=== PATIENT | female | born 1950 | race Caucasian/White ===

== ENCOUNTER 2021-07-29 05:13 | Inpatient (IN) | payer OTHER ==
[2021-07-22 15:13] LABS: BASOPHILS # (AUTO) 0.1 X10'3 (0-0.2); BASOPHILS % (AUTO) 0.5 % (0-1); EOSINOPHILS # (AUTO) 0.5 X10'3 (0-0.9); EOSINOPHILS % (AUTO) 4.6 % (0-6); LYMPHOCYTES # (AUTO) 1.6 X10'3 (1.1-4.8); LYMPHOCYTES % (AUTO) 13.1 % (21-51); MEAN CORPUSCULAR HEMOGLOBIN 29.8 PG (27.0-31.0); MEAN CORPUSCULAR VOLUME 90.3 FL (78-98); MEAN PLATELET VOLUME 7.7 FL (7.4-10.4); MONOCYTES # (AUTO) 0.7 X10'3 (0-0.9); MONOCYTES % (AUTO) 5.6 % (2-12); NEUTROPHILS % (AUTO) 76.2 % (42-75); PRE OP HEMATOCRIT 42.6 % (35.0-45.0); PRE OP HEMOGLOBIN 14.1 g/dL (12.0-16.0); PRE OP PLATELET COUNT 300 X10'3 (140-440); RED BLOOD COUNT 4.72 X10'6 (4.20-5.60); RED CELL DISTRIBUTION WIDTH 15.8 % (11.5-14.5)
[2021-07-22 15:24] LABS: PRE OP INR 1.1 INR; PRE OP PROTIME 11.2 SECONDS (9.0-12.0)
[2021-07-22 15:28] LABS: ALBUMIN 3.5 G/DL (3.4-5.0); ALKALINE PHOSPHATASE 93 IU/L (46-116); BLOOD UREA NITROGEN 15 MG/DL (7-18); CHLORIDE 106 MMOL/L (99-107); PRE OP ALT 25 U/L (30-65); PRE OP ANION GAP 6 (8-16); PRE OP AST 27 U/L (10-37); PRE OP BILIRUB, TOTAL 0.5 MG/DL (0.0-1.0); PRE OP GLUCOSE 104 MG/DL (70-104); PRE OP POTASSIUM 5.1 MMOL/L (3.4-5.1); PRE OP SODIUM 144 MMOL/L (135-145); TOTAL CARBON DIOXIDE 31.6 MMOL/L (24-32); TOTAL PROTEIN 6.9 G/DL (6.4-8.2); eGFR 55 ML/MIN
[2021-07-22 15:33] LABS: HEMOGLOBIN A1C 6.5 % (4.5-6.2)
[~2021-07-29] VITALS: Ht 160 cm; Wt 104.6 kg
[2021-07-29] VITALS (24 sets, daily range): BP systolic 154–220; BP diastolic 56–108
[~2021-07-29 05:13] MED LIST: ALBU8HFA IH; AMIT-189 PO; AMLO10TA PO; ASPI-1397 PO; ATOR20TA66 PO; GABA600T13 PO; HYDR25TA5 PO; KEN0.1O TP; LOSA25TA96 PO; METF-438 PO; METO-411 PO; OMEP40CA21 PO; ONDA-103 PO; PRAZ5CAP2 PO; SUCR1TAB PO; TEMA15CA5 PO; TIZA4CAP PO; ringers solution, lacted 1,000 ML IV SCH
[2021-07-29] MEDS ORDERED: albuterol 2.5 MG/3 ML nebule NEB ONE (05:30)
[2021-07-29] MEDS ORDERED: ceFOXitin 2GM-NS 100mL ADDvant 100 ML IV ONE (05:30)
[2021-07-29] MEDS ORDERED: DOCUMENT DATE & TIME OF BETA-BLOCKER PO ONE (05:30)
[2021-07-29] MEDS ORDERED: famotidine 20mg tablet PO ONE (05:30)
[2021-07-29] MEDS ORDERED: LIDOcaine 1% 30ml preserv. free vial ONE ×2 (06:48→07:25)
[2021-07-29] MEDS ORDERED: BUPIVAcaine/PF 2.5mg/ml (0.25%) 10ml vial ONE ×2 (06:48→07:24)
[2021-07-29] MEDS ORDERED: midazolam 1 mg/ML 2ml injection ONE (07:24)
[2021-07-29] MEDS ORDERED: fentaNYL /PF 50mcg/ml 5ml ampule ONE (07:24)
[2021-07-29] MEDS ORDERED: BUPIVACAINE liposomal/PF 13.3 MG/ML vial IM ONE (07:24)
[2021-07-29] MEDS ORDERED: labetalol 20mg/4ml (5mg/ml) syringe IV ONE (07:43)
[2021-07-29] MEDS ORDERED: rocuronium 10mg/ml inj IV ONE ×2 (07:43→11:14)
[2021-07-29] MEDS ORDERED: neostigmine methylsulfate 1 MG/ML 10ml vial ONE (07:43)
[2021-07-29] MEDS ORDERED: sevoflurane 250ml liquid IH ONE (07:43)
[2021-07-29] MEDS ORDERED: HYDROmorphone/PF 0.2 MG/ML SYRINGE IV PRN ×2 (10:50)
[2021-07-29] MEDS ORDERED: ondansetron/PF 4mg/2ml inj IV PRN (10:50)
[2021-07-29] MEDS ORDERED: morphine 2 MG/ML inj. syringe IV PRN (10:50)
[2021-07-29] MEDS ORDERED: ringers solution, lacted 1,000 ML IV SCH (10:50)
[2021-07-29] MEDS ORDERED: LIDOcaine 2% (20mg/ml) 5ml vial ONE (11:14)
[2021-07-29] MEDS ORDERED: propofol inj 20 ML IV ONE (11:14)
[2021-07-29] MEDS ORDERED: acetaminophen 1,000mg/100ml IV 100 ML IV ONE (11:14)
[2021-07-29] MEDS ORDERED: ondansetron/PF 4mg/2ml inj ONE (11:14)
[2021-07-29] MEDS ORDERED: sugammadex 200mg/2ml injection IV ONE (14:02)
[2021-07-29] MEDS ORDERED: glycopyrrolate 0.2mg/ml inj ONE (14:10)
[2021-07-29] MEDS ORDERED: ePHEDrine 50MG/ML INJ. ONE (14:11)
[2021-07-29] MEDS ORDERED: meperidine/PF 25mg/ml syringe ONE (14:28)
--- NOTE | 2021-07-29 14:30 | NUR ---
Received from OR via , accompanied by Anesthesiologist and report given by Anesthesiolgist. PATIENT WAKING UP, PAIN MEDS GIVEN ON ARRIVAL BY MD. HTN-LABATOLOL GIVEN. SCD ON. F/C DRAINING PINK URINE. 20G RUE. COL.OSTOMY SEALED WITH PINK STOMA CDI. MIDLINE ABDOMEN DRESSING WITH FOAM SPONGES PACKED INTO INCISION WITH WV DRESSING CDI AT 125 CONTINOUS SUCTION WITH NO LEAKS DETECTED
[2021-07-29] MEDS ORDERED: naloxone 0.4 mg/ml inj IV PRN (14:35)
[2021-07-29] MEDS ORDERED: CADD PCA waste documentation MC PRN (14:35)
[2021-07-29 14:46] LABS: ISTAT CREATININE 0.9 mg/dL (0.6-1.1); ISTAT HGB 15.6 g/dl (12.0-16.0); ISTAT IONIZED CALCIUM 1.02 mmol/L (1.03-1.32); ISTAT K 4.1 mmol/L (3.5-5.1); POC BUN/CREATININE RATIO 14.4 (6.6-38.0)
[2021-07-29] MEDS ORDERED: hydrALAZINE 20mg/ml inj. IV PRN (14:55)
[2021-07-29] MEDS ORDERED: hydrALAZINE 20mg/ml inj. IV ONE ×2 (15:10→18:15)
[2021-07-29] MEDS: HYDROmorph./NS 0.2 mg/ml CADD 100 ML IV SCH ×5 (15:11→23:00)
[2021-07-29] MEDS ORDERED: ceFOXitin 1 GM/D5W 50mL IVPB 50 ML IV SCH (16:00)
--- NOTE | 2021-07-29 16:09 | NUR ---
Received report from OSMAN Shea. Awaiting patient arrival to room 349B.
[2021-07-29] MEDS ORDERED: proCHLORperazine 10 MG/2 ml inj IM ONE (16:10)
--- NOTE | 2021-07-29 16:20 | NUR ---
PATIENT A&OX4, STATES PAIN INTERMITTENT TOURING PRODUCTION MANAGER ENCOURAGED. SCD ON. F/C DRAINING PINK URINE. 20G RUE. COLOSTOMY SEALED WITH PINK STOMA CDI. MIDLINE ABDOMEN DRESSING WITH FOAM SPONGES PACKED INTO INCISION WITH WV DRESSING CDI AT 125 CONTINOUS SUCTION WITH NO LEAKS DETECTED. N&v at times meds ordered see emar- zofran given. patient taken to 346a with all belongings and hooked up to monitors in room and report given to heel turner who has taken over patient care.
--- NOTE | 2021-07-29 16:35 | NUR ---
Received patient to room 349B via bed accompanied by x2 staff. Patient drowsy but easily awakens to voice. Patient c/o pain 09/07. Patient has dilaudid cadd pump. Zofran given to patient prior to arrival to floor. Wound vac 125mmhg suctioning with no issue. Hewitt cath with pink urine draining to gravity. SCD on. Post op initiated, vss. Wll continue to monitor.
[2021-07-29] MEDS ORDERED: proCHLORperazine 10 MG/2 ml inj IV ONE (17:05)
--- NOTE | 2021-07-29 17:38 | NUR ---
PAGER ID: [phone] MESSAGE: [id number]- Manny Chavisa- BP is 194/84 Hr 92. Was given hydralazine 2 hours ago. Patient denies pain or discomfort at this time. - Thank you, Gunnar [phone]
--- NOTE | 2021-07-29 18:14 | NUR ---
PAGER ID: [phone] MESSAGE: [id number]- Rachele Camargo- BP is now 214/93 HR 85. [facility] [place] [id number]
[2021-07-29] MEDS: Potassium Cl inj 20 MEQ in ringers solution, lacted 1,000 ML IV SCH ×2 (18:30→22:40)
--- NOTE | 2021-07-29 18:43 | NUR ---
Patient in room ROSAL[facility] 349. I have received report from Gunnar BREWER and had the opportunity to ask questions and assume patient care.
--- NOTE | 2021-07-29 18:52 | NUR ---
Problems reprioritized. Patient report given, questions answered & plan of care reviewed with OSMAN Griffin. 1800 dose Mefoxin unavailable to be given pharmacy was paged. OSMAN Griffin aware.
[2021-07-29] MEDS: ceFOXitin inj 1,000 MG in normal saline 100ml IV soln 100 ML IV SCH (20:35)
[2021-07-29] MEDS ORDERED: dextrose ORAL solution 15 GM/59 ML bottle PO PRN ×2 (20:45)
[2021-07-29] MEDS ORDERED: glucagon, human recombinant 1mg kit SUBCUT PRN (20:45)
[2021-07-29] MEDS ORDERED: MESSAGE TO PHARMACY PO ONE (20:45)
[2021-07-29] MEDS ORDERED: dextrose 50%-water 50ml dispensing syringe IV PRN ×2 (20:45)
[2021-07-29] MEDS ORDERED: albuterol 2.5 MG/3 ML nebule NEB PRN (20:50)
[2021-07-29] MEDS: insulin glargine (Lantus) pen - multi-dose SQ SCH (21:00)
[2021-07-29] MEDS ORDERED: amLODIPine 5mg tablet PO SCH (21:00)
[2021-07-29] MEDS: metoprolol succinate 25mg (24-HOUR) SR. Tablet PO SCH (21:00)
[2021-07-29] MEDS ORDERED: HYDROchlorothiazide 12.5mg capsule PO SCH (21:00)
[2021-07-29] MEDS: albuterol 2.5 MG/3 ML nebule NEB SCH (21:39)
[2021-07-29] MEDS: prazosin 1mg capsule PO SCH (23:35)
[2021-07-29] MEDS: sucralfate 1 gm tablet PO SCH (23:35)
[2021-07-29] MEDS: losartan 50mg tablet PO SCH (23:35)
[2021-07-30] VITALS: BP 172/93
[2021-07-30] MEDS: HYDROmorph./NS 0.2 mg/ml CADD 100 ML IV SCH ×12 (01:00→23:00)
[2021-07-30] MEDS: ceFOXitin inj 1,000 MG in normal saline 100ml IV soln 100 ML IV SCH (02:32)
[2021-07-30] MEDS ORDERED: hydrALAZINE 20mg/ml inj. IV ONE ×2 (03:00→09:00)
[2021-07-30] MEDS: ondansetron/PF 4mg/2ml inj IV PRN ×3 (05:21→20:16)
[2021-07-30] MEDS: Potassium Cl inj 20 MEQ in ringers solution, lacted 1,000 ML IV SCH (05:30)
[2021-07-30 06:16] LABS: BASOPHILS % (AUTO) 0 % (0-1); EOSINOPHILS % (AUTO) 0 % (0-6); HEMATOCRIT 44.5 % (35.0-45.0); HEMOGLOBIN 14.4 g/dl (12.0-16.0); LYMPHOCYTES # (AUTO) 0.8 X10'3 (1.1-4.8); LYMPHOCYTES % (AUTO) 3.7 % (21-51); MEAN CORPUSCULAR HEMOGLOBIN 29.6 PG (27.0-31.0); MEAN CORPUSCULAR HGB CONC 32.4 g/dL (33.0-36.5); MEAN CORPUSCULAR VOLUME 91.4 FL (78-98); MEAN PLATELET VOLUME 8.4 FL (7.4-10.4); MONOCYTES # (AUTO) 1.1 X10'3 (0-0.9); MONOCYTES % (AUTO) 4.7 % (2-12); NEUTROPHILS # (AUTO) 20.6 X10'3 (1.8-7.7); NEUTROPHILS % (AUTO) 91.6 % (42-75); PLATELET COUNT 366 X10'3 (140-440); RED BLOOD COUNT 4.87 X10'6 (4.20-5.60); RED CELL DISTRIBUTION WIDTH 15.5 % (11.5-14.5); WHITE BLOOD COUNT 22.5 X10'3 (4.5-11.0)
[2021-07-30 06:29] LABS: ALBUMIN 3.3 G/DL (3.4-5.0); ANION GAP 13 (8-16); BLOOD UREA NITROGEN 17 MG/DL (7-18); CALCIUM 7.4 MG/DL (8.5-10.1); CHLORIDE 107 MMOL/L (99-107); CREATININE 1.31 MG/DL (0.40-0.90); GLUCOSE 173 MG/DL (70-104); POTASSIUM 5.2 MMOL/L (3.5-5.1); SODIUM 142 MMOL/L (135-145); TOTAL CARBON DIOXIDE 22.5 MMOL/L (24-32); eGFR 40 ML/MIN
--- NOTE | 2021-07-30 06:53 | NUR ---
Problems reprioritized. Patient report given, questions answered & plan of care reviewed with Amita BREWER.
--- NOTE | 2021-07-30 06:57 | NUR ---
Patient in room ROSALEE 349. I have received report from OSMAN Griffin and had the opportunity to ask questions and assume patient care.
[2021-07-30 07:00] VITALS: BP 189/92
[2021-07-30] MEDS: albuterol 2.5 MG/3 ML nebule NEB SCH ×4 (07:00→20:09)
[2021-07-30] MEDS: sucralfate 1 gm tablet PO SCH ×4 (07:00→22:03)
[2021-07-30] MEDS: losartan 50mg tablet PO SCH ×2 (08:00→09:03)
[2021-07-30] MEDS: pantoprazole 40mg Tablet.DR PO SCH (08:00)
[2021-07-30] MEDS: metoprolol succinate 25mg (24-HOUR) SR. Tablet PO SCH (08:00)
[2021-07-30] MEDS: atorvastatin 20mg tablet PO SCH (08:00)
[2021-07-30] MEDS: aspirin 81mg, enteric-coated 1 TAB TABLET.DR PO SCH (08:00)
[2021-07-30] MEDS: enoxaparin 40mg/0.4ml syringe SQ SCH (08:26)
[2021-07-30] MEDS: hydrALAZINE 20mg/ml inj. IV SCH ×2 (08:26→14:13)
--- NOTE | 2021-07-30 08:30 | NUR ---
Dr Roberts notified regarding appearance of new colostomy with coagulated and sanguinous drainage. Also informed him of tachycardia and elevated potassium. No new orders received and Dr Roberts directed this RN to notify hospitalist with medical concerns. Will contact hospitalist and continue to monitor.
--- NOTE | 2021-07-30 08:40 | NUR ---
Dr Goss notified of pt's tachycardia, elevated potassium level, WBC count, and blood pressures. Orders received to transfer pt to PCU, as well as labs to be drawn and medications ordered. NSG supervisor parachute manufacturing notified, will continue to monitor.
[2021-07-30] MEDS: insulin Lispro (HumaLOG) vial - multi-dose SQ SCH ×2 (08:45→13:30)
[2021-07-30] MEDS ORDERED: temazepam 15mg capsule PO PRN (08:55)
[2021-07-30] MEDS ORDERED: potassium Cl 20 mEq SR tablet PO PRN ×2 (09:00)
[2021-07-30] MEDS ORDERED: magnesium 4gm in 100ml NS 100 ML IV PRN (09:00)
[2021-07-30] MEDS ORDERED: normal saline 1000ml 1,000 ML IV ONE (09:00)
[2021-07-30] MEDS ORDERED: piperacillin/tazo 3.375gm/50ml 50 ML IV SCH (09:00)
[2021-07-30] MEDS ORDERED: potassium Cl 40MEQ/1/2NS 520ml 520 ML IV PRN (09:00)
[2021-07-30] MEDS: amLODIPine 5mg tablet PO SCH (09:01)
[2021-07-30] MEDS ORDERED: tizanidine 4mg tablet PO PRN (09:05)
[2021-07-30 09:23] VITALS: BP 140/72
[2021-07-30 11:00] VITALS: BP 161/77
--- NOTE | 2021-07-30 11:15 | NUR ---
Problems reprioritized. Patient report given, questions answered & plan of care reviewed with OSMAN Barnes.
[2021-07-30] MEDS: normal saline 1000ml 1,000 ML IV SCH (11:21)
--- NOTE | 2021-07-30 11:40 | NUR ---
Pt transferred to room 3020 on hospital bed, with all belongings. notified of transfer.
--- NOTE | 2021-07-30 12:12 | NUR ---
Patient in room PCU 3020. I have received report from OSMAN MOSS and had the opportunity to ask questions and assume patient care.
[2021-07-30] MEDS: vancomycin/NS 1 GM ADD-VANTAGE 250 ML IV SCH (14:16)
[2021-07-30] MEDS ORDERED: labetalol 20mg/4ml (5mg/ml) syringe IV ONE ×2 (14:40→16:00)
--- NOTE | 2021-07-30 15:48 | NUR ---
SENT PAGE PAGER ID: [phone] MESSAGE: [id number] ARGELIA TSANG, HEART RATE 120. THANK YOU MORA [phone]
--- NOTE | 2021-07-30 15:58 | NUR ---
Orders for 20mg of labetalol put in per Dr. Goss.
[2021-07-30] MEDS ORDERED: LORazepam 2 mg/ml vial IV PRN (16:00)
[2021-07-30] MEDS ORDERED: LORazepam 2 mg/ml vial IV ONE (16:00)
--- NOTE | 2021-07-30 16:11 | NUR ---
Spoke with pharmacy regarding 20mg of labetalol that was given but that the primary nurse OSMAN Barnes did not remember administering. I looked in the omnicell to see when the last time was that the medication was pulled and couldn't see it. I called pharmacy and spoke with them and they said that it shows through the eMAR that the medication was administered but that the medication had not been pulled from the omnicell and that the primary RN must have not given the dose that was ordered. Primary RN notified of the situation and Dr. Goss will be paged regarding it as well.
--- NOTE | 2021-07-30 16:19 | NUR ---
Paged Dr. Goss regarding medication administration. PAGER ID: [phone] MESSAGE: [phone]. Rachele Chavis. Investigated the medication with pharmacy. Medication was never pulled or administered. Nurse administered through eMAR accidentally. Thank you. Kaye BREWER x [phone] Addendum: 07/30/21 at 1623 by Kaye Ramon RN Dr. Goss called back and is aware.
--- NOTE | 2021-07-30 16:54 | NUR ---
Problems reprioritized. Patient report given, questions answered & plan of care reviewed with OSMAN ANNA.
--- NOTE | 2021-07-30 16:55 | NUR ---
Patient in room PCU 3020. I have received report from OSMAN Barnes and had the opportunity to ask questions and assume patient care. Patient asleep in bed and in no acute distress.
[2021-07-30 18:00] VITALS: BP 114/53
[2021-07-30] MEDS: K and/or MAG REPLACEMENT MC SCH (20:00)
[2021-07-30] MEDS: piperacillin/tazo 3.375gm/50ml 50 ML IV SCH (20:15)
[2021-07-30] MEDS: gabapentin 300mg capsule PO SCH (20:28)
[2021-07-30] MEDS: amitriptyline 25mg tablet PO SCH (20:29)
[2021-07-30 22:00] VITALS: BP 147/67
[2021-07-30] MEDS: prazosin 1mg capsule PO SCH (22:03)
[2021-07-30] MEDS: insulin glargine (Lantus) pen - multi-dose SQ SCH (22:10)
[2021-07-30] MEDS: triamcinolone acet 0.1% cream 15gm TP SCH (22:11)
[2021-07-31] MEDS: HYDROmorph./NS 0.2 mg/ml CADD 100 ML IV SCH ×10 (01:00→20:00)
[2021-07-31 02:00] VITALS: BP 168/66
[2021-07-31] MEDS: piperacillin/tazo 3.375gm/50ml 50 ML IV SCH ×3 (02:35→19:58)
[2021-07-31] MEDS: normal saline 1000ml 1,000 ML IV SCH ×3 (02:36→20:50)
[2021-07-31 06:00] VITALS: BP 165/83
[2021-07-31 06:09] LABS: BASOPHILS % (AUTO) 0 % (0-1); EOSINOPHILS % (AUTO) 0 % (0-6); HEMATOCRIT 34.9 % (35.0-45.0); HEMOGLOBIN 11.5 g/dl (12.0-16.0); LYMPHOCYTES # (AUTO) 0.6 X10'3 (1.1-4.8); LYMPHOCYTES % (AUTO) 6.1 % (21-51); MEAN CORPUSCULAR HEMOGLOBIN 29.7 PG (27.0-31.0); MEAN CORPUSCULAR HGB CONC 32.8 g/dL (33.0-36.5); MEAN CORPUSCULAR VOLUME 90.4 FL (78-98); MEAN PLATELET VOLUME 8.4 FL (7.4-10.4); MONOCYTES # (AUTO) 0.5 X10'3 (0-0.9); MONOCYTES % (AUTO) 5.2 % (2-12); NEUTROPHILS # (AUTO) 8.4 X10'3 (1.8-7.7); NEUTROPHILS % (AUTO) 88.7 % (42-75); PLATELET COUNT 193 X10'3 (140-440); RED BLOOD COUNT 3.86 X10'6 (4.20-5.60); RED CELL DISTRIBUTION WIDTH 15.5 % (11.5-14.5); WHITE BLOOD COUNT 9.5 X10'3 (4.5-11.0)
--- NOTE | 2021-07-31 06:36 | NUR ---
Patient in room PCU 3020. I have received report from OSMAN Barrera and had the opportunity to ask questions and assume patient care.
[2021-07-31 06:51] LABS: ALANINE AMINOTRANSFERASE 18 U/L (12-78); ALBUMIN 2.5 G/DL (3.4-5.0); ALBUMIN/GLOBULIN RATIO 0.9 (1.1-1.5); ALKALINE PHOSPHATASE 79 IU/L (46-116); ANION GAP 8 (8-16); ASPARTATE AMINO TRANSFERASE 28 U/L (10-37); BILIRUBIN,TOTAL 0.6 MG/DL (0.1-1.0); BLOOD UREA NITROGEN 21 MG/DL (7-18); BUN/CREATININE RATIO 18.4 (6.6-38.0); CHLORIDE 111 MMOL/L (99-107); CREATININE 1.14 MG/DL (0.40-0.90); GLUCOSE 143 MG/DL (70-104); PHOSPHORUS 2.9 MG/DL (2.3-4.5); POTASSIUM 4.4 MMOL/L (3.5-5.1); SODIUM 145 MMOL/L (135-145); TOTAL PROTEIN 5.4 G/DL (6.4-8.2); eGFR 47 ML/MIN
[2021-07-31 06:56] LABS: MAGNESIUM 0.9 MG/DL (1.5-2.4)
--- NOTE | 2021-07-31 07:04 | NUR ---
Notified Dr Brody of low mg on this morning's labs: PAGER ID: [phone] MESSAGE: Partha Gayle [phone] CRIT mag 0.9. Would you like to replace? Jaquelin [phone]
[2021-07-31] MEDS: aspirin 81mg, enteric-coated 1 TAB TABLET.DR PO SCH (07:52)
[2021-07-31] MEDS: amLODIPine 5mg tablet PO SCH (07:52)
[2021-07-31] MEDS: pantoprazole 40mg Tablet.DR PO SCH (07:52)
[2021-07-31] MEDS: atorvastatin 20mg tablet PO SCH (07:52)
[2021-07-31] MEDS: sucralfate 1 gm tablet PO SCH ×2 (07:53→12:00)
[2021-07-31] MEDS: losartan 50mg tablet PO SCH ×2 (07:53)
[2021-07-31] MEDS: enoxaparin 40mg/0.4ml syringe SQ SCH (07:55)
[2021-07-31] MEDS: magnesium Cl slow-release 64mg tablet PO PRN ×2 (07:55→21:47)
[2021-07-31] MEDS: K and/or MAG REPLACEMENT MC SCH ×2 (08:00→20:00)
[2021-07-31] MEDS ORDERED: HYDROchlorothiazide 25mg tablet PO SCH (08:00)
[2021-07-31] MEDS: triamcinolone acet 0.1% cream 15gm TP SCH ×2 (08:00→21:48)
[2021-07-31] MEDS: albuterol 2.5 MG/3 ML nebule NEB SCH ×4 (08:10→19:41)
[2021-07-31] MEDS: metoprolol succinate 25mg (24-HOUR) SR. Tablet PO SCH (09:14)
[2021-07-31] MEDS: vancomycin/NS 1 GM ADD-VANTAGE 250 ML IV SCH (09:14)
[2021-07-31 11:00] VITALS: BP 157/71
[2021-07-31 18:00] VITALS: BP 152/74
[2021-07-31 19:00] VITALS: BP 152/74
--- NOTE | 2021-07-31 19:09 | NUR ---
Problems reprioritized. Patient report given, questions answered & plan of care reviewed with OSMAN Murphy.
[2021-07-31] MEDS: insulin glargine (Lantus) pen - multi-dose SQ SCH (21:00)
[2021-07-31] MEDS: prazosin 1mg capsule PO SCH (21:47)
[2021-07-31] MEDS: lactobacillus rhamnosus 10,000 MMU CELLS/CAPSULE PO SCH (21:47)
[2021-07-31] MEDS: gabapentin 300mg capsule PO SCH (21:47)
[2021-07-31] MEDS: amitriptyline 25mg tablet PO SCH (21:47)
[2021-07-31 22:00] VITALS: BP 183/76
--- NOTE | 2021-07-31 23:00 | NUR ---
NGT attempted several times both nares, pt stated "I just can't do it", "this isn't going to work, stop". Will talk with pt about it later, and possibly attempt again as pt allows. Pt has denied nausea while being able to keep down her po medications given this noc shift. Addendum: 08/01/21 at 0030 by Katherine Wiggins RN Amended: Links added.
[2021-08-01 02:00] VITALS: BP 155/68
[2021-08-01] MEDS: normal saline 1000ml 1,000 ML IV SCH ×2 (02:59→23:49)
[2021-08-01] MEDS: piperacillin/tazo 3.375gm/50ml 50 ML IV SCH ×3 (03:01→19:30)
[2021-08-01] MEDS: HYDROmorph./NS 0.2 mg/ml CADD 100 ML IV SCH ×11 (04:00→23:00)
[2021-08-01 06:59] VITALS: BP 182/80
--- NOTE | 2021-08-01 07:03 | NUR ---
Patient in room PCU 3020. I have received report from Katherine BREWER and had the opportunity to ask questions and assume patient care.
[2021-08-01] MEDS: albuterol 2.5 MG/3 ML nebule NEB SCH ×4 (07:39→19:29)
[2021-08-01] MEDS: aspirin 81mg, enteric-coated 1 TAB TABLET.DR PO SCH (07:59)
[2021-08-01] MEDS: amLODIPine 5mg tablet PO SCH (07:59)
[2021-08-01] MEDS: metoprolol succinate 25mg (24-HOUR) SR. Tablet PO SCH (07:59)
[2021-08-01] MEDS: pantoprazole 40mg Tablet.DR PO SCH (07:59)
[2021-08-01] MEDS: atorvastatin 20mg tablet PO SCH (07:59)
[2021-08-01] MEDS: enoxaparin 40mg/0.4ml syringe SQ SCH (08:00)
[2021-08-01] MEDS: losartan 50mg tablet PO SCH (08:00)
[2021-08-01] MEDS: lactobacillus rhamnosus 10,000 MMU CELLS/CAPSULE PO SCH ×2 (08:00→19:50)
[2021-08-01] MEDS: triamcinolone acet 0.1% cream 15gm TP SCH ×2 (08:00→19:51)
[2021-08-01] MEDS: K and/or MAG REPLACEMENT MC SCH ×2 (08:00→19:51)
--- NOTE | 2021-08-01 08:31 | NUR ---
Contacted Dr Roberts regarding patient is having brenda dark blood coming out of colostomy bag. I emptied 100ml's no labs drawn on patient today. Received orders for CBC, BMP, Per Dr Roberts ok to give patient her Lovenox per orders. Advised Dr Roberts that patient has a lot of mucus in lungs and that she has wheezes. Received orders for Flutter valve on top of her IS use. Also. Received orders for PT eval land treat. Keep sky in for 5 days.
[2021-08-01 09:10] LABS: BASOPHILS % (AUTO) 0.1 % (0-1); EOSINOPHILS % (AUTO) 0.2 % (0-6); HEMOGLOBIN 12.4 g/dl (12.0-16.0); LYMPHOCYTES # (AUTO) 0.4 X10'3 (1.1-4.8); LYMPHOCYTES % (AUTO) 10.7 % (21-51); MEAN CORPUSCULAR HEMOGLOBIN 29.7 PG (27.0-31.0); MEAN CORPUSCULAR HGB CONC 31.8 g/dL (33.0-36.5); MEAN CORPUSCULAR VOLUME 93.4 FL (78-98); MEAN PLATELET VOLUME 7.9 FL (7.4-10.4); MONOCYTES # (AUTO) 0.6 X10'3 (0-0.9); MONOCYTES % (AUTO) 16.1 % (2-12); NEUTROPHILS # (AUTO) 2.8 X10'3 (1.8-7.7); NEUTROPHILS % (AUTO) 72.9 % (42-75); PLATELET COUNT 196 X10'3 (140-440); RED BLOOD COUNT 4.17 X10'6 (4.20-5.60); RED CELL DISTRIBUTION WIDTH 16.3 % (11.5-14.5); WHITE BLOOD COUNT 3.8 X10'3 (4.5-11.0)
[2021-08-01] MEDS: vancomycin/NS 1 GM ADD-VANTAGE 250 ML IV SCH (09:18)
[2021-08-01] MEDS ORDERED: tizanidine 4mg tablet PO PRN (09:25)
[2021-08-01 09:26] LABS: ALBUMIN 2.5 G/DL (3.4-5.0); ANION GAP 8 (8-16); BLOOD UREA NITROGEN 22 MG/DL (7-18); BUN/CREATININE RATIO 21.2 (6.6-38.0); CALCIUM 7.4 MG/DL (8.5-10.1); CHLORIDE 110 MMOL/L (99-107); CREATININE 1.04 MG/DL (0.40-0.90); GLUCOSE 136 MG/DL (70-104); POTASSIUM 3.7 MMOL/L (3.5-5.1); SODIUM 143 MMOL/L (135-145); TOTAL CARBON DIOXIDE 25.3 MMOL/L (24-32); eGFR 52 ML/MIN
[2021-08-01 11:00] VITALS: BP 154/77
--- NOTE | 2021-08-01 11:34 | NUR ---
PAGER ID: [phone] MESSAGE[phone] Re: Partha. [phone] Please call patients sky not working has approx. 310ml in bladder Per Dr Brody contact Dr Brewer regarding this issue
--- NOTE | 2021-08-01 11:51 | NUR ---
Contacted Dr Brewer office and they will send her a message to contact me
--- NOTE | 2021-08-01 12:37 | NUR ---
Irrigated patients with 60 cc sterile water, 60 cc returned and urine is now flowing did not see any clots but sky is working well now
[2021-08-01 15:00] VITALS: BP 128/73
--- NOTE | 2021-08-01 15:17 | NUR ---
No wound care today tried to call them. Per Electronics Instructor Meryl they are not here. I advised I have a patient that needs to have a wound vac changed. Meryl stated she can come up and do it. I spoke to Dr Roberts and if the survey supervisor can do it that is fine other faria she needs to have wet to dry done this afternoon then Wet to dry BID. Meryl survey supervisor aware and will come up to floor and change dressing.
[2021-08-01 16:18] LABS: MAGNESIUM 1.3 MG/DL (1.5-2.4); PHOSPHORUS 2.5 MG/DL (2.3-4.5)
--- NOTE | 2021-08-01 16:53 | NUR ---
Meryl linen room supervisor came and changed patients wound vac. Patient tolerated well all black foam dc'd by meryl minimal bleeding in wound bed. Meryl replaced patients black foam in the upper wound bed and tracked to the lower wound bed. Drapping covered good skin and black foam placed on top to track foam to lower wound bed which completed one large black foam, a partial black foam from large package was added to larger wound bed. Wound bed was filled with black foam and suction applied over black foam with draping to secure. Wound vac turned back on and suction seal was good at 125 mmHg dressing looked good dressing all intact patient tolerated well. Total foams used approx 1 1/2 large foam dressing.
--- NOTE | 2021-08-01 18:40 | NUR ---
Problems reprioritized. Patient report given, questions answered & plan of care reviewed with Katherine BREWER.
[2021-08-01 19:00] VITALS: BP 120/63
[2021-08-01] MEDS: prazosin 1mg capsule PO SCH (19:49)
[2021-08-01] MEDS: amitriptyline 25mg tablet PO SCH (19:50)
[2021-08-01] MEDS: gabapentin 300mg capsule PO SCH (19:50)
[2021-08-01] MEDS: magnesium Cl slow-release 64mg tablet PO PRN (19:50)
[2021-08-01] MEDS: insulin glargine (Lantus) pen - multi-dose SQ SCH (21:00)
[2021-08-01 22:00] VITALS: BP 135/70
[2021-08-02] MEDS: HYDROmorph./NS 0.2 mg/ml CADD 100 ML IV SCH ×12 (01:00→23:00)
[2021-08-02 02:00] VITALS: BP 102/51
[2021-08-02] MEDS: piperacillin/tazo 3.375gm/50ml 50 ML IV SCH ×3 (03:06→19:00)
[2021-08-02 06:00] VITALS: BP 101/44
--- NOTE | 2021-08-02 06:41 | NUR ---
Problems reprioritized. Patient report given, questions answered & plan of care reviewed with Yolanda BREWER. Addendum: 08/02/21 at 0642 by Katherine Wiggins RN Amended: Links added.
--- NOTE | 2021-08-02 07:00 | NUR ---
Pt refused 0700 bg check.
[2021-08-02] MEDS: albuterol 2.5 MG/3 ML nebule NEB SCH ×4 (07:49→20:04)
[2021-08-02] MEDS ORDERED: metoprolol succinate 25mg (24-HOUR) SR. Tablet PO SCH (08:00)
[2021-08-02] MEDS: K and/or MAG REPLACEMENT MC SCH ×2 (08:00→19:06)
[2021-08-02] MEDS ORDERED: VANCOMYCIN LEVEL IV ONE (08:30)
[2021-08-02] MEDS ORDERED: methylnaltrexone br 12mg/0.6ml inj***SubQ only SQ ONE (08:45)
[2021-08-02 08:48] LABS: EOSINOPHILS % (AUTO) 0.4 % (0-6); HEMOGLOBIN 10.5 g/dl (12.0-16.0); LYMPHOCYTES # (AUTO) 0.3 X10'3 (1.1-4.8); MEAN PLATELET VOLUME 7.8 FL (7.4-10.4); MONOCYTES # (AUTO) 0.6 X10'3 (0-0.9); NEUTROPHILS # (AUTO) 0.7 X10'3 (1.8-7.7); PLATELET COUNT 173 X10'3 (140-440); RED CELL DISTRIBUTION WIDTH 16.1 % (11.5-14.5); WHITE BLOOD COUNT 1.7 X10'3 (4.5-11.0)
[2021-08-02 08:50] LABS: BASOPHILS % (AUTO) 0.1 % (0-1); HEMATOCRIT 32.8 % (35.0-45.0); LYMPHOCYTES % (AUTO) 18.7 % (21-51); MEAN CORPUSCULAR HEMOGLOBIN 29.8 PG (27.0-31.0); MEAN CORPUSCULAR HGB CONC 32.1 g/dL (33.0-36.5); MONOCYTES % (AUTO) 38.7 % (2-12); NEUTROPHILS % (AUTO) 42.1 % (42-75); RED BLOOD COUNT 3.53 X10'6 (4.20-5.60)
[2021-08-02 09:05] LABS: ALANINE AMINOTRANSFERASE 15 U/L (12-78); ALBUMIN 2.1 G/DL (3.4-5.0); ALBUMIN/GLOBULIN RATIO 0.7 (1.1-1.5); ALKALINE PHOSPHATASE 53 IU/L (46-116); ANION GAP 6 (8-16); ASPARTATE AMINO TRANSFERASE 14 U/L (10-37); BILIRUBIN,TOTAL 0.5 MG/DL (0.1-1.0); BLOOD UREA NITROGEN 30 MG/DL (7-18); BUN/CREATININE RATIO 19.5 (6.6-38.0); CALCIUM 7.3 MG/DL (8.5-10.1); CHLORIDE 114 MMOL/L (99-107); CREATININE 1.54 MG/DL (0.40-0.90); GLUCOSE 133 MG/DL (70-104); MAGNESIUM 1.7 MG/DL (1.5-2.4); PHOSPHORUS 3.8 MG/DL (2.3-4.5); POTASSIUM 4.2 MMOL/L (3.5-5.1); SODIUM 149 MMOL/L (135-145); TOTAL CARBON DIOXIDE 29.1 MMOL/L (24-32); TOTAL PROTEIN 5.2 G/DL (6.4-8.2); VANCOMYCIN,TROUGH 12.9 UG/ML (6.0-14.0); eGFR 33 ML/MIN
[2021-08-02 09:14] LABS: ANISOCYTOSIS 1+; PLATELET ESTIMATE NORMAL; TOTAL CELLS COUNTED 100
[2021-08-02 10:00] VITALS: BP 115/63
[2021-08-02 10:25] LABS: ABG BASE EXCESS -1.5 mmol/L (-2.0-2.0); ABG HCO3 26.8 mmol/L (22.0-26.0); ABG OXYGEN SATURATION 96.4 % (94-97); ABG PO2 (T) 86.6 mmHg (75.0-100.0); ALLEN'S TEST POSITIVE; FLOW 5 L/min; FMetHb 0.3 % (0.0-1.5); FO2Hb 96.1 % (94-97); PATIENT TEMPERATURE 36.8; TOTAL HEMOGLOBIN 11.8 G/dl (12.0-16.0)
--- NOTE | 2021-08-02 10:31 | NUR ---
PAGER ID: [phone] MESSAGE: [phone] TRINH HODGETAL BACK. PLEASE CALL ALEXIS ANGELES [phone]. RT IS PLACING PT ON BIPAP IF OK WITH YOU. DR MA CALLED. ORDER FOR BIPAP RECEIVED.
[2021-08-02] MEDS: vancomycin/NS 1 GM ADD-VANTAGE 250 ML IV SCH (10:39)
[2021-08-02] MEDS: enoxaparin 40mg/0.4ml syringe SQ SCH (10:40)
[2021-08-02 11:00] VITALS: BP 141/74
[2021-08-02] MEDS ORDERED: naloxone 0.4 mg/ml inj IV ONE (11:15)
--- NOTE | 2021-08-02 12:03 | NUR ---
PAGER ID: [phone] MESSAGE: Room 3020. Rachele Chavis. Pt is responding well to BIPAP. Dilaudid cadd has not been used. Still want NARCAN? Thanks, Yolanda [phone]
--- NOTE | 2021-08-02 12:15 | NUR ---
Per MD Brody Ok to d/c narcan and ok to give all AM meds at this time. Pt is doing very well on Bipap.
[2021-08-02] MEDS ORDERED: magnesium Cl slow-release 64mg tablet PO PRN (12:25)
[2021-08-02] MEDS ORDERED: magnesium 4gm in 100ml NS 100 ML IV PRN (12:25)
[2021-08-02] MEDS ORDERED: potassium Cl 20 mEq SR tablet PO PRN (12:25)
[2021-08-02] MEDS ORDERED: potassium Cl 40MEQ/1/2NS 520ml 520 ML IV PRN (12:25)
[2021-08-02] MEDS: amLODIPine 5mg tablet PO SCH (12:28)
[2021-08-02] MEDS: lactobacillus rhamnosus 10,000 MMU CELLS/CAPSULE PO SCH ×2 (12:29→19:12)
[2021-08-02] MEDS: atorvastatin 20mg tablet PO SCH (12:29)
[2021-08-02] MEDS: aspirin 81mg, enteric-coated 1 TAB TABLET.DR PO SCH (12:30)
[2021-08-02] MEDS: pantoprazole 40mg Tablet.DR PO SCH (12:30)
[2021-08-02] MEDS: triamcinolone acet 0.1% cream 15gm TP SCH ×2 (12:31→20:00)
[2021-08-02] MEDS: losartan 50mg tablet PO SCH (12:33)
[2021-08-02 15:00] VITALS: BP 141/74
--- NOTE | 2021-08-02 15:00 | NUR ---
1100 VS were entered incorrectly, should be 1500 VS.
[2021-08-02 15:10] LABS: ABG BASE EXCESS -3.3 mmol/L (-2.0-2.0); ABG HCO3 23.7 mmol/L (22.0-26.0); ABG OXYGEN SATURATION 92.9 % (94-97); ABG PCO2 (T) 50.5 mmHg (32.0-45.0); ABG PO2 (T) 65.8 mmHg (75.0-100.0); ALLEN'S TEST POSITIVE; FCOHb 0.2 % (0.0-3.9); FMetHb 0.2 % (0.0-1.5); FO2Hb 92.5 % (94-97); PATIENT TEMPERATURE 36.8; RESPIRATORY RATE 22 b/min
--- NOTE | 2021-08-02 15:21 | NUR ---
Per MD Mendez - Gave results of ABG and Hgb. Bipap on at all times. Ok to take off for meds and food. Continue to monitor.
[2021-08-02] MEDS: metoprolol succinate 25mg (24-HOUR) SR. Tablet PO SCH (16:40)
[2021-08-02] MEDS ORDERED: LORazepam 2 mg/ml vial IV PRN (16:40)
--- NOTE | 2021-08-02 17:00 | NUR ---
Called Dr Dr Peña (electronic technician urologist) - answering service will have him call back.
--- NOTE | 2021-08-02 17:10 | NUR ---
Per Dr Peña - advised of light demar urine output - 275cc for the shift with only output when irrigating. Minimal urine retention using bladder scanner. Per Dr Peña, ok to upsize F/C from 16 Fr to 18Fr
--- NOTE | 2021-08-02 17:41 | NUR ---
PAGER ID: [phone] MESSAGE: Room 3020. Rachele Chavis. I'm still holding onto relistor. Want me to give? Thanks, Yolanda [phone]
--- NOTE | 2021-08-02 17:45 | NUR ---
Per MD Brody - please changed relistor order from today to be given 9/5 AM.
[2021-08-02 18:00] VITALS: BP 125/67
[2021-08-02] MEDS: furosemide 20 MG/2 ML vial IV SCH (18:06)
--- NOTE | 2021-08-02 19:00 | NUR ---
Problems reprioritized. Patient report given, questions answered & plan of care reviewed with OSMAN Murphy.
[2021-08-02] MEDS: normal saline 1000ml 1,000 ML IV SCH (19:01)
[2021-08-02] MEDS: amitriptyline 25mg tablet PO SCH (19:12)
[2021-08-02] MEDS: insulin glargine (Lantus) pen - multi-dose SQ SCH (21:00)
[2021-08-02] MEDS: prazosin 1mg capsule PO SCH (22:08)
[2021-08-02] MEDS: gabapentin 300mg capsule PO SCH (22:08)
[2021-08-03] MEDS: HYDROmorph./NS 0.2 mg/ml CADD 100 ML IV SCH ×7 (01:00→13:00)
[2021-08-03 02:00] VITALS: BP 163/65
[2021-08-03] MEDS: piperacillin/tazo 3.375gm/50ml 50 ML IV SCH ×3 (03:14→21:20)
--- NOTE | 2021-08-03 05:00 | NUR ---
Pt has refused to put back on Bipap at this time, she was upset stating she couldn't breath. O2 96%, placed on NC at 4 L and will encourage pt to replace Bipap. Addendum: 08/03/21 at 0605 by Katherine Wiggins RN Amended: Links added.
--- NOTE | 2021-08-03 06:00 | NUR ---
Pt allowed nurse to replace Bipap. Addendum: 08/03/21 at 0612 by Katherine Wiggins RN Amended: Links added.
[2021-08-03 07:00] VITALS: BP 142/66
[2021-08-03 07:41] LABS: BASOPHILS % (AUTO) 0.1 % (0-1); EOSINOPHILS # (AUTO) 0.1 X10'3 (0-0.9); HEMOGLOBIN 11.2 g/dl (12.0-16.0); LYMPHOCYTES # (AUTO) 0.5 X10'3 (1.1-4.8); MONOCYTES # (AUTO) 0.6 X10'3 (0-0.9); MONOCYTES % (AUTO) 29.1 % (2-12); WHITE BLOOD COUNT 2.2 X10'3 (4.5-11.0)
--- NOTE | 2021-08-03 07:41 | NUR ---
Patient in room PCU 3020. I have received report from GINGER BREWER and had the opportunity to ask questions and assume patient care.
[2021-08-03 07:45] LABS: EOSINOPHILS % (AUTO) 3.7 % (0-6); HEMATOCRIT 34.7 % (35.0-45.0); LYMPHOCYTES % (AUTO) 22.9 % (21-51); MEAN CORPUSCULAR HEMOGLOBIN 29.9 PG (27.0-31.0); MEAN CORPUSCULAR HGB CONC 32.1 g/dL (33.0-36.5); MEAN PLATELET VOLUME 8.6 FL (7.4-10.4); NEUTROPHILS % (AUTO) 44.2 % (42-75); PLATELET COUNT 163 X10'3 (140-440); RED BLOOD COUNT 3.73 X10'6 (4.20-5.60); RED CELL DISTRIBUTION WIDTH 15.9 % (11.5-14.5)
[2021-08-03 07:50] LABS: ALANINE AMINOTRANSFERASE 10 U/L (12-78); ALBUMIN 2.1 G/DL (3.4-5.0); ALBUMIN/GLOBULIN RATIO 0.6 (1.1-1.5); ALKALINE PHOSPHATASE 54 IU/L (46-116); ANION GAP 8 (8-16); ASPARTATE AMINO TRANSFERASE 13 U/L (10-37); BILIRUBIN,TOTAL 0.6 MG/DL (0.1-1.0); BLOOD UREA NITROGEN 32 MG/DL (7-18); BUN/CREATININE RATIO 21.5 (6.6-38.0); CALCIUM 7.6 MG/DL (8.5-10.1); CHLORIDE 114 MMOL/L (99-107); CREATININE 1.49 MG/DL (0.40-0.90); GLUCOSE 133 MG/DL (70-104); MAGNESIUM 1.6 MG/DL (1.5-2.4); PHOSPHORUS 2.1 MG/DL (2.3-4.5); POTASSIUM 3.2 MMOL/L (3.5-5.1); SODIUM 150 MMOL/L (135-145); TOTAL CARBON DIOXIDE 27.6 MMOL/L (24-32); TOTAL PROTEIN 5.4 G/DL (6.4-8.2); eGFR 35 ML/MIN
[2021-08-03] MEDS ORDERED: methylnaltrexone br 12mg/0.6ml inj***SubQ only SQ ONE (08:00)
[2021-08-03] MEDS: K and/or MAG REPLACEMENT MC SCH ×2 (08:00→20:00)
[2021-08-03] MEDS ORDERED: enoxaparin 30mg/0.3ml syringe SUBCUT SCH (08:00)
[2021-08-03] MEDS: triamcinolone acet 0.1% cream 15gm TP SCH ×2 (08:00→20:00)
[2021-08-03] MEDS: albuterol 2.5 MG/3 ML nebule NEB SCH ×4 (08:04→20:03)
--- NOTE | 2021-08-03 08:30 | NUR ---
Problems reprioritized. Patient report given, questions answered & plan of care reviewed with CECILIA BREWER. Addendum: 08/03/21 at 1620 by Jennifer Mena RN patient report given at 1000, 0830 was typed in error
[2021-08-03 08:36] LABS: TOTAL CELLS COUNTED 100
[2021-08-03 08:37] LABS: PLATELET ESTIMATE NORMAL; STOMATOCYTES FEW
[2021-08-03] MEDS: potassium Cl 20 mEq SR tablet PO PRN ×3 (08:55→21:43)
[2021-08-03] MEDS: lactobacillus rhamnosus 10,000 MMU CELLS/CAPSULE PO SCH ×2 (08:55→21:21)
[2021-08-03] MEDS: metoprolol succinate 25mg (24-HOUR) SR. Tablet PO SCH (08:55)
[2021-08-03] MEDS: losartan 50mg tablet PO SCH (08:56)
[2021-08-03] MEDS: furosemide 20 MG/2 ML vial IV SCH (08:56)
[2021-08-03] MEDS: pantoprazole 40mg Tablet.DR PO SCH (08:56)
[2021-08-03] MEDS: atorvastatin 20mg tablet PO SCH (08:56)
[2021-08-03] MEDS: amLODIPine 5mg tablet PO SCH (08:56)
[2021-08-03] MEDS ORDERED: vancomycin/NS 1 GM ADD-VANTAGE 250 ML IV SCH (09:00)
[2021-08-03] MEDS ORDERED: VANCOmycin 1250MG/NS 250ml Bag 250 ML IV SCH (09:00)
--- NOTE | 2021-08-03 10:00 | NUR ---
Patient in room PCU 3020. I have received report from Jennifer BREWER and had the opportunity to ask questions and assume patient care.
--- NOTE | 2021-08-03 10:15 | NUR ---
Dr Brody at pt bedside, report given, labs reviewed especially K+ 3.2 replacing per protocol and Phos low 2.1- Dr states she will look at it and decide if new orders. Will continue to monitor.
[2021-08-03] MEDS: ondansetron/PF 4mg/2ml inj IV PRN (10:19)
--- NOTE | 2021-08-03 10:30 | NUR ---
I have reviewed the 0700 pt's physical assessment and am in agreement. Will continue to monitor.
[2021-08-03 11:00] VITALS: BP 130/89
[2021-08-03 13:54] LABS: ABG HCO3 27.9 mmol/L (22.0-26.0); ABG OXYGEN SATURATION 95.4 % (94-97); ABG PCO2 (T) 47.3 mmHg (32.0-45.0); ALLEN'S TEST POSITIVE; FCOHb 0.3 % (0.0-3.9); FLOW 2 L/min; FMetHb 0.4 % (0.0-1.5); FO2Hb 94.7 % (94-97); RESPIRATORY RATE 18 b/min; TOTAL HEMOGLOBIN 12.3 G/dl (12.0-16.0)
--- NOTE | 2021-08-03 13:59 | NUR ---
Initial: Pt admitted for reversal of colostomy which was performed 07/29 though not achieved per EMR. Pt has been on clear liquid diet since then, consuming mostly 0-25% of meals. RN reports pt has still not passed gas and will remain on clear liquid diet at this time. Pt noted w/ bloody ostomy output 08/02. Per MST, pt's usual diet at home is diabetic diet, may recommend CCHO diet when advanced. Will continue to monitor for diet advancement. Recs 1. Advance to CCHO diet when medically appropriate per MD 2. Bowel care per rx 3. Weekly wts Addendum: 08/03/21 at [address] Amended: Links added.
[2021-08-03 15:00] VITALS: BP 124/65
--- NOTE | 2021-08-03 15:00 | NUR ---
CADD SILK CONDITIONER ASSESSMENT DID NOT SAVE IN CAROLINE THE CAROLINE SHUT DOWN INSTANTLY SAYING BATTERY LOW. ASSESSMENT WAS 43.7 RESIDUAL VOLUME, RECEIVED/ATTEMPTED 54/84, 11.50 MG TOTAL GIVEN. 0/10 PAIN AT THIS TIME. WILL CONTINUE TO MONITOR.
[2021-08-03] MEDS ORDERED: potassium cl 20mEq in 1/2 NS 1,000 ML IV SCH (16:25)
[2021-08-03] MEDS ORDERED: morphine 2 MG/ML inj. syringe IV PRN (16:30)
[2021-08-03] MEDS ORDERED: HYDROcodone/acetaminophen 5mg/325mg tablet PO PRN (16:30)
[2021-08-03] MEDS ORDERED: HYDROcodone/acetaminophen 10/325mg tab PO PRN (16:30)
--- NOTE | 2021-08-03 17:18 | NUR ---
CADD EXPERIMENTAL PSYCHOLOGIST ASSESSMENT 43.7 RESIDUAL VOLUME, RECEIVED/ATTEMPTS 54/84, 11.50 MG GIVEN, 0/10 PAIN REPORTED BY PT. WILL CONTINUE TO MONITOR. CADD EXPERIMENTAL PSYCHOLOGIST D/C'D.
--- NOTE | 2021-08-03 17:25 | NUR ---
PHONE CALL TO PHARMACIST YONATHAN, VERIFIED CADD BAG SHAKER WAS D/C'D, (HE STATES YES PER DR VELASQUEZ; AND PIV FLUID CHANGE TO 1/2 NS WITH 20 MEQ KCL WILL BE BROUGHT UP BY PHARMACY SOON. WILL CONTINUE TO MONITOR.
--- NOTE | 2021-08-03 18:30 | NUR ---
Problems reprioritized. Patient report given, questions answered & plan of care reviewed with Yuni BREWER.
--- NOTE | 2021-08-03 18:40 | NUR ---
Patient in room PCU 3020. I have received report from OSMAN Galarza and had the opportunity to ask questions and assume patient care.
[2021-08-03 19:00] VITALS: BP 120/60
[2021-08-03] MEDS: insulin glargine (Lantus) pen - multi-dose SQ SCH (21:00)
[2021-08-03] MEDS: amitriptyline 25mg tablet PO SCH (21:21)
[2021-08-03] MEDS: gabapentin 300mg capsule PO SCH (21:21)
[2021-08-03] MEDS: prazosin 1mg capsule PO SCH (21:23)
[2021-08-03] MEDS: morphine 2 MG/ML inj. syringe IV PRN (21:43)
[2021-08-04] VITALS (7 sets, daily range): BP systolic 95–157; BP diastolic 54–75
--- NOTE | 2021-08-04 01:37 | NUR ---
Patient was found to have removed Bipap. Patient noncompliant to care. O2 was 86% and would not allow me to put the mask back on. Educated patient on the necessity of the Bipap. Patient stated she was calling her because she wanted to leave. RT was making rounds and patient refused Bipap for them as well. Nursing sup was in room with patient and . Patient allows nasal cannula at times and was satting at 92 % with it.
--- NOTE | 2021-08-04 01:55 | NUR ---
Patient removed nasal cannula again. Allowed me to place it back on and she was satting at 92%.
[2021-08-04] MEDS: piperacillin/tazo 3.375gm/50ml 50 ML IV SCH ×3 (03:00→19:54)
--- NOTE | 2021-08-04 06:31 | NUR ---
Patient in room PCU 3020. I have received report from Yuni BREWER and had the opportunity to ask questions and assume patient care.
[2021-08-04] MEDS: albuterol 2.5 MG/3 ML nebule NEB SCH ×4 (07:00→20:39)
[2021-08-04 07:01] LABS: ALANINE AMINOTRANSFERASE 11 U/L (12-78); ALBUMIN 2.3 G/DL (3.4-5.0); ALBUMIN/GLOBULIN RATIO 0.7 (1.1-1.5); ALKALINE PHOSPHATASE 58 IU/L (46-116); ANION GAP 9 (8-16); ASPARTATE AMINO TRANSFERASE 13 U/L (10-37); BILIRUBIN,TOTAL 0.5 MG/DL (0.1-1.0); BLOOD UREA NITROGEN 34 MG/DL (7-18); BUN/CREATININE RATIO 21.7 (6.6-38.0); CALCIUM 8.2 MG/DL (8.5-10.1); CHLORIDE 114 MMOL/L (99-107); CREATININE 1.57 MG/DL (0.40-0.90); GLUCOSE 118 MG/DL (70-104); MAGNESIUM 1.5 MG/DL (1.5-2.4); PHOSPHORUS 2.7 MG/DL (2.3-4.5); POTASSIUM 3.6 MMOL/L (3.5-5.1); SODIUM 152 MMOL/L (135-145); TOTAL CARBON DIOXIDE 29.5 MMOL/L (24-32); TOTAL PROTEIN 5.7 G/DL (6.4-8.2); eGFR 33 ML/MIN
--- NOTE | 2021-08-04 07:53 | NUR ---
Problems reprioritized. Patient report given, questions answered & plan of care reviewed with OSMAN Rico.
[2021-08-04] MEDS: K and/or MAG REPLACEMENT MC SCH ×2 (08:00→19:54)
[2021-08-04] MEDS: triamcinolone acet 0.1% cream 15gm TP SCH ×2 (08:00→19:54)
[2021-08-04] MEDS: furosemide 20 MG/2 ML vial IV SCH (08:20)
[2021-08-04] MEDS: losartan 50mg tablet PO SCH (08:20)
[2021-08-04] MEDS: atorvastatin 20mg tablet PO SCH (08:20)
[2021-08-04] MEDS: lactobacillus rhamnosus 10,000 MMU CELLS/CAPSULE PO SCH ×2 (08:20→19:53)
[2021-08-04] MEDS: amLODIPine 5mg tablet PO SCH (08:21)
[2021-08-04] MEDS: metoprolol succinate 25mg (24-HOUR) SR. Tablet PO SCH (08:21)
[2021-08-04] MEDS: pantoprazole 40mg Tablet.DR PO SCH (08:21)
[2021-08-04 08:36] LABS: BASOPHILS % (AUTO) 0.1 % (0-1); EOSINOPHILS # (AUTO) 0.1 X10'3 (0-0.9); EOSINOPHILS % (AUTO) 2.6 % (0-6); HEMATOCRIT 35.6 % (35.0-45.0); HEMOGLOBIN 11.3 g/dl (12.0-16.0); LYMPHOCYTES # (AUTO) 0.8 X10'3 (1.1-4.8); LYMPHOCYTES % (AUTO) 13.6 % (21-51); MEAN CORPUSCULAR HEMOGLOBIN 29.6 PG (27.0-31.0); MEAN CORPUSCULAR HGB CONC 31.7 g/dL (33.0-36.5); MEAN CORPUSCULAR VOLUME 93.1 FL (78-98); MEAN PLATELET VOLUME 8.5 FL (7.4-10.4); MONOCYTES % (AUTO) 16.9 % (2-12); NEUTROPHILS # (AUTO) 3.8 X10'3 (1.8-7.7); NEUTROPHILS % (AUTO) 66.8 % (42-75); PLATELET COUNT 179 X10'3 (140-440); RED BLOOD COUNT 3.82 X10'6 (4.20-5.60); WHITE BLOOD COUNT 5.6 X10'3 (4.5-11.0)
[2021-08-04 10:45] LABS: TOTAL CELLS COUNTED 100
[2021-08-04 10:46] LABS: PLATELET ESTIMATE NORMAL
[2021-08-04] MEDS: morphine 2 MG/ML inj. syringe IV PRN ×2 (10:53→14:56)
[2021-08-04] MEDS ORDERED: dextrose 5%-water 1,000 ML IV SCH (11:10)
--- NOTE | 2021-08-04 18:19 | NUR ---
Problems reprioritized. Patient report given, questions answered & plan of care reviewed with Karen BREWER.
[2021-08-04] MEDS: prazosin 1mg capsule PO SCH (21:00)
[2021-08-04] MEDS: insulin glargine (Lantus) pen - multi-dose SQ SCH (21:00)
[2021-08-04] MEDS: amitriptyline 25mg tablet PO SCH (21:10)
[2021-08-04] MEDS: gabapentin 300mg capsule PO SCH (21:10)
[2021-08-05] VITALS (20 sets, daily range): BP systolic 98–160; BP diastolic 37–69
[2021-08-05 01:18] LABS: ABG BASE EXCESS -0.4 mmol/L (-2.0-2.0); ABG HCO3 33.3 mmol/L (22.0-26.0); ABG OXYGEN SATURATION 89.1 % (94-97); ABG PO2 (T) 70.7 mmHg (75.0-100.0); FCOHb 0.5 % (0.0-3.9); FMetHb 0.2 % (0.0-1.5); FO2Hb 88.5 % (94-97); TOTAL HEMOGLOBIN 11.9 G/dl (12.0-16.0)
[2021-08-05 01:24] LABS: BASOPHILS # (AUTO) 0.1 X10'3 (0-0.2); BASOPHILS % (AUTO) 0.2 % (0-1); EOSINOPHILS # (AUTO) 0.5 X10'3 (0-0.9); EOSINOPHILS % (AUTO) 2.3 % (0-6); HEMATOCRIT 36.3 % (35.0-45.0); HEMOGLOBIN 11.2 g/dl (12.0-16.0); LYMPHOCYTES # (AUTO) 3.8 X10'3 (1.1-4.8); LYMPHOCYTES % (AUTO) 17.5 % (21-51); MEAN CORPUSCULAR HEMOGLOBIN 29.6 PG (27.0-31.0); MEAN CORPUSCULAR HGB CONC 30.7 g/dL (33.0-36.5); MEAN CORPUSCULAR VOLUME 96.4 FL (78-98); MONOCYTES # (AUTO) 1.5 X10'3 (0-0.9); MONOCYTES % (AUTO) 7.1 % (2-12); NEUTROPHILS # (AUTO) 15.7 X10'3 (1.8-7.7); NEUTROPHILS % (AUTO) 72.9 % (42-75); PLATELET COUNT 248 X10'3 (140-440); RED BLOOD COUNT 3.77 X10'6 (4.20-5.60); RED CELL DISTRIBUTION WIDTH 16.6 % (11.5-14.5); WHITE BLOOD COUNT 21.6 X10'3 (4.5-11.0)
[2021-08-05] MEDS: ringers solution, lacted 1,000 ML IV SCH ×3 (01:25→19:42)
[2021-08-05 01:39] LABS: ALANINE AMINOTRANSFERASE 30 U/L (12-78); ALBUMIN 2.2 G/DL (3.4-5.0); ALBUMIN/GLOBULIN RATIO 0.6 (1.1-1.5); ALKALINE PHOSPHATASE 73 IU/L (46-116); ANION GAP 11 (8-16); ASPARTATE AMINO TRANSFERASE 54 U/L (10-37); BILIRUBIN,TOTAL 0.4 MG/DL (0.1-1.0); BLOOD UREA NITROGEN 37 MG/DL (7-18); BUN/CREATININE RATIO 14.6 (6.6-38.0); CALCIUM 10.4 MG/DL (8.5-10.1); CHLORIDE 110 MMOL/L (99-107); CREATININE 2.54 MG/DL (0.40-0.90); GLUCOSE 181 MG/DL (70-104); MAGNESIUM 1.8 MG/DL (1.5-2.4); PHOSPHORUS 7.3 MG/DL (2.3-4.5); POTASSIUM 3.5 MMOL/L (3.5-5.1); SODIUM 149 MMOL/L (135-145); TOTAL CARBON DIOXIDE 27.9 MMOL/L (24-32); TOTAL PROTEIN 5.7 G/DL (6.4-8.2); eGFR 19 ML/MIN
[2021-08-05] MEDS ORDERED: propofol 1000mg/100ml bottle 100 ML IV ONE ×3 (02:14→15:39)
--- NOTE | 2021-08-05 02:15 | NUR ---
Family notified regarding pt status, at bedside. Transferred to ICU, MD aware. Surgeon aware.
[2021-08-05 02:36] LABS: TROPONIN I < 0.04 NG/ML (0.0-0.05)
[2021-08-05 03:18] LABS: ANISOCYTOSIS 1+; PLATELET ESTIMATE NORMAL; POLYCHROMASIA FEW; TOTAL CELLS COUNTED 100
[2021-08-05 03:23] LABS: ABG BASE EXCESS 2.8 mmol/L (-2.0-2.0); ABG HCO3 29.4 mmol/L (22.0-26.0); ABG OXYGEN SATURATION 98.4 % (94-97); ABG PCO2 (T) 51.5 mmHg (32.0-45.0); ALLEN'S TEST POSITIVE; FCOHb 0.3 % (0.0-3.9); FMetHb 0.5 % (0.0-1.5); FO2Hb 97.6 % (94-97); PATIENT TEMPERATURE 35.6; PEEP 5 cm H2O; RESPIRATORY RATE 20 b/min; TIDAL VOLUME 400 mL; TOTAL HEMOGLOBIN 11.7 G/dl (12.0-16.0)
--- NOTE | 2021-08-05 03:50 | NUR ---
0155 Received Pt from PCU post code, report had been received. Pt placed on monitor and ventilator, OG to low intermittent suction. Copious amount of green stomach content noted. Wound vac to left lower abdomen in place with good seal. Ostomy bag to the rt abdomen with protruding dark red stoma noted and dark blood in collection bag.
[2021-08-05] MEDS ORDERED: vancomycin/NS 1 GM ADD-VANTAGE 250 ML IV ONE (05:00)
[2021-08-05] MEDS ORDERED: fentaNYL/PF 50MCG/1 ML 2ML syringe IV PRN (05:00)
[2021-08-05] MEDS ORDERED: FENTANYL-0.9 % NACL/PF 100 ML IV PRN ×2 (05:25→05:30)
--- NOTE | 2021-08-05 05:52 | NUR ---
Rounded with Dr. Main reviewed pts condition, new orders received.
--- NOTE | 2021-08-05 06:20 | NUR ---
report given to rec rn plan of care reviewed
[2021-08-05] MEDS: cefepime 2g/NS 100ml ADVANTAGE 100 ML IV SCH (07:42)
[2021-08-05] MEDS: pantoprazole 40 MG vial IV SCH (07:42)
[2021-08-05] MEDS: K and/or MAG REPLACEMENT MC SCH ×2 (08:00→20:00)
[2021-08-05] MEDS: triamcinolone acet 0.1% cream 15gm TP SCH ×2 (08:00→20:00)
[2021-08-05] MEDS: lactobacillus rhamnosus 10,000 MMU CELLS/CAPSULE PO SCH ×2 (08:00→19:42)
[2021-08-05] MEDS: atorvastatin 20mg tablet PO SCH (08:00)
[2021-08-05] MEDS: metroNIDAZOLE-Flagyl 500mg/NS 100 ML IV SCH ×2 (08:25→15:43)
[2021-08-05] MEDS: albuterol 2.5 MG/3 ML nebule NEB SCH ×2 (09:00→10:49)
[2021-08-05] MEDS: heparin, porcine 5000 units/ml vial SQ SCH ×2 (09:27→15:49)
[2021-08-05] MEDS ORDERED: ipratropium/albuterol 3ml nebule IH PRN (10:45)
--- NOTE | 2021-08-05 11:24 | NUR ---
Reassessment: Pt intubated s/p cardiac arrest last night w/ vomit suctioned from ET tube per RN. Hx colostomy w/ reversal not achieved and new colostomy formation this admit. Pt previously on clear liquids past 6 days PO 0-25% avg not meeting needs w/ gas output from colostomy but no stool output at this time per EMR. Documented LBM x100 9/4 in EMR likely error w/ colostomy wound serosanguineous drainage only this AM per RN. OG in place to suction. NPO at this time w/ TPN possibly to start once more stable per diamond grader at rounds. TPN recs below given pt needs on vent; unable to meet protein needs without overfeeding given current formulary. Noted pt on propofol ordered one time 100ml to run as needed till tomorrow per EMR. Will monitor for propofol rate and PN adjustment needs if to start this admit. Given pt day 7 poor nutrition status, general severe weakness throughout LOS, and BUE non-pitting edema pt meets severe malnutrition criteria at this time. MD notified. Will continue to monitor for nutrition support needs on vent. Recs 1. IF TPN; 2:1 Clinimix E 5/15 at 70ml/hr goal w/ separate 100ml 20% intralipids to run for 12 hours daily at 8.33ml/hr. In total; to provide 1680ml volume, 84g AA, 252g DEX (2.00mg/kg/min), and 1393 total kcals. Initiate at 30ml/hr and if tolerated Q12H advance to goal rate. 2. IF TPN; TG/PALB Q /; daily wts 3. IF TPN; monitor for lipid adjustment needs w/ propofol 4. IF TPN; monitor for signs of refeeding given poor nutrition status 7 days 5. bowel care per rx Addendum: 08/05/21 at [address] Amended: Links added.
[2021-08-05] MEDS: FENTANYL-0.9 % NACL/PF 100 ML IV PRN (11:48)
[2021-08-05] MEDS ORDERED: ipratropium/albuterol 3ml nebule IH SCH (12:00)
[2021-08-05 13:41] LABS: TOTAL PROTEIN,URINE RANDOM 133.1 MG/DL
[2021-08-05 13:43] LABS: CLARITY,URINE CLOUDY (Clear); COLOR,URINE BROWN (Yellow); GLUCOSE, URINE NEGATIVE (Neg); KETONES,URINE 15 mg/dl (Neg); LEUKOCYTE ESTERASE ,URINE MODERATE (Neg); NITRITES, URINE NEGATIVE (Neg); OCCULT BLOOD,URINE LARGE (Neg); PROTEIN,URINE 100 mg/dl (Neg); UROBILINOGEN,URINE 0.2 E.U/dL (0.2-1.0)
[2021-08-05 13:45] LABS: UA COLLECTION TYPE NON-SPECIFIED
[2021-08-05 14:03] LABS: RBC,URINE TNTC /HPF (0-2); WBC,URINE 50-100 /HPF (0-4)
[2021-08-05 14:05] LABS: URIC ACID CRYSTALS 3+ /HPF (NEGATIVE)
[2021-08-05 14:08] LABS: BACTERIA,URINE 1+ /HPF (Neg); SQUAMOUS EPITHELIAL CELL,UR FEW /LPF (FEW); YEAST MANY /HPF (NEGATIVE)
--- NOTE | 2021-08-05 14:39 | NUR ---
wound care team at bedside, changing woundvac. wound cleaned and woundvac reapplied
[2021-08-05 14:40] LABS: UA EOSINOPHILS NO EOS /HPF
[2021-08-05] MEDS: ipratropium/albuterol 3ml nebule IH SCH ×3 (15:05→23:03)
[2021-08-05] MEDS: propofol 1000mg/100ml bottle 100 ML IV SCH (17:30)
--- NOTE | 2021-08-05 17:43 | NUR ---
at bedside, seems to agitate patient. He is also very anxious about patients condition. Reassured and educated on nasal gastric tube and ET tube
[2021-08-05] MEDS: insulin glargine (Lantus) pen - multi-dose SQ SCH (21:00)
[2021-08-06] VITALS (24 sets, daily range): BP systolic 93–140; BP diastolic 31–63
[2021-08-06] MEDS: metroNIDAZOLE-Flagyl 500mg/NS 100 ML IV SCH ×3 (00:30→16:30)
[2021-08-06] MEDS: heparin, porcine 5000 units/ml vial SQ SCH ×3 (00:33→16:32)
[2021-08-06] MEDS: propofol 1000mg/100ml bottle 100 ML IV SCH (00:34)
[2021-08-06 03:09] LABS: BASOPHILS % (AUTO) 0.1 % (0-1); EOSINOPHILS # (AUTO) 0.1 X10'3 (0-0.9); EOSINOPHILS % (AUTO) 0.7 % (0-6); HEMATOCRIT 31.1 % (35.0-45.0); HEMOGLOBIN 9.9 g/dl (12.0-16.0); LYMPHOCYTES # (AUTO) 1.5 X10'3 (1.1-4.8); MEAN CORPUSCULAR HGB CONC 31.9 g/dL (33.0-36.5); MONOCYTES # (AUTO) 0.9 X10'3 (0-0.9); MONOCYTES % (AUTO) 4.2 % (2-12); PLATELET COUNT 191 X10'3 (140-440); RED BLOOD COUNT 3.42 X10'6 (4.20-5.60); RED CELL DISTRIBUTION WIDTH 15.4 % (11.5-14.5); WHITE BLOOD COUNT 21.6 X10'3 (4.5-11.0)
[2021-08-06 03:21] LABS: ALANINE AMINOTRANSFERASE 25 U/L (12-78); ALBUMIN 1.9 G/DL (3.4-5.0); ALBUMIN/GLOBULIN RATIO 0.6 (1.1-1.5); ALKALINE PHOSPHATASE 63 IU/L (46-116); ANION GAP 11 (8-16); ASPARTATE AMINO TRANSFERASE 34 U/L (10-37); BILIRUBIN,TOTAL 0.6 MG/DL (0.1-1.0); BLOOD UREA NITROGEN 43 MG/DL (7-18); BUN/CREATININE RATIO 18.5 (6.6-38.0); CALCIUM 8.8 MG/DL (8.5-10.1); CHLORIDE 113 MMOL/L (99-107); CREATININE 2.32 MG/DL (0.40-0.90); GLUCOSE 98 MG/DL (70-104); MAGNESIUM 1.3 MG/DL (1.5-2.4); PHOSPHORUS 1.7 MG/DL (2.3-4.5); SODIUM 150 MMOL/L (135-145); TOTAL CARBON DIOXIDE 25.8 MMOL/L (24-32); TRIGLYCERIDES 243 MG/DL (20-135); eGFR 21 ML/MIN
[2021-08-06 03:38] LABS: POTASSIUM 2.9 MMOL/L (3.5-5.1)
[2021-08-06] MEDS ORDERED: magnesium 2GM in 50ml NS 50 ML IV PRN ×2 (03:45→19:20)
[2021-08-06] MEDS ORDERED: magnesium Cl slow-release 64mg tablet PO PRN ×2 (03:45→19:20)
[2021-08-06] MEDS ORDERED: magnesium 4gm in 100ml NS 100 ML IV PRN ×2 (03:45→19:20)
[2021-08-06] MEDS ORDERED: potassium Cl 40MEQ/1/2NS 520ml 520 ML IV PRN (03:45)
[2021-08-06] MEDS ORDERED: potassium Cl 20 mEq SR tablet PO PRN ×2 (03:45)
[2021-08-06] MEDS: ipratropium/albuterol 3ml nebule IH SCH ×6 (03:52→23:10)
[2021-08-06] MEDS: potassium Cl 40MEQ/250ML bag 270 ML IV PRN ×2 (04:08→06:58)
[2021-08-06 04:29] LABS: BANDS% (MANUAL) 17 % (0-10); LYMPHOCYTES % (MANUAL) 5 % (21-51); NEUTROPHILS % (MANUAL) 70 % (42-75); TOTAL CELLS COUNTED 100
[2021-08-06 04:30] LABS: EOSINOPHILS % (MANUAL) 2 % (0-6); METAMYLEOCYTES% (MANUAL) 5 % (0-0); MONOCYTES % (MANUAL) 1 % (2-12); PLATELET ESTIMATE NORMAL
[2021-08-06 04:44] LABS: ABG BASE EXCESS 0.1 mmol/L (-2.0-2.0); ABG HCO3 22.8 mmol/L (22.0-26.0); ABG OXYGEN SATURATION 90.7 % (94-97); ABG PCO2 (T) 30.8 mmHg (32.0-45.0); ABG PO2 (T) 56.3 mmHg (75.0-100.0); ALLEN'S TEST Yes; FCOHb 0.3 % (0.0-3.9); FMetHb 0.3 % (0.0-1.5); FO2Hb 90.2 % (94-97); PATIENT TEMPERATURE 37.1; PEEP 5 cm H2O; RESPIRATORY RATE 20 b/min; TIDAL VOLUME 400 mL; TOTAL HEMOGLOBIN 11.4 G/dl (12.0-16.0)
[2021-08-06] MEDS: FENTANYL-0.9 % NACL/PF 100 ML IV PRN (04:44)
[2021-08-06] MEDS: ringers solution, lacted 1,000 ML IV SCH ×2 (05:47→17:43)
--- NOTE | 2021-08-06 06:12 | NUR ---
Problems reprioritized. Patient report given, questions answered & plan of care reviewed with Leonarda/OSMAN Oates.
--- NOTE | 2021-08-06 06:15 | NUR ---
report received, pt remains vented and sedated. No respiratory distress noted. Wound vac is to suction. Hewitt catheter is draining. Fio2 at 50%. NGT to low intermittent wall suction draining green bile. No safety issues noted. Right femoral quad central line remains inplace. no signs of infiltration or infection, dressing is dry and intact.
[2021-08-06] MEDS: dexmedetomidin/NS 400mcg/100ml 100 ML IV SCH ×2 (06:54→16:41)
[2021-08-06] MEDS: pantoprazole 40 MG vial IV SCH (07:57)
[2021-08-06] MEDS: cefepime 2g/NS 100ml ADVANTAGE 100 ML IV SCH (07:59)
[2021-08-06] MEDS: triamcinolone acet 0.1% cream 15gm TP SCH ×2 (08:00→21:05)
[2021-08-06] MEDS: lactobacillus rhamnosus 10,000 MMU CELLS/CAPSULE PO SCH ×2 (08:00→21:05)
[2021-08-06] MEDS: atorvastatin 20mg tablet PO SCH (08:00)
[2021-08-06] MEDS: K and/or MAG REPLACEMENT MC SCH (08:00)
[2021-08-06] MEDS ORDERED: VANCOMYCIN LEVEL IV ONE (08:30)
--- NOTE | 2021-08-06 08:45 | NUR ---
pt resting comfortably, pt opens her eyes to commands, she is able to wiggle her toes and fingers to command also. will reduce sedation before rounds to see how patient does. Fio2 changed from 50 to 40. O2 saturation in the high 90s. Diprivan turned off for now. Fentanyl and precedex remain
--- NOTE | 2021-08-06 08:55 | NUR ---
Spoke to patients daughter Jerome. Update given.
--- NOTE | 2021-08-06 11:53 | NUR ---
TPN Consult: Pt remains intubated and NPO w/ OG -470ml per EMR. No stool output from colostomy except wound drainage per RN at rounds. TPN to start today pending PICC line per fnp. TPN recs below given pt needs on vent; unable to meet protein needs without overfeeding given current formulary. Pt responding to stimuli per RN pending weaning parameters today. IF extubated would benefit from PN adjustment to better meet needs at that time. TG 243 this AM w/ propofol stopped in EMR. Will monitor for TPN tolerance and adjustment needs; high risk of refeeding given little to no nutrition 8 days now. Recs 1. TPN per MD via central access using 2:1 Clinimix E 5/15 at 70ml/hr goal w/ separate 100ml 20% intralipids to run for 12 hours daily at 8.33ml/hr. In total; to provide 1680ml volume, 84g AA, 252g DEX (2.00mg/kg/min), and 1393 total kcals. Initiate at 30ml/hr and if tolerated Q12H advance to goal rate. 2. TG/PALB Q /; daily wts 3. monitor for signs of refeeding given poor nutrition status 8 days prior 4. monitor for PN adjustment needs as medically indicated 5. bowel care per rx Addendum: 08/06/21 at [address] Amended: Links added.
--- NOTE | 2021-08-06 13:02 | NUR ---
visiting at bedside, pt was able to facetime with her daughter. both patient and seems very relaxed, patient remains on cpap and doing well.
--- NOTE | 2021-08-06 13:47 | NUR ---
pt repositioned, colostomy bag noted to be leaking approx 30cc, pt cleaned and repositioned, bathed. new gown and new linen given. pt following commands appropriately, remains on CPAP weaning trail performed per RT pt did not pass.
--- NOTE | 2021-08-06 13:50 | NUR ---
potassium recheck resulted 3.7, per protocol, no additional potassium is needed
--- NOTE | 2021-08-06 13:55 | NUR ---
spoke with dietary, consultation made for TPN, advised that pt is to have picc line later this afternoon, He stated he would let pharmacy know so the TPN would be ready for this evening.
[2021-08-06] MEDS ORDERED: Dextrose 10%-water IV solution 1,000 ML IV PRN (14:30)
--- NOTE | 2021-08-06 15:38 | NUR ---
pt appears to be getting tired, o2 sats dropping to 89 co2 up to 36, respiratory therapist notified and she will put pt back on the ventilator.
[2021-08-06] MEDS ORDERED: MVI, adult No.4 with vit. K 5 ML, ZINC/COPPER/MANGANESE/SELENIUM 0.5 ML, chromic chlori... IV SCH ×4 (18:00)
[2021-08-06] MEDS: insulin glargine (Lantus) pen - multi-dose SQ SCH (21:00)
[2021-08-06] MEDS: fat emulsion 20% inj. 100 ML IV SCH (21:03)
[2021-08-06] MEDS: MVI, adult No.4 with vit. K 5 ML, ZINC/COPPER/MANGANESE/SELENIUM 0.5 ML, chromic chlori... IV SCH ×4 (21:04)
[2021-08-06] MEDS: famotidine/PF 10 mg/ml inj IV SCH (21:05)
[2021-08-06] MEDS: ondansetron/PF 4mg/2ml inj IV PRN (22:01)
[2021-08-06] MEDS: diatr meglu/diatrizoate 30ml oral sol.-(3 dose) bottle PO SCH (23:50)
[2021-08-07] VITALS (24 sets, daily range): BP systolic 101–216; BP diastolic 46–102
[2021-08-07] MEDS: metroNIDAZOLE-Flagyl 500mg/NS 100 ML IV SCH ×3 (01:01→16:00)
[2021-08-07] MEDS: heparin, porcine 5000 units/ml vial SQ SCH ×3 (01:02→16:00)
[2021-08-07] MEDS: ipratropium/albuterol 3ml nebule IH SCH ×6 (03:13→23:42)
[2021-08-07 03:15] LABS: BASOPHILS % (AUTO) 0.1 % (0-1); EOSINOPHILS # (AUTO) 0.3 X10'3 (0-0.9); EOSINOPHILS % (AUTO) 1.2 % (0-6); HEMATOCRIT 28.7 % (35.0-45.0); HEMOGLOBIN 9.4 g/dl (12.0-16.0); LYMPHOCYTES # (AUTO) 1.1 X10'3 (1.1-4.8); LYMPHOCYTES % (AUTO) 4.8 % (21-51); MEAN CORPUSCULAR HEMOGLOBIN 29.5 PG (27.0-31.0); MEAN CORPUSCULAR HGB CONC 32.7 g/dL (33.0-36.5); MEAN CORPUSCULAR VOLUME 90.3 FL (78-98); MEAN PLATELET VOLUME 9.2 FL (7.4-10.4); MONOCYTES # (AUTO) 0.8 X10'3 (0-0.9); MONOCYTES % (AUTO) 3.8 % (2-12); NEUTROPHILS # (AUTO) 20.1 X10'3 (1.8-7.7); NEUTROPHILS % (AUTO) 90.1 % (42-75); PLATELET COUNT 169 X10'3 (140-440); RED BLOOD COUNT 3.18 X10'6 (4.20-5.60); RED CELL DISTRIBUTION WIDTH 15.6 % (11.5-14.5); WHITE BLOOD COUNT 22.3 X10'3 (4.5-11.0)
[2021-08-07] MEDS: dexmedetomidin/NS 400mcg/100ml 100 ML IV SCH ×2 (03:15→19:57)
[2021-08-07] MEDS: insulin Lispro (HumaLOG) vial - multi-dose SQ SCH ×2 (03:19→21:51)
[2021-08-07] MEDS: FENTANYL-0.9 % NACL/PF 100 ML IV PRN ×2 (03:24→20:20)
[2021-08-07 03:51] LABS: ABG BASE EXCESS -0.6 mmol/L (-2.0-2.0); ABG OXYGEN SATURATION 95.1 % (94-97); ABG PCO2 (T) 22.2 mmHg (32.0-45.0); ABG PO2 (T) 70.1 mmHg (75.0-100.0); ALLEN'S TEST Yes; FCOHb 0.3 % (0.0-3.9); FMetHb 0.3 % (0.0-1.5); FO2Hb 94.5 % (94-97); PATIENT TEMPERATURE 37.5; PEEP 5 cm H2O; RESPIRATORY RATE 20 b/min; TIDAL VOLUME 400 mL; TOTAL HEMOGLOBIN 10.5 G/dl (12.0-16.0)
[2021-08-07 03:56] LABS: ALANINE AMINOTRANSFERASE 20 U/L (12-78); ALBUMIN 1.8 G/DL (3.4-5.0); ALBUMIN/GLOBULIN RATIO 0.6 (1.1-1.5); ALKALINE PHOSPHATASE 113 IU/L (46-116); ANION GAP 13 (8-16); ASPARTATE AMINO TRANSFERASE 23 U/L (10-37); BILIRUBIN,TOTAL 0.8 MG/DL (0.1-1.0); BLOOD UREA NITROGEN 41 MG/DL (7-18); BUN/CREATININE RATIO 19.9 (6.6-38.0); CALCIUM 8.5 MG/DL (8.5-10.1); CHLORIDE 113 MMOL/L (99-107); CREATININE 2.06 MG/DL (0.40-0.90); GLUCOSE 151 MG/DL (70-104); MAGNESIUM 2.6 MG/DL (1.5-2.4); POTASSIUM 3.3 MMOL/L (3.5-5.1); PREALBUMIN 9.8 MG/DL (19-36); SODIUM 150 MMOL/L (135-145); TOTAL CARBON DIOXIDE 24.3 MMOL/L (24-32); TOTAL PROTEIN 4.9 G/DL (6.4-8.2); TRIGLYCERIDES 169 MG/DL (20-135); eGFR 24 ML/MIN
[2021-08-07 03:58] LABS: PHOSPHORUS 1.2 MG/DL (2.3-4.5)
[2021-08-07 04:31] LABS: BANDS% (MANUAL) 7 % (0-10); LYMPHOCYTES % (MANUAL) 4 % (21-51); MONOCYTES % (MANUAL) 3 % (2-12); NEUTROPHILS % (MANUAL) 79 % (42-75); TOTAL CELLS COUNTED 100
[2021-08-07 04:32] LABS: METAMYLEOCYTES% (MANUAL) 4 % (0-0); MYELOCYTES % (MANUAL) 2 % (0-0); PLATELET ESTIMATE NORMAL; PROMYELOCYTES % (MANUAL) 1 % (0-0)
[2021-08-07] MEDS: ringers solution, lacted 1,000 ML IV SCH ×3 (05:24→20:22)
[2021-08-07] MEDS ORDERED: sodium phosphate inj. 15 MMOL in dextrose 5%-water 250 ML IV PRN (06:35)
[2021-08-07] MEDS ORDERED: sodium phosphate inj. 30 MMOL in dextrose 5%-water 250 ML IV PRN (06:35)
[2021-08-07] MEDS ORDERED: potassium phosphate inj 30 MMOL in dextrose 5%-water 250 ML IV PRN (06:43)
[2021-08-07] MEDS ORDERED: potassium phosphate inj 15 MMOL in dextrose 5%-water 250 ML IV PRN (06:43)
[2021-08-07] MEDS: diatr meglu/diatrizoate 30ml oral sol.-(3 dose) bottle PO SCH ×2 (07:00→21:00)
[2021-08-07] MEDS: cefepime 2g/NS 100ml ADVANTAGE 100 ML IV SCH (07:49)
[2021-08-07] MEDS: famotidine/PF 10 mg/ml inj IV SCH ×2 (07:50→20:21)
[2021-08-07] MEDS: lactobacillus rhamnosus 10,000 MMU CELLS/CAPSULE PO SCH ×2 (08:00→20:21)
[2021-08-07] MEDS: atorvastatin 20mg tablet PO SCH (08:00)
[2021-08-07] MEDS: K and/or MAG REPLACEMENT MC SCH (08:00)
[2021-08-07] MEDS: triamcinolone acet 0.1% cream 15gm TP SCH ×2 (09:13→20:21)
--- NOTE | 2021-08-07 10:52 | NUR ---
Dr Roberts Talked to Dr. Roberts regarding CT and pts nausea with anything down her OG tube. Dr. Roberts agreed to do the CT without any contrast to look for a mechanical obstruction.
[2021-08-07] MEDS ORDERED: LORazepam 2 mg/ml vial IV PRN (10:55)
--- NOTE | 2021-08-07 14:26 | NUR ---
CT Pt to CT. Pre medicated and tolerated well. Awaiting CT results. Addendum: 08/07/21 at 1430 by Jann Thayer RN Spouse left prior to going to CT. He attempted several times to have pt write her needs to him. He appeared frustrated when he couldn't understand what she was trying to right. He stated "I thinks she's a little delirious".
--- NOTE | 2021-08-07 14:30 | NUR ---
Fam Visit at bedside. Pt agitated about ETT. Explained that we can't take that out. Attempting to mouth words to spouse but hes unable to understand her also. Pt c/o pain. Meds adjusted for pain control. Explained to both we'll be going to CT for abdominal views as little is coming out of her colostomy.
[2021-08-07] MEDS ORDERED: BUPIVAcaine 0.5% inj/PF 30 ML ONE (15:13)
[2021-08-07] MEDS ORDERED: LIDOcaine 1% 30ml preserv. free vial ONE (15:13)
[2021-08-07] MEDS ORDERED: dexmedetomidin/NS 400mcg/100mL BOTTLE IV ONE (15:37)
[2021-08-07] MEDS ORDERED: sevoflurane 250ml liquid IH ONE (15:37)
--- NOTE | 2021-08-07 16:00 | NUR ---
OR prep note. Dr. Penn & Mary from OR here. They spoke to pt regarding consent for this procedure. I confirmed that Albumin was consented but not blood products we agreed to as pt is KALLI. Pt taken to OR.
[2021-08-07] MEDS ORDERED: rocuronium 10mg/ml inj IV ONE ×2 (17:32)
[2021-08-07] MEDS ORDERED: ePHEDrine 50MG/ML INJ. ONE (17:32)
[2021-08-07] MEDS ORDERED: dexamethasone sod phosphate 4mg/ml inj. ONE (17:42)
[2021-08-07] MEDS ORDERED: ondansetron/PF 4mg/2ml inj ONE (17:42)
--- NOTE | 2021-08-07 18:29 | NUR ---
Shift note Pt returned from OR at 1757. Report received from SURFACE WATER MANAGER & Dr. Penn. New art line at Lt radial and Right IJ triple lumen. Report at bedside with Joseline BREWER. Reviewed changes from this AM.
--- NOTE | 2021-08-07 18:31 | NUR ---
Problems reprioritized. Patient report given, questions answered & plan of care reviewed with Joseline BREWER.
[2021-08-07] MEDS: fat emulsion 20% inj. 100 ML IV SCH (20:19)
[2021-08-07] MEDS: MVI, adult No.4 with vit. K 5 ML, ZINC/COPPER/MANGANESE/SELENIUM 0.5 ML, chromic chlori... IV SCH ×4 (20:19)
[2021-08-07] MEDS ORDERED: midazolam 1 mg/ML 2ml injection ONE (20:57)
[2021-08-07] MEDS ORDERED: midazolam 1 mg/ML 2ml injection IV ONE (21:00)
[2021-08-07] MEDS: midazolam 100mg in NS 100ml 100 ML IV SCH (21:29)
[2021-08-07] MEDS: insulin glargine (Lantus) pen - multi-dose SQ SCH (21:52)
[2021-08-08] VITALS (17 sets, daily range): BP systolic 92–145; BP diastolic 42–76
[2021-08-08] MEDS: metroNIDAZOLE-Flagyl 500mg/NS 100 ML IV SCH ×3 (00:16→16:19)
[2021-08-08] MEDS: heparin, porcine 5000 units/ml vial SQ SCH ×3 (00:16→16:19)
[2021-08-08] MEDS: FENTANYL-0.9 % NACL/PF 100 ML IV PRN ×2 (02:43→13:48)
[2021-08-08] MEDS: insulin Lispro (HumaLOG) vial - multi-dose SQ SCH (02:52)
[2021-08-08] MEDS: ipratropium/albuterol 3ml nebule IH SCH ×6 (03:44→23:31)
[2021-08-08 04:21] LABS: ABG BASE EXCESS -1.2 mmol/L (-2.0-2.0); ABG HCO3 23.1 mmol/L (22.0-26.0); ABG OXYGEN SATURATION 96.1 % (94-97); ABG PCO2 (T) 35.7 mmHg (32.0-45.0); ABG PO2 (T) 83.9 mmHg (75.0-100.0); FCOHb 0.3 % (0.0-3.9); FMetHb 0.4 % (0.0-1.5); FO2Hb 95.4 % (94-97); PATIENT TEMPERATURE 36.1; PEEP 5 cm H2O; RESPIRATORY RATE 16 b/min; TIDAL VOLUME 400 mL; TOTAL HEMOGLOBIN 9.9 G/dl (12.0-16.0)
[2021-08-08] MEDS: ringers solution, lacted 1,000 ML IV SCH ×2 (04:24→16:19)
[2021-08-08 04:56] LABS: BASOPHILS % (AUTO) 0.1 % (0-1); EOSINOPHILS % (AUTO) 0.1 % (0-6); HEMATOCRIT 30.3 % (35.0-45.0); HEMOGLOBIN 9.7 g/dl (12.0-16.0); LYMPHOCYTES # (AUTO) 0.5 X10'3 (1.1-4.8); LYMPHOCYTES % (AUTO) 1.6 % (21-51); MEAN CORPUSCULAR HEMOGLOBIN 28.9 PG (27.0-31.0); MEAN CORPUSCULAR VOLUME 90.3 FL (78-98); MEAN PLATELET VOLUME 9.2 FL (7.4-10.4); MONOCYTES # (AUTO) 0.5 X10'3 (0-0.9); MONOCYTES % (AUTO) 1.9 % (2-12); NEUTROPHILS # (AUTO) 28.3 X10'3 (1.8-7.7); NEUTROPHILS % (AUTO) 96.3 % (42-75); PLATELET COUNT 178 X10'3 (140-440); RED BLOOD COUNT 3.35 X10'6 (4.20-5.60); RED CELL DISTRIBUTION WIDTH 15.7 % (11.5-14.5)
[2021-08-08 04:59] LABS: WHITE BLOOD COUNT 29.4 X10'3 (4.5-11.0)
[2021-08-08 05:18] LABS: BANDS% (MANUAL) 10 % (0-10); LYMPHOCYTES % (MANUAL) 2 % (21-51); NEUTROPHILS % (MANUAL) 80 % (42-75); TOTAL CELLS COUNTED 100
[2021-08-08 05:19] LABS: ALANINE AMINOTRANSFERASE 13 U/L (12-78); ALBUMIN 1.6 G/DL (3.4-5.0); ALBUMIN/GLOBULIN RATIO 0.5 (1.1-1.5); ALKALINE PHOSPHATASE 93 IU/L (46-116); ANION GAP 8 (8-16); ASPARTATE AMINO TRANSFERASE 18 U/L (10-37); BILIRUBIN,TOTAL 0.5 MG/DL (0.1-1.0); BLOOD UREA NITROGEN 36 MG/DL (7-18); BUN/CREATININE RATIO 21.1 (6.6-38.0); CHLORIDE 114 MMOL/L (99-107); CREATININE 1.71 MG/DL (0.40-0.90); GLUCOSE 206 MG/DL (70-104); MAGNESIUM 1.9 MG/DL (1.5-2.4); METAMYLEOCYTES% (MANUAL) 4 % (0-0); MONOCYTES % (MANUAL) 2 % (2-12); MYELOCYTES % (MANUAL) 2 % (0-0); PHOSPHORUS 4.6 MG/DL (2.3-4.5); PLATELET ESTIMATE NORMAL; POTASSIUM 4.3 MMOL/L (3.5-5.1); SODIUM 148 MMOL/L (135-145); TOTAL CARBON DIOXIDE 26.2 MMOL/L (24-32); TOTAL PROTEIN 4.8 G/DL (6.4-8.2); eGFR 30 ML/MIN
[2021-08-08] MEDS: cefepime 2g/NS 100ml ADVANTAGE 100 ML IV SCH (07:27)
[2021-08-08] MEDS ORDERED: Dextrose 10%-water IV solution 1,000 ML IV PRN (07:27)
[2021-08-08] MEDS: lactobacillus rhamnosus 10,000 MMU CELLS/CAPSULE PO SCH ×2 (07:28→20:00)
[2021-08-08] MEDS: atorvastatin 20mg tablet PO SCH (07:28)
[2021-08-08] MEDS: famotidine/PF 10 mg/ml inj IV SCH ×2 (07:28→22:15)
[2021-08-08] MEDS: triamcinolone acet 0.1% cream 15gm TP SCH ×2 (07:34→20:00)
[2021-08-08] MEDS: K and/or MAG REPLACEMENT MC SCH (08:00)
--- NOTE | 2021-08-08 11:18 | NUR ---
F/u 08/08: Pt CT shows SBO s/p return to OR for reduction and repair of incarcerated incisional hernia yesterday per MD note. 1L bile drained from stomach during OR per RN this AM NG remains to suction -50ml so far per EMR. Pt TPN advanced to goal this AM w/ CMP improving from yesterday per EMR. Phos 4.6 this AM however s/p KPhos replacement yesterday for prior 1.2. Will continue to monitor for PN tolerance and adjustment needs this admit. Recs 1. TPN per MD via central access using 2:1 Clinimix E /15 at 70ml/hr goal w/ separate 100ml 20% intralipids to run for 12 hours daily at 8.33ml/hr. In total; to provide 1680ml volume, 84g AA, 252g DEX (2.00mg/kg/min), and 1393 total kcals. Initiate at 30ml/hr and if tolerated Q12H advance to goal rate. 2. TG/PALB Q /; daily wts 3. monitor for signs of refeeding given poor nutrition status 8 days prior 4. monitor for PN adjustment needs as medically indicated 5. bowel care per rx post-op Addendum: 08/08/21 at [address] Amended: Links added.
[2021-08-08] MEDS ORDERED: amiodarone 150mg/dext, iso-os 100 ML IV ONE (13:15)
[2021-08-08] MEDS: amiodarone/D5 360MG/200ML BAG 200 ML IV SCH ×2 (13:34→21:01)
[2021-08-08] MEDS: insulin regular, human U-100 3ml vial - multi-dose SQ SCH ×2 (14:38→21:51)
[2021-08-08] MEDS: MVI, adult No.4 with vit. K 5 ML, ZINC/COPPER/MANGANESE/SELENIUM 0.5 ML, chromic chlori... IV SCH ×4 (15:35)
--- NOTE | 2021-08-08 18:36 | NUR ---
Shift note Pt tolerated turning ok - facial grimace with turning/positioning. Art line d/c as very positional. Rt groin line d/c'd also. Pt went into afib around 1300. Dr. Ochoa aware and orders received. Converted back from afib after about 1 hr with amiodarone drip. Pt put on cpap for weaning purposes. Pt lasted about 1.5 hrs before AC returning to back up settings. , Carlos Alberto, came to see her for about 15 minutes. WOC RN to see pt in PM for wound vac change. I explained Dr. Roberts had changed that on 08/07 and wouldn't be needed until Wednesday. She eval'd stoma, said it looked good. Sm amt of stool coming out of stool at that point. Interdry placed under pts breast.
--- NOTE | 2021-08-08 18:44 | NUR ---
Problems reprioritized. Patient report given, questions answered & plan of care reviewed with Abdulkadir BREWER.
[2021-08-08] MEDS: insulin glargine (Lantus) pen - multi-dose SQ SCH (21:53)
[2021-08-08] MEDS: fat emulsion 20% inj. 100 ML IV SCH (22:06)
[2021-08-09] VITALS (17 sets, daily range): BP systolic 120–172; BP diastolic 6–78
[2021-08-09] MEDS: FENTANYL-0.9 % NACL/PF 100 ML IV PRN ×2 (00:05→12:10)
[2021-08-09] MEDS: metroNIDAZOLE-Flagyl 500mg/NS 100 ML IV SCH ×3 (01:17→16:16)
[2021-08-09] MEDS: midazolam 100mg in NS 100ml 100 ML IV SCH (01:19)
[2021-08-09] MEDS: heparin, porcine 5000 units/ml vial SQ SCH ×3 (01:22→16:15)
[2021-08-09 03:19] LABS: BASOPHILS % (AUTO) 0.1 % (0-1); EOSINOPHILS # (AUTO) 0.2 X10'3 (0-0.9); EOSINOPHILS % (AUTO) 0.8 % (0-6); HEMATOCRIT 27.8 % (35.0-45.0); HEMOGLOBIN 8.8 g/dl (12.0-16.0); LYMPHOCYTES # (AUTO) 1.1 X10'3 (1.1-4.8); LYMPHOCYTES % (AUTO) 4.7 % (21-51); MEAN CORPUSCULAR HEMOGLOBIN 28.8 PG (27.0-31.0); MEAN CORPUSCULAR HGB CONC 31.5 g/dL (33.0-36.5); MEAN CORPUSCULAR VOLUME 91.4 FL (78-98); MEAN PLATELET VOLUME 9.5 FL (7.4-10.4); MONOCYTES # (AUTO) 1.2 X10'3 (0-0.9); NEUTROPHILS # (AUTO) 20.8 X10'3 (1.8-7.7); NEUTROPHILS % (AUTO) 89.4 % (42-75); PLATELET COUNT 180 X10'3 (140-440); RED BLOOD COUNT 3.04 X10'6 (4.20-5.60); WHITE BLOOD COUNT 23.3 X10'3 (4.5-11.0)
[2021-08-09] MEDS: insulin regular, human U-100 3ml vial - multi-dose SQ SCH ×4 (03:32→20:56)
[2021-08-09 03:43] LABS: ALANINE AMINOTRANSFERASE 13 U/L (12-78); ALBUMIN 1.5 G/DL (3.4-5.0); ALBUMIN/GLOBULIN RATIO 0.4 (1.1-1.5); ALKALINE PHOSPHATASE 83 IU/L (46-116); ANION GAP 9 (8-16); ASPARTATE AMINO TRANSFERASE 16 U/L (10-37); BILIRUBIN,TOTAL 0.3 MG/DL (0.1-1.0); BLOOD UREA NITROGEN 41 MG/DL (7-18); BUN/CREATININE RATIO 25.6 (6.6-38.0); CALCIUM 7.8 MG/DL (8.5-10.1); CHLORIDE 113 MMOL/L (99-107); GLUCOSE 162 MG/DL (70-104); MAGNESIUM 1.7 MG/DL (1.5-2.4); PHOSPHORUS 3.6 MG/DL (2.3-4.5); POTASSIUM 3.9 MMOL/L (3.5-5.1); SODIUM 148 MMOL/L (135-145); TOTAL CARBON DIOXIDE 25.9 MMOL/L (24-32); TOTAL PROTEIN 5.1 G/DL (6.4-8.2); eGFR 32 ML/MIN
[2021-08-09] MEDS: ipratropium/albuterol 3ml nebule IH SCH ×6 (03:55→23:19)
[2021-08-09] MEDS: ringers solution, lacted 1,000 ML IV SCH ×2 (04:02→16:16)
[2021-08-09] MEDS: MVI, adult No.4 with vit. K 5 ML, ZINC/COPPER/MANGANESE/SELENIUM 0.5 ML, chromic chlori... IV SCH ×8 (04:05→17:27)
[2021-08-09 04:22] LABS: PLATELET ESTIMATE NORMAL; TOTAL CELLS COUNTED 100
[2021-08-09 05:18] LABS: ABG BASE EXCESS -1.7 mmol/L (-2.0-2.0); ABG HCO3 21.7 mmol/L (22.0-26.0); ABG OXYGEN SATURATION 95.4 % (94-97); ABG PCO2 (T) 31.7 mmHg (32.0-45.0); ABG PO2 (T) 76.9 mmHg (75.0-100.0); ALLEN'S TEST POSITIVE; FCOHb 0.3 % (0.0-3.9); FMetHb 0.4 % (0.0-1.5); FO2Hb 94.7 % (94-97); PEEP 5 cm H2O; RESPIRATORY RATE 16 b/min; TIDAL VOLUME 400 mL; TOTAL HEMOGLOBIN 10.2 G/dl (12.0-16.0)
--- NOTE | 2021-08-09 06:15 | NUR ---
Patient in room ICU 2043. I have received report from Abdulkadir BREWER and had the opportunity to ask questions and assume patient care.
[2021-08-09] MEDS: amiodarone/D5 360MG/200ML BAG 200 ML IV SCH ×3 (07:21→19:35)
[2021-08-09] MEDS: atorvastatin 20mg tablet PO SCH (07:56)
[2021-08-09] MEDS: famotidine/PF 10 mg/ml inj IV SCH ×2 (07:56→21:24)
[2021-08-09] MEDS: lactobacillus rhamnosus 10,000 MMU CELLS/CAPSULE PO SCH ×2 (07:56→21:24)
[2021-08-09] MEDS: cefepime 2g/NS 100ml ADVANTAGE 100 ML IV SCH (09:02)
[2021-08-09] MEDS: triamcinolone acet 0.1% cream 15gm TP SCH ×2 (09:59→20:00)
--- NOTE | 2021-08-09 11:34 | NUR ---
F/u: Received TC from clinical pharmacist informing RD that current TPN formula is no longer available. TPN recommendations have been updated and d/w clinical pharmacist, see below. New recommendations will NOT meet patient's estimated protein needs given high dextrose formula. Per I&O pt with 50 mL stool output from colostomy 08/07. Will continue to follow closely and monitor need for further adjustments to nutrition recommendations. Rec: 1. TPN via PICC line using 2:1 Clinimix-E / at 58 mL/hr with separate 100 mL 20% intralipids to run at 8.33 mL/hr for 12 hours each day. In total to provide 1492 mL volume/day, 1425 kcal, 70 g AA (60.5% estimated protein needs), 278.4 g dextrose (2.21 mg/kg/min dext load), and 20 g lipids (14% kcal from fat) 2. TG/PALB q /; daily scaled wts 3. Monitor electrolytes and need to adjust TPN recommendations 2. Bowel care per rx post-op Addendum: 08/09/21 at [address] Amended: Links added.
[2021-08-09] MEDS ORDERED: ZINC/COPPER/MANGANESE/SELENIUM 0.5 ML, chromic chloride inj. 5 MCG in AA 5%/D15W/ELECTR... IV SCH (12:10)
--- NOTE | 2021-08-09 12:33 | NUR ---
MD Visit 1045 Dr. Lakhani saw pt. Looked at stoma with me. No additional orders received. Pt called about 1015. Will be in later possibly. Stated his stomach was upset. 12:15 Dr. Aguiar at beside with CN. Discussed weaning parameters and he ordered pt to be extubated. Addendum: 08/09/21 at 1239 by Jann Thayer RN Error - this pt will not be extubated at this time
--- NOTE | 2021-08-09 12:34 | NUR ---
F/u: Received TC from clinical pharmacy that previous TPN formula is now available. Recommend resuming previous TPN recommendations as they were better meeting patient's estimated nutrient needs, d/w clinical pharmacist. Rec: 1. TPN via PICC line using 2:1 Clinimix-E 04/12 at 72 mL/hr with separate 100 mL 20% intralipids to run at 8.33 mL/hr for 12 hours each day. In total to provide 1828 mL volume/day, 1427 kcal, 86.4 g AA, 259 g dextrose (2.05 mg/kg/min dext load), and 20 g lipids (14% kcal from fat) 2. TG/PALB q /; daily scaled wts 3. Monitor electrolytes and need to adjust TPN recommendations 2. Bowel care per rx post-op Addendum: 08/09/21 at [address] Amended: Links added.
--- NOTE | 2021-08-09 15:30 | NUR ---
visit Pts to see her at about 1450. 1530 he left and bath was provided/linen changed. Pts back w/out s/s redness or breakdown. Turning pt grimaced but tolerated turning. VIRGILIO Miller assisted with bath/linen change (thanks).
--- NOTE | 2021-08-09 18:23 | NUR ---
Problems reprioritized. Patient report given, questions answered & plan of care reviewed with Abdulkadir BREWER.
[2021-08-09] MEDS: insulin glargine (Lantus) pen - multi-dose SQ SCH (20:57)
[2021-08-09] MEDS: fat emulsion 20% inj. 100 ML IV SCH (21:23)
[2021-08-10] VITALS (27 sets, daily range): BP systolic 119–184; BP diastolic 49–89
[2021-08-10] MEDS: heparin, porcine 5000 units/ml vial SQ SCH ×4 (00:51→23:53)
[2021-08-10] MEDS: metroNIDAZOLE-Flagyl 500mg/NS 100 ML IV SCH ×4 (00:52→23:52)
[2021-08-10] MEDS: ringers solution, lacted 1,000 ML IV SCH (00:52)
[2021-08-10] MEDS: amiodarone/D5 360MG/200ML BAG 200 ML IV SCH ×6 (01:39→20:23)
[2021-08-10 02:34] LABS: BASOPHILS % (AUTO) 0.1 % (0-1); EOSINOPHILS # (AUTO) 0.7 X10'3 (0-0.9); EOSINOPHILS % (AUTO) 2.5 % (0-6); HEMATOCRIT 30.3 % (35.0-45.0); HEMOGLOBIN 9.7 g/dl (12.0-16.0); LYMPHOCYTES # (AUTO) 1.4 X10'3 (1.1-4.8); LYMPHOCYTES % (AUTO) 4.8 % (21-51); MEAN CORPUSCULAR HGB CONC 31.9 g/dL (33.0-36.5); MEAN CORPUSCULAR VOLUME 90.7 FL (78-98); MEAN PLATELET VOLUME 9.2 FL (7.4-10.4); MONOCYTES % (AUTO) 6.8 % (2-12); NEUTROPHILS # (AUTO) 24.7 X10'3 (1.8-7.7); NEUTROPHILS % (AUTO) 85.8 % (42-75); PLATELET COUNT 212 X10'3 (140-440); RED BLOOD COUNT 3.34 X10'6 (4.20-5.60); RED CELL DISTRIBUTION WIDTH 15.7 % (11.5-14.5)
[2021-08-10] MEDS: insulin regular, human U-100 3ml vial - multi-dose SQ SCH ×3 (02:34→20:38)
[2021-08-10 02:47] LABS: WHITE BLOOD COUNT 28.8 X10'3 (4.5-11.0)
[2021-08-10 02:48] LABS: ALANINE AMINOTRANSFERASE 7 U/L (12-78); ALBUMIN 1.5 G/DL (3.4-5.0); ALBUMIN/GLOBULIN RATIO 0.5 (1.1-1.5); ALKALINE PHOSPHATASE 102 IU/L (46-116); ANION GAP 8 (8-16); ASPARTATE AMINO TRANSFERASE 16 U/L (10-37); BILIRUBIN,TOTAL 0.3 MG/DL (0.1-1.0); BLOOD UREA NITROGEN 40 MG/DL (7-18); BUN/CREATININE RATIO 28.4 (6.6-38.0); CALCIUM 7.9 MG/DL (8.5-10.1); CHLORIDE 112 MMOL/L (99-107); CREATININE 1.41 MG/DL (0.40-0.90); GLUCOSE 135 MG/DL (70-104); MAGNESIUM 1.6 MG/DL (1.5-2.4); PHOSPHORUS 3.2 MG/DL (2.3-4.5); POTASSIUM 3.8 MMOL/L (3.5-5.1); SODIUM 146 MMOL/L (135-145); TOTAL CARBON DIOXIDE 26.4 MMOL/L (24-32); TOTAL PROTEIN 4.8 G/DL (6.4-8.2); eGFR 37 ML/MIN
[2021-08-10 03:33] LABS: PLATELET ESTIMATE NORMAL; TOTAL CELLS COUNTED 100
[2021-08-10] MEDS: ipratropium/albuterol 3ml nebule IH SCH ×6 (04:01→22:40)
[2021-08-10 04:13] LABS: ABG BASE EXCESS -1.5 mmol/L (-2.0-2.0); ABG HCO3 22.6 mmol/L (22.0-26.0); ABG OXYGEN SATURATION 96.4 % (94-97); ABG PCO2 (T) 35.7 mmHg (32.0-45.0); ABG PO2 (T) 88.3 mmHg (75.0-100.0); ALLEN'S TEST POSITIVE; FCOHb 0.3 % (0.0-3.9); FMetHb 0.3 % (0.0-1.5); FO2Hb 95.8 % (94-97); PEEP 5 cm H2O; RESPIRATORY RATE 16 b/min; TIDAL VOLUME 400 mL; TOTAL HEMOGLOBIN 11.1 G/dl (12.0-16.0)
[2021-08-10] MEDS: FENTANYL-0.9 % NACL/PF 100 ML IV PRN ×2 (05:28→23:01)
[2021-08-10] MEDS: ZINC/COPPER/MANGANESE/SELENIUM 0.5 ML, chromic chloride inj. 5 MCG in AA 5%/D15W/ELECTR... IV SCH ×2 (05:29→20:25)
[2021-08-10] MEDS: lactobacillus rhamnosus 10,000 MMU CELLS/CAPSULE PO SCH ×2 (08:00→20:26)
[2021-08-10] MEDS: atorvastatin 20mg tablet PO SCH (08:00)
[2021-08-10] MEDS: insulin Lispro (HumaLOG) vial - multi-dose SQ SCH (09:09)
[2021-08-10] MEDS: famotidine/PF 10 mg/ml inj IV SCH ×2 (09:28→20:26)
[2021-08-10] MEDS: cefepime 2g/NS 100ml ADVANTAGE 100 ML IV SCH (09:30)
[2021-08-10] MEDS: triamcinolone acet 0.1% cream 15gm TP SCH ×2 (09:48→20:27)
--- NOTE | 2021-08-10 13:20 | NUR ---
TF consult 08/10: Per RN, pt w/ OGT and awaiting Surgeon consult today to clear pt for enteral feeding, recs provided below. Pt remains intubated and sedated w/ versed and fentanyl per RN. Communicated w/ RN recommendation to continue w/ TPN until pt can tolerate TF at about half of the goal rate, then begin tapering TPN. Will continue to monitor TF tolerance and make adjustments as medically indicated. Rec: 1. Continuous TF using Vital High Protein at 55ml/hr goal to provide 1320ml volume, 1320kcals, 115g protein, 1109ml H2O 2. IF Pt tolerates TF, taper TPN. TPN via PICC line using 2:1 Clinimix-E 5/15 at 72 mL/hr with separate 100 mL 20% intralipids to run at 8.33 mL/hr for 12 hours each day. In total to provide 1828 mL volume/day, 1427 kcal, 86.4 g AA, 259 g dextrose (2.05 mg/kg/min dext load), and 20 g lipids (14% kcal from fat) 3. TG/PALB q /; daily scaled wts 4. Monitor electrolytes and need to adjust TPN recommendations 5. Bowel care per rx post-op 6. Monitor TF tolerance Addendum: 08/10/21 at [address] Amended: Links added. Addendum: 08/10/21 at [address] Rec: Additional water flush 150ml Q4H
[2021-08-10] MEDS ORDERED: diatr meglu/diatrizoate 30ml oral sol.-(3 dose) bottle PO ONE ×3 (14:05→21:00)
[2021-08-10] MEDS: furosemide 40mg/4ml inj IV SCH ×2 (16:00→23:53)
--- NOTE | 2021-08-10 18:42 | NUR ---
Patient in room ICU 2043. I have received report from Deanna Song RN and had the opportunity to ask questions and assume patient care.
--- NOTE | 2021-08-10 19:20 | NUR ---
Spoke with Dr. Lakhani via phone and he agrees to have patient's CT Abd & Pelvis to wait until AM dayshift 08/11/21
[2021-08-10] MEDS: fat emulsion 20% inj. 100 ML IV SCH (20:26)
[2021-08-10] MEDS: insulin glargine (Lantus) pen - multi-dose SQ SCH (20:37)
--- NOTE | 2021-08-10 23:00 | NUR ---
[id number] Resting quietly on Vent without distress noted , bed bath give at 0000 and tolerated well
[2021-08-11] VITALS (24 sets, daily range): BP systolic 102–142; BP diastolic 45–63
[2021-08-11 02:21] LABS: ABG BASE EXCESS 3.3 mmol/L (-2.0-2.0); ABG HCO3 26.9 mmol/L (22.0-26.0); ABG OXYGEN SATURATION 95.6 % (94-97); ABG PCO2 (T) 37.6 mmHg (32.0-45.0); ABG PO2 (T) 76.3 mmHg (75.0-100.0); ALLEN'S TEST POSITIVE; FCOHb 0.3 % (0.0-3.9); FMetHb 0.2 % (0.0-1.5); FO2Hb 95.1 % (94-97); PATIENT TEMPERATURE 37.1; PEEP 5 cm H2O; RESPIRATORY RATE 16 b/min; TIDAL VOLUME 400 mL; TOTAL HEMOGLOBIN 10.6 G/dl (12.0-16.0)
[2021-08-11] MEDS: insulin regular, human U-100 3ml vial - multi-dose SQ SCH ×4 (02:22→20:25)
[2021-08-11] MEDS: ipratropium/albuterol 3ml nebule IH SCH ×6 (02:46→22:44)
[2021-08-11 03:00] LABS: BASOPHILS % (AUTO) 0.1 % (0-1); EOSINOPHILS # (AUTO) 0.6 X10'3 (0-0.9); EOSINOPHILS % (AUTO) 2.3 % (0-6); HEMATOCRIT 29.7 % (35.0-45.0); HEMOGLOBIN 9.5 g/dl (12.0-16.0); LYMPHOCYTES # (AUTO) 1.6 X10'3 (1.1-4.8); LYMPHOCYTES % (AUTO) 6.1 % (21-51); MEAN CORPUSCULAR HEMOGLOBIN 29.1 PG (27.0-31.0); MEAN CORPUSCULAR HGB CONC 32.1 g/dL (33.0-36.5); MEAN CORPUSCULAR VOLUME 90.9 FL (78-98); MEAN PLATELET VOLUME 9.4 FL (7.4-10.4); MONOCYTES # (AUTO) 1.6 X10'3 (0-0.9); MONOCYTES % (AUTO) 6.2 % (2-12); NEUTROPHILS # (AUTO) 21.9 X10'3 (1.8-7.7); NEUTROPHILS % (AUTO) 85.3 % (42-75); PLATELET COUNT 226 X10'3 (140-440); RED BLOOD COUNT 3.27 X10'6 (4.20-5.60); RED CELL DISTRIBUTION WIDTH 15.7 % (11.5-14.5)
--- NOTE | 2021-08-11 03:00 | NUR ---
[id number] repositioned q 2 hrs , no distress noted
[2021-08-11 03:03] LABS: WHITE BLOOD COUNT 25.7 X10'3 (4.5-11.0)
[2021-08-11 03:10] LABS: PARTIAL THROMBOPLASTIN TIME 35 SECONDS (22-32)
[2021-08-11 03:38] LABS: ALANINE AMINOTRANSFERASE 7 U/L (12-78); ALBUMIN 1.3 G/DL (3.4-5.0); ALBUMIN/GLOBULIN RATIO 0.4 (1.1-1.5); ALKALINE PHOSPHATASE 108 IU/L (46-116); ANION GAP 6 (8-16); ASPARTATE AMINO TRANSFERASE 15 U/L (10-37); BILIRUBIN,TOTAL 0.3 MG/DL (0.1-1.0); BLOOD UREA NITROGEN 42 MG/DL (7-18); CHLORIDE 109 MMOL/L (99-107); CREATININE 1.45 MG/DL (0.40-0.90); GLUCOSE 153 MG/DL (70-104); MAGNESIUM 1.3 MG/DL (1.5-2.4); POTASSIUM 3.8 MMOL/L (3.5-5.1); SODIUM 143 MMOL/L (135-145); TOTAL CARBON DIOXIDE 27.7 MMOL/L (24-32); TOTAL PROTEIN 4.7 G/DL (6.4-8.2); TRIGLYCERIDES 97 MG/DL (20-135); eGFR 36 ML/MIN
[2021-08-11 04:02] LABS: PLATELET ESTIMATE NORMAL; TOTAL CELLS COUNTED 100
[2021-08-11] MEDS: FENTANYL-0.9 % NACL/PF 100 ML IV PRN ×3 (04:19→21:00)
[2021-08-11] MEDS ORDERED: magnesium 2GM in 50ml NS 50 ML IV ONE (04:35)
[2021-08-11] MEDS ORDERED: diatr meglu/diatrizoate 30ml oral sol.-(3 dose) bottle PO ONE ×2 (06:00→07:00)
--- NOTE | 2021-08-11 06:15 | NUR ---
Problems reprioritized. Patient report given, questions answered & plan of care reviewed with Miguel BREWER.
[2021-08-11] MEDS: metroNIDAZOLE-Flagyl 500mg/NS 100 ML IV SCH ×3 (07:43→23:49)
[2021-08-11] MEDS: furosemide 40mg/4ml inj IV SCH ×3 (07:43→23:49)
[2021-08-11] MEDS: heparin, porcine 5000 units/ml vial SQ SCH ×3 (07:44→23:49)
[2021-08-11] MEDS: triamcinolone acet 0.1% cream 15gm TP SCH ×2 (07:44→20:08)
[2021-08-11] MEDS: famotidine/PF 10 mg/ml inj IV SCH ×2 (07:45→20:07)
[2021-08-11] MEDS ORDERED: fluconazole/NS 400mg/200ml bag 200 ML IV SCH (08:00)
[2021-08-11] MEDS: atorvastatin 20mg tablet PO SCH (08:00)
[2021-08-11] MEDS: lactobacillus rhamnosus 10,000 MMU CELLS/CAPSULE PO SCH ×2 (08:00→20:07)
[2021-08-11] MEDS: cefepime 2g/NS 100ml ADVANTAGE 100 ML IV SCH (09:55)
[2021-08-11] MEDS: ZINC/COPPER/MANGANESE/SELENIUM 0.5 ML, chromic chloride inj. 5 MCG in AA 5%/D15W/ELECTR... IV SCH ×2 (10:46→22:47)
[2021-08-11] MEDS: amiodarone/D5 360MG/200ML BAG 200 ML IV SCH ×3 (15:45→22:46)
--- NOTE | 2021-08-11 18:30 | NUR ---
Patient in room ICU 2043. I have received report from Rafael BREWER and had the opportunity to ask questions and assume patient care.
[2021-08-11] MEDS: fat emulsion 20% inj. 100 ML IV SCH (20:07)
[2021-08-11] MEDS: insulin glargine (Lantus) pen - multi-dose SQ SCH (20:23)
--- NOTE | 2021-08-11 21:00 | NUR ---
[id number] RESTING QUIETLY IN SEMI FOWLERS POSITION, REPOSITIONED AND TURNED Q 2 HRS , NO DISTRESS NOTED, BED BATH AND SKIN CARE GIVEN AT 0 AND TOLERATED WELL
[2021-08-11] MEDS: midazolam 100mg in NS 100ml 100 ML IV SCH (22:46)
[2021-08-12] VITALS (23 sets, daily range): BP systolic 92–149; BP diastolic 43–71
--- NOTE | 2021-08-12 01:00 | NUR ---
[id number] Resting quietly on Ventilator with minimal sedation, repositioned q 2 hrs
[2021-08-12] MEDS: amiodarone/D5 360MG/200ML BAG 200 ML IV SCH ×4 (02:11→20:29)
[2021-08-12] MEDS: insulin regular, human U-100 3ml vial - multi-dose SQ SCH ×4 (02:18→21:19)
[2021-08-12 02:59] LABS: BASOPHILS # (AUTO) 0.1 X10'3 (0-0.2); BASOPHILS % (AUTO) 0.3 % (0-1); EOSINOPHILS # (AUTO) 0.7 X10'3 (0-0.9); EOSINOPHILS % (AUTO) 3.3 % (0-6); HEMATOCRIT 29.5 % (35.0-45.0); HEMOGLOBIN 9.5 g/dl (12.0-16.0); LYMPHOCYTES # (AUTO) 1.8 X10'3 (1.1-4.8); LYMPHOCYTES % (AUTO) 7.9 % (21-51); MEAN CORPUSCULAR HEMOGLOBIN 28.9 PG (27.0-31.0); MEAN CORPUSCULAR HGB CONC 32.3 g/dL (33.0-36.5); MEAN CORPUSCULAR VOLUME 89.6 FL (78-98); MEAN PLATELET VOLUME 9.1 FL (7.4-10.4); MONOCYTES # (AUTO) 1.6 X10'3 (0-0.9); NEUTROPHILS # (AUTO) 18.5 X10'3 (1.8-7.7); NEUTROPHILS % (AUTO) 81.5 % (42-75); PLATELET COUNT 261 X10'3 (140-440); RED BLOOD COUNT 3.29 X10'6 (4.20-5.60); RED CELL DISTRIBUTION WIDTH 15.8 % (11.5-14.5); WHITE BLOOD COUNT 22.7 X10'3 (4.5-11.0)
[2021-08-12] MEDS: ipratropium/albuterol 3ml nebule IH SCH ×6 (03:03→23:04)
[2021-08-12 03:14] LABS: ALANINE AMINOTRANSFERASE 11 U/L (12-78); ALBUMIN 1.3 G/DL (3.4-5.0); ALBUMIN/GLOBULIN RATIO 0.4 (1.1-1.5); ALKALINE PHOSPHATASE 97 IU/L (46-116); ANION GAP 9 (8-16); ASPARTATE AMINO TRANSFERASE 25 U/L (10-37); BILIRUBIN,TOTAL 0.3 MG/DL (0.1-1.0); BLOOD UREA NITROGEN 44 MG/DL (7-18); BUN/CREATININE RATIO 28.2 (6.6-38.0); CALCIUM 7.7 MG/DL (8.5-10.1); CHLORIDE 105 MMOL/L (99-107); CREATININE 1.56 MG/DL (0.40-0.90); GLUCOSE 123 MG/DL (70-104); MAGNESIUM 1.2 MG/DL (1.5-2.4); POTASSIUM 3.7 MMOL/L (3.5-5.1); SODIUM 143 MMOL/L (135-145); TOTAL CARBON DIOXIDE 29.2 MMOL/L (24-32); TOTAL PROTEIN 4.9 G/DL (6.4-8.2); eGFR 33 ML/MIN
[2021-08-12 03:16] LABS: ABG BASE EXCESS 3.5 mmol/L (-2.0-2.0); ABG HCO3 25.9 mmol/L (22.0-26.0); ABG OXYGEN SATURATION 94.6 % (94-97); ABG PCO2 (T) 31.3 mmHg (32.0-45.0); ALLEN'S TEST POSITIVE; FCOHb 0.3 % (0.0-3.9); FMetHb 0.4 % (0.0-1.5); FO2Hb 93.9 % (94-97); PATIENT TEMPERATURE 36.9; PEEP 5 cm H2O; RESPIRATORY RATE 16 b/min; TIDAL VOLUME 400 mL; TOTAL HEMOGLOBIN 10.1 G/dl (12.0-16.0)
[2021-08-12 04:22] LABS: BANDS% (MANUAL) 7 % (0-10); NEUTROPHILS % (MANUAL) 70 % (42-75); TOTAL CELLS COUNTED 100
[2021-08-12 04:23] LABS: LYMPHOCYTES % (MANUAL) 10 % (21-51); METAMYLEOCYTES% (MANUAL) 5 % (0-0); MONOCYTES % (MANUAL) 4 % (2-12); MYELOCYTES % (MANUAL) 4 % (0-0); PLATELET ESTIMATE NORMAL
[2021-08-12 04:24] LABS: ANISOCYTOSIS 1+
[2021-08-12] MEDS ORDERED: magnesium 2GM in 50ml NS 50 ML IV ONE (04:30)
--- NOTE | 2021-08-12 05:00 | NUR ---
TeleMed Rounding done with Dr. Baez, orders received
--- NOTE | 2021-08-12 06:10 | NUR ---
Problems reprioritized. Patient report given, questions answered & plan of care reviewed with Rafael BREWER.
[2021-08-12] MEDS: lactobacillus rhamnosus 10,000 MMU CELLS/CAPSULE PO SCH ×2 (08:00→20:00)
[2021-08-12] MEDS: atorvastatin 20mg tablet PO SCH (08:00)
--- NOTE | 2021-08-12 08:00 | NUR ---
HOB at a minimum of 30 degrees Addendum: 08/12/21 at 0950 by Gabrielle Hall RN Amended: Links added.
[2021-08-12] MEDS: heparin, porcine 5000 units/ml vial SQ SCH ×3 (08:13→23:58)
[2021-08-12] MEDS: furosemide 40mg/4ml inj IV SCH ×3 (08:13→23:57)
[2021-08-12] MEDS: famotidine/PF 10 mg/ml inj IV SCH ×2 (08:13→20:27)
[2021-08-12] MEDS: fluconazole-Diflucan 200mg/NS 100 ML IV SCH (08:14)
[2021-08-12] MEDS: metroNIDAZOLE-Flagyl 500mg/NS 100 ML IV SCH ×3 (08:14→23:57)
[2021-08-12] MEDS: cefepime 2g/NS 100ml ADVANTAGE 100 ML IV SCH (08:14)
[2021-08-12] MEDS: triamcinolone acet 0.1% cream 15gm TP SCH ×2 (08:15→20:28)
[2021-08-12] MEDS: MVI, adult No.4 with vit. K 10 ML in dextrose 5% water 500ml 500 ML IV SCH ×2 (08:36)
--- NOTE | 2021-08-12 10:39 | NUR ---
f/u 08/12: Pt continues to tolerate TPN w/ no signs or symptoms of refeeding. CT scan of abdomen shows ileus w/ no obstruction per MD note. Per smoking pipe mounter at rounds, pt to not start TF yet, will continue on TPN. OGT in place on low intermittent suction with documented 200ml output of green fluid last night. LBM 08/01 will continue to monitor. Rec: 1. TPN via PICC line using 2:1 Clinimix-E 04/12 at 72 mL/hr with separate 100 mL 20% intralipids to run at 8.33 mL/hr for 12 hours each day. In total to provide 1828 mL volume/day, 1427 kcal, 86.4 g AA, 259 g dextrose (2.05 mg/kg/min dext load), and 20 g lipids (14% kcal from fat) 2. IF TF, Continuous TF using Vital High Protein at 55ml/hr goal to provide 1320ml volume, 1320kcals, 115g protein, 1109ml H2O 3. Additional water flush 150ml Q4H 4. TG/PALB q /; daily scaled wts 5. Monitor electrolytes and need to adjust TPN recommendations 6. Bowel care per rx post-op Addendum: 08/12/21 at [address] Amended: Links added.
[2021-08-12] MEDS: ZINC/COPPER/MANGANESE/SELENIUM 0.5 ML, chromic chloride inj. 5 MCG in AA 5%/D15W/ELECTR... IV SCH (12:16)
[2021-08-12] MEDS: FENTANYL-0.9 % NACL/PF 100 ML IV PRN (16:56)
[2021-08-12] MEDS: fat emulsion 20% inj. 100 ML IV SCH (20:27)
[2021-08-12] MEDS: insulin glargine (Lantus) pen - multi-dose SQ SCH (21:21)
[2021-08-13] VITALS (24 sets, daily range): BP systolic 106–161; BP diastolic 46–75
[2021-08-13] MEDS: ZINC/COPPER/MANGANESE/SELENIUM 0.5 ML, chromic chloride inj. 5 MCG in AA 5%/D15W/ELECTR... IV SCH ×2 (01:41→15:24)
[2021-08-13] MEDS: FENTANYL-0.9 % NACL/PF 100 ML IV PRN (01:42)
[2021-08-13] MEDS: midazolam 100mg in NS 100ml 100 ML IV SCH (01:43)
[2021-08-13] MEDS: amiodarone/D5 360MG/200ML BAG 200 ML IV SCH ×3 (02:27→12:27)
[2021-08-13 02:51] LABS: BASOPHILS % (AUTO) 0.2 % (0-1); EOSINOPHILS # (AUTO) 0.6 X10'3 (0-0.9); EOSINOPHILS % (AUTO) 3.2 % (0-6); HEMATOCRIT 29.2 % (35.0-45.0); HEMOGLOBIN 9.5 g/dl (12.0-16.0); LYMPHOCYTES # (AUTO) 1.6 X10'3 (1.1-4.8); LYMPHOCYTES % (AUTO) 8.2 % (21-51); MEAN CORPUSCULAR HEMOGLOBIN 28.9 PG (27.0-31.0); MEAN CORPUSCULAR HGB CONC 32.6 g/dL (33.0-36.5); MEAN CORPUSCULAR VOLUME 88.7 FL (78-98); MEAN PLATELET VOLUME 9.1 FL (7.4-10.4); MONOCYTES # (AUTO) 1.6 X10'3 (0-0.9); NEUTROPHILS # (AUTO) 15.8 X10'3 (1.8-7.7); NEUTROPHILS % (AUTO) 80.4 % (42-75); PLATELET COUNT 285 X10'3 (140-440); RED CELL DISTRIBUTION WIDTH 15.9 % (11.5-14.5); WHITE BLOOD COUNT 19.7 X10'3 (4.5-11.0)
[2021-08-13 03:11] LABS: ALANINE AMINOTRANSFERASE 9 U/L (12-78); ALBUMIN 1.4 G/DL (3.4-5.0); ALBUMIN/GLOBULIN RATIO 0.4 (1.1-1.5); ALKALINE PHOSPHATASE 94 IU/L (46-116); ANION GAP 3 (8-16); ASPARTATE AMINO TRANSFERASE 15 U/L (10-37); BILIRUBIN,TOTAL 0.3 MG/DL (0.1-1.0); BLOOD UREA NITROGEN 50 MG/DL (7-18); BUN/CREATININE RATIO 32.1 (6.6-38.0); CALCIUM 7.9 MG/DL (8.5-10.1); CHLORIDE 100 MMOL/L (99-107); CREATININE 1.56 MG/DL (0.40-0.90); GLUCOSE 157 MG/DL (70-104); MAGNESIUM 1.6 MG/DL (1.5-2.4); POTASSIUM 3.5 MMOL/L (3.5-5.1); SODIUM 134 MMOL/L (135-145); TOTAL PROTEIN 5.3 G/DL (6.4-8.2); TRIGLYCERIDES 126 MG/DL (20-135); eGFR 33 ML/MIN
[2021-08-13] MEDS: ipratropium/albuterol 3ml nebule IH SCH ×6 (03:32→23:04)
[2021-08-13 03:42] LABS: ABG BASE EXCESS 0.4 mmol/L (-2.0-2.0); ABG HCO3 23.8 mmol/L (22.0-26.0); ABG OXYGEN SATURATION 95.6 % (94-97); ABG PCO2 (T) 33.3 mmHg (32.0-45.0); ABG PO2 (T) 84.6 mmHg (75.0-100.0); ALLEN'S TEST POSITIVE; FCOHb 0.3 % (0.0-3.9); FMetHb 0.2 % (0.0-1.5); FO2Hb 95.1 % (94-97); PATIENT TEMPERATURE 36.9; PEEP 5 cm H2O; RESPIRATORY RATE 14 b/min; TIDAL VOLUME 400 mL; TOTAL HEMOGLOBIN 9.8 G/dl (12.0-16.0)
[2021-08-13 04:20] LABS: BANDS% (MANUAL) 4 % (0-10); LYMPHOCYTES % (MANUAL) 9 % (21-51); METAMYLEOCYTES% (MANUAL) 8 % (0-0); MONOCYTES % (MANUAL) 4 % (2-12); MYELOCYTES % (MANUAL) 4 % (0-0); NEUTROPHILS % (MANUAL) 71 % (42-75); PLATELET ESTIMATE NORMAL; TOTAL CELLS COUNTED 100
[2021-08-13] MEDS ORDERED: DEXMEDETOMIDINE 400mcg/4ml inj 400 MCG in normal saline 100ml IV soln 96 ML IV SCH (04:55)
[2021-08-13] MEDS ORDERED: magnesium 2GM in 50ml NS 50 ML IV ONE ×2 (04:55→05:00)
[2021-08-13] MEDS: famotidine/PF 10 mg/ml inj IV SCH ×2 (08:14→21:08)
[2021-08-13] MEDS: atorvastatin 20mg tablet PO SCH (08:14)
[2021-08-13] MEDS: lactobacillus rhamnosus 10,000 MMU CELLS/CAPSULE PO SCH ×2 (08:14→21:08)
[2021-08-13] MEDS: furosemide 40mg/4ml inj IV SCH ×2 (08:15→15:52)
[2021-08-13] MEDS: triamcinolone acet 0.1% cream 15gm TP SCH ×2 (08:15→21:09)
[2021-08-13] MEDS: metroNIDAZOLE-Flagyl 500mg/NS 100 ML IV SCH ×2 (08:15→15:52)
[2021-08-13] MEDS: fluconazole-Diflucan 200mg/NS 100 ML IV SCH (08:15)
[2021-08-13] MEDS: heparin, porcine 5000 units/ml vial SQ SCH ×2 (08:16→15:52)
[2021-08-13] MEDS: insulin regular, human U-100 3ml vial - multi-dose SQ SCH ×3 (08:34→21:16)
[2021-08-13] MEDS: DEXMEDETOMIDINE 400mcg/4ml inj 400 MCG in normal saline 100ml IV soln 96 ML IV SCH ×2 (08:44→16:09)
[2021-08-13] MEDS: cefepime 2g/NS 100ml ADVANTAGE 100 ML IV SCH (08:52)
[2021-08-13] MEDS: ZINC/COPPER/MANGANESE/SELENIUM 1 ML, chromic chloride inj. 10 MCG in AA 5%/D15W/ELECTRO... IV SCH (15:53)
[2021-08-13] MEDS: fat emulsion 20% inj. 100 ML IV SCH (21:08)
[2021-08-13] MEDS: insulin glargine (Lantus) pen - multi-dose SQ SCH (21:18)
[2021-08-14] VITALS (23 sets, daily range): BP systolic 129–164; BP diastolic 61–82
[2021-08-14] MEDS: metroNIDAZOLE-Flagyl 500mg/NS 100 ML IV SCH ×3 (00:13→16:17)
[2021-08-14] MEDS: furosemide 40mg/4ml inj IV SCH ×3 (00:13→16:17)
[2021-08-14] MEDS: heparin, porcine 5000 units/ml vial SQ SCH ×3 (00:14→16:18)
[2021-08-14] MEDS: amiodarone/D5 360MG/200ML BAG 200 ML IV SCH ×5 (00:14→23:41)
[2021-08-14 02:50] LABS: ABG BASE EXCESS 7.9 mmol/L (-2.0-2.0); ABG HCO3 31.6 mmol/L (22.0-26.0); ABG OXYGEN SATURATION 94.8 % (94-97); ABG PCO2 (T) 40.3 mmHg (32.0-45.0); ABG PO2 (T) 76.3 mmHg (75.0-100.0); ALLEN'S TEST POSITIVE; FCOHb 0.2 % (0.0-3.9); FO2Hb 94.6 % (94-97); PATIENT TEMPERATURE 36.9; PEEP 5 cm H2O; RESPIRATORY RATE 14 b/min; TIDAL VOLUME 400 mL; TOTAL HEMOGLOBIN 11.1 G/dl (12.0-16.0)
[2021-08-14] MEDS: insulin regular, human U-100 3ml vial - multi-dose SQ SCH ×4 (03:00→22:19)
[2021-08-14] MEDS: ipratropium/albuterol 3ml nebule IH SCH ×6 (03:23→22:48)
[2021-08-14 03:33] LABS: BASOPHILS % (AUTO) 0.2 % (0-1); EOSINOPHILS # (AUTO) 0.5 X10'3 (0-0.9); EOSINOPHILS % (AUTO) 2.3 % (0-6); HEMATOCRIT 31.6 % (35.0-45.0); LYMPHOCYTES # (AUTO) 1.1 X10'3 (1.1-4.8); LYMPHOCYTES % (AUTO) 5.5 % (21-51); MEAN CORPUSCULAR HEMOGLOBIN 28.2 PG (27.0-31.0); MEAN CORPUSCULAR HGB CONC 31.7 g/dL (33.0-36.5); MEAN CORPUSCULAR VOLUME 88.7 FL (78-98); MEAN PLATELET VOLUME 9.4 FL (7.4-10.4); MONOCYTES # (AUTO) 1.6 X10'3 (0-0.9); MONOCYTES % (AUTO) 7.8 % (2-12); NEUTROPHILS # (AUTO) 16.9 X10'3 (1.8-7.7); NEUTROPHILS % (AUTO) 84.2 % (42-75); PLATELET COUNT 328 X10'3 (140-440); RED BLOOD COUNT 3.56 X10'6 (4.20-5.60); RED CELL DISTRIBUTION WIDTH 15.3 % (11.5-14.5); WHITE BLOOD COUNT 20.1 X10'3 (4.5-11.0)
[2021-08-14 03:56] LABS: ANION GAP 7 (8-16); BLOOD UREA NITROGEN 52 MG/DL (7-18); CHLORIDE 99 MMOL/L (99-107); CREATININE 1.53 MG/DL (0.40-0.90); GLUCOSE 167 MG/DL (70-104); POTASSIUM 3.7 MMOL/L (3.5-5.1); SODIUM 139 MMOL/L (135-145)
[2021-08-14 03:57] LABS: ALANINE AMINOTRANSFERASE 7 U/L (12-78); ALBUMIN 1.6 G/DL (3.4-5.0); ALBUMIN/GLOBULIN RATIO 0.4 (1.1-1.5); ALKALINE PHOSPHATASE 135 IU/L (46-116); ASPARTATE AMINO TRANSFERASE 17 U/L (10-37); BILIRUBIN,TOTAL 0.3 MG/DL (0.1-1.0); CALCIUM 8.2 MG/DL (8.5-10.1); MAGNESIUM 1.8 MG/DL (1.5-2.4); PREALBUMIN 13.9 MG/DL (19-36); TRIGLYCERIDES 108 MG/DL (20-135); eGFR 34 ML/MIN
[2021-08-14 04:48] LABS: TOTAL CELLS COUNTED 100
[2021-08-14 04:49] LABS: BANDS% (MANUAL) 11 % (0-10); EOSINOPHILS % (MANUAL) 2 % (0-6); LYMPHOCYTES % (MANUAL) 7 % (21-51); METAMYLEOCYTES% (MANUAL) 4 % (0-0); MONOCYTES % (MANUAL) 3 % (2-12); MYELOCYTES % (MANUAL) 1 % (0-0); NEUTROPHILS % (MANUAL) 71 % (42-75); PLATELET ESTIMATE NORMAL; PROMYELOCYTES % (MANUAL) 1 % (0-0)
[2021-08-14] MEDS: DEXMEDETOMIDINE 400mcg/4ml inj 400 MCG in normal saline 100ml IV soln 96 ML IV SCH ×2 (06:31→14:27)
[2021-08-14] MEDS: triamcinolone acet 0.1% cream 15gm TP SCH ×2 (07:13→20:00)
[2021-08-14] MEDS: lactobacillus rhamnosus 10,000 MMU CELLS/CAPSULE PO SCH ×2 (07:13→21:03)
[2021-08-14] MEDS: famotidine/PF 10 mg/ml inj IV SCH ×2 (07:13→21:03)
[2021-08-14] MEDS: atorvastatin 20mg tablet PO SCH (07:13)
[2021-08-14] MEDS: cefepime 2g/NS 100ml ADVANTAGE 100 ML IV SCH (08:17)
[2021-08-14] MEDS: fluconazole-Diflucan 200mg/NS 100 ML IV SCH (08:51)
[2021-08-14] MEDS: MVI, adult No.4 with vit. K 10 ML in dextrose 5% water 500ml 500 ML IV SCH ×2 (09:00)
[2021-08-14] MEDS: ZINC/COPPER/MANGANESE/SELENIUM 1 ML, chromic chloride inj. 10 MCG in AA 5%/D15W/ELECTRO... IV SCH (16:18)
--- NOTE | 2021-08-14 18:30 | NUR ---
Patient in room ICU 2043. I have received report from JAMES BREWER and had the opportunity to ask questions and assume patient care.
[2021-08-14] MEDS: fat emulsion 20% inj. 100 ML IV SCH (21:03)
[2021-08-14] MEDS: insulin glargine (Lantus) pen - multi-dose SQ SCH (22:17)
[2021-08-15] VITALS (22 sets, daily range): BP systolic 142–185; BP diastolic 57–83
[2021-08-15] MEDS: furosemide 40mg/4ml inj IV SCH ×3 (01:27→23:40)
[2021-08-15] MEDS: heparin, porcine 5000 units/ml vial SQ SCH ×3 (01:28→23:40)
[2021-08-15] MEDS: metroNIDAZOLE-Flagyl 500mg/NS 100 ML IV SCH ×3 (01:29→15:12)
--- NOTE | 2021-08-15 01:30 | NUR ---
0000: Pt was restless and reaching for ET tube. When asked if Pt wanted ET tube out, Pt nodded head in agreement. [id number]: RESTING QUIETLY IN SEMI FOWLERS POSITION, REPOSITIONED AND TURNED Q 2 HRS , NO DISTRESS NOTED, BED BATH AND SKIN CARE GIVEN AND TOLERATED WELL
[2021-08-15] MEDS: DEXMEDETOMIDINE 400mcg/4ml inj 400 MCG in normal saline 100ml IV soln 96 ML IV SCH (01:36)
[2021-08-15] MEDS: ipratropium/albuterol 3ml nebule IH SCH ×6 (02:54→23:18)
[2021-08-15] MEDS: amiodarone/D5 360MG/200ML BAG 200 ML IV SCH ×2 (02:59→11:44)
[2021-08-15] MEDS: insulin regular, human U-100 3ml vial - multi-dose SQ SCH ×3 (03:10→20:55)
[2021-08-15 03:50] LABS: BASOPHILS # (AUTO) 0.1 X10'3 (0-0.2); BASOPHILS % (AUTO) 0.3 % (0-1); EOSINOPHILS # (AUTO) 0.3 X10'3 (0-0.9); EOSINOPHILS % (AUTO) 1.9 % (0-6); HEMATOCRIT 30.8 % (35.0-45.0); HEMOGLOBIN 10.2 g/dl (12.0-16.0); LYMPHOCYTES # (AUTO) 1.7 X10'3 (1.1-4.8); MEAN CORPUSCULAR HEMOGLOBIN 28.9 PG (27.0-31.0); MEAN CORPUSCULAR HGB CONC 33.1 g/dL (33.0-36.5); MEAN CORPUSCULAR VOLUME 87.3 FL (78-98); MEAN PLATELET VOLUME 8.9 FL (7.4-10.4); MONOCYTES # (AUTO) 1.3 X10'3 (0-0.9); MONOCYTES % (AUTO) 7.1 % (2-12); NEUTROPHILS # (AUTO) 15.1 X10'3 (1.8-7.7); NEUTROPHILS % (AUTO) 81.7 % (42-75); PLATELET COUNT 336 X10'3 (140-440); RED BLOOD COUNT 3.53 X10'6 (4.20-5.60); RED CELL DISTRIBUTION WIDTH 15.7 % (11.5-14.5); WHITE BLOOD COUNT 18.4 X10'3 (4.5-11.0)
[2021-08-15 04:04] LABS: ABG BASE EXCESS 12.3 mmol/L (-2.0-2.0); ABG HCO3 36.3 mmol/L (22.0-26.0); ABG OXYGEN SATURATION 95.7 % (94-97); ABG PO2 (T) 77.1 mmHg (75.0-100.0); ALLEN'S TEST Modified; FCOHb 0.2 % (0.0-3.9); FMetHb 0.3 % (0.0-1.5); FO2Hb 95.2 % (94-97); PATIENT TEMPERATURE 36.3; TOTAL HEMOGLOBIN 11.4 G/dl (12.0-16.0)
[2021-08-15 04:07] LABS: ALANINE AMINOTRANSFERASE 6 U/L (12-78); ALBUMIN 1.7 G/DL (3.4-5.0); ALBUMIN/GLOBULIN RATIO 0.4 (1.1-1.5); ALKALINE PHOSPHATASE 129 IU/L (46-116); ANION GAP 6 (8-16); ASPARTATE AMINO TRANSFERASE 21 U/L (10-37); BILIRUBIN,TOTAL 0.3 MG/DL (0.1-1.0); BLOOD UREA NITROGEN 50 MG/DL (7-18); CHLORIDE 96 MMOL/L (99-107); CREATININE 1.47 MG/DL (0.40-0.90); GLUCOSE 115 MG/DL (70-104); MAGNESIUM 1.4 MG/DL (1.5-2.4); POTASSIUM 3.2 MMOL/L (3.5-5.1); SODIUM 138 MMOL/L (135-145); TOTAL CARBON DIOXIDE 36.2 MMOL/L (24-32); TOTAL PROTEIN 6.4 G/DL (6.4-8.2); eGFR 35 ML/MIN
[2021-08-15 04:52] LABS: TOTAL CELLS COUNTED 100
[2021-08-15 04:53] LABS: BANDS% (MANUAL) 4 % (0-10); EOSINOPHILS % (MANUAL) 1 % (0-6); LYMPHOCYTES % (MANUAL) 11 % (21-51); METAMYLEOCYTES% (MANUAL) 4 % (0-0); MONOCYTES % (MANUAL) 5 % (2-12); MYELOCYTES % (MANUAL) 3 % (0-0); NEUTROPHILS % (MANUAL) 72 % (42-75); PLATELET ESTIMATE NORMAL
--- NOTE | 2021-08-15 06:14 | NUR ---
Problems reprioritized. Patient report given to Jann BREWER, questions answered & plan of care reviewed with .
--- NOTE | 2021-08-15 06:15 | NUR ---
Patient in room ICU 2043. I have received report from Mackenzie BREWER and had the opportunity to ask questions and assume patient care.
[2021-08-15] MEDS: potassium Cl 40MEQ/250ML bag 270 ML IV PRN (06:54)
[2021-08-15] MEDS: cefepime 2g/NS 100ml ADVANTAGE 100 ML IV SCH (07:45)
[2021-08-15] MEDS: famotidine/PF 10 mg/ml inj IV SCH ×2 (07:45→21:22)
[2021-08-15] MEDS: atorvastatin 20mg tablet PO SCH (07:46)
[2021-08-15] MEDS: lactobacillus rhamnosus 10,000 MMU CELLS/CAPSULE PO SCH ×2 (07:46→20:00)
[2021-08-15] MEDS: triamcinolone acet 0.1% cream 15gm TP SCH ×2 (08:00→20:58)
--- NOTE | 2021-08-15 12:15 | NUR ---
TF Consult: Trickle TF to start today per surgeon. Pt tolerating TPN at goal pending new Phos since last 08/10 and PALB per barrel plater at rounds. K 3.2 receiving replacement per protocol. No colostomy output yet noted in EMR. Currently attempting to wean w/ goal of extubation today and IF fails then trickle EN to start per barrel plater at rounds. TF recs below in case prolonged intubation and EN advancement. IF pt extubated would benefit from TRAINING INTERN BSS given aspiration PNA DX; RD d/w RN and barrel plater. Rec: 1. TPN via PICC line using 2:1 Clinimix-E 04/12 at 72 mL/hr with separate 100 mL 20% intralipids to run at 8.33 mL/hr for 12 hours each day. In total to provide 1828 mL volume/day, 1427 kcal, 86.4 g AA, 259 g dextrose (2.05 mg/kg/min dext load), and 20 g lipids (14% kcal from fat) 2. IF Trickle TF: Vital AF at 10ml/hr to provid 240ml volume, 288kcals, 194ml free water, and 18g protein. 3. IF TF to advance: Vital High Protein at 60ml/hr goal to provide 1440ml volume, 1440kcals, 126g protein, 1210ml H2O 4. IF TF; Additional water flush per barrel plater recs given 3+ edema and serum Na 138 this AM 5. TG/PALB q M/; daily scaled wts 6. Monitor electrolytes and need to adjust TPN recommendations 7. Bowel care per rx post-op 8. upon extubation; advance diet as medically indicated per TRAINING INTERN/MD recs to carb controlled/low-residue Addendum: 08/15/21 at [address] Amended: Links added.
--- NOTE | 2021-08-15 12:27 | NUR ---
Vac Change Dr. Roberts here for vac change with WOC RN. Pt tolerated procedure well.
[2021-08-15] MEDS: fluconazole-Diflucan 200mg/NS 100 ML IV SCH (13:02)
[2021-08-15] MEDS ORDERED: naloxone 0.4 mg/ml inj IV PRN (17:15)
--- NOTE | 2021-08-15 18:56 | NUR ---
Problems reprioritized. Patient report given, questions answered & plan of care reviewed with Flor BREWER.
--- NOTE | 2021-08-15 18:57 | NUR ---
Patient in room ICU 2043. I have received report from Jann BREEWR and had the opportunity to ask questions and assume patient care.
[2021-08-15] MEDS: amiodarone 200mg tablet PO SCH (20:00)
[2021-08-15] MEDS: insulin glargine (Lantus) pen - multi-dose SQ SCH (20:57)
[2021-08-15] MEDS: fat emulsion 20% inj. 100 ML IV SCH (22:14)
[2021-08-15] MEDS: hydrALAZINE 20mg/ml inj. IV PRN (23:31)
[2021-08-16] VITALS (24 sets, daily range): BP systolic 133–163; BP diastolic 60–75
[2021-08-16] MEDS: metroNIDAZOLE-Flagyl 500mg/NS 100 ML IV SCH ×3 (00:04→15:28)
[2021-08-16] MEDS: HYDROmorphone inj. 0.5 MG/0.5 ML DISP.SYRIN IV PRN ×3 (00:37→15:29)
[2021-08-16] MEDS: ondansetron/PF 4mg/2ml inj IV PRN (00:41)
[2021-08-16] MEDS: ipratropium/albuterol 3ml nebule IH SCH ×6 (03:06→23:36)
[2021-08-16] MEDS: insulin regular, human U-100 3ml vial - multi-dose SQ SCH (03:16)
[2021-08-16 03:31] LABS: BASOPHILS % (AUTO) 0.2 % (0-1); EOSINOPHILS # (AUTO) 0.3 X10'3 (0-0.9); EOSINOPHILS % (AUTO) 1.4 % (0-6); HEMATOCRIT 31.4 % (35.0-45.0); HEMOGLOBIN 10.2 g/dl (12.0-16.0); LYMPHOCYTES # (AUTO) 2.1 X10'3 (1.1-4.8); LYMPHOCYTES % (AUTO) 9.4 % (21-51); MEAN CORPUSCULAR HEMOGLOBIN 28.7 PG (27.0-31.0); MEAN CORPUSCULAR HGB CONC 32.4 g/dL (33.0-36.5); MEAN CORPUSCULAR VOLUME 88.6 FL (78-98); MEAN PLATELET VOLUME 8.9 FL (7.4-10.4); MONOCYTES # (AUTO) 1.7 X10'3 (0-0.9); MONOCYTES % (AUTO) 7.6 % (2-12); NEUTROPHILS # (AUTO) 18.5 X10'3 (1.8-7.7); NEUTROPHILS % (AUTO) 81.4 % (42-75); PLATELET COUNT 377 X10'3 (140-440); RED BLOOD COUNT 3.55 X10'6 (4.20-5.60); RED CELL DISTRIBUTION WIDTH 15.6 % (11.5-14.5); WHITE BLOOD COUNT 22.7 X10'3 (4.5-11.0)
[2021-08-16 04:02] LABS: ALANINE AMINOTRANSFERASE 11 U/L (12-78); ALBUMIN 1.9 G/DL (3.4-5.0); ALBUMIN/GLOBULIN RATIO 0.4 (1.1-1.5); ALKALINE PHOSPHATASE 151 IU/L (46-116); ANION GAP 4 (8-16); ASPARTATE AMINO TRANSFERASE 20 U/L (10-37); BILIRUBIN,TOTAL 0.3 MG/DL (0.1-1.0); BLOOD UREA NITROGEN 52 MG/DL (7-18); BUN/CREATININE RATIO 33.8 (6.6-38.0); CHLORIDE 99 MMOL/L (99-107); CREATININE 1.54 MG/DL (0.40-0.90); GLUCOSE 150 MG/DL (70-104); MAGNESIUM 1.3 MG/DL (1.5-2.4); POTASSIUM 3.3 MMOL/L (3.5-5.1); SODIUM 140 MMOL/L (135-145); TOTAL CARBON DIOXIDE 37.3 MMOL/L (24-32); TOTAL PROTEIN 6.6 G/DL (6.4-8.2); eGFR 33 ML/MIN
--- NOTE | 2021-08-16 06:31 | NUR ---
Problems reprioritized. Patient report given, questions answered & plan of care reviewed with Bia BREWER.
[2021-08-16 06:40] LABS: ANISOCYTOSIS 1+; PLATELET ESTIMATE NORMAL; TOTAL CELLS COUNTED 100
[2021-08-16] MEDS: cefepime 2g/NS 100ml ADVANTAGE 100 ML IV SCH (07:17)
[2021-08-16] MEDS: fluconazole-Diflucan 200mg/NS 100 ML IV SCH (07:17)
[2021-08-16] MEDS: lactobacillus rhamnosus 10,000 MMU CELLS/CAPSULE PO SCH ×2 (07:18→20:10)
[2021-08-16] MEDS: famotidine/PF 10 mg/ml inj IV SCH ×2 (07:18→20:10)
[2021-08-16] MEDS: heparin, porcine 5000 units/ml vial SQ SCH ×3 (07:18→15:28)
[2021-08-16] MEDS: furosemide 40mg/4ml inj IV SCH ×3 (07:18→15:29)
[2021-08-16] MEDS: atorvastatin 20mg tablet PO SCH (07:19)
[2021-08-16] MEDS: amiodarone 200mg tablet PO SCH ×2 (07:19→20:10)
[2021-08-16] MEDS: triamcinolone acet 0.1% cream 15gm TP SCH ×2 (07:20→20:10)
[2021-08-16] MEDS: ZINC/COPPER/MANGANESE/SELENIUM 1 ML, chromic chloride inj. 10 MCG in AA 5%/D15W/ELECTRO... IV SCH ×2 (15:28→15:30)
[2021-08-16] MEDS: fat emulsion 20% inj. 100 ML IV SCH (20:11)
[2021-08-16] MEDS: insulin glargine (Lantus) pen - multi-dose SQ SCH (21:41)
[2021-08-17] VITALS (28 sets, daily range): BP systolic 56–181; BP diastolic 29–88
[2021-08-17] MEDS: metroNIDAZOLE-Flagyl 500mg/NS 100 ML IV SCH ×3 (00:12→16:00)
[2021-08-17] MEDS: heparin, porcine 5000 units/ml vial SQ SCH ×3 (00:12→16:00)
[2021-08-17] MEDS: furosemide 40mg/4ml inj IV SCH ×3 (00:12→16:00)
[2021-08-17] MEDS: ondansetron/PF 4mg/2ml inj IV PRN ×3 (00:34→09:32)
[2021-08-17] MEDS: ipratropium/albuterol 3ml nebule IH SCH ×6 (03:00→23:34)
--- NOTE | 2021-08-17 03:16 | NUR ---
Pt in bed resting at this time no signs of respiratory distress, colostomy bag change x1 in this shift will continue to monitor and report changes
[2021-08-17] MEDS: HYDROmorphone inj. 0.5 MG/0.5 ML DISP.SYRIN IV PRN ×4 (03:24→23:48)
--- NOTE | 2021-08-17 06:18 | NUR ---
Problems reprioritized. Patient report given, questions answered & plan of care reviewed with Bia BREWER .
--- NOTE | 2021-08-17 06:44 | NUR ---
Called for ICU for report, Primary nurse will return call when available.
[2021-08-17] MEDS ORDERED: magnesium hydroxide 30ml (MOM) UD suspension PO ONE (06:55)
[2021-08-17] MEDS: fluconazole-Diflucan 200mg/NS 100 ML IV SCH (07:28)
[2021-08-17] MEDS: famotidine/PF 10 mg/ml inj IV SCH ×2 (07:29→19:51)
[2021-08-17] MEDS: cefepime 2g/NS 100ml ADVANTAGE 100 ML IV SCH (07:29)
[2021-08-17] MEDS: lactobacillus rhamnosus 10,000 MMU CELLS/CAPSULE PO SCH ×2 (07:29→19:52)
[2021-08-17] MEDS: atorvastatin 20mg tablet PO SCH (07:30)
[2021-08-17] MEDS: amiodarone 200mg tablet PO SCH ×2 (07:30→19:52)
[2021-08-17] MEDS: triamcinolone acet 0.1% cream 15gm TP SCH ×2 (08:51→19:53)
[2021-08-17] MEDS: insulin regular, human U-100 3ml vial - multi-dose SQ SCH ×2 (08:53→21:58)
[2021-08-17 11:07] LABS: BASOPHILS # (AUTO) 0.1 X10'3 (0-0.2); BASOPHILS % (AUTO) 0.5 % (0-1); EOSINOPHILS # (AUTO) 0.4 X10'3 (0-0.9); EOSINOPHILS % (AUTO) 2.6 % (0-6); HEMATOCRIT 30.3 % (35.0-45.0); LYMPHOCYTES # (AUTO) 1.5 X10'3 (1.1-4.8); LYMPHOCYTES % (AUTO) 10.1 % (21-51); MEAN CORPUSCULAR HGB CONC 32.9 g/dL (33.0-36.5); MEAN PLATELET VOLUME 8.3 FL (7.4-10.4); MONOCYTES # (AUTO) 1.2 X10'3 (0-0.9); MONOCYTES % (AUTO) 7.7 % (2-12); NEUTROPHILS % (AUTO) 79.1 % (42-75); PLATELET COUNT 303 X10'3 (140-440); RED BLOOD COUNT 3.44 X10'6 (4.20-5.60); RED CELL DISTRIBUTION WIDTH 15.1 % (11.5-14.5); WHITE BLOOD COUNT 15.2 X10'3 (4.5-11.0)
[2021-08-17 11:21] LABS: ALANINE AMINOTRANSFERASE 11 U/L (12-78); ALBUMIN 1.9 G/DL (3.4-5.0); ALBUMIN/GLOBULIN RATIO 0.4 (1.1-1.5); ALKALINE PHOSPHATASE 175 IU/L (46-116); ANION GAP 4 (8-16); ASPARTATE AMINO TRANSFERASE 18 U/L (10-37); BILIRUBIN,TOTAL 0.4 MG/DL (0.1-1.0); BLOOD UREA NITROGEN 49 MG/DL (7-18); BUN/CREATININE RATIO 33.3 (6.6-38.0); CALCIUM 7.7 MG/DL (8.5-10.1); CHLORIDE 97 MMOL/L (99-107); CREATININE 1.47 MG/DL (0.40-0.90); GLUCOSE 205 MG/DL (70-104); MAGNESIUM 1.1 MG/DL (1.5-2.4); POTASSIUM 3.3 MMOL/L (3.5-5.1); SODIUM 139 MMOL/L (135-145); TOTAL CARBON DIOXIDE 37.6 MMOL/L (24-32); TOTAL PROTEIN 6.6 G/DL (6.4-8.2); eGFR 35 ML/MIN
[2021-08-17 11:40] LABS: TOTAL CELLS COUNTED 100
[2021-08-17 11:42] LABS: PLATELET ESTIMATE NORMAL; STOMATOCYTES 3+
[2021-08-17] MEDS ORDERED: NORepinephrine 8mg/ 250ml NS 250 ML IV ONE (11:45)
[2021-08-17] MEDS ORDERED: albumin (Human) 5% 250ml 250 ML IV ONE (12:00)
[2021-08-17 12:25] LABS: PREALBUMIN 19.7 MG/DL (19-36); TROPONIN I < 0.04 NG/ML (0.0-0.05)
[2021-08-17] MEDS ORDERED: dexmedetomidin/NS 400mcg/100ml 100 ML IV SCH (15:15)
[2021-08-17] MEDS ORDERED: metoclopramide 10mg tablet PO PRN (15:20)
[2021-08-17] MEDS: ZINC/COPPER/MANGANESE/SELENIUM 1 ML, chromic chloride inj. 10 MCG in AA 5%/D15W/ELECTRO... IV SCH (16:00)
[2021-08-17 17:20] LABS: ABG OXYGEN SATURATION 94.9 % (94-97); ABG PCO2 (T) 51.1 mmHg (32.0-45.0); ABG PO2 (T) 73.9 mmHg (75.0-100.0); ALLEN'S TEST POSITIVE; FCOHb 0.2 % (0.0-3.9); FLOW 3 L/min; FMetHb 0.3 % (0.0-1.5); FO2Hb 94.4 % (94-97); TOTAL HEMOGLOBIN 10.2 G/dl (12.0-16.0)
[2021-08-17 17:45] LABS: BASOPHILS # (AUTO) 0.1 X10'3 (0-0.2); BASOPHILS % (AUTO) 0.4 % (0-1); EOSINOPHILS # (AUTO) 0.4 X10'3 (0-0.9); EOSINOPHILS % (AUTO) 2.7 % (0-6); HEMATOCRIT 28.4 % (35.0-45.0); HEMOGLOBIN 9.3 g/dl (12.0-16.0); LYMPHOCYTES # (AUTO) 1.8 X10'3 (1.1-4.8); LYMPHOCYTES % (AUTO) 11.3 % (21-51); MEAN CORPUSCULAR HEMOGLOBIN 28.8 PG (27.0-31.0); MEAN CORPUSCULAR HGB CONC 32.7 g/dL (33.0-36.5); MEAN CORPUSCULAR VOLUME 88.1 FL (78-98); MEAN PLATELET VOLUME 8.5 FL (7.4-10.4); MONOCYTES # (AUTO) 1.5 X10'3 (0-0.9); MONOCYTES % (AUTO) 9.3 % (2-12); NEUTROPHILS # (AUTO) 12.4 X10'3 (1.8-7.7); NEUTROPHILS % (AUTO) 76.3 % (42-75); PLATELET COUNT 309 X10'3 (140-440); RED BLOOD COUNT 3.22 X10'6 (4.20-5.60); RED CELL DISTRIBUTION WIDTH 15.2 % (11.5-14.5); WHITE BLOOD COUNT 16.3 X10'3 (4.5-11.0)
[2021-08-17 17:48] LABS: ALANINE AMINOTRANSFERASE 12 U/L (12-78); ALBUMIN/GLOBULIN RATIO 0.5 (1.1-1.5); ALKALINE PHOSPHATASE 176 IU/L (46-116); ANION GAP 4 (8-16); ASPARTATE AMINO TRANSFERASE 21 U/L (10-37); BILIRUBIN,TOTAL 0.5 MG/DL (0.1-1.0); BLOOD UREA NITROGEN 50 MG/DL (7-18); BUN/CREATININE RATIO 33.6 (6.6-38.0); CALCIUM 7.5 MG/DL (8.5-10.1); CHLORIDE 98 MMOL/L (99-107); CREATININE 1.49 MG/DL (0.40-0.90); GLUCOSE 178 MG/DL (70-104); PARTIAL THROMBOPLASTIN TIME 31 SECONDS (22-32); POTASSIUM 3.5 MMOL/L (3.5-5.1); SODIUM 140 MMOL/L (135-145); TOTAL CARBON DIOXIDE 38.4 MMOL/L (24-32); TOTAL PROTEIN 6.4 G/DL (6.4-8.2); eGFR 35 ML/MIN
--- NOTE | 2021-08-17 18:00 | NUR ---
Patient in room ICU 2043. I have received report from richie vaughn and had the opportunity to ask questions and assume patient care.
[2021-08-17] MEDS: fat emulsion 20% inj. 100 ML IV SCH (19:52)
[2021-08-17] MEDS: insulin glargine (Lantus) pen - multi-dose SQ SCH (22:00)
--- NOTE | 2021-08-17 23:44 | NUR ---
other amount includes drainage from wound vac Addendum: 08/17/21 at 2344 by Mary Vasquez RN Amended: Links added.
[2021-08-18] VITALS (23 sets, daily range): BP systolic 92–167; BP diastolic 51–98
[2021-08-18] MEDS: heparin, porcine 5000 units/ml vial SQ SCH ×3 (00:55→16:32)
[2021-08-18] MEDS: metroNIDAZOLE-Flagyl 500mg/NS 100 ML IV SCH ×3 (00:59→16:30)
[2021-08-18] MEDS: ipratropium/albuterol 3ml nebule IH SCH ×6 (03:23→23:14)
[2021-08-18] MEDS: ondansetron/PF 4mg/2ml inj IV PRN (03:26)
[2021-08-18 04:00] LABS: BASOPHILS # (AUTO) 0.1 X10'3 (0-0.2); BASOPHILS % (AUTO) 0.5 % (0-1); EOSINOPHILS # (AUTO) 0.4 X10'3 (0-0.9); EOSINOPHILS % (AUTO) 3.2 % (0-6); HEMATOCRIT 27.5 % (35.0-45.0); LYMPHOCYTES # (AUTO) 1.8 X10'3 (1.1-4.8); MEAN CORPUSCULAR HEMOGLOBIN 29.2 PG (27.0-31.0); MEAN CORPUSCULAR HGB CONC 32.7 g/dL (33.0-36.5); MEAN CORPUSCULAR VOLUME 89.2 FL (78-98); MEAN PLATELET VOLUME 8.5 FL (7.4-10.4); MONOCYTES # (AUTO) 1.2 X10'3 (0-0.9); MONOCYTES % (AUTO) 9.5 % (2-12); NEUTROPHILS # (AUTO) 9.5 X10'3 (1.8-7.7); NEUTROPHILS % (AUTO) 72.8 % (42-75); PLATELET COUNT 249 X10'3 (140-440); RED BLOOD COUNT 3.09 X10'6 (4.20-5.60); RED CELL DISTRIBUTION WIDTH 15.1 % (11.5-14.5); WHITE BLOOD COUNT 13.1 X10'3 (4.5-11.0)
[2021-08-18 04:11] LABS: ALANINE AMINOTRANSFERASE 11 U/L (12-78); ALBUMIN/GLOBULIN RATIO 0.5 (1.1-1.5); ALKALINE PHOSPHATASE 183 IU/L (46-116); ANION GAP 4 (8-16); ASPARTATE AMINO TRANSFERASE 17 U/L (10-37); BILIRUBIN,TOTAL 0.4 MG/DL (0.1-1.0); BLOOD UREA NITROGEN 49 MG/DL (7-18); BUN/CREATININE RATIO 35.3 (6.6-38.0); CALCIUM 7.6 MG/DL (8.5-10.1); CHLORIDE 101 MMOL/L (99-107); CREATININE 1.39 MG/DL (0.40-0.90); GLUCOSE 78 MG/DL (70-104); MAGNESIUM 1.4 MG/DL (1.5-2.4); POTASSIUM 3.5 MMOL/L (3.5-5.1); PREALBUMIN 19.2 MG/DL (19-36); SODIUM 140 MMOL/L (135-145); TOTAL CARBON DIOXIDE 35.1 MMOL/L (24-32); TOTAL PROTEIN 6.2 G/DL (6.4-8.2); TRIGLYCERIDES 61 MG/DL (20-135); eGFR 37 ML/MIN
[2021-08-18] MEDS: HYDROmorphone inj. 0.5 MG/0.5 ML DISP.SYRIN IV PRN ×3 (04:52→14:58)
--- NOTE | 2021-08-18 06:15 | NUR ---
Patient in room ICU 2043. I have received report from RN and had the opportunity to ask questions and assume patient care.
[2021-08-18] MEDS ORDERED: sod chloride 0.9% 10ml flush syringe IV ONE (08:00)
[2021-08-18] MEDS: furosemide 40mg/4ml inj IV SCH ×3 (08:00→16:00)
[2021-08-18] MEDS ORDERED: rocuronium 10mg/ml inj IV ONE (08:00)
[2021-08-18] MEDS ORDERED: etomidate 2mg/ml inj. ONE (08:00)
[2021-08-18] MEDS: fluconazole-Diflucan 200mg/NS 100 ML IV SCH (08:30)
[2021-08-18] MEDS: famotidine/PF 10 mg/ml inj IV SCH ×2 (08:30→20:37)
[2021-08-18] MEDS: cefepime 2g/NS 100ml ADVANTAGE 100 ML IV SCH (08:30)
[2021-08-18] MEDS: atorvastatin 20mg tablet PO SCH (08:31)
[2021-08-18] MEDS: triamcinolone acet 0.1% cream 15gm TP SCH ×2 (08:31→20:34)
[2021-08-18] MEDS: lactobacillus rhamnosus 10,000 MMU CELLS/CAPSULE PO SCH ×2 (08:32→20:37)
[2021-08-18] MEDS: amiodarone 200mg tablet PO SCH ×2 (08:33→20:37)
[2021-08-18] MEDS: insulin regular, human U-100 3ml vial - multi-dose SQ SCH ×3 (09:32→21:00)
[2021-08-18] MEDS ORDERED: magnesium 2GM in 50ml NS 50 ML IV ONE (11:00)
--- NOTE | 2021-08-18 11:30 | NUR ---
PT PT worked with pt. Stood her, sat her in a chair. came about 1015 and sat with her. left after about 30 minutes. Pt tolerating chair well. about 11:30 pt requested to go back to bed.
--- NOTE | 2021-08-18 11:33 | NUR ---
f/u 08/18: Pt extubated 08/15 and advanced to Full liquid diet 08/17, though Pt continues on TPN at goal. RN reports pt barely eating anything though does not have issues swallowing. Security Incident Response Specialist at rounds would like to decrease TPN to potentially stimulate appetite, see new recs below. Pt noted w/ 150ml ostomy output 08/17. Will continue to monitor PO trends and adjust TPN as medically indicated. Rec: 1. TPN via PICC line using 2:1 Clinimix-E 04/12 at 60 mL/hr with separate 100 mL 20% intralipids to run at 8.33 mL/hr for 12 hours each day. In total to provide 1640 mL volume/day, 1222 kcal, 72 g AA, 216 g dextrose (1.64 mg/kg/min dext load), and 20 g lipids 2. TG/PALB q /; daily scaled wts 3. Monitor electrolytes and need to adjust TPN recommendations 4. Bowel care per rx post-op 5. upon extubation; advance diet as medically indicated per MEDICAL CERTIFICATION SPECIALIST/MD recs to carb controlled/low-residue Addendum: 08/18/21 at [address] Amended: Links added.
[2021-08-18] MEDS ORDERED: HYDROmorphone/PF 0.2 MG/ML SYRINGE IV ONE (11:55)
[2021-08-18] MEDS ORDERED: HYDROchlorothiazide 25mg tablet PO ONE (11:55)
--- NOTE | 2021-08-18 12:30 | NUR ---
Vac WOC RN here to change VAC. order additional med for vac changed. Tolerated change well but says she's tired now after PT and VAC.
--- NOTE | 2021-08-18 13:00 | NUR ---
Coughing Noted increased coughing when pt was eating. Pt moves secretions well and spits out sputum. Noted at lunch pt has same issue. Discussed with CN and will suggest swallow study before moving diet order. Remains on TPN. Pt agreed with the increased coughing with food and wants to wait.
--- NOTE | 2021-08-18 16:08 | NUR ---
Desat Pt desaturated to low 80s with a corresponding low BP - 130. RT & CN notified. Nonrebreather added by RT at 15 L with good response. Pt encouraged to cough but RN and RT. PRUITT notified. Addendum: 08/18/21 at 1615 by Jann Thayer RN Pts condition discussed with RAFAEL too
[2021-08-18] MEDS ORDERED: LORazepam 2 mg/ml vial IM ONE (16:45)
[2021-08-18] MEDS ORDERED: LIDOcaine 2% 5ml jelly MM ONE (17:00)
[2021-08-18 17:28] LABS: BASOPHILS # (AUTO) 0.1 X10'3 (0-0.2); BASOPHILS % (AUTO) 0.5 % (0-1); EOSINOPHILS # (AUTO) 0.1 X10'3 (0-0.9); EOSINOPHILS % (AUTO) 0.8 % (0-6); HEMATOCRIT 33.6 % (35.0-45.0); HEMOGLOBIN 11.1 g/dl (12.0-16.0); LYMPHOCYTES # (AUTO) 1.7 X10'3 (1.1-4.8); LYMPHOCYTES % (AUTO) 13.6 % (21-51); MEAN CORPUSCULAR HEMOGLOBIN 29.3 PG (27.0-31.0); MEAN CORPUSCULAR VOLUME 88.9 FL (78-98); MEAN PLATELET VOLUME 8.2 FL (7.4-10.4); MONOCYTES # (AUTO) 0.1 X10'3 (0-0.9); MONOCYTES % (AUTO) 0.7 % (2-12); NEUTROPHILS # (AUTO) 10.4 X10'3 (1.8-7.7); NEUTROPHILS % (AUTO) 84.4 % (42-75); PLATELET COUNT 317 X10'3 (140-440); RED BLOOD COUNT 3.78 X10'6 (4.20-5.60); RED CELL DISTRIBUTION WIDTH 15.3 % (11.5-14.5); WHITE BLOOD COUNT 12.4 X10'3 (4.5-11.0)
[2021-08-18 17:41] LABS: ALBUMIN 1.9 G/DL (3.4-5.0); ALKALINE PHOSPHATASE 216 IU/L (46-116); ANION GAP 6 (8-16); BLOOD UREA NITROGEN 46 MG/DL (7-18); CALCIUM 8.1 MG/DL (8.5-10.1); CHLORIDE 101 MMOL/L (99-107); CREATININE 1.18 MG/DL (0.40-0.90); GLUCOSE 203 MG/DL (70-104); MAGNESIUM 2.6 MG/DL (1.5-2.4); SODIUM 140 MMOL/L (135-145); TOTAL CARBON DIOXIDE 33.5 MMOL/L (24-32); eGFR 45 ML/MIN
[2021-08-18] MEDS: ZINC/COPPER/MANGANESE/SELENIUM 1 ML, chromic chloride inj. 10 MCG in AA 5%/D15W/ELECTRO... IV SCH (17:41)
--- NOTE | 2021-08-18 17:45 | NUR ---
Resp Status Discussed with Dr. Gonzalez. Pt agreed to NT suction. Remains in 92% sat with NRB at 15 L. Tachypnea at 30-35 with increased work of breathing. RT suctioned pt - NT with mod amt creamy secretions followed by a resp tx. Lungs sound course.
--- NOTE | 2021-08-18 18:18 | NUR ---
Problems reprioritized. Patient report given, questions answered & plan of care reviewed with Karen BREWER.
[2021-08-18 18:52] LABS: ABG BASE EXCESS 3.5 mmol/L (-2.0-2.0); ABG HCO3 32.3 mmol/L (22.0-26.0); ABG PCO2 (T) 72.4 mmHg (32.0-45.0); ABG PO2 (T) 83.5 mmHg (75.0-100.0); ALLEN'S TEST Modified; FCOHb 0.3 % (0.0-3.9); FLOW 15 L/min; FMetHb 0.5 % (0.0-1.5); FO2Hb 93.2 % (94-97); PATIENT TEMPERATURE 37.1
[2021-08-18] MEDS ORDERED: midazolam 1 mg/ML 2ml injection ONE ×2 (19:22→19:46)
[2021-08-18] MEDS ORDERED: fentaNYL/PF 50MCG/1 ML 2ML syringe IV PRN (20:00)
[2021-08-18] MEDS: propofol 1000mg/100ml bottle 100 ML IV SCH (20:21)
--- NOTE | 2021-08-18 20:23 | NUR ---
Around 1919, Patient placed on BiPAP per MD orders. Decision made to intubate patient; unable to document BiPAP setting and findings due to intubation preparation.
[2021-08-18] MEDS: fat emulsion 20% inj. 100 ML IV SCH (20:38)
[2021-08-18] MEDS: insulin glargine (Lantus) pen - multi-dose SQ SCH (21:01)
[2021-08-18] MEDS ORDERED: NORepinephrine 8mg/ 250ml NS 250 ML IV ONE (23:27)
[2021-08-18] MEDS: NORepinephrine 8mg/ 250ml NS 250 ML IV SCH (23:35)
[2021-08-19] VITALS (25 sets, daily range): BP systolic 94–156; BP diastolic 44–82
[2021-08-19] MEDS: heparin, porcine 5000 units/ml vial SQ SCH ×3 (00:01→16:10)
[2021-08-19] MEDS: furosemide 40mg/4ml inj IV SCH ×3 (00:01→16:10)
[2021-08-19] MEDS ORDERED: succinylcholine 20mg/ml inj IV ONE (01:30)
[2021-08-19] MEDS ORDERED: etomidate 2mg/ml inj. IV ONE (01:30)
[2021-08-19] MEDS: insulin regular, human U-100 3ml vial - multi-dose SQ SCH ×4 (02:19→20:51)
[2021-08-19] MEDS: propofol 1000mg/100ml bottle 100 ML IV SCH ×5 (02:44→22:26)
[2021-08-19] MEDS: ipratropium/albuterol 3ml nebule IH SCH ×6 (03:41→23:27)
[2021-08-19 03:57] LABS: ABG BASE EXCESS 3.9 mmol/L (-2.0-2.0); ABG OXYGEN SATURATION 98.3 % (94-97); ABG PCO2 (T) 39.8 mmHg (32.0-45.0); ALLEN'S TEST Modified; FCOHb 0.3 % (0.0-3.9); FMetHb 0.1 % (0.0-1.5); FO2Hb 97.9 % (94-97); PATIENT TEMPERATURE 36.8; PEEP 10 cm H2O; RESPIRATORY RATE 18 b/min; TIDAL VOLUME 450 mL; TOTAL HEMOGLOBIN 10.5 G/dl (12.0-16.0)
[2021-08-19 04:18] LABS: BASOPHILS # (AUTO) 0.1 X10'3 (0-0.2); BASOPHILS % (AUTO) 0.7 % (0-1); EOSINOPHILS # (AUTO) 0.2 X10'3 (0-0.9); EOSINOPHILS % (AUTO) 1.2 % (0-6); HEMATOCRIT 30.1 % (35.0-45.0); HEMOGLOBIN 9.9 g/dl (12.0-16.0); LYMPHOCYTES # (AUTO) 1.1 X10'3 (1.1-4.8); LYMPHOCYTES % (AUTO) 6.6 % (21-51); MEAN CORPUSCULAR HEMOGLOBIN 29.2 PG (27.0-31.0); MEAN CORPUSCULAR HGB CONC 32.7 g/dL (33.0-36.5); MEAN CORPUSCULAR VOLUME 89.3 FL (78-98); MEAN PLATELET VOLUME 8.9 FL (7.4-10.4); MONOCYTES # (AUTO) 0.2 X10'3 (0-0.9); MONOCYTES % (AUTO) 1.4 % (2-12); NEUTROPHILS # (AUTO) 14.7 X10'3 (1.8-7.7); NEUTROPHILS % (AUTO) 90.1 % (42-75); PLATELET COUNT 258 X10'3 (140-440); RED BLOOD COUNT 3.37 X10'6 (4.20-5.60); RED CELL DISTRIBUTION WIDTH 15.2 % (11.5-14.5); WHITE BLOOD COUNT 16.3 X10'3 (4.5-11.0)
[2021-08-19 04:33] LABS: ALANINE AMINOTRANSFERASE 10 U/L (12-78); ALBUMIN 1.7 G/DL (3.4-5.0); ALBUMIN/GLOBULIN RATIO 0.4 (1.1-1.5); ALKALINE PHOSPHATASE 194 IU/L (46-116); ANION GAP 5 (8-16); ASPARTATE AMINO TRANSFERASE 29 U/L (10-37); BILIRUBIN,TOTAL 0.4 MG/DL (0.1-1.0); BLOOD UREA NITROGEN 56 MG/DL (7-18); BUN/CREATININE RATIO 33.9 (6.6-38.0); CALCIUM 7.8 MG/DL (8.5-10.1); CHLORIDE 100 MMOL/L (99-107); CREATININE 1.65 MG/DL (0.40-0.90); GLUCOSE 143 MG/DL (70-104); MAGNESIUM 2.1 MG/DL (1.5-2.4); PHOSPHORUS 3.2 MG/DL (2.3-4.5); POTASSIUM 4.2 MMOL/L (3.5-5.1); SODIUM 136 MMOL/L (135-145); TOTAL CARBON DIOXIDE 30.6 MMOL/L (24-32); TOTAL PROTEIN 5.6 G/DL (6.4-8.2); TRIGLYCERIDES 163 MG/DL (20-135); eGFR 31 ML/MIN
[2021-08-19 04:43] LABS: TOTAL CELLS COUNTED 100
[2021-08-19 04:47] LABS: ANISOCYTOSIS 1+; HYPOCHROMASIA 1+; PLATELET ESTIMATE NORMAL
[2021-08-19 04:49] LABS: SMUDGE CELLS 1+
[2021-08-19 04:50] LABS: LARGE PLATELETS FEW
[2021-08-19] MEDS: NORepinephrine 8mg/ 250ml NS 250 ML IV SCH ×2 (05:35→15:05)
[2021-08-19] MEDS: FENTANYL-0.9 % NACL/PF 100 ML IV PRN ×3 (05:35→22:27)
--- NOTE | 2021-08-19 06:15 | NUR ---
Patient in room ICU 2043. I have received report from Pearl BREWER and had the opportunity to ask questions and assume patient care.
[2021-08-19] MEDS: amiodarone 200mg tablet PO SCH ×2 (07:38→20:40)
[2021-08-19] MEDS: famotidine/PF 10 mg/ml inj IV SCH ×2 (07:38→20:40)
[2021-08-19] MEDS: lactobacillus rhamnosus 10,000 MMU CELLS/CAPSULE PO SCH ×2 (07:38→20:41)
[2021-08-19] MEDS: fluconazole-Diflucan 200mg/NS 100 ML IV SCH (07:38)
[2021-08-19] MEDS: cefepime 2g/NS 100ml ADVANTAGE 100 ML IV SCH (07:39)
[2021-08-19] MEDS: atorvastatin 20mg tablet PO SCH (07:40)
[2021-08-19] MEDS: triamcinolone acet 0.1% cream 15gm TP SCH ×2 (08:00→20:40)
--- NOTE | 2021-08-19 10:39 | NUR ---
DECREASED PEEP TO [address] TRAN Addendum: 08/19/21 at 1040 by Killian Masters RT Amended: Links added.
--- NOTE | 2021-08-19 11:50 | NUR ---
F/u 08/19: Pt aspirated and required intubation again. Propofol currently at 16.38ml/hr which provides 432kcals/day; per RN, they will try to titrate down propofol today. Pt remains on TPN at 72ml/hr, if pt remains on propofol may consider holding lipids w/ TPN. Per Diesel Tractor Engine Mechanic, TF is difficult at this time d/t large hiatal hernia, will continue TPN for now. Rec: 1. TPN via PICC line using 2:1 Clinimix-E 04/12 at 72 mL/hr with separate 100 mL 20% intralipids to run at 8.33 mL/hr for 12 hours each day. In total to provide 1828 mL volume/day, 1427 kcal, 86.4 g AA, 259 g dextrose (1.97 mg/kg/min dext load), and 20 g lipids 2. TG/PALB q /; daily scaled wts 3. Monitor electrolytes and need to adjust TPN recommendations 4. Bowel care per rx post-op 5. upon extubation; advance diet as medically indicated per SAUSAGE MIXER/MD recs to carb controlled/low-residue Addendum: 08/19/21 at [address] Amended: Links added.
--- NOTE | 2021-08-19 12:28 | NUR ---
Update: Discussed pts condition in rounds. Dr. Gonzalez will plan on trach tomorrow as pts BP/BS were labile last night. Called and talked with pts fam. about change in plan. Also discussed a PEG placement tomorrow as well. I verified with family their consent and updated the consent form. Tube feeding restarted pre MD order with overlap of D10 pending tube feed tolerance.
[2021-08-19] MEDS: metroNIDAZOLE-Flagyl 500mg/NS 100 ML IV SCH ×3 (12:51→16:11)
[2021-08-19] MEDS: MVI, adult No.4 with vit. K 10 ML in dextrose 5% water 500ml 500 ML IV SCH ×2 (16:06)
[2021-08-19] MEDS: ZINC/COPPER/MANGANESE/SELENIUM 1 ML, chromic chloride inj. 10 MCG in AA 5%/D15W/ELECTRO... IV SCH (16:48)
--- NOTE | 2021-08-19 18:03 | NUR ---
Shift Note Dr Roberts to see pt about 1500. Examined stoma and output. No orders. to see pt around 1430. Pt responded appropriately to him. C/O pain at back and throat. Repositioned for comfort which helped back. Suctioned mod amount of oral secretions. Problems reprioritized. Patient report given, questions answered & plan of care reviewed with Karen BREWER.
[2021-08-19] MEDS: fat emulsion 20% inj. 100 ML IV SCH (20:41)
[2021-08-19] MEDS: mineral oil/petrolatum ophthal oint EACHEYE SCH (20:41)
[2021-08-19] MEDS: insulin glargine (Lantus) pen - multi-dose SQ SCH (20:52)
[2021-08-20] VITALS (24 sets, daily range): BP systolic 90–149; BP diastolic 38–58
[2021-08-20] MEDS: metroNIDAZOLE-Flagyl 500mg/NS 100 ML IV SCH ×3 (00:20→16:53)
[2021-08-20] MEDS: furosemide 40mg/4ml inj IV SCH ×2 (00:20→07:27)
[2021-08-20] MEDS: heparin, porcine 5000 units/ml vial SQ SCH ×2 (00:21→07:28)
[2021-08-20] MEDS: NORepinephrine 8mg/ 250ml NS 250 ML IV SCH ×2 (02:03→16:19)
[2021-08-20] MEDS: mineral oil/petrolatum ophthal oint EACHEYE SCH ×4 (02:17→20:00)
[2021-08-20] MEDS: insulin regular, human U-100 3ml vial - multi-dose SQ SCH ×4 (02:41→20:08)
[2021-08-20 02:53] LABS: HEMOGLOBIN 8.9 g/dl (12.0-16.0); RED BLOOD COUNT 3.05 X10'6 (4.20-5.60); WHITE BLOOD COUNT 12.2 X10'3 (4.5-11.0)
[2021-08-20 02:55] LABS: BASOPHILS # (AUTO) 0.1 X10'3 (0-0.2); BASOPHILS % (AUTO) 1.1 % (0-1); EOSINOPHILS # (AUTO) 0.7 X10'3 (0-0.9); EOSINOPHILS % (AUTO) 5.4 % (0-6); HEMATOCRIT 26.9 % (35.0-45.0); LYMPHOCYTES # (AUTO) 2.4 X10'3 (1.1-4.8); LYMPHOCYTES % (AUTO) 19.4 % (21-51); MEAN CORPUSCULAR HGB CONC 32.9 g/dL (33.0-36.5); MEAN CORPUSCULAR VOLUME 88.2 FL (78-98); MEAN PLATELET VOLUME 9.1 FL (7.4-10.4); MONOCYTES # (AUTO) 1.1 X10'3 (0-0.9); MONOCYTES % (AUTO) 8.6 % (2-12); NEUTROPHILS % (AUTO) 65.5 % (42-75); PLATELET COUNT 198 X10'3 (140-440)
[2021-08-20 03:11] LABS: ALANINE AMINOTRANSFERASE 9 U/L (12-78); ALBUMIN 1.7 G/DL (3.4-5.0); ALBUMIN/GLOBULIN RATIO 0.4 (1.1-1.5); ALKALINE PHOSPHATASE 190 IU/L (46-116); ANION GAP 2 (8-16); ASPARTATE AMINO TRANSFERASE 22 U/L (10-37); BILIRUBIN,TOTAL 0.4 MG/DL (0.1-1.0); BLOOD UREA NITROGEN 68 MG/DL (7-18); BUN/CREATININE RATIO 33.5 (6.6-38.0); CALCIUM 7.7 MG/DL (8.5-10.1); CHLORIDE 98 MMOL/L (99-107); CREATININE 2.03 MG/DL (0.40-0.90); GLUCOSE 80 MG/DL (70-104); MAGNESIUM 1.7 MG/DL (1.5-2.4); POTASSIUM 3.2 MMOL/L (3.5-5.1); SODIUM 131 MMOL/L (135-145); TOTAL CARBON DIOXIDE 31.5 MMOL/L (24-32); TOTAL PROTEIN 5.7 G/DL (6.4-8.2); TRIGLYCERIDES 184 MG/DL (20-135); eGFR 24 ML/MIN
[2021-08-20] MEDS: ipratropium/albuterol 3ml nebule IH SCH ×6 (03:26→23:04)
[2021-08-20 03:46] LABS: ABG BASE EXCESS 3.3 mmol/L (-2.0-2.0); ABG HCO3 26.5 mmol/L (22.0-26.0); ABG OXYGEN SATURATION 96.8 % (94-97); ABG PCO2 (T) 35.7 mmHg (32.0-45.0); ABG PO2 (T) 93.9 mmHg (75.0-100.0); ALLEN'S TEST Modified; FCOHb 0.3 % (0.0-3.9); FMetHb 0.3 % (0.0-1.5); FO2Hb 96.2 % (94-97); PATIENT TEMPERATURE 37.3; PEEP 5 cm H2O; RESPIRATORY RATE 18 b/min; TIDAL VOLUME 450 mL; TOTAL HEMOGLOBIN 9.9 G/dl (12.0-16.0)
[2021-08-20] MEDS: propofol 1000mg/100ml bottle 100 ML IV SCH ×3 (03:54→16:50)
[2021-08-20] MEDS ORDERED: POTASSIUM BICARB 20meq eff tab 20 MEQ TABLET.EFF PO PRN ×2 (04:00)
[2021-08-20] MEDS ORDERED: POTASSIUM BICARBONATE/CIT AC 10 MEQ TABLET.EFF PO PRN ×2 (04:10)
[2021-08-20] MEDS ORDERED: potassium Cl 40MEQ/250ML bag 270 ML IV PRN (04:20)
[2021-08-20] MEDS ORDERED: amiodarone 150mg/dext, iso-os 100 ML IV ONE (04:20)
[2021-08-20 04:37] LABS: PHOSPHORUS 3.4 MG/DL (2.3-4.5)
[2021-08-20] MEDS ORDERED: fat emulsion IV bag 100 ML IV SCH (06:59)
[2021-08-20] MEDS: famotidine/PF 10 mg/ml inj IV SCH ×2 (07:27→19:21)
[2021-08-20] MEDS: fluconazole-Diflucan 200mg/NS 100 ML IV SCH (07:27)
[2021-08-20] MEDS: cefepime 2g/NS 100ml ADVANTAGE 100 ML IV SCH (07:28)
[2021-08-20] MEDS: FENTANYL-0.9 % NACL/PF 100 ML IV PRN ×2 (07:48→16:18)
[2021-08-20] MEDS: triamcinolone acet 0.1% cream 15gm TP SCH ×2 (08:57→20:07)
[2021-08-20] MEDS: amiodarone 200mg tablet PO SCH ×2 (11:01→19:21)
[2021-08-20] MEDS: lactobacillus rhamnosus 10,000 MMU CELLS/CAPSULE PO SCH ×2 (11:01→20:06)
[2021-08-20] MEDS: atorvastatin 20mg tablet PO SCH (11:02)
--- NOTE | 2021-08-20 11:58 | NUR ---
F/u 08/20: Pt remains on Propofol at 16.38ml/hr providing 432kcals. Pt w/ elevated TG of 184; Dump Truck Driver Off Highway would like lipids withheld from TPN, see updated recs below, communicated w/ Pharmacist. Will continue to monitor. F/u 08/19: Pt aspirated and required intubation again. Propofol currently at 16.38ml/hr which provides 432kcals/day; per RN, they will try to titrate down propofol today. Pt remains on TPN at 72ml/hr, if pt remains on propofol may consider holding lipids w/ TPN. Per Dump Truck Driver Off Highway, TF is difficult at this time d/t large hiatal hernia, will continue TPN for now Rec: 1. TPN via PICC line using 2:1 Clinimix-E 04/12 at 72 mL/hr without additional lipids. In total to provide 1728 mL volume/day, 1227 kcal, 86.4 g AA, 259 g dextrose (1.97 mg/kg/min dext load). 2. TG/PALB q /; daily scaled wts 3. Monitor electrolytes and need to adjust TPN recommendations 4. Bowel care per rx post-op 5. upon extubation; advance diet as medically indicated per AFTER SCHOOL PROGRAM TEACHER/MD recs to carb controlled/low-residue Addendum: 08/20/21 at [address] Amended: Links added.
[2021-08-20] MEDS: scopolamine 1mg/72 hr patch TD SCH (12:06)
[2021-08-20] MEDS ORDERED: magnesium 2GM in 50ml NS 50 ML IV ONE (12:10)
[2021-08-20] MEDS: ZINC/COPPER/MANGANESE/SELENIUM 1 ML, chromic chloride inj. 10 MCG in AA 5%/D15W/ELECTRO... IV SCH (16:53)
--- NOTE | 2021-08-20 18:25 | NUR ---
Problems reprioritized. Patient report given, questions answered & plan of care reviewed with Karen BREWER.
[2021-08-20] MEDS: sodium chloride 1gm tablet OGT SCH ×3 (19:21→20:12)
[2021-08-20] MEDS ORDERED: fat emulsion IV bag 250 ML IV SCH (20:00)
[2021-08-20] MEDS: insulin glargine (Lantus) pen - multi-dose SQ SCH (20:09)
[2021-08-21] VITALS (24 sets, daily range): BP systolic 97–136; BP diastolic 46–71
[2021-08-21] MEDS: heparin, porcine 5000 units/ml vial SQ SCH ×5 (00:23→23:28)
[2021-08-21] MEDS: metroNIDAZOLE-Flagyl 500mg/NS 100 ML IV SCH ×4 (00:23→23:27)
[2021-08-21] MEDS: propofol 1000mg/100ml bottle 100 ML IV SCH ×3 (00:25→18:07)
[2021-08-21] MEDS: FENTANYL-0.9 % NACL/PF 100 ML IV PRN ×2 (01:41→18:08)
[2021-08-21] MEDS: insulin regular, human U-100 3ml vial - multi-dose SQ SCH (02:04)
[2021-08-21] MEDS: mineral oil/petrolatum ophthal oint EACHEYE SCH ×4 (02:05→20:25)
[2021-08-21] MEDS: ipratropium/albuterol 3ml nebule IH SCH ×6 (02:37→23:13)
[2021-08-21 02:47] LABS: BASOPHILS # (AUTO) 0.1 X10'3 (0-0.2); EOSINOPHILS # (AUTO) 0.5 X10'3 (0-0.9); EOSINOPHILS % (AUTO) 5.5 % (0-6); HEMATOCRIT 24.9 % (35.0-45.0); HEMOGLOBIN 8.4 g/dl (12.0-16.0); LYMPHOCYTES # (AUTO) 1.7 X10'3 (1.1-4.8); LYMPHOCYTES % (AUTO) 18.9 % (21-51); MEAN CORPUSCULAR HEMOGLOBIN 29.3 PG (27.0-31.0); MEAN CORPUSCULAR HGB CONC 33.6 g/dL (33.0-36.5); MEAN CORPUSCULAR VOLUME 87.3 FL (78-98); MEAN PLATELET VOLUME 8.8 FL (7.4-10.4); MONOCYTES # (AUTO) 0.9 X10'3 (0-0.9); MONOCYTES % (AUTO) 10.2 % (2-12); NEUTROPHILS # (AUTO) 5.9 X10'3 (1.8-7.7); NEUTROPHILS % (AUTO) 64.4 % (42-75); PLATELET COUNT 169 X10'3 (140-440); RED BLOOD COUNT 2.86 X10'6 (4.20-5.60); RED CELL DISTRIBUTION WIDTH 15.4 % (11.5-14.5); WHITE BLOOD COUNT 9.2 X10'3 (4.5-11.0)
[2021-08-21 03:07] LABS: ALANINE AMINOTRANSFERASE 12 U/L (12-78); ALBUMIN 1.7 G/DL (3.4-5.0); ALBUMIN/GLOBULIN RATIO 0.4 (1.1-1.5); ALKALINE PHOSPHATASE 168 IU/L (46-116); ANION GAP 8 (8-16); ASPARTATE AMINO TRANSFERASE 20 U/L (10-37); BILIRUBIN,TOTAL 0.4 MG/DL (0.1-1.0); BLOOD UREA NITROGEN 69 MG/DL (7-18); BUN/CREATININE RATIO 34.3 (6.6-38.0); CALCIUM 7.7 MG/DL (8.5-10.1); CHLORIDE 102 MMOL/L (99-107); CREATININE 2.01 MG/DL (0.40-0.90); GLUCOSE 124 MG/DL (70-104); MAGNESIUM 2.1 MG/DL (1.5-2.4); PHOSPHORUS 3.9 MG/DL (2.3-4.5); POTASSIUM 3.9 MMOL/L (3.5-5.1); SODIUM 138 MMOL/L (135-145); TOTAL CARBON DIOXIDE 27.9 MMOL/L (24-32); TOTAL PROTEIN 5.8 G/DL (6.4-8.2); TRIGLYCERIDES 130 MG/DL (20-135); eGFR 24 ML/MIN
[2021-08-21 04:01] LABS: ABG BASE EXCESS 3.2 mmol/L (-2.0-2.0); ABG HCO3 25.6 mmol/L (22.0-26.0); ABG OXYGEN SATURATION 97.9 % (94-97); ABG PCO2 (T) 31.3 mmHg (32.0-45.0); ABG PO2 (T) 112.6 mmHg (75.0-100.0); FCOHb 0.2 % (0.0-3.9); FMetHb 0.3 % (0.0-1.5); FO2Hb 97.4 % (94-97); PEEP 5 cm H2O; RESPIRATORY RATE 16 b/min; TIDAL VOLUME 450 mL; TOTAL HEMOGLOBIN 9.9 G/dl (12.0-16.0)
[2021-08-21] MEDS: fluconazole-Diflucan 200mg/NS 100 ML IV SCH (07:57)
[2021-08-21] MEDS: famotidine/PF 10 mg/ml inj IV SCH ×2 (07:58→20:22)
[2021-08-21] MEDS: cefepime 2g/NS 100ml ADVANTAGE 100 ML IV SCH (07:58)
[2021-08-21] MEDS: sodium chloride 1gm tablet OGT SCH ×2 (07:58→20:23)
[2021-08-21] MEDS: MESSAGE TO NURSING IV SCH (08:00)
[2021-08-21] MEDS: MVI, adult No.4 with vit. K 10 ML in dextrose 5% water 500ml 500 ML IV SCH ×2 (08:08)
[2021-08-21] MEDS: amiodarone 200mg tablet PO SCH ×2 (08:09→20:25)
[2021-08-21] MEDS: lactobacillus rhamnosus 10,000 MMU CELLS/CAPSULE PO SCH ×2 (08:09→20:23)
[2021-08-21] MEDS: triamcinolone acet 0.1% cream 15gm TP SCH ×2 (08:10→20:23)
[2021-08-21] MEDS: atorvastatin 20mg tablet PO SCH (08:10)
--- NOTE | 2021-08-21 11:35 | NUR ---
TF consult: Pt had OGT placed and TF orders in place, see recs below. Pt remains on TPN at goal, recommend titrating down as TF is tolerated at starting rate. Propofol continues to run at 10.92ml/hr providing 288kcals/day; current TF recommendations made factoring in Propofol. Per RN, pt w/ small, daily output in ostomy. Will monitor for TF tolerance and adjust needs as medically indicated. Rec: 1. Continuous TF using Vital HP at 50ml/hr goal to provide 1200ml volume, 1200kcal, 105g protein, 1008ml H2O 2. Additional water flush 100ml Q4H 3. Taper TPN when TF tolerated at starting rate. TPN via PICC line using :1 Clinimix-E 04/12 at 72 mL/hr without additional lipids. In total to provide 1728 mL volume/day, 1227 kcal, 86.4 g AA, 259 g dextrose (1.97 mg/kg/min dext load). 4. TG/PALB q /; daily scaled wts 5. Monitor electrolytes and need to adjust TPN recommendations 6. Bowel care per rx post-op 7. upon extubation; advance diet as medically indicated per MORALE OFFICER/MD recs to carb controlled/low-residue Addendum: 08/21/21 at [address] Amended: Links added.
[2021-08-21] MEDS: ZINC/COPPER/MANGANESE/SELENIUM 1 ML, chromic chloride inj. 10 MCG in AA 5%/D15W/ELECTRO... IV SCH (16:22)
[2021-08-21] MEDS: insulin glargine (Lantus) pen - multi-dose SQ SCH (20:56)
[2021-08-22] VITALS (23 sets, daily range): BP systolic 112–153; BP diastolic 47–106
[2021-08-22] MEDS: NORepinephrine 8mg/ 250ml NS 250 ML IV SCH ×2 (01:11→15:30)
[2021-08-22] MEDS: propofol 1000mg/100ml bottle 100 ML IV SCH ×2 (01:49→17:59)
[2021-08-22] MEDS: mineral oil/petrolatum ophthal oint EACHEYE SCH ×4 (02:00→20:46)
[2021-08-22] MEDS: FENTANYL-0.9 % NACL/PF 100 ML IV PRN (03:16)
[2021-08-22 03:26] LABS: ABG BASE EXCESS 1.5 mmol/L (-2.0-2.0); ABG HCO3 27.3 mmol/L (22.0-26.0); ABG OXYGEN SATURATION 93.7 % (94-97); ABG PCO2 (T) 49.4 mmHg (32.0-45.0); ABG PO2 (T) 76.6 mmHg (75.0-100.0); ALLEN'S TEST POSITIVE; FCOHb 0.3 % (0.0-3.9); FMetHb 0.3 % (0.0-1.5); FO2Hb 93.1 % (94-97); PEEP 5 cm H2O; RESPIRATORY RATE 12 b/min; TIDAL VOLUME 450 mL; TOTAL HEMOGLOBIN 9.3 G/dl (12.0-16.0)
[2021-08-22 03:32] LABS: BASOPHILS # (AUTO) 0.1 X10'3 (0-0.2); BASOPHILS % (AUTO) 0.8 % (0-1); EOSINOPHILS # (AUTO) 0.5 X10'3 (0-0.9); HEMOGLOBIN 8.3 g/dl (12.0-16.0); LYMPHOCYTES # (AUTO) 1.3 X10'3 (1.1-4.8); MONOCYTES # (AUTO) 0.7 X10'3 (0-0.9); RED CELL DISTRIBUTION WIDTH 15.3 % (11.5-14.5); WHITE BLOOD COUNT 6.6 X10'3 (4.5-11.0)
[2021-08-22 03:34] LABS: EOSINOPHILS % (AUTO) 7.9 % (0-6); HEMATOCRIT 24.8 % (35.0-45.0); LYMPHOCYTES % (AUTO) 20.1 % (21-51); MEAN CORPUSCULAR HEMOGLOBIN 30.1 PG (27.0-31.0); MEAN CORPUSCULAR HGB CONC 33.6 g/dL (33.0-36.5); MEAN CORPUSCULAR VOLUME 89.6 FL (78-98); MEAN PLATELET VOLUME 8.9 FL (7.4-10.4); MONOCYTES % (AUTO) 10.4 % (2-12); NEUTROPHILS % (AUTO) 60.8 % (42-75); PLATELET COUNT 155 X10'3 (140-440); RED BLOOD COUNT 2.77 X10'6 (4.20-5.60)
[2021-08-22 03:54] LABS: ALANINE AMINOTRANSFERASE 6 U/L (12-78); ALBUMIN 1.8 G/DL (3.4-5.0); ALBUMIN/GLOBULIN RATIO 0.4 (1.1-1.5); ALKALINE PHOSPHATASE 174 IU/L (46-116); ANION GAP 5 (8-16); ASPARTATE AMINO TRANSFERASE 16 U/L (10-37); BILIRUBIN,TOTAL 0.4 MG/DL (0.1-1.0); BLOOD UREA NITROGEN 69 MG/DL (7-18); BUN/CREATININE RATIO 38.5 (6.6-38.0); CHLORIDE 104 MMOL/L (99-107); CREATININE 1.79 MG/DL (0.40-0.90); GLUCOSE 167 MG/DL (70-104); MAGNESIUM 2.1 MG/DL (1.5-2.4); POTASSIUM 4.4 MMOL/L (3.5-5.1); SODIUM 135 MMOL/L (135-145); TOTAL CARBON DIOXIDE 26.4 MMOL/L (24-32); TOTAL PROTEIN 6.1 G/DL (6.4-8.2); eGFR 28 ML/MIN
[2021-08-22] MEDS: ipratropium/albuterol 3ml nebule IH SCH ×6 (04:05→23:12)
[2021-08-22 04:15] LABS: TOTAL CELLS COUNTED 100
[2021-08-22 04:16] LABS: PLATELET ESTIMATE NORMAL
[2021-08-22 04:17] LABS: ANISOCYTOSIS 1+; STOMATOCYTES 1+
[2021-08-22] MEDS: sodium chloride 1gm tablet OGT SCH ×2 (07:47→20:45)
[2021-08-22] MEDS: lactobacillus rhamnosus 10,000 MMU CELLS/CAPSULE PO SCH ×2 (07:49→20:45)
[2021-08-22] MEDS: amiodarone 200mg tablet PO SCH ×2 (07:49→20:45)
[2021-08-22] MEDS: atorvastatin 20mg tablet PO SCH (07:51)
[2021-08-22] MEDS: famotidine/PF 10 mg/ml inj IV SCH ×2 (07:53→20:45)
[2021-08-22] MEDS: fluconazole-Diflucan 200mg/NS 100 ML IV SCH (07:53)
[2021-08-22] MEDS: metroNIDAZOLE-Flagyl 500mg/NS 100 ML IV SCH ×2 (07:55→16:00)
[2021-08-22] MEDS: heparin, porcine 5000 units/ml vial SQ SCH ×2 (07:55→16:00)
[2021-08-22] MEDS: triamcinolone acet 0.1% cream 15gm TP SCH ×2 (08:00→20:46)
[2021-08-22] MEDS: MESSAGE TO NURSING IV SCH (08:00)
[2021-08-22] MEDS: cefepime 2g/NS 100ml ADVANTAGE 100 ML IV SCH (08:00)
[2021-08-22] MEDS: insulin regular, human U-100 3ml vial - multi-dose SQ SCH ×2 (09:43→20:48)
--- NOTE | 2021-08-22 11:28 | NUR ---
F/u 08/22: Pt tolerating TF at goal 50ml/hr GRV WNL. Propofol and TF now off with goal of extubation to remain NPO given frequent aspiration events r/t hiatal hernia per MD. Pt to remain on PN for sole nutrition per MD ;updated recs below since off propofol. Pt only 150ml 08/17 and 5ml 08/21 documented ostomy output w/ no significant output today per RN. Serum Na 138 up from 131 prior received BID PO NS w/ electrolyte-containing PN. Will continue to monitor for nutrition support needs and tolerance this admit. Rec: 1. Continuous TPN via PICC line using 2:1 Clinimix-E 04/12 at 72 mL/hr w/ additional 100ml 20% intralipids to run for 12 hours daily at 8.33ml/hr. In total to provide 1728 mL volume/day, 1427 kcal, 86.4g AA, 259g dextrose (1.97mg/kg/min dext load). Unable to meet protein needs without overfeeding on vent; however able to meet protein/kcal needs upon extubation. 2. TG/PALB q /; daily scaled wts 3. Monitor electrolytes and need to adjust TPN recommendations 4. Bowel care per rx post-op Addendum: 08/22/21 at [address] Amended: Links added.
[2021-08-22 11:49] LABS: ABG BASE EXCESS -0.2 mmol/L (-2.0-2.0); ABG HCO3 24.2 mmol/L (22.0-26.0); ABG OXYGEN SATURATION 94.5 % (94-97); ABG PCO2 (T) 38.7 mmHg (32.0-45.0); ABG PO2 (T) 74.8 mmHg (75.0-100.0); ALLEN'S TEST POSITIVE; FMetHb 0.4 % (0.0-1.5); FO2Hb 94.1 % (94-97); PEEP 5 cm H2O; TOTAL HEMOGLOBIN 10.9 G/dl (12.0-16.0)
[2021-08-22] MEDS ORDERED: dexamethasone sod phosphate 10mg/ml inj IV STA (12:58)
[2021-08-22] MEDS: ZINC/COPPER/MANGANESE/SELENIUM 1 ML, chromic chloride inj. 10 MCG in AA 5%/D15W/ELECTRO... IV SCH ×2 (16:00→20:31)
--- NOTE | 2021-08-22 16:14 | NUR ---
Dr. Roberts in to see pt. informed of high residuals. plan to take pt to or wednesday for peg placement. hold tf
[2021-08-22] MEDS: fat emulsion 20% inj. 100 ML IV SCH (20:45)
[2021-08-22] MEDS: insulin glargine (Lantus) pen - multi-dose SQ SCH (20:50)
[2021-08-23] VITALS (24 sets, daily range): BP systolic 103–167; BP diastolic 46–70
[2021-08-23] MEDS: metroNIDAZOLE-Flagyl 500mg/NS 100 ML IV SCH ×3 (00:03→16:06)
[2021-08-23] MEDS: heparin, porcine 5000 units/ml vial SQ SCH ×3 (00:03→16:06)
[2021-08-23] MEDS: propofol 1000mg/100ml bottle 100 ML IV SCH ×4 (00:05→21:33)
[2021-08-23] MEDS: mineral oil/petrolatum ophthal oint EACHEYE SCH ×4 (02:29→21:35)
[2021-08-23] MEDS: insulin regular, human U-100 3ml vial - multi-dose SQ SCH ×2 (02:37→22:11)
[2021-08-23] MEDS: ipratropium/albuterol 3ml nebule IH SCH ×6 (03:19→23:10)
[2021-08-23 03:22] LABS: BASOPHILS % (AUTO) 0.3 % (0-1); EOSINOPHILS % (AUTO) 0.2 % (0-6); HEMATOCRIT 23.5 % (35.0-45.0); HEMOGLOBIN 7.9 g/dl (12.0-16.0); LYMPHOCYTES # (AUTO) 0.7 X10'3 (1.1-4.8); LYMPHOCYTES % (AUTO) 10.6 % (21-51); MEAN CORPUSCULAR HEMOGLOBIN 29.5 PG (27.0-31.0); MEAN CORPUSCULAR HGB CONC 33.6 g/dL (33.0-36.5); MEAN CORPUSCULAR VOLUME 87.8 FL (78-98); MEAN PLATELET VOLUME 9.1 FL (7.4-10.4); MONOCYTES # (AUTO) 0.2 X10'3 (0-0.9); MONOCYTES % (AUTO) 2.8 % (2-12); NEUTROPHILS # (AUTO) 5.8 X10'3 (1.8-7.7); NEUTROPHILS % (AUTO) 86.1 % (42-75); PLATELET COUNT 163 X10'3 (140-440); RED BLOOD COUNT 2.68 X10'6 (4.20-5.60); RED CELL DISTRIBUTION WIDTH 15.3 % (11.5-14.5); WHITE BLOOD COUNT 6.8 X10'3 (4.5-11.0)
[2021-08-23 03:36] LABS: ALANINE AMINOTRANSFERASE 11 U/L (12-78); ALBUMIN 1.7 G/DL (3.4-5.0); ALBUMIN/GLOBULIN RATIO 0.4 (1.1-1.5); ALKALINE PHOSPHATASE 276 IU/L (46-116); ANION GAP 2 (8-16); ASPARTATE AMINO TRANSFERASE 19 U/L (10-37); BILIRUBIN,TOTAL 0.3 MG/DL (0.1-1.0); BLOOD UREA NITROGEN 74 MG/DL (7-18); BUN/CREATININE RATIO 43.8 (6.6-38.0); CALCIUM 7.7 MG/DL (8.5-10.1); CHLORIDE 103 MMOL/L (99-107); CREATININE 1.69 MG/DL (0.40-0.90); GLUCOSE 290 MG/DL (70-104); MAGNESIUM 1.9 MG/DL (1.5-2.4); POTASSIUM 4.7 MMOL/L (3.5-5.1); SODIUM 130 MMOL/L (135-145); TOTAL CARBON DIOXIDE 25.4 MMOL/L (24-32); TOTAL PROTEIN 6.1 G/DL (6.4-8.2); TRIGLYCERIDES 144 MG/DL (20-135); eGFR 30 ML/MIN
[2021-08-23 03:38] LABS: ABG BASE EXCESS -0.9 mmol/L (-2.0-2.0); ABG HCO3 23.1 mmol/L (22.0-26.0); ABG OXYGEN SATURATION 94.1 % (94-97); ABG PCO2 (T) 35.2 mmHg (32.0-45.0); ABG PO2 (T) 74.8 mmHg (75.0-100.0); ALLEN'S TEST Modified; FCOHb 0.3 % (0.0-3.9); FMetHb 0.4 % (0.0-1.5); FO2Hb 93.4 % (94-97); PATIENT TEMPERATURE 36.8; PEEP 5 cm H2O; RESPIRATORY RATE 14 b/min; TIDAL VOLUME 450 mL
[2021-08-23] MEDS: NORepinephrine 8mg/ 250ml NS 250 ML IV SCH ×2 (06:10→20:50)
--- NOTE | 2021-08-23 06:26 | NUR ---
Problems reprioritized. Patient report given, questions answered & plan of care reviewed with KRISTY BREWER.
[2021-08-23] MEDS: famotidine/PF 10 mg/ml inj IV SCH ×2 (07:25→21:33)
[2021-08-23] MEDS: amiodarone 200mg tablet PO SCH ×2 (07:28→21:34)
[2021-08-23] MEDS: lactobacillus rhamnosus 10,000 MMU CELLS/CAPSULE PO SCH ×2 (07:28→21:34)
[2021-08-23] MEDS: sodium chloride 1gm tablet OGT SCH ×2 (07:28→22:07)
[2021-08-23] MEDS: atorvastatin 20mg tablet PO SCH (07:28)
[2021-08-23] MEDS: cefepime 2g/NS 100ml ADVANTAGE 100 ML IV SCH (07:29)
[2021-08-23] MEDS: fluconazole-Diflucan 200mg/NS 100 ML IV SCH (07:29)
[2021-08-23] MEDS: MESSAGE TO NURSING IV SCH (07:31)
[2021-08-23] MEDS: triamcinolone acet 0.1% cream 15gm TP SCH ×2 (07:44→21:35)
[2021-08-23 08:13] LABS: TOTAL CELLS COUNTED 100
[2021-08-23 08:14] LABS: ANISOCYTOSIS 1+; HYPOCHROMASIA 1+; PLATELET ESTIMATE NORMAL; POLYCHROMASIA 1+
[2021-08-23] MEDS: insulin Lispro (HumaLOG) vial - multi-dose SQ SCH ×2 (09:31→14:09)
[2021-08-23] MEDS: scopolamine 1mg/72 hr patch TD SCH (12:07)
--- NOTE | 2021-08-23 18:30 | NUR ---
Patient in room ICU 2043. I have received report from Noemi BREWER and had the opportunity to ask questions and assume patient care.
[2021-08-23] MEDS: ZINC/COPPER/MANGANESE/SELENIUM 1 ML, chromic chloride inj. 10 MCG in AA 5%/D15W/ELECTRO... IV SCH (21:34)
[2021-08-23] MEDS: fat emulsion 20% inj. 100 ML IV SCH (21:35)
[2021-08-23] MEDS: insulin glargine (Lantus) pen - multi-dose SQ SCH (22:13)
[2021-08-24] VITALS (25 sets, daily range): BP systolic 112–187; BP diastolic 54–80
[2021-08-24] MEDS: heparin, porcine 5000 units/ml vial SQ SCH ×3 (01:26→15:42)
[2021-08-24] MEDS: metroNIDAZOLE-Flagyl 500mg/NS 100 ML IV SCH ×3 (01:26→15:42)
[2021-08-24] MEDS: mineral oil/petrolatum ophthal oint EACHEYE SCH ×4 (02:00→21:18)
[2021-08-24 02:04] LABS: ABG BASE EXCESS -1.5 mmol/L (-2.0-2.0); ABG HCO3 22.1 mmol/L (22.0-26.0); ABG OXYGEN SATURATION 97.8 % (94-97); ABG PCO2 (T) 33.3 mmHg (32.0-45.0); ABG PO2 (T) 112.5 mmHg (75.0-100.0); ALLEN'S TEST POSITIVE; FCOHb 0.3 % (0.0-3.9); FMetHb 0.4 % (0.0-1.5); FO2Hb 97.1 % (94-97); PATIENT TEMPERATURE 37.3; PEEP 5 cm H2O; RESPIRATORY RATE 14 b/min; TIDAL VOLUME 450 mL; TOTAL HEMOGLOBIN 8.8 G/dl (12.0-16.0)
[2021-08-24] MEDS: ipratropium/albuterol 3ml nebule IH SCH ×6 (02:09→22:53)
[2021-08-24 03:29] LABS: BASOPHILS % (AUTO) 0.3 % (0-1); EOSINOPHILS % (AUTO) 0.3 % (0-6); HEMATOCRIT 26.7 % (35.0-45.0); HEMOGLOBIN 8.7 g/dl (12.0-16.0); LYMPHOCYTES # (AUTO) 1.4 X10'3 (1.1-4.8); MEAN CORPUSCULAR HEMOGLOBIN 29.1 PG (27.0-31.0); MEAN CORPUSCULAR HGB CONC 32.6 g/dL (33.0-36.5); MEAN CORPUSCULAR VOLUME 89.4 FL (78-98); MEAN PLATELET VOLUME 9.2 FL (7.4-10.4); MONOCYTES # (AUTO) 1.1 X10'3 (0-0.9); MONOCYTES % (AUTO) 9.6 % (2-12); NEUTROPHILS # (AUTO) 8.8 X10'3 (1.8-7.7); NEUTROPHILS % (AUTO) 77.8 % (42-75); PLATELET COUNT 212 X10'3 (140-440); RED BLOOD COUNT 2.99 X10'6 (4.20-5.60); RED CELL DISTRIBUTION WIDTH 15.4 % (11.5-14.5); WHITE BLOOD COUNT 11.4 X10'3 (4.5-11.0)
[2021-08-24] MEDS: propofol 1000mg/100ml bottle 100 ML IV SCH (03:41)
[2021-08-24 03:51] LABS: ALANINE AMINOTRANSFERASE 8 U/L (12-78); ALBUMIN/GLOBULIN RATIO 0.4 (1.1-1.5); ALKALINE PHOSPHATASE 262 IU/L (46-116); ANION GAP 5 (8-16); ASPARTATE AMINO TRANSFERASE 17 U/L (10-37); BILIRUBIN,TOTAL 0.3 MG/DL (0.1-1.0); BLOOD UREA NITROGEN 70 MG/DL (7-18); BUN/CREATININE RATIO 45.8 (6.6-38.0); CALCIUM 8.1 MG/DL (8.5-10.1); CHLORIDE 106 MMOL/L (99-107); CREATININE 1.53 MG/DL (0.40-0.90); GLUCOSE 139 MG/DL (70-104); MAGNESIUM 1.9 MG/DL (1.5-2.4); POTASSIUM 3.9 MMOL/L (3.5-5.1); SODIUM 134 MMOL/L (135-145); TOTAL CARBON DIOXIDE 22.9 MMOL/L (24-32); TOTAL PROTEIN 6.5 G/DL (6.4-8.2); eGFR 34 ML/MIN
[2021-08-24] MEDS: insulin regular, human U-100 3ml vial - multi-dose SQ SCH ×4 (03:53→21:21)
[2021-08-24] MEDS: hydrALAZINE 20mg/ml inj. IV PRN ×2 (04:54→16:53)
--- NOTE | 2021-08-24 04:55 | NUR ---
Patient hypertensive. Dr. Licea notified. Okayed to use current PRN hydralazine dose
--- NOTE | 2021-08-24 06:25 | NUR ---
Problems reprioritized. Patient report given, questions answered & plan of care reviewed with Noemi BREWER.
[2021-08-24 06:49] LABS: ANISOCYTOSIS 1+; PLATELET ESTIMATE NORMAL; POLYCHROMASIA 1+; TOTAL CELLS COUNTED 100
[2021-08-24] MEDS: sodium chloride 1gm tablet OGT SCH ×2 (07:31→20:00)
[2021-08-24] MEDS: atorvastatin 20mg tablet PO SCH (07:31)
[2021-08-24] MEDS: amiodarone 200mg tablet PO SCH ×2 (07:31→20:00)
[2021-08-24] MEDS: lactobacillus rhamnosus 10,000 MMU CELLS/CAPSULE PO SCH ×2 (07:31→20:00)
[2021-08-24] MEDS: famotidine/PF 10 mg/ml inj IV SCH ×2 (07:33→21:17)
[2021-08-24] MEDS: MESSAGE TO NURSING IV SCH (07:34)
[2021-08-24] MEDS: fluconazole-Diflucan 200mg/NS 100 ML IV SCH (07:34)
[2021-08-24] MEDS: cefepime 2g/NS 100ml ADVANTAGE 100 ML IV SCH (07:34)
[2021-08-24] MEDS: triamcinolone acet 0.1% cream 15gm TP SCH ×2 (07:35→21:18)
[2021-08-24] MEDS ORDERED: BUPIVAcaine 0.5% inj/PF 30 ML ONE (08:08)
[2021-08-24] MEDS ORDERED: LIDOcaine 1% 30ml preserv. free vial ONE (08:08)
[2021-08-24] MEDS ORDERED: rocuronium 10mg/ml inj IV ONE ×2 (09:01→11:09)
[2021-08-24] MEDS ORDERED: fentaNYL/PF 50MCG/1 ML 2ML syringe ONE (09:02)
[2021-08-24] MEDS ORDERED: sevoflurane 250ml liquid IH ONE (09:12)
--- NOTE | 2021-08-24 09:15 | NUR ---
Pt transported to surgery.
[2021-08-24] MEDS: NORepinephrine 8mg/ 250ml NS 250 ML IV SCH (11:30)
--- NOTE | 2021-08-24 11:45 | NUR ---
Attached a sky bag to the gastric portion of the J-tube to gravity for drainage per Dr. Roberts.
--- NOTE | 2021-08-24 12:39 | NUR ---
TF consult 08/24: Pt received PEJ and gastropexy today and is okay to use tomorrow 08/25 for feeding per Surgeon. See TF recs below. Pt remains on Propofol at 13.65 providing 360kcals. TF recs made factoring in Propofol. TPN continues to run at goal of 72ml/hr, recommend tapering once TF is tolerated. Discussed w/ Pharmacist to continue to withhold lipids while Pt is receiving Propofol. 100ml ostomy output documented today. Will continue to monitor TF tolerance and adjust needs as medically indicated. Rec: 1. Continuous TF using Vital HP at 45ml/hr goal to provide 1080ml volume, 1080kcal, 94g protein, 907ml H2O 2. Additional water flush 100ml Q4H 3. Taper TPN when TF tolerated at starting rate. TPN via PICC line using :1 Clinimix-E 04/12 at 72 mL/hr without additional lipids. In total to provide 1728 mL volume/day, 1227 kcal, 86.4 g AA, 259 g dextrose (1.97 mg/kg/min dext load). 4. TG/PALB q /; daily scaled wts 5. Monitor electrolytes and need to adjust TPN recommendations 6. Bowel care per rx post-op 7. upon extubation; advance diet as medically indicated per COOK HOUSE LABORER/MD recs to carb controlled/low-residue Addendum: 08/24/21 at [address] Amended: Links added.
[2021-08-24] MEDS: insulin glargine (Lantus) pen - multi-dose SQ SCH (21:23)
[2021-08-25] VITALS (24 sets, daily range): BP systolic 118–160; BP diastolic 53–74
[2021-08-25] MEDS: propofol 1000mg/100ml bottle 100 ML IV SCH ×2 (00:52→04:49)
[2021-08-25] MEDS: heparin, porcine 5000 units/ml vial SQ SCH ×3 (00:53→15:19)
[2021-08-25] MEDS: metroNIDAZOLE-Flagyl 500mg/NS 100 ML IV SCH ×3 (00:53→15:17)
[2021-08-25] MEDS: NORepinephrine 8mg/ 250ml NS 250 ML IV SCH ×2 (02:10→16:19)
[2021-08-25 02:21] LABS: ABG BASE EXCESS -1.9 mmol/L (-2.0-2.0); ABG HCO3 20.9 mmol/L (22.0-26.0); ABG OXYGEN SATURATION 96.7 % (94-97); ABG PCO2 (T) 28.2 mmHg (32.0-45.0); ALLEN'S TEST POSITIVE; FCOHb 0.3 % (0.0-3.9); FMetHb 0.4 % (0.0-1.5); PATIENT TEMPERATURE 36.5; PEEP 5 cm H2O; TIDAL VOLUME 450 mL
[2021-08-25] MEDS: ipratropium/albuterol 3ml nebule IH SCH ×6 (02:24→23:03)
[2021-08-25] MEDS: mineral oil/petrolatum ophthal oint EACHEYE SCH ×4 (02:57→20:15)
[2021-08-25] MEDS: ZINC/COPPER/MANGANESE/SELENIUM 1 ML, chromic chloride inj. 10 MCG in AA 5%/D15W/ELECTRO... IV SCH (02:59)
[2021-08-25 03:24] LABS: BASOPHILS % (AUTO) 0.2 % (0-1); EOSINOPHILS # (AUTO) 0.2 X10'3 (0-0.9); HEMATOCRIT 26.6 % (35.0-45.0); HEMOGLOBIN 8.9 g/dl (12.0-16.0); LYMPHOCYTES # (AUTO) 1.8 X10'3 (1.1-4.8); LYMPHOCYTES % (AUTO) 11.2 % (21-51); MEAN CORPUSCULAR HEMOGLOBIN 29.3 PG (27.0-31.0); MEAN CORPUSCULAR HGB CONC 33.5 g/dL (33.0-36.5); MEAN CORPUSCULAR VOLUME 87.3 FL (78-98); MEAN PLATELET VOLUME 8.8 FL (7.4-10.4); MONOCYTES # (AUTO) 1.6 X10'3 (0-0.9); NEUTROPHILS # (AUTO) 12.3 X10'3 (1.8-7.7); NEUTROPHILS % (AUTO) 77.6 % (42-75); PLATELET COUNT 303 X10'3 (140-440); RED BLOOD COUNT 3.05 X10'6 (4.20-5.60); RED CELL DISTRIBUTION WIDTH 15.5 % (11.5-14.5); WHITE BLOOD COUNT 15.9 X10'3 (4.5-11.0)
[2021-08-25 03:44] LABS: ALANINE AMINOTRANSFERASE 36 U/L (12-78); ALBUMIN/GLOBULIN RATIO 0.5 (1.1-1.5); ALKALINE PHOSPHATASE 250 IU/L (46-116); ANION GAP 11 (8-16); ASPARTATE AMINO TRANSFERASE 59 U/L (10-37); BILIRUBIN,TOTAL 0.3 MG/DL (0.1-1.0); BLOOD UREA NITROGEN 67 MG/DL (7-18); BUN/CREATININE RATIO 52.3 (6.6-38.0); CALCIUM 8.2 MG/DL (8.5-10.1); CHLORIDE 108 MMOL/L (99-107); CREATININE 1.28 MG/DL (0.40-0.90); GLUCOSE 132 MG/DL (70-104); MAGNESIUM 1.8 MG/DL (1.5-2.4); POTASSIUM 3.8 MMOL/L (3.5-5.1); SODIUM 142 MMOL/L (135-145); TOTAL CARBON DIOXIDE 22.9 MMOL/L (24-32); TOTAL PROTEIN 6.4 G/DL (6.4-8.2); TRIGLYCERIDES 102 MG/DL (20-135); eGFR 41 ML/MIN
[2021-08-25 05:19] LABS: PLATELET ESTIMATE NORMAL; TOTAL CELLS COUNTED 100
[2021-08-25 05:20] LABS: ANISOCYTOSIS 1+; POLYCHROMASIA 1+
--- NOTE | 2021-08-25 05:22 | NUR ---
Dr. Miller updated on patient's condition during rounds. Orders received.
[2021-08-25] MEDS ORDERED: amiodarone 150mg/dext, iso-os 100 ML IV ONE (05:25)
[2021-08-25] MEDS: dexmedetomidine/D5W 100mL 100 ML IV PRN (06:07)
--- NOTE | 2021-08-25 06:34 | NUR ---
Problems reprioritized. Patient report given, questions answered & plan of care reviewed with Lashon BREWER.
--- NOTE | 2021-08-25 07:20 | NUR ---
Patient in room ICU 2043. I have received report from Holly BREWER and had the opportunity to ask questions and assume patient care.
[2021-08-25] MEDS: MESSAGE TO NURSING IV SCH (08:00)
[2021-08-25] MEDS: cefepime 2g/NS 100ml ADVANTAGE 100 ML IV SCH (08:31)
[2021-08-25] MEDS: fluconazole-Diflucan 200mg/NS 100 ML IV SCH (08:32)
[2021-08-25] MEDS: sodium chloride 1gm tablet OGT SCH ×2 (08:35→20:15)
[2021-08-25] MEDS: amiodarone 200mg tablet PO SCH ×2 (08:35→20:15)
[2021-08-25] MEDS: atorvastatin 20mg tablet PO SCH (08:35)
[2021-08-25] MEDS: lactobacillus rhamnosus 10,000 MMU CELLS/CAPSULE PO SCH ×2 (08:35→20:15)
[2021-08-25] MEDS: triamcinolone acet 0.1% cream 15gm TP SCH ×2 (08:37→20:16)
[2021-08-25] MEDS: famotidine/PF 10 mg/ml inj IV SCH ×2 (08:37→20:15)
[2021-08-25] MEDS: insulin regular, human U-100 3ml vial - multi-dose SQ SCH ×2 (08:49→14:24)
--- NOTE | 2021-08-25 11:27 | NUR ---
Rounds note; Systems, labs, meds, drips, vent settings, and recent changes and events reviewed Plan for today is to wean off the propofol and use precedex, also to start tube feeding patient and turn TPN off. CPAP trial in process, awaiting further instructions from Dr. Roberts. No new orders at this time
[2021-08-25] MEDS: morphine 4 MG/ML inj SYRINge IV PRN (15:18)
[2021-08-25] MEDS: insulin glargine (Lantus) pen - multi-dose SQ SCH (21:00)
[2021-08-26] VITALS (24 sets, daily range): BP systolic 110–159; BP diastolic 51–87
[2021-08-26] MEDS: metroNIDAZOLE-Flagyl 500mg/NS 100 ML IV SCH ×3 (00:31→16:08)
[2021-08-26] MEDS: heparin, porcine 5000 units/ml vial SQ SCH ×3 (00:32→16:06)
[2021-08-26] MEDS: dexmedetomidine/D5W 100mL 100 ML IV PRN ×3 (01:41→21:49)
[2021-08-26] MEDS: mineral oil/petrolatum ophthal oint EACHEYE SCH ×2 (02:10→08:00)
[2021-08-26] MEDS: ipratropium/albuterol 3ml nebule IH SCH ×6 (02:10→23:00)
[2021-08-26 03:25] LABS: ABG BASE EXCESS -3.5 mmol/L (-2.0-2.0); ABG HCO3 19.3 mmol/L (22.0-26.0); ABG OXYGEN SATURATION 96.1 % (94-97); ABG PCO2 (T) 27.6 mmHg (32.0-45.0); ABG PO2 (T) 90.1 mmHg (75.0-100.0); ALLEN'S TEST POSITIVE; FCOHb 0.3 % (0.0-3.9); FMetHb 0.5 % (0.0-1.5); FO2Hb 95.3 % (94-97); PATIENT TEMPERATURE 37.3; PEEP 5 cm H2O; TOTAL HEMOGLOBIN 9.4 G/dl (12.0-16.0)
[2021-08-26 04:09] LABS: PHOSPHORUS 4.1 MG/DL (2.3-4.5)
[2021-08-26] MEDS: NORepinephrine 8mg/ 250ml NS 250 ML IV SCH ×2 (07:30→22:10)
[2021-08-26] MEDS: MESSAGE TO NURSING IV SCH (08:00)
[2021-08-26] MEDS: triamcinolone acet 0.1% cream 15gm TP SCH ×2 (08:00→20:00)
[2021-08-26] MEDS: atorvastatin 20mg tablet PO SCH (08:50)
[2021-08-26] MEDS: amiodarone 200mg tablet PO SCH ×2 (08:50→21:39)
[2021-08-26] MEDS: famotidine/PF 10 mg/ml inj IV SCH ×2 (08:50→21:39)
[2021-08-26] MEDS: sodium chloride 1gm tablet OGT SCH ×2 (08:50→21:38)
[2021-08-26] MEDS: lactobacillus rhamnosus 10,000 MMU CELLS/CAPSULE PO SCH ×2 (08:50→21:39)
[2021-08-26 09:18] LABS: BASOPHILS % (AUTO) 0.3 % (0-1); EOSINOPHILS # (AUTO) 0.2 X10'3 (0-0.9); HEMATOCRIT 25.6 % (35.0-45.0); HEMOGLOBIN 8.4 g/dl (12.0-16.0); LYMPHOCYTES # (AUTO) 1.9 X10'3 (1.1-4.8); LYMPHOCYTES % (AUTO) 16.4 % (21-51); MEAN CORPUSCULAR HEMOGLOBIN 29.2 PG (27.0-31.0); MEAN CORPUSCULAR HGB CONC 32.7 g/dL (33.0-36.5); MEAN CORPUSCULAR VOLUME 89.3 FL (78-98); MEAN PLATELET VOLUME 8.9 FL (7.4-10.4); MONOCYTES # (AUTO) 1.3 X10'3 (0-0.9); MONOCYTES % (AUTO) 11.4 % (2-12); NEUTROPHILS # (AUTO) 8.3 X10'3 (1.8-7.7); NEUTROPHILS % (AUTO) 69.9 % (42-75); PLATELET COUNT 249 X10'3 (140-440); RED BLOOD COUNT 2.87 X10'6 (4.20-5.60); RED CELL DISTRIBUTION WIDTH 15.5 % (11.5-14.5); WHITE BLOOD COUNT 11.8 X10'3 (4.5-11.0)
[2021-08-26] MEDS: morphine 2 MG/ML inj. syringe IV PRN (09:48)
[2021-08-26] MEDS: cefepime 2g/NS 100ml ADVANTAGE 100 ML IV SCH (09:49)
[2021-08-26 09:51] LABS: PLATELET ESTIMATE NORMAL; TOTAL CELLS COUNTED 100
[2021-08-26 09:52] LABS: ANISOCYTOSIS 1+
[2021-08-26 09:53] LABS: LARGE PLATELETS FEW; POLYCHROMASIA FEW
[2021-08-26 09:58] LABS: ALANINE AMINOTRANSFERASE 24 U/L (12-78); ALBUMIN 1.8 G/DL (3.4-5.0); ALBUMIN/GLOBULIN RATIO 0.4 (1.1-1.5); ALKALINE PHOSPHATASE 227 IU/L (46-116); ANION GAP 10 (8-16); ASPARTATE AMINO TRANSFERASE 27 U/L (10-37); BILIRUBIN,TOTAL 0.4 MG/DL (0.1-1.0); BLOOD UREA NITROGEN 60 MG/DL (7-18); BUN/CREATININE RATIO 51.7 (6.6-38.0); CALCIUM 7.3 MG/DL (8.5-10.1); CHLORIDE 109 MMOL/L (99-107); CREATININE 1.16 MG/DL (0.40-0.90); GLUCOSE 153 MG/DL (70-104); MAGNESIUM 1.5 MG/DL (1.5-2.4); PHOSPHORUS 3.6 MG/DL (2.3-4.5); POTASSIUM 4.3 MMOL/L (3.5-5.1); SODIUM 140 MMOL/L (135-145); TOTAL PROTEIN 6.1 G/DL (6.4-8.2); eGFR 46 ML/MIN
[2021-08-26] MEDS: fluconazole-Diflucan 200mg/NS 100 ML IV SCH (10:53)
[2021-08-26] MEDS: scopolamine 1mg/72 hr patch TD SCH (16:07)
[2021-08-26] MEDS: insulin glargine (Lantus) pen - multi-dose SQ SCH (21:41)
[2021-08-26] MEDS: insulin regular, human U-100 3ml vial - multi-dose SQ SCH (21:42)
[2021-08-27] VITALS (24 sets, daily range): BP systolic 115–157; BP diastolic 51–86
[2021-08-27] MEDS: metroNIDAZOLE-Flagyl 500mg/NS 100 ML IV SCH ×3 (00:24→15:05)
[2021-08-27] MEDS: heparin, porcine 5000 units/ml vial SQ SCH ×3 (00:24→15:06)
[2021-08-27] MEDS: ipratropium/albuterol 3ml nebule IH SCH ×6 (02:52→23:58)
[2021-08-27 04:04] LABS: BASOPHILS % (AUTO) 0.2 % (0-1); EOSINOPHILS # (AUTO) 0.4 X10'3 (0-0.9); HEMATOCRIT 24.6 % (35.0-45.0); HEMOGLOBIN 8.2 g/dl (12.0-16.0); LYMPHOCYTES # (AUTO) 1.4 X10'3 (1.1-4.8); LYMPHOCYTES % (AUTO) 14.1 % (21-51); MEAN CORPUSCULAR HEMOGLOBIN 29.9 PG (27.0-31.0); MEAN CORPUSCULAR HGB CONC 33.3 g/dL (33.0-36.5); MEAN CORPUSCULAR VOLUME 89.9 FL (78-98); MEAN PLATELET VOLUME 8.8 FL (7.4-10.4); MONOCYTES # (AUTO) 0.9 X10'3 (0-0.9); MONOCYTES % (AUTO) 9.2 % (2-12); NEUTROPHILS # (AUTO) 7.3 X10'3 (1.8-7.7); NEUTROPHILS % (AUTO) 72.5 % (42-75); PLATELET COUNT 241 X10'3 (140-440); RED BLOOD COUNT 2.73 X10'6 (4.20-5.60); RED CELL DISTRIBUTION WIDTH 15.6 % (11.5-14.5)
[2021-08-27 04:21] LABS: ALANINE AMINOTRANSFERASE 19 U/L (12-78); ALBUMIN 1.8 G/DL (3.4-5.0); ALBUMIN/GLOBULIN RATIO 0.4 (1.1-1.5); ALKALINE PHOSPHATASE 235 IU/L (46-116); ANION GAP 11 (8-16); ASPARTATE AMINO TRANSFERASE 21 U/L (10-37); BILIRUBIN,TOTAL 0.4 MG/DL (0.1-1.0); BLOOD UREA NITROGEN 56 MG/DL (7-18); BUN/CREATININE RATIO 54.9 (6.6-38.0); CALCIUM 7.6 MG/DL (8.5-10.1); CHLORIDE 113 MMOL/L (99-107); CREATININE 1.02 MG/DL (0.40-0.90); GLUCOSE 172 MG/DL (70-104); MAGNESIUM 1.6 MG/DL (1.5-2.4); SODIUM 144 MMOL/L (135-145); TOTAL CARBON DIOXIDE 20.5 MMOL/L (24-32); TOTAL PROTEIN 5.9 G/DL (6.4-8.2); TRIGLYCERIDES 175 MG/DL (20-135); eGFR 54 ML/MIN
[2021-08-27] MEDS: dexmedetomidine/D5W 100mL 100 ML IV PRN ×3 (04:35→19:11)
[2021-08-27] MEDS: morphine 2 MG/ML inj. syringe IV PRN ×2 (04:36→08:20)
--- NOTE | 2021-08-27 06:10 | NUR ---
Patient in room ICU 2043. I have received report from Mary BREWER and had the opportunity to ask questions and assume patient care.
[2021-08-27 06:18] LABS: PLATELET ESTIMATE NORMAL; TOTAL CELLS COUNTED 100
[2021-08-27] MEDS: triamcinolone acet 0.1% cream 15gm TP SCH ×2 (08:00→20:22)
[2021-08-27] MEDS: MESSAGE TO NURSING IV SCH (08:00)
[2021-08-27] MEDS: cefepime 2g/NS 100ml ADVANTAGE 100 ML IV SCH (08:17)
[2021-08-27] MEDS: lactobacillus rhamnosus 10,000 MMU CELLS/CAPSULE PO SCH ×2 (08:19→20:22)
[2021-08-27] MEDS: sodium chloride 1gm tablet OGT SCH ×2 (08:19→20:22)
[2021-08-27] MEDS: atorvastatin 20mg tablet PO SCH (08:19)
[2021-08-27] MEDS: fluconazole-Diflucan 200mg/NS 100 ML IV SCH (08:19)
[2021-08-27] MEDS: amiodarone 200mg tablet PO SCH ×2 (08:20→20:22)
[2021-08-27] MEDS: famotidine/PF 10 mg/ml inj IV SCH ×2 (08:20→20:22)
--- NOTE | 2021-08-27 11:12 | NUR ---
f/u 08/27: Pt extubated 08/26 and remains on TF, see adjusted TF recs below. Pt to remain on TF for now per RN, though if diet to advance Pt would benefit from BSS prior to advancement. Pt continues to have ostomy output, ~200ml/day per documentation. Will continue to monitor for TF tolerance and make adjustments as medically indicated. Rec: 1. Continuous TF using Vital AF at 50ml/hr goal to provide 1200ml volume, 1440kcal, 90g protein, 972ml H2O 2. Additional water flush 100ml Q4H 3. PALB q /; daily scaled wts 4. Bowel care per rx post-op 5. Advance diet as medically indicated per DUB ROOM ENGINEER/MD recs to carb controlled/low-residue Addendum: 08/27/21 at [address] Amended: Links added.
[2021-08-27] MEDS: insulin regular, human U-100 3ml vial - multi-dose SQ SCH ×3 (11:25→22:23)
--- NOTE | 2021-08-27 12:30 | NUR ---
Patient working with physical therapy, sat on the side of the bed and stood up twice, changed linen, gown, completed bed bath and repositioned patient for comfort once back to bed.
[2021-08-27] MEDS: morphine 4 MG/ML inj SYRINge IV PRN ×4 (12:34→23:23)
--- NOTE | 2021-08-27 18:45 | NUR ---
Problems reprioritized. Patient report given, questions answered & plan of care reviewed with Mariaelena BREWER.
[2021-08-27] MEDS: insulin glargine (Lantus) pen - multi-dose SQ SCH (22:19)
[2021-08-28] VITALS (14 sets, daily range): BP systolic 128–167; BP diastolic 58–88
[2021-08-28] MEDS: heparin, porcine 5000 units/ml vial SQ SCH ×4 (00:41→23:38)
[2021-08-28] MEDS: metroNIDAZOLE-Flagyl 500mg/NS 100 ML IV SCH ×4 (00:41→23:38)
[2021-08-28] MEDS: dexmedetomidine/D5W 100mL 100 ML IV PRN (02:53)
[2021-08-28 03:00] LABS: BASOPHILS # (AUTO) 0.1 X10'3 (0-0.2); BASOPHILS % (AUTO) 0.6 % (0-1); EOSINOPHILS # (AUTO) 0.5 X10'3 (0-0.9); EOSINOPHILS % (AUTO) 4.4 % (0-6); HEMATOCRIT 24.3 % (35.0-45.0); HEMOGLOBIN 8.1 g/dl (12.0-16.0); LYMPHOCYTES # (AUTO) 1.6 X10'3 (1.1-4.8); LYMPHOCYTES % (AUTO) 15.3 % (21-51); MEAN CORPUSCULAR HEMOGLOBIN 29.8 PG (27.0-31.0); MEAN CORPUSCULAR HGB CONC 33.3 g/dL (33.0-36.5); MEAN CORPUSCULAR VOLUME 89.4 FL (78-98); MEAN PLATELET VOLUME 8.9 FL (7.4-10.4); MONOCYTES # (AUTO) 0.9 X10'3 (0-0.9); MONOCYTES % (AUTO) 8.3 % (2-12); NEUTROPHILS # (AUTO) 7.7 X10'3 (1.8-7.7); NEUTROPHILS % (AUTO) 71.4 % (42-75); PLATELET COUNT 233 X10'3 (140-440); RED BLOOD COUNT 2.72 X10'6 (4.20-5.60); RED CELL DISTRIBUTION WIDTH 15.6 % (11.5-14.5); WHITE BLOOD COUNT 10.8 X10'3 (4.5-11.0)
[2021-08-28] MEDS: ipratropium/albuterol 3ml nebule IH SCH ×6 (03:00→23:00)
[2021-08-28] MEDS: insulin regular, human U-100 3ml vial - multi-dose SQ SCH ×5 (03:08→19:54)
[2021-08-28] MEDS: morphine 4 MG/ML inj SYRINge IV PRN ×8 (03:09→23:37)
[2021-08-28 03:22] LABS: ALANINE AMINOTRANSFERASE 20 U/L (12-78); ALBUMIN 1.9 G/DL (3.4-5.0); ALBUMIN/GLOBULIN RATIO 0.5 (1.1-1.5); ALKALINE PHOSPHATASE 227 IU/L (46-116); ANION GAP 11 (8-16); ASPARTATE AMINO TRANSFERASE 18 U/L (10-37); BILIRUBIN,TOTAL 0.3 MG/DL (0.1-1.0); BLOOD UREA NITROGEN 51 MG/DL (7-18); BUN/CREATININE RATIO 53.7 (6.6-38.0); CALCIUM 7.6 MG/DL (8.5-10.1); CHLORIDE 112 MMOL/L (99-107); CREATININE 0.95 MG/DL (0.40-0.90); GLUCOSE 216 MG/DL (70-104); MAGNESIUM 1.4 MG/DL (1.5-2.4); PHOSPHORUS 3.5 MG/DL (2.3-4.5); SODIUM 146 MMOL/L (135-145); TOTAL CARBON DIOXIDE 22.6 MMOL/L (24-32); eGFR 58 ML/MIN
[2021-08-28 03:45] LABS: TOTAL CELLS COUNTED 100
[2021-08-28 03:46] LABS: ANISOCYTOSIS 1+; PLATELET ESTIMATE NORMAL
[2021-08-28] MEDS: amiodarone 200mg tablet PO SCH ×2 (07:23→19:25)
[2021-08-28] MEDS: lactobacillus rhamnosus 10,000 MMU CELLS/CAPSULE PO SCH ×2 (07:23→19:25)
[2021-08-28] MEDS: famotidine/PF 10 mg/ml inj IV SCH ×2 (07:23→19:25)
[2021-08-28] MEDS: sodium chloride 1gm tablet OGT SCH ×2 (07:23→19:25)
[2021-08-28] MEDS: atorvastatin 20mg tablet PO SCH (07:23)
[2021-08-28] MEDS: cefepime 2g/NS 100ml ADVANTAGE 100 ML IV SCH (07:25)
[2021-08-28] MEDS: fluconazole-Diflucan 200mg/NS 100 ML IV SCH (07:25)
[2021-08-28] MEDS: MESSAGE TO NURSING IV SCH (08:00)
[2021-08-28] MEDS: triamcinolone acet 0.1% cream 15gm TP SCH ×2 (08:00→20:00)
--- NOTE | 2021-08-28 10:11 | NUR ---
Triaged 0700 SVN treatment
--- NOTE | 2021-08-28 13:30 | NUR ---
I have reviewed and agree with physical assessment documented by HYBRID [employer]CH[employer]IC Addendum: 08/28/21 at 1850 by Amita Storey RN Amended: Links added.
--- NOTE | 2021-08-28 18:28 | NUR ---
Problems reprioritized. Patient report given, questions answered & plan of care reviewed with OSMAN Leroy.
--- NOTE | 2021-08-28 18:30 | NUR ---
Patient in room [facility]. I have received report from OSMAN Levi and had the opportunity to ask questions and assume patient care.
[2021-08-28] MEDS: ondansetron 4mg rapidly disintigrating tab PO PRN (20:03)
[2021-08-28] MEDS: insulin glargine (Lantus) pen - multi-dose SQ SCH (22:02)
[2021-08-29] VITALS: BP 183/82
--- NOTE | 2021-08-29 01:26 | NUR ---
notified of BP 183/82, received order to reinstate hydralazine order 20mg q4h PRN SBP >160.
[2021-08-29 01:29] VITALS: BP_SYST 181; BP_SYST 183; BP_DIAS 72; BP_DIAS 90
[2021-08-29] MEDS: hydrALAZINE 20mg/ml inj. IV PRN ×2 (01:36→07:27)
[2021-08-29] MEDS: ondansetron 4mg rapidly disintigrating tab PO PRN ×2 (01:36→07:26)
[2021-08-29] MEDS: insulin regular, human U-100 3ml vial - multi-dose SQ SCH ×2 (01:39→09:06)
[2021-08-29 03:12] VITALS: BP 154/64
[2021-08-29 06:27] LABS: BASOPHILS % (AUTO) 0.3 % (0-1); EOSINOPHILS # (AUTO) 0.6 X10'3 (0-0.9); EOSINOPHILS % (AUTO) 3.2 % (0-6); HEMATOCRIT 31.3 % (35.0-45.0); HEMOGLOBIN 9.8 g/dl (12.0-16.0); LYMPHOCYTES # (AUTO) 2.3 X10'3 (1.1-4.8); LYMPHOCYTES % (AUTO) 12.7 % (21-51); MEAN CORPUSCULAR HEMOGLOBIN 28.6 PG (27.0-31.0); MEAN CORPUSCULAR HGB CONC 31.2 g/dL (33.0-36.5); MEAN CORPUSCULAR VOLUME 91.7 FL (78-98); MEAN PLATELET VOLUME 8.8 FL (7.4-10.4); MONOCYTES # (AUTO) 1.5 X10'3 (0-0.9); MONOCYTES % (AUTO) 8.1 % (2-12); NEUTROPHILS % (AUTO) 75.7 % (42-75); PLATELET COUNT 353 X10'3 (140-440); RED BLOOD COUNT 3.41 X10'6 (4.20-5.60); RED CELL DISTRIBUTION WIDTH 16.6 % (11.5-14.5); WHITE BLOOD COUNT 18.5 X10'3 (4.5-11.0)
--- NOTE | 2021-08-29 06:29 | NUR ---
Problems reprioritized. Patient report given, questions answered & plan of care reviewed with OSMAN Maher.
--- NOTE | 2021-08-29 06:30 | NUR ---
Patient in room [facility]. I have received report from OSMAN Leroy and had the opportunity to ask questions and assume patient care.
[2021-08-29 06:54] LABS: ALANINE AMINOTRANSFERASE 21 U/L (12-78); ALBUMIN 2.2 G/DL (3.4-5.0); ALBUMIN/GLOBULIN RATIO 0.5 (1.1-1.5); ALKALINE PHOSPHATASE 268 IU/L (46-116); ANION GAP 13 (8-16); ASPARTATE AMINO TRANSFERASE 21 U/L (10-37); BILIRUBIN,TOTAL 0.4 MG/DL (0.1-1.0); BLOOD UREA NITROGEN 44 MG/DL (7-18); BUN/CREATININE RATIO 41.9 (6.6-38.0); CALCIUM 8.2 MG/DL (8.5-10.1); CHLORIDE 117 MMOL/L (99-107); CREATININE 1.05 MG/DL (0.40-0.90); GLUCOSE 139 MG/DL (70-104); MAGNESIUM 1.2 MG/DL (1.5-2.4); POTASSIUM 3.8 MMOL/L (3.5-5.1); SODIUM 153 MMOL/L (135-145); TOTAL CARBON DIOXIDE 22.8 MMOL/L (24-32); TOTAL PROTEIN 6.7 G/DL (6.4-8.2); eGFR 52 ML/MIN
[2021-08-29 07:00] VITALS: BP_SYST 113; BP_SYST 182; BP_DIAS 51; BP_DIAS 76
[2021-08-29] MEDS: heparin, porcine 5000 units/ml vial SQ SCH ×2 (07:27→15:58)
[2021-08-29] MEDS: famotidine/PF 10 mg/ml inj IV SCH ×2 (07:27→20:53)
[2021-08-29] MEDS: lactobacillus rhamnosus 10,000 MMU CELLS/CAPSULE PO SCH ×2 (07:27→20:53)
[2021-08-29] MEDS: atorvastatin 20mg tablet PO SCH (07:27)
[2021-08-29] MEDS: amiodarone 200mg tablet PO SCH ×2 (07:27→20:53)
[2021-08-29] MEDS: metroNIDAZOLE-Flagyl 500mg/NS 100 ML IV SCH ×2 (07:28→15:58)
[2021-08-29] MEDS: morphine 4 MG/ML inj SYRINge IV PRN ×4 (07:35→23:59)
[2021-08-29] MEDS: triamcinolone acet 0.1% cream 15gm TP SCH ×2 (08:00→20:00)
[2021-08-29] MEDS: MESSAGE TO NURSING IV SCH (08:00)
[2021-08-29] MEDS: ipratropium/albuterol 3ml nebule IH SCH ×5 (08:36→23:48)
[2021-08-29] MEDS: cefepime 2g/NS 100ml ADVANTAGE 100 ML IV SCH (08:53)
--- NOTE | 2021-08-29 09:33 | NUR ---
Page sent out to Dr. Brody [phone] regarding patient Na at 153 ok to hold Sodium Chloride 0800 dose and mg 1.2 ok to replace? Received call back from Dr Brody to "please check your orders. What you're telling me is old now." New orders for maintenance fluid order no new orders for mg replacement. Will contnue to monitor.
[2021-08-29] MEDS: sodium chloride 0.45% 1,000 ML IV SCH ×2 (10:10→20:53)
[2021-08-29] MEDS: fluconazole-Diflucan 200mg/NS 100 ML IV SCH (10:34)
--- NOTE | 2021-08-29 10:42 | NUR ---
Dr Brody in to see patient. Spouse at bedside.
[2021-08-29 11:56] LABS: TOTAL CELLS COUNTED 100
[2021-08-29 11:57] LABS: ANISOCYTOSIS 1+; PLATELET ESTIMATE NORMAL; POLYCHROMASIA 1+
[2021-08-29 12:29] VITALS: BP 130/85
--- NOTE | 2021-08-29 16:54 | NUR ---
F/u 08/29: Pt tolerating TF at goal GRV WNL. Colostomy -250ml output down from 750ml yesterday. Noted serum Na 153 previously receiving NS tabs however now changed to half NS at 100ml/hr. RD d/w RN regarding stopping IV NS if MD agreeable as unable to accurately determine free water needs and pt receiving EN. Currently receiving 100ml Q4H free water though may need further adjustment pending future serum Na once off half NS. Pt to remain strict NPO given high aspiration risk w/ all meds via feeding tube per surgeon note. Continuous home TF recs below using initial standing scaled wt 87.5kg true BMI 34 given +18.9kg this admit w/ -21.1L fluid balance; likely bed scaled wts not accurate. RD updated current TF recs given pt inaccurate wts at this time; MD and RN notified. Will continue to monitor. Rec: 1. Continuous TF using Vital AF at 65ml/hr goal to provide 1560ml volume, 1872 kcal, 1264ml H2O, and 117g protein. 2. Additional water flush 100ml Q4H; monitor for serum Na results once off IV NS for more accurate free water needs 3. PALB q /; daily scaled wts 4. Bowel care per rx post-op HOME TF RECS: 1. Continuous TF via PEGJ using Osmolite 1.2 or equivalent at 75ml/hr goal; to provide 1800ml volume/day, 2160 kcals, 1476ml water, and 100g protein. 2. water flush 30ml before and after medications 3. additional water flush 100ml Q4H 4. Outpatient RD to titrate patient's TF formula, goal rate, and free water regimen based on patient's needs Addendum: 08/29/21 at [address] Amended: Links added.
--- NOTE | 2021-08-29 17:20 | NUR ---
TF increased from 50ml/hr to 65ml/hr as ordered.
[2021-08-29 18:00] VITALS: BP 189/77
--- NOTE | 2021-08-29 18:15 | NUR ---
Patient in room [facility]. I have received report from OSMAN Maher and had the opportunity to ask questions and assume patient care.
--- NOTE | 2021-08-29 18:29 | NUR ---
Problems reprioritized. Patient report given, questions answered & plan of care reviewed with OSMAN Leroy.
[2021-08-30] VITALS: BP 166/57
[2021-08-30] MEDS: heparin, porcine 5000 units/ml vial SQ SCH ×3 (00:01→20:57)
[2021-08-30] MEDS: metroNIDAZOLE-Flagyl 500mg/NS 100 ML IV SCH ×2 (00:01→08:35)
[2021-08-30] MEDS: morphine 4 MG/ML inj SYRINge IV PRN ×4 (04:14→20:53)
[2021-08-30 06:11] LABS: BASOPHILS # (AUTO) 0.1 X10'3 (0-0.2); BASOPHILS % (AUTO) 0.5 % (0-1); EOSINOPHILS # (AUTO) 0.4 X10'3 (0-0.9); EOSINOPHILS % (AUTO) 2.2 % (0-6); LYMPHOCYTES # (AUTO) 2.7 X10'3 (1.1-4.8); LYMPHOCYTES % (AUTO) 14.6 % (21-51); MEAN CORPUSCULAR HEMOGLOBIN 29.1 PG (27.0-31.0); MEAN CORPUSCULAR HGB CONC 31.8 g/dL (33.0-36.5); MEAN CORPUSCULAR VOLUME 91.7 FL (78-98); MEAN PLATELET VOLUME 8.9 FL (7.4-10.4); MONOCYTES # (AUTO) 1.4 X10'3 (0-0.9); MONOCYTES % (AUTO) 7.9 % (2-12); NEUTROPHILS # (AUTO) 13.6 X10'3 (1.8-7.7); NEUTROPHILS % (AUTO) 74.8 % (42-75); PLATELET COUNT 324 X10'3 (140-440); RED BLOOD COUNT 2.36 X10'6 (4.20-5.60); RED CELL DISTRIBUTION WIDTH 16.4 % (11.5-14.5); WHITE BLOOD COUNT 18.2 X10'3 (4.5-11.0)
[2021-08-30 06:29] LABS: HEMOGLOBIN 6.9 g/dl (12.0-16.0)
[2021-08-30 06:30] LABS: HEMATOCRIT 21.6 % (35.0-45.0)
[2021-08-30 06:34] LABS: ALANINE AMINOTRANSFERASE 15 U/L (12-78); ALBUMIN/GLOBULIN RATIO 0.5 (1.1-1.5); ALKALINE PHOSPHATASE 233 IU/L (46-116); ANION GAP 13 (8-16); ASPARTATE AMINO TRANSFERASE 19 U/L (10-37); BILIRUBIN,TOTAL 0.4 MG/DL (0.1-1.0); BLOOD UREA NITROGEN 37 MG/DL (7-18); BUN/CREATININE RATIO 40.7 (6.6-38.0); CALCIUM 7.5 MG/DL (8.5-10.1); CHLORIDE 112 MMOL/L (99-107); CREATININE 0.91 MG/DL (0.40-0.90); GLUCOSE 147 MG/DL (70-104); MAGNESIUM 1.1 MG/DL (1.5-2.4); POTASSIUM 3.8 MMOL/L (3.5-5.1); SODIUM 146 MMOL/L (135-145); TOTAL CARBON DIOXIDE 21.4 MMOL/L (24-32); TOTAL PROTEIN 6.2 G/DL (6.4-8.2); TRIGLYCERIDES 143 MG/DL (20-135); eGFR 61 ML/MIN
[2021-08-30] MEDS: ondansetron 4mg rapidly disintigrating tab PO PRN ×2 (06:47→21:29)
[2021-08-30] MEDS: sodium chloride 0.45% 1,000 ML IV SCH ×2 (06:52→16:23)
--- NOTE | 2021-08-30 06:55 | NUR ---
Problems reprioritized. Patient report given, questions answered & plan of care reviewed with OSMAN Amezquita.
[2021-08-30 08:00] VITALS: BP_SYST 158; BP_SYST 90; BP_DIAS 45; BP_DIAS 72
[2021-08-30] MEDS: MESSAGE TO NURSING IV SCH (08:00)
[2021-08-30] MEDS: triamcinolone acet 0.1% cream 15gm TP SCH ×2 (08:00→20:00)
[2021-08-30] MEDS: amiodarone 200mg tablet PO SCH ×2 (08:33→20:56)
[2021-08-30] MEDS: atorvastatin 20mg tablet JT SCH (08:33)
[2021-08-30] MEDS: lactobacillus rhamnosus 10,000 MMU CELLS/CAPSULE PO SCH ×2 (08:33→20:56)
[2021-08-30] MEDS: cefepime 2g/NS 100ml ADVANTAGE 100 ML IV SCH (08:36)
[2021-08-30] MEDS: ipratropium/albuterol 3ml nebule IH SCH ×5 (08:40→23:11)
[2021-08-30] MEDS: famotidine/PF 10 mg/ml inj IV SCH (08:47)
[2021-08-30] MEDS ORDERED: heparin, porcine 5000 units/ml vial SQ SCH (09:10)
[2021-08-30] MEDS: morphine 2 MG/ML inj. syringe IV PRN (09:15)
[2021-08-30] MEDS ORDERED: piperacillin/tazo 3.375gm/50ml 50 ML IV SCH (09:15)
--- NOTE | 2021-08-30 09:40 | NUR ---
PAGER ID: [phone] MESSAGE: Rachele Chavis 340B Pt. nauseous and Zofran given 2 hour ago. Low mag 1.1 and no replacement ordered. Pt. J.W. will not accept blood transfusion. DC blood orders? Pain in L ankle, positive homans. Vascular doppler? Bia [id number]
[2021-08-30 10:23] LABS: CLARITY,URINE CLOUDY (Clear); COLOR,URINE YELLOW (Yellow); GLUCOSE, URINE NEGATIVE (Neg); KETONES,URINE NEGATIVE (Neg); LEUKOCYTE ESTERASE ,URINE Trace (Neg); NITRITES, URINE NEGATIVE (Neg); OCCULT BLOOD,URINE Large (Neg); PROTEIN,URINE 30 mg/dl (Neg); UA COLLECTION TYPE FOLEY CATH; UROBILINOGEN,URINE 0.2 E.U/dL (0.2-1.0)
[2021-08-30 10:52] LABS: MUCUS STRANDS FEW /LPF (Neg); RBC,URINE 20-50 /HPF (0-2); SQUAMOUS EPITHELIAL CELL,UR FEW /LPF (FEW); WBC CLUMPS,URINE MANY /HPF (NEGATIVE)
[2021-08-30 10:53] LABS: YEAST MODERATE /HPF (NEGATIVE)
[2021-08-30 10:54] LABS: BACTERIA,URINE 1+ /HPF (Neg)
[2021-08-30] MEDS: fluconazole-Diflucan 200mg/NS 100 ML IV SCH (10:56)
[2021-08-30] MEDS: pantoprazole 40 MG vial IV SCH ×2 (10:56→20:48)
[2021-08-30 11:00] VITALS: BP_SYST 104; BP_SYST 160; BP_DIAS 60; BP_DIAS 66
--- NOTE | 2021-08-30 11:00 | NUR ---
rounded, Assessed L calf with 0 tenderness, no plans at this time. Continue heparin Q12H per order. One time only lasix ordered for fine crackle posterior lung lobes and bilat pitting edema in bilateral lower ext.
[2021-08-30] MEDS ORDERED: magnesium Cl slow-release 64mg tablet PO PRN (11:30)
[2021-08-30] MEDS ORDERED: metoclopramide 10mg/10 ml UD oral solution PO PRN (11:30)
[2021-08-30] MEDS ORDERED: furosemide 20 MG/2 ML vial IV ONE (11:30)
[2021-08-30] MEDS: vancomycin/NS 1 GM ADD-VANTAGE 250 ML IV SCH ×2 (12:19→23:04)
[2021-08-30] MEDS: magnesium 4gm in 100ml NS 100 ML IV PRN (12:24)
[2021-08-30 13:39] LABS: TOTAL CELLS COUNTED 100
[2021-08-30 13:40] LABS: ANISOCYTOSIS 1+; PLATELET ESTIMATE NORMAL; POLYCHROMASIA 1+
--- NOTE | 2021-08-30 15:48 | NUR ---
Paged Dr. Brody PAGER ID: [phone] MESSAGE: Surgical Ashu BREWER ext [phone]. RE: Rachele Chavis. Patient just signed a refusal for blood transfusion waiver form. Albumin only if she needs it. She also permitting Iron IV
--- NOTE | 2021-08-30 15:48 | NUR ---
Patient refused blood transfusion, she signed the refusal to permit blood transfusion form. Patient and present at bedside both agreed with iron IV to treat her low hgb level. and patient emphasized that patient only permitting albumin in the event that she needs it and nothing else (this was marked X on the little box next to the word albumin on the refusal for blood transfusion form). I immediately communicated this to the primary nurse Bia and paged Dr. Brody.
[2021-08-30] MEDS: piperacillin/tazo 3.375gm/50ml 50 ML IV SCH ×2 (16:22→23:06)
--- NOTE | 2021-08-30 17:30 | NUR ---
PAGER ID: [phone] MESSAGE: Rachele Chavis 340B Gave pt bed bath. Hard area inner thigh R thigh by groin with what looks like wound head? white yellow open area? Vagina was full of creamy white yeast looking output and under arms and breasts fungal inf. Bia [id number]
--- NOTE | 2021-08-30 18:26 | NUR ---
Gave report to Alvaro BREWER.
[2021-08-30 19:30] VITALS: BP 168/82
[2021-08-30] MEDS: NS IV SCH (20:44)
[2021-08-30] MEDS: IRON SUCROSE COMPLEX IV SCH (20:44)
[2021-08-31 00:12] VITALS: BP 150/72
[2021-08-31] MEDS: morphine 4 MG/ML inj SYRINge IV PRN ×4 (01:44→16:47)
[2021-08-31] MEDS: ipratropium/albuterol 3ml nebule IH SCH ×7 (03:29→23:00)
[2021-08-31] MEDS: ondansetron 4mg rapidly disintigrating tab PO PRN ×2 (05:25→16:47)
[2021-08-31] MEDS: sodium chloride 0.45% 1,000 ML IV SCH (05:25)
[2021-08-31 05:56] LABS: BASOPHILS # (AUTO) 0.1 X10'3 (0-0.2); BASOPHILS % (AUTO) 0.5 % (0-1); EOSINOPHILS # (AUTO) 0.5 X10'3 (0-0.9); EOSINOPHILS % (AUTO) 3.6 % (0-6); LYMPHOCYTES # (AUTO) 1.6 X10'3 (1.1-4.8); LYMPHOCYTES % (AUTO) 12.8 % (21-51); MEAN CORPUSCULAR HGB CONC 33.4 g/dL (33.0-36.5); MEAN PLATELET VOLUME 8.3 FL (7.4-10.4); MONOCYTES # (AUTO) 0.8 X10'3 (0-0.9); MONOCYTES % (AUTO) 6.3 % (2-12); NEUTROPHILS # (AUTO) 9.9 X10'3 (1.8-7.7); NEUTROPHILS % (AUTO) 76.8 % (42-75); PLATELET COUNT 247 X10'3 (140-440); RED CELL DISTRIBUTION WIDTH 15.9 % (11.5-14.5); WHITE BLOOD COUNT 12.8 X10'3 (4.5-11.0)
[2021-08-31 06:17] LABS: ALANINE AMINOTRANSFERASE 15 U/L (12-78); ALBUMIN/GLOBULIN RATIO 0.5 (1.1-1.5); ALKALINE PHOSPHATASE 200 IU/L (46-116); ANION GAP 10 (8-16); ASPARTATE AMINO TRANSFERASE 15 U/L (10-37); BILIRUBIN,TOTAL 0.4 MG/DL (0.1-1.0); BLOOD UREA NITROGEN 31 MG/DL (7-18); BUN/CREATININE RATIO 35.2 (6.6-38.0); CALCIUM 7.3 MG/DL (8.5-10.1); CHLORIDE 111 MMOL/L (99-107); CREATININE 0.88 MG/DL (0.40-0.90); GLUCOSE 163 MG/DL (70-104); MAGNESIUM 1.5 MG/DL (1.5-2.4); POTASSIUM 3.4 MMOL/L (3.5-5.1); SODIUM 145 MMOL/L (135-145); TOTAL CARBON DIOXIDE 23.8 MMOL/L (24-32); TOTAL PROTEIN 5.8 G/DL (6.4-8.2); eGFR 64 ML/MIN
[2021-08-31 07:33] LABS: PLATELET ESTIMATE NORMAL; TOTAL CELLS COUNTED 100
--- NOTE | 2021-08-31 07:37 | NUR ---
Patient in room [facility]. I have received report from Alvaro BREWER and had the opportunity to ask questions and assume patient care.
[2021-08-31] MEDS: piperacillin/tazo 3.375gm/50ml 50 ML IV SCH ×2 (07:50→16:47)
[2021-08-31] MEDS: pantoprazole 40 MG vial IV SCH ×2 (07:51→20:10)
[2021-08-31] MEDS: fluconazole 100mg tablet PO SCH (07:51)
[2021-08-31] MEDS: heparin, porcine 5000 units/ml vial SQ SCH ×2 (07:52→20:17)
[2021-08-31] MEDS: amiodarone 200mg tablet PO SCH ×2 (07:52→20:10)
[2021-08-31] MEDS: atorvastatin 20mg tablet JT SCH (07:52)
[2021-08-31] MEDS: lactobacillus rhamnosus 10,000 MMU CELLS/CAPSULE PO SCH ×2 (07:52→20:10)
[2021-08-31 08:00] VITALS: BP 178/86
[2021-08-31] MEDS: MESSAGE TO NURSING IV SCH (08:00)
[2021-08-31] MEDS: triamcinolone acet 0.1% cream 15gm TP SCH ×2 (08:02→20:00)
[2021-08-31] MEDS ORDERED: POTASSIUM BICARB 20meq eff tab 20 MEQ TABLET.EFF PO ONE (09:15)
[2021-08-31] MEDS ORDERED: POTASSIUM BICARB 20meq eff tab 20 MEQ TABLET.EFF PO SCH (09:15)
[2021-08-31] MEDS ORDERED: POTASSIUM BICARB 20meq eff tab 20 MEQ TABLET.EFF PO PRN ×2 (09:28)
[2021-08-31] MEDS: vancomycin/NS 1 GM ADD-VANTAGE 250 ML IV SCH ×2 (09:36→22:18)
--- NOTE | 2021-08-31 09:39 | NUR ---
BSS cancelled, patient is currently and will remain NPO. Patient with N/V, medications not helping. Patient needs Rehab placement with feeds per Dr. Mendez.
[2021-08-31 11:00] VITALS: BP 175/77
[2021-08-31] MEDS: proCHLORperazine 10 MG/2 ml inj IV PRN ×2 (12:13→21:06)
[2021-08-31] MEDS: NS IV SCH (16:56)
[2021-08-31] MEDS: IRON SUCROSE COMPLEX IV SCH (16:56)
--- NOTE | 2021-08-31 18:47 | NUR ---
patient seen by Dr Higuera gastric tube used to give potassium per dr Higuera. patient SL, wound vac drainage 100mls serous drainage. ileostomy 250mls brownish stool. encouraged to use IS. Continues with Morphine for pain compazine added for nausea with good effect.. patient repositioned q2hrly. continues with tube feed. at goal. patient had two bouts of retching and emesis. Dr higuera aware. report given to ly BREWER
[2021-08-31 20:00] VITALS: BP 157/61
[2021-08-31] MEDS ORDERED: VANCOMYCIN LEVEL IV ONE (21:30)
--- NOTE | 2021-08-31 23:45 | NUR ---
vanco trough critically high at 23.6 - pharmacy to dose, please - message to pharmacy
[2021-09-01] VITALS: BP 140/87
[2021-09-01] MEDS: piperacillin/tazo 3.375gm/50ml 50 ML IV SCH ×4 (00:03→23:34)
[2021-09-01] MEDS: ondansetron 4mg rapidly disintigrating tab PO PRN ×2 (00:53→10:13)
[2021-09-01] MEDS: ipratropium/albuterol 3ml nebule IH SCH ×6 (02:26→23:00)
--- NOTE | 2021-09-01 06:22 | NUR ---
Problems reprioritized. Patient report given, questions answered & plan of care reviewed with OSMAN Anthony.
--- NOTE | 2021-09-01 06:24 | NUR ---
Patient in room [facility]. I have received report from Irina BREWER and had the opportunity to ask questions and assume patient care.
--- NOTE | 2021-09-01 06:57 | NUR ---
Received report from Gabrielle BREWER
[2021-09-01 07:15] LABS: BASOPHILS # (AUTO) 0.1 X10'3 (0-0.2); BASOPHILS % (AUTO) 0.6 % (0-1); EOSINOPHILS # (AUTO) 0.5 X10'3 (0-0.9); EOSINOPHILS % (AUTO) 4.3 % (0-6); HEMATOCRIT 27.4 % (35.0-45.0); HEMOGLOBIN 8.8 g/dl (12.0-16.0); LYMPHOCYTES # (AUTO) 1.6 X10'3 (1.1-4.8); MEAN CORPUSCULAR HEMOGLOBIN 29.4 PG (27.0-31.0); MEAN CORPUSCULAR HGB CONC 32.1 g/dL (33.0-36.5); MEAN CORPUSCULAR VOLUME 91.5 FL (78-98); MEAN PLATELET VOLUME 8.7 FL (7.4-10.4); MONOCYTES # (AUTO) 0.8 X10'3 (0-0.9); MONOCYTES % (AUTO) 7.1 % (2-12); NEUTROPHILS # (AUTO) 8.5 X10'3 (1.8-7.7); PLATELET COUNT 240 X10'3 (140-440); RED CELL DISTRIBUTION WIDTH 16.3 % (11.5-14.5); WHITE BLOOD COUNT 11.5 X10'3 (4.5-11.0)
[2021-09-01 07:33] LABS: ALANINE AMINOTRANSFERASE 15 U/L (12-78); ALBUMIN 1.9 G/DL (3.4-5.0); ALBUMIN/GLOBULIN RATIO 0.5 (1.1-1.5); ALKALINE PHOSPHATASE 192 IU/L (46-116); ANION GAP 8 (8-16); ASPARTATE AMINO TRANSFERASE 17 U/L (10-37); BILIRUBIN,TOTAL 0.4 MG/DL (0.1-1.0); BLOOD UREA NITROGEN 26 MG/DL (7-18); BUN/CREATININE RATIO 29.9 (6.6-38.0); CALCIUM 7.2 MG/DL (8.5-10.1); CHLORIDE 112 MMOL/L (99-107); CREATININE 0.87 MG/DL (0.40-0.90); GLUCOSE 163 MG/DL (70-104); MAGNESIUM 1.1 MG/DL (1.5-2.4); POTASSIUM 3.9 MMOL/L (3.5-5.1); SODIUM 144 MMOL/L (135-145); TOTAL CARBON DIOXIDE 24.2 MMOL/L (24-32); TOTAL PROTEIN 5.6 G/DL (6.4-8.2); TRIGLYCERIDES 176 MG/DL (20-135); eGFR 64 ML/MIN
[2021-09-01] MEDS: amiodarone 200mg tablet PO SCH ×2 (07:47→20:03)
[2021-09-01] MEDS: atorvastatin 20mg tablet JT SCH (07:47)
[2021-09-01] MEDS: lactobacillus rhamnosus 10,000 MMU CELLS/CAPSULE PO SCH (07:47)
[2021-09-01] MEDS: pantoprazole 40 MG vial IV SCH ×2 (07:48→20:03)
[2021-09-01] MEDS: heparin, porcine 5000 units/ml vial SQ SCH ×2 (07:49→20:04)
[2021-09-01] MEDS: fluconazole 100mg tablet PO SCH (07:50)
[2021-09-01] MEDS: triamcinolone acet 0.1% cream 15gm TP SCH ×2 (07:51→20:00)
[2021-09-01 08:00] VITALS: BP 156/82
[2021-09-01] MEDS: MESSAGE TO NURSING IV SCH (08:00)
[2021-09-01] MEDS: morphine 4 MG/ML inj SYRINge IV PRN ×2 (10:13→13:40)
[2021-09-01] MEDS: vancomycin inj. 750 MG in normal saline 250ml IV soln 250 ML IV SCH (12:53)
[2021-09-01] MEDS: magnesium 2GM in 50ml NS 50 ML IV PRN (12:53)
[2021-09-01] MEDS: proCHLORperazine 10 MG/2 ml inj IV PRN (13:39)
[2021-09-01] MEDS: magnesium 4gm in 100ml NS 100 ML IV PRN (15:47)
[2021-09-01] MEDS: IRON SUCROSE COMPLEX IV SCH (17:44)
[2021-09-01] MEDS: NS IV SCH (17:44)
[2021-09-01 18:40] VITALS: BP 141/75
--- NOTE | 2021-09-01 18:54 | NUR ---
patient up in chair via PT. Dressing to J/G tube changed incision to midline MARIJA issa intact. Colostomy output 125mls brown soft thick stool . DRainage bag to gastric port 100mls greenish drainage. Pain meds and antiemetic meds given with good effect. Spouse into visit. wound vac changed and cannister changed. patient appears comfortable at time of report. Report given to Júnior BREWER
[2021-09-02] VITALS: BP 150/69
[2021-09-02] MEDS: vancomycin inj. 750 MG in normal saline 250ml IV soln 250 ML IV SCH ×2 (01:00→16:43)
[2021-09-02] MEDS: ipratropium/albuterol 3ml nebule IH SCH ×6 (02:58→23:00)
--- NOTE | 2021-09-02 06:32 | NUR ---
Problems reprioritized. Patient report given, questions answered & plan of care reviewed with TONJA. Addendum: 09/02/21 at 0632 by Jayson Irwin RN Amended: Links added.
[2021-09-02 07:00] VITALS: BP 159/72
[2021-09-02 07:08] LABS: PHOSPHORUS 2.8 MG/DL (2.3-4.5)
[2021-09-02] MEDS: pantoprazole 40 MG vial IV SCH ×2 (07:58→19:42)
[2021-09-02] MEDS: MESSAGE TO NURSING IV SCH (08:00)
[2021-09-02] MEDS: amiodarone 200mg tablet PO SCH ×2 (08:00→19:42)
[2021-09-02] MEDS: heparin, porcine 5000 units/ml vial SQ SCH ×2 (08:00→20:00)
[2021-09-02] MEDS: morphine 2 MG/ML inj. syringe IV PRN ×4 (08:01→19:44)
[2021-09-02] MEDS: atorvastatin 20mg tablet JT SCH (08:02)
[2021-09-02] MEDS: piperacillin/tazo 3.375gm/50ml 50 ML IV SCH ×2 (08:04→16:43)
[2021-09-02] MEDS: fluconazole 100mg tablet PO SCH (08:04)
[2021-09-02] MEDS: triamcinolone acet 0.1% cream 15gm TP SCH ×2 (08:18→19:43)
[2021-09-02 11:00] VITALS: BP 169/58
--- NOTE | 2021-09-02 14:11 | NUR ---
Reassessment: Pt appears to be tolerating TF at goal new goal rate of 65 mL/hr. LBM 09/01 documented with 325 mL stool output. NS has been discontinued and 09/01 serum Na WNL. No additional changes to nutrition recommendations at this time. Will continue to follow closely. Rec: 1. Continuous TF using Vital AF at 65ml/hr goal to provide 1560ml volume, 1872 kcal, 1264ml H2O, and 117g protein. 2. Additional 100 mL water flush Q4H; monitor serum Na and need to adjust 3. PALB q /; daily scaled wts 4. Bowel care per rx HOME TF RECS: 1. Continuous TF via PEGJ using Osmolite 1.2 or equivalent at 75 ml/hr goal; to provide 1800 ml volume/day, 2160 kcal, 1476 ml water, and 100 g protein. 2. Additional 100 mL water flush Q4H 3. Outpatient RD to titrate patient's TF formula, goal rate, and free water regimen based on patient's needs Addendum: 09/02/21 at [address] Amended: Links added.
[2021-09-02 16:01] LABS: BASOPHILS # (AUTO) 0.1 X10'3 (0-0.2); BASOPHILS % (AUTO) 0.8 % (0-1); EOSINOPHILS # (AUTO) 0.3 X10'3 (0-0.9); EOSINOPHILS % (AUTO) 3.7 % (0-6); HEMATOCRIT 28.6 % (35.0-45.0); HEMOGLOBIN 9.1 g/dl (12.0-16.0); LYMPHOCYTES # (AUTO) 1.7 X10'3 (1.1-4.8); LYMPHOCYTES % (AUTO) 18.3 % (21-51); MEAN CORPUSCULAR HEMOGLOBIN 29.5 PG (27.0-31.0); MEAN CORPUSCULAR VOLUME 92.2 FL (78-98); MEAN PLATELET VOLUME 9.1 FL (7.4-10.4); MONOCYTES # (AUTO) 0.7 X10'3 (0-0.9); MONOCYTES % (AUTO) 7.6 % (2-12); NEUTROPHILS # (AUTO) 6.6 X10'3 (1.8-7.7); NEUTROPHILS % (AUTO) 69.6 % (42-75); PLATELET COUNT 244 X10'3 (140-440); RED CELL DISTRIBUTION WIDTH 16.3 % (11.5-14.5); WHITE BLOOD COUNT 9.5 X10'3 (4.5-11.0)
[2021-09-02 16:23] LABS: ALANINE AMINOTRANSFERASE 14 U/L (12-78); ALBUMIN 2.2 G/DL (3.4-5.0); ALBUMIN/GLOBULIN RATIO 0.6 (1.1-1.5); ALKALINE PHOSPHATASE 205 IU/L (46-116); ANION GAP 7 (8-16); ASPARTATE AMINO TRANSFERASE 15 U/L (10-37); BILIRUBIN,TOTAL 0.4 MG/DL (0.1-1.0); BLOOD UREA NITROGEN 22 MG/DL (7-18); BUN/CREATININE RATIO 26.5 (6.6-38.0); CALCIUM 7.6 MG/DL (8.5-10.1); CHLORIDE 108 MMOL/L (99-107); CREATININE 0.83 MG/DL (0.40-0.90); GLUCOSE 111 MG/DL (70-104); POTASSIUM 4.1 MMOL/L (3.5-5.1); SODIUM 142 MMOL/L (135-145); TOTAL CARBON DIOXIDE 26.6 MMOL/L (24-32); eGFR 68 ML/MIN
[2021-09-02 16:25] LABS: ANISOCYTOSIS 1+; GIANT PLATELET FEW; LARGE PLATELETS FEW; PLATELET ESTIMATE NORMAL; STOMATOCYTES 1+; TOTAL CELLS COUNTED 100
--- NOTE | 2021-09-02 18:00 | NUR ---
Report given to Prudance Rn and traveler RN orienting and student RN. Pt awake and appropriate at this time.
[2021-09-02] MEDS: IRON SUCROSE COMPLEX IV SCH (18:40)
[2021-09-02] MEDS: NS IV SCH (18:40)
[2021-09-02 20:23] VITALS: BP 159/80
[2021-09-02] MEDS: morphine 4 MG/ML inj SYRINge IV PRN (21:54)
[2021-09-03] VITALS: BP 155/64
[2021-09-03] MEDS ORDERED: VANCOMYCIN LEVEL IV ONE (00:30)
[2021-09-03] MEDS: morphine 4 MG/ML inj SYRINge IV PRN ×5 (00:54→22:57)
[2021-09-03 01:27] LABS: BASOPHILS # (AUTO) 0.1 X10'3 (0-0.2); BASOPHILS % (AUTO) 0.7 % (0-1); EOSINOPHILS # (AUTO) 0.3 X10'3 (0-0.9); EOSINOPHILS % (AUTO) 3.7 % (0-6); HEMATOCRIT 26.1 % (35.0-45.0); HEMOGLOBIN 8.7 g/dl (12.0-16.0); LYMPHOCYTES # (AUTO) 1.8 X10'3 (1.1-4.8); LYMPHOCYTES % (AUTO) 19.7 % (21-51); MEAN CORPUSCULAR HEMOGLOBIN 30.2 PG (27.0-31.0); MEAN CORPUSCULAR HGB CONC 33.5 g/dL (33.0-36.5); MEAN CORPUSCULAR VOLUME 90.1 FL (78-98); MEAN PLATELET VOLUME 8.8 FL (7.4-10.4); MONOCYTES # (AUTO) 0.8 X10'3 (0-0.9); MONOCYTES % (AUTO) 8.7 % (2-12); NEUTROPHILS % (AUTO) 67.2 % (42-75); PLATELET COUNT 227 X10'3 (140-440); RED BLOOD COUNT 2.89 X10'6 (4.20-5.60); RED CELL DISTRIBUTION WIDTH 16.4 % (11.5-14.5)
[2021-09-03 01:35] LABS: ALANINE AMINOTRANSFERASE 12 U/L (12-78); ALBUMIN/GLOBULIN RATIO 0.5 (1.1-1.5); ALKALINE PHOSPHATASE 197 IU/L (46-116); ANION GAP 5 (8-16); ASPARTATE AMINO TRANSFERASE 11 U/L (10-37); BILIRUBIN,TOTAL 0.3 MG/DL (0.1-1.0); BLOOD UREA NITROGEN 20 MG/DL (7-18); BUN/CREATININE RATIO 24.1 (6.6-38.0); CALCIUM 7.3 MG/DL (8.5-10.1); CHLORIDE 108 MMOL/L (99-107); CREATININE 0.83 MG/DL (0.40-0.90); GLUCOSE 156 MG/DL (70-104); POTASSIUM 3.7 MMOL/L (3.5-5.1); SODIUM 141 MMOL/L (135-145); TOTAL CARBON DIOXIDE 27.6 MMOL/L (24-32); TOTAL PROTEIN 5.7 G/DL (6.4-8.2); TRIGLYCERIDES 190 MG/DL (20-135); eGFR 68 ML/MIN
[2021-09-03 01:42] LABS: VANCOMYCIN,TROUGH 25.2 UG/ML (6.0-14.0)
--- NOTE | 2021-09-03 06:34 | NUR ---
Problems reprioritized. Patient report given, questions answered & plan of care reviewed with ALONDRA BREWER.
[2021-09-03 07:00] VITALS: BP 171/76
[2021-09-03] MEDS: MESSAGE TO NURSING IV SCH (08:00)
[2021-09-03] MEDS: ipratropium/albuterol 3ml nebule IH SCH ×5 (08:42→23:08)
[2021-09-03] MEDS: pantoprazole 40 MG vial IV SCH ×2 (08:52→20:43)
[2021-09-03] MEDS: amiodarone 200mg tablet PO SCH ×2 (08:52→20:42)
[2021-09-03] MEDS: atorvastatin 20mg tablet JT SCH (08:52)
[2021-09-03] MEDS: fluconazole 100mg tablet PO SCH (08:52)
[2021-09-03] MEDS: heparin, porcine 5000 units/ml vial SQ SCH ×2 (08:53→20:43)
[2021-09-03] MEDS: triamcinolone acet 0.1% cream 15gm TP SCH ×2 (09:02→20:00)
[2021-09-03] MEDS: ondansetron 4mg rapidly disintigrating tab PO PRN (11:10)
[2021-09-03 16:30] VITALS: BP 178/83
[2021-09-03] MEDS ORDERED: iron sucrose complex injection 200 MG in normal saline 100ml IV soln 90 ML IV SCH (17:00)
--- NOTE | 2021-09-03 18:10 | NUR ---
Patient in room [facility]. I have received report from OSMAN Lyons and had the opportunity to ask questions and assume patient care.
--- NOTE | 2021-09-03 18:14 | NUR ---
Problems reprioritized. Patient report given, questions answered & plan of care reviewed with OSMAN Leroy.
[2021-09-03 19:00] VITALS: BP 183/57
--- NOTE | 2021-09-03 21:40 | NUR ---
Student documentation: I have reviewed a interventions, assessments performed and documented by Lele LIRIANO [facility].
[2021-09-03 23:02] VITALS: BP 165/73
[2021-09-04] VITALS: BP 175/75
[2021-09-04] MEDS: morphine 4 MG/ML inj SYRINge IV PRN ×7 (02:41→23:55)
[2021-09-04] MEDS: ipratropium/albuterol 3ml nebule IH SCH ×6 (02:59→23:47)
[2021-09-04 06:11] LABS: BASOPHILS % (AUTO) 0.6 % (0-1); EOSINOPHILS # (AUTO) 0.3 X10'3 (0-0.9); EOSINOPHILS % (AUTO) 3.9 % (0-6); HEMATOCRIT 27.8 % (35.0-45.0); HEMOGLOBIN 9.3 g/dl (12.0-16.0); LYMPHOCYTES # (AUTO) 1.3 X10'3 (1.1-4.8); LYMPHOCYTES % (AUTO) 18.3 % (21-51); MEAN CORPUSCULAR HEMOGLOBIN 30.3 PG (27.0-31.0); MEAN CORPUSCULAR HGB CONC 33.3 g/dL (33.0-36.5); MEAN PLATELET VOLUME 8.8 FL (7.4-10.4); MONOCYTES # (AUTO) 0.6 X10'3 (0-0.9); NEUTROPHILS # (AUTO) 4.9 X10'3 (1.8-7.7); NEUTROPHILS % (AUTO) 68.2 % (42-75); PLATELET COUNT 216 X10'3 (140-440); RED BLOOD COUNT 3.06 X10'6 (4.20-5.60); WHITE BLOOD COUNT 7.2 X10'3 (4.5-11.0)
--- NOTE | 2021-09-04 06:32 | NUR ---
Problems reprioritized. Patient report given, questions answered & plan of care reviewed with OSMAN Clement.
[2021-09-04 07:00] VITALS: BP 163/84
[2021-09-04 07:07] LABS: ALANINE AMINOTRANSFERASE 15 U/L (12-78); ALBUMIN 2.2 G/DL (3.4-5.0); ALBUMIN/GLOBULIN RATIO 0.6 (1.1-1.5); ALKALINE PHOSPHATASE 200 IU/L (46-116); ANION GAP 2 (8-16); ASPARTATE AMINO TRANSFERASE 23 U/L (10-37); BILIRUBIN,TOTAL 0.3 MG/DL (0.1-1.0); BLOOD UREA NITROGEN 18 MG/DL (7-18); CALCIUM 7.9 MG/DL (8.5-10.1); CHLORIDE 106 MMOL/L (99-107); CREATININE 0.75 MG/DL (0.40-0.90); GLUCOSE 152 MG/DL (70-104); SODIUM 139 MMOL/L (135-145); TOTAL CARBON DIOXIDE 30.8 MMOL/L (24-32); eGFR 76 ML/MIN
[2021-09-04] MEDS: MESSAGE TO NURSING IV SCH (08:00)
[2021-09-04] MEDS: amiodarone 200mg tablet PO SCH ×2 (08:30→21:09)
[2021-09-04] MEDS: fluconazole 100mg tablet PO SCH (08:30)
[2021-09-04] MEDS: atorvastatin 20mg tablet JT SCH (08:30)
[2021-09-04] MEDS: heparin, porcine 5000 units/ml vial SQ SCH ×2 (08:32→21:11)
[2021-09-04] MEDS: triamcinolone acet 0.1% cream 15gm TP SCH ×2 (09:08→21:12)
[2021-09-04] MEDS: pantoprazole 40 MG vial IV SCH ×2 (09:08→21:12)
[2021-09-04 11:00] VITALS: BP 189/81
[2021-09-04] MEDS: ondansetron 4mg rapidly disintigrating tab PO PRN ×2 (12:46→21:24)
--- NOTE | 2021-09-04 18:20 | NUR ---
Patient in room [facility]. I have received report from OSMAN Clement and had the opportunity to ask questions and assume patient care. Addendum: 09/04/21 at 1838 by Paras Koo RN Amended: Links added.
--- NOTE | 2021-09-04 18:35 | NUR ---
Problems reprioritized. Patient report given, questions answered & plan of care reviewed with OSMAN WHYTE.
[2021-09-04 18:39] VITALS: BP 174/79
[2021-09-04 21:00] VITALS: BP 158/70
--- NOTE | 2021-09-04 21:00 | NUR ---
n/v appears to be cream of wheat small amt. pt had cream of wheat for dinner. TF held until cream of wheat confirmed, and nausea passes. sat 90% on 3l n/c, pt had removed o2. Addendum: 09/04/21 at 2135 by Paras Koo RN Amended: Links added.
[2021-09-05] VITALS: BP 158/80
[2021-09-05] MEDS: morphine 4 MG/ML inj SYRINge IV PRN ×3 (02:36→11:38)
[2021-09-05] MEDS: ipratropium/albuterol 3ml nebule IH SCH ×6 (03:33→23:09)
--- NOTE | 2021-09-05 06:15 | NUR ---
Problems reprioritized. Patient report given, questions answered & plan of care reviewed with OSMAN VZAQUEZ. TF IS EMPTY NONE AVAILABLE, DIETARY FAXED. LABS DRAWN Addendum: 09/05/21 at 0637 by Paras Koo RN Amended: Links added.
[2021-09-05 06:39] LABS: BASOPHILS # (AUTO) 0.1 X10'3 (0-0.2); BASOPHILS % (AUTO) 0.7 % (0-1); EOSINOPHILS # (AUTO) 0.2 X10'3 (0-0.9); EOSINOPHILS % (AUTO) 2.7 % (0-6); HEMATOCRIT 27.8 % (35.0-45.0); HEMOGLOBIN 9.2 g/dl (12.0-16.0); LYMPHOCYTES # (AUTO) 1.5 X10'3 (1.1-4.8); LYMPHOCYTES % (AUTO) 18.1 % (21-51); MEAN CORPUSCULAR HEMOGLOBIN 30.3 PG (27.0-31.0); MEAN CORPUSCULAR VOLUME 91.8 FL (78-98); MEAN PLATELET VOLUME 8.3 FL (7.4-10.4); MONOCYTES # (AUTO) 0.8 X10'3 (0-0.9); MONOCYTES % (AUTO) 10.2 % (2-12); NEUTROPHILS # (AUTO) 5.5 X10'3 (1.8-7.7); NEUTROPHILS % (AUTO) 68.3 % (42-75); PLATELET COUNT 208 X10'3 (140-440); RED BLOOD COUNT 3.03 X10'6 (4.20-5.60); WHITE BLOOD COUNT 8.1 X10'3 (4.5-11.0)
[2021-09-05 07:07] LABS: GLUCOSE 153 MG/DL (70-104); POTASSIUM 4.4 MMOL/L (3.5-5.1); SODIUM 142 MMOL/L (135-145)
--- NOTE | 2021-09-05 07:07 | NUR ---
Patient in room [facility]. I have received report from PATO BREWER and had the opportunity to ask questions and assume patient care.
[2021-09-05 07:08] LABS: ALANINE AMINOTRANSFERASE 15 U/L (12-78); ALBUMIN 2.2 G/DL (3.4-5.0); ALBUMIN/GLOBULIN RATIO 0.6 (1.1-1.5); ALKALINE PHOSPHATASE 184 IU/L (46-116); ANION GAP 8 (8-16); ASPARTATE AMINO TRANSFERASE 20 U/L (10-37); BILIRUBIN,TOTAL 0.3 MG/DL (0.1-1.0); BLOOD UREA NITROGEN 19 MG/DL (7-18); BUN/CREATININE RATIO 26.4 (6.6-38.0); CALCIUM 7.6 MG/DL (8.5-10.1); CHLORIDE 104 MMOL/L (99-107); CREATININE 0.72 MG/DL (0.40-0.90); TOTAL PROTEIN 6.2 G/DL (6.4-8.2); eGFR 80 ML/MIN
[2021-09-05] MEDS: amiodarone 200mg tablet PO SCH ×2 (07:15→23:10)
[2021-09-05] MEDS: ondansetron 4mg rapidly disintigrating tab PO PRN ×2 (07:15→14:05)
[2021-09-05] MEDS: atorvastatin 20mg tablet JT SCH (07:15)
[2021-09-05] MEDS: pantoprazole 40 MG vial IV SCH ×2 (07:17→19:20)
[2021-09-05] MEDS: heparin, porcine 5000 units/ml vial SQ SCH ×2 (07:20→23:11)
[2021-09-05 07:42] LABS: ANISOCYTOSIS 1+; PLATELET ESTIMATE NORMAL; STOMATOCYTES 1+; TOTAL CELLS COUNTED 100
[2021-09-05] MEDS: MESSAGE TO NURSING IV SCH (08:00)
[2021-09-05] MEDS: triamcinolone acet 0.1% cream 15gm TP SCH ×2 (08:00→20:00)
[2021-09-05 09:12] VITALS: BP 151/79
[2021-09-05] MEDS: fluconazole 100mg tablet PO SCH (09:22)
[2021-09-05] MEDS: morphine 2 MG/ML inj. syringe IV PRN ×4 (09:23→23:57)
[2021-09-05 11:00] VITALS: BP 174/66
--- NOTE | 2021-09-05 15:18 | NUR ---
Student documentation: I have reviewed all interventions, assessments performed and documented by Jesus CAMARILLO from [facility]. Student Medication Administration: For all medication-pass' in the time frame of 3621-4971, all medication were reviewed, dispensed, administered and documented per hospital policy by Jesus CAMARILLO from [facility]..
--- NOTE | 2021-09-05 16:09 | NUR ---
Reassessment: Pt s/p BSS 09/[address] recs clear liquid diet post surgery and no aspiration noted with food or liquids though pt continued to be NPO until PO diet was advanced to full liquids 09/04 by . Pt documented with 25-50% PO intake not meeting estimated nutrient needs, though unlikely that nutrient needs will be able to be met given current diet order. Pt continues receiving TF via PEGJ at 65 mL/hr providing additional nutrition. Recommend continuing with TF until diet able to be advanced to solid food and pt consistently able to tolerate greater than average 65% PO intake of meals. LBM 09/04, documented with 400 mL stool output per I&O. Will continue to follow closely and make recommendations as appropriate. Recommendations: 1. Advance to low fiber/low residue diet as medically indicated; continue TF until pt consistently able to tolerate greater than average 65% PO intake of meals once diet is advanced 2. Continuous TF using Vital AF at 65 ml/hr goal to provide 1560 ml volume, 1872 kcal, 1264 ml water, and 117g protein. 3. Additional 100 mL water flush Q4H; monitor serum Na and need to adjust 4. PALB q /; daily scaled wts 5. Bowel care per rx HOME TF RECS: 1. Continuous TF via PEGJ using Osmolite 1.2 or equivalent at 75 ml/hr goal; to provide 1800 ml volume/day, 2160 kcal, 1476 ml water, and 100 g protein. 2. Additional 100 mL water flush Q4H 3. Outpatient RD to titrate patient's TF formula, goal rate, and free water regimen based on patient's estimated nutrient needs Addendum: 09/05/21 at [address] Amended: Links added.
[2021-09-05 18:00] VITALS: BP 169/78
[2021-09-05] MEDS: proCHLORperazine 10 MG/2 ml inj IV PRN (19:25)
[2021-09-06] VITALS: BP 163/72
[2021-09-06] MEDS: ipratropium/albuterol 3ml nebule IH SCH ×6 (02:29→22:28)
[2021-09-06] MEDS: morphine 2 MG/ML inj. syringe IV PRN ×2 (04:07→14:17)
[2021-09-06] MEDS: proCHLORperazine 10 MG/2 ml inj IV PRN (06:17)
--- NOTE | 2021-09-06 07:19 | NUR ---
Patient in room [facility]. I have received report from OSMAN GO, and had the opportunity to ask questions and assume patient care.
[2021-09-06 07:24] LABS: BASOPHILS % (AUTO) 0.5 % (0-1); EOSINOPHILS # (AUTO) 0.1 X10'3 (0-0.9); EOSINOPHILS % (AUTO) 1.2 % (0-6); HEMATOCRIT 26.8 % (35.0-45.0); HEMOGLOBIN 8.9 g/dl (12.0-16.0); LYMPHOCYTES # (AUTO) 1.2 X10'3 (1.1-4.8); LYMPHOCYTES % (AUTO) 16.1 % (21-51); MEAN CORPUSCULAR HEMOGLOBIN 30.4 PG (27.0-31.0); MEAN PLATELET VOLUME 8.9 FL (7.4-10.4); MONOCYTES # (AUTO) 0.7 X10'3 (0-0.9); MONOCYTES % (AUTO) 9.5 % (2-12); NEUTROPHILS # (AUTO) 5.4 X10'3 (1.8-7.7); NEUTROPHILS % (AUTO) 72.7 % (42-75); PLATELET COUNT 181 X10'3 (140-440); RED BLOOD COUNT 2.92 X10'6 (4.20-5.60); RED CELL DISTRIBUTION WIDTH 17.4 % (11.5-14.5); WHITE BLOOD COUNT 7.4 X10'3 (4.5-11.0)
[2021-09-06] MEDS: fluconazole 100mg tablet PO SCH (07:55)
[2021-09-06] MEDS: heparin, porcine 5000 units/ml vial SQ SCH ×2 (07:56→19:58)
[2021-09-06] MEDS: atorvastatin 20mg tablet JT SCH (07:56)
[2021-09-06] MEDS: amiodarone 200mg tablet PO SCH ×2 (07:56→19:45)
[2021-09-06] MEDS: pantoprazole 40 MG vial IV SCH (07:57)
[2021-09-06 08:00] VITALS: BP 168/70
[2021-09-06] MEDS: MESSAGE TO NURSING IV SCH (08:00)
[2021-09-06 08:02] LABS: ALANINE AMINOTRANSFERASE 18 U/L (12-78); ALBUMIN 2.3 G/DL (3.4-5.0); ALBUMIN/GLOBULIN RATIO 0.6 (1.1-1.5); ALKALINE PHOSPHATASE 168 IU/L (46-116); ANION GAP 8 (8-16); ASPARTATE AMINO TRANSFERASE 22 U/L (10-37); BILIRUBIN,TOTAL 0.4 MG/DL (0.1-1.0); BLOOD UREA NITROGEN 18 MG/DL (7-18); BUN/CREATININE RATIO 26.1 (6.6-38.0); CALCIUM 7.3 MG/DL (8.5-10.1); CHLORIDE 102 MMOL/L (99-107); CREATININE 0.69 MG/DL (0.40-0.90); GLUCOSE 134 MG/DL (70-104); POTASSIUM 4.8 MMOL/L (3.5-5.1); SODIUM 140 MMOL/L (135-145); TOTAL CARBON DIOXIDE 30.3 MMOL/L (24-32); TRIGLYCERIDES 147 MG/DL (20-135); eGFR 84 ML/MIN
[2021-09-06] MEDS: triamcinolone acet 0.1% cream 15gm TP SCH ×2 (08:04→20:00)
[2021-09-06] MEDS: morphine 4 MG/ML inj SYRINge IV PRN ×3 (09:46→22:23)
[2021-09-06 11:35] VITALS: BP 165/79
[2021-09-06] MEDS: hydrALAZINE 20mg/ml inj. IV PRN (11:43)
[2021-09-06 12:37] LABS: ANISOCYTOSIS 1+; PLATELET ESTIMATE NORMAL; TOTAL CELLS COUNTED 100
[2021-09-06 12:41] LABS: STOMATOCYTES 1+
[2021-09-06] MEDS: ondansetron 4mg rapidly disintigrating tab PO PRN (12:58)
--- NOTE | 2021-09-06 18:13 | NUR ---
Patient in room [facility]. I have received report from OSMAN GALDAMEZ, and had the opportunity to ask questions and assume patient care.
[2021-09-07] MEDS: morphine 4 MG/ML inj SYRINge IV PRN ×8 (00:28→21:34)
[2021-09-07] MEDS: ipratropium/albuterol 3ml nebule IH SCH ×6 (02:17→22:59)
[2021-09-07 03:34] LABS: BASOPHILS % (AUTO) 0.3 % (0-1); EOSINOPHILS # (AUTO) 0.1 X10'3 (0-0.9); EOSINOPHILS % (AUTO) 1.5 % (0-6); HEMOGLOBIN 9.2 g/dl (12.0-16.0); LYMPHOCYTES # (AUTO) 1.4 X10'3 (1.1-4.8); LYMPHOCYTES % (AUTO) 21.2 % (21-51); MEAN CORPUSCULAR HEMOGLOBIN 30.8 PG (27.0-31.0); MEAN CORPUSCULAR VOLUME 90.5 FL (78-98); MEAN PLATELET VOLUME 8.5 FL (7.4-10.4); MONOCYTES # (AUTO) 0.7 X10'3 (0-0.9); MONOCYTES % (AUTO) 11.3 % (2-12); NEUTROPHILS # (AUTO) 4.3 X10'3 (1.8-7.7); NEUTROPHILS % (AUTO) 65.7 % (42-75); PLATELET COUNT 162 X10'3 (140-440); RED BLOOD COUNT 2.98 X10'6 (4.20-5.60); RED CELL DISTRIBUTION WIDTH 17.9 % (11.5-14.5); WHITE BLOOD COUNT 6.5 X10'3 (4.5-11.0)
[2021-09-07 03:47] LABS: ALANINE AMINOTRANSFERASE 20 U/L (12-78); ALBUMIN 2.2 G/DL (3.4-5.0); ALBUMIN/GLOBULIN RATIO 0.6 (1.1-1.5); ALKALINE PHOSPHATASE 158 IU/L (46-116); ANION GAP 7 (8-16); ASPARTATE AMINO TRANSFERASE 26 U/L (10-37); BILIRUBIN,TOTAL 0.3 MG/DL (0.1-1.0); BLOOD UREA NITROGEN 20 MG/DL (7-18); BUN/CREATININE RATIO 26.7 (6.6-38.0); CALCIUM 7.1 MG/DL (8.5-10.1); CHLORIDE 101 MMOL/L (99-107); CREATININE 0.75 MG/DL (0.40-0.90); GLUCOSE 161 MG/DL (70-104); SODIUM 139 MMOL/L (135-145); TOTAL CARBON DIOXIDE 31.5 MMOL/L (24-32); TOTAL PROTEIN 6.2 G/DL (6.4-8.2); eGFR 76 ML/MIN
[2021-09-07 03:49] LABS: POTASSIUM 4.9 MMOL/L (3.5-5.1)
[2021-09-07 05:27] LABS: TOTAL CELLS COUNTED 100
[2021-09-07 05:28] LABS: ANISOCYTOSIS 1+; PLATELET ESTIMATE NORMAL
--- NOTE | 2021-09-07 06:14 | NUR ---
Patient in room [facility]B. I have received report from OSMAN GALDAMEZ and had the opportunity to ask questions and assume patient care.
--- NOTE | 2021-09-07 06:15 | NUR ---
Problems reprioritized. Patient report given, questions answered & plan of care reviewed with Racquel.
[2021-09-07 07:00] VITALS: BP 189/87
[2021-09-07] MEDS: MESSAGE TO NURSING IV SCH (08:00)
[2021-09-07] MEDS: amiodarone 200mg tablet PO SCH ×2 (08:24→19:41)
[2021-09-07] MEDS: heparin, porcine 5000 units/ml vial SQ SCH ×2 (08:24→19:41)
[2021-09-07] MEDS: pantoprazole 40mg Tablet.DR PO SCH (08:24)
[2021-09-07] MEDS: atorvastatin 20mg tablet JT SCH (08:25)
[2021-09-07] MEDS: triamcinolone acet 0.1% cream 15gm TP SCH ×2 (08:28→19:53)
[2021-09-07 11:00] VITALS: BP 152/69
--- NOTE | 2021-09-07 18:20 | NUR ---
Problems reprioritized. Patient report given, questions answered & plan of care reviewed with OSMAN WILLIS.
[2021-09-07 18:30] VITALS: BP 150/71
[2021-09-07] MEDS: ondansetron 4mg rapidly disintigrating tab PO PRN (19:13)
[2021-09-08] MEDS: morphine 4 MG/ML inj SYRINge IV PRN ×6 (02:17→23:53)
[2021-09-08] MEDS: ipratropium/albuterol 3ml nebule IH SCH ×6 (03:11→23:16)
--- NOTE | 2021-09-08 06:15 | NUR ---
Problems reprioritized. Patient report given, questions answered & plan of care reviewed with RUSSELL. Addendum: 09/08/21 at 0615 by Jayson Irwin RN Amended: Links added.
--- NOTE | 2021-09-08 06:50 | NUR ---
Patient in room [facility]B. I have received report from OSMAN WILLIS and had the opportunity to ask questions and assume patient care.
[2021-09-08 07:00] VITALS: BP 173/89
[2021-09-08] MEDS: MESSAGE TO NURSING IV SCH (08:00)
[2021-09-08] MEDS: atorvastatin 20mg tablet JT SCH (08:22)
[2021-09-08] MEDS: heparin, porcine 5000 units/ml vial SQ SCH ×2 (08:22→20:46)
[2021-09-08] MEDS: pantoprazole 40mg Tablet.DR PO SCH (08:22)
[2021-09-08] MEDS: amiodarone 200mg tablet PO SCH ×2 (08:22→20:45)
[2021-09-08] MEDS: triamcinolone acet 0.1% cream 15gm TP SCH ×2 (08:25→20:00)
[2021-09-08] MEDS ORDERED: magnesium Cl slow-release 64mg tablet PO PRN (09:10)
[2021-09-08] MEDS ORDERED: potassium Cl 40MEQ/1/2NS 520ml 520 ML IV PRN (09:10)
[2021-09-08] MEDS ORDERED: magnesium 4gm in 100ml NS 100 ML IV PRN (09:10)
[2021-09-08] MEDS ORDERED: potassium Cl 20 mEq SR tablet PO PRN ×2 (09:10)
--- NOTE | 2021-09-08 13:49 | NUR ---
Reassessment: Diet advanced to Low Residue 09/07 w/ 25% of first meal documented. Pt continues receiving TF via PEGJ at 65 mL/hr providing additional nutrition. Recommend continuing with TF until pt consistently able to tolerate greater than average 65% PO intake of meals; may wean TF as PO increases. Documented with 150 mL stool output 09/07 and 100ml out 09/08 per I&O. Will continue to follow closely and make recommendations as appropriate. Recommendations: 1. Continue Low Residue diet as tolerated; continue TF until pt consistently able to tolerate greater than average 65% PO intake of meals 2. Continuous TF using Vital AF at 65 ml/hr goal to provide 1560 ml volume, 1872 kcal, 1264 ml water, and 117g protein. 3. Additional 100 mL water flush Q4H; monitor serum Na and need to adjust 4. PALB q /; daily scaled wts 5. Bowel care per rx HOME TF RECS: 1. Continuous TF via PEGJ using Osmolite 1.2 or equivalent at 75 ml/hr goal; to provide 1800 ml volume/day, 2160 kcal, 1476 ml water, and 100 g protein. 2. Additional 100 mL water flush Q4H 3. Outpatient RD to titrate patient's TF formula, goal rate, and free water regimen based on patient's estimated nutrient needs Addendum: 09/08/21 at [address] Amended: Links added.
[2021-09-08 18:00] VITALS: BP 164/82
--- NOTE | 2021-09-08 18:37 | NUR ---
Problems reprioritized. Patient report given, questions answered & plan of care reviewed with OSMAN WILLIS.
[2021-09-08] MEDS: K and/or MAG REPLACEMENT MC SCH (20:00)
[2021-09-09] VITALS: BP 162/82
[2021-09-09] MEDS: ipratropium/albuterol 3ml nebule IH SCH ×6 (03:24→23:12)
[2021-09-09 06:21] LABS: BASOPHILS % (AUTO) 0.3 % (0-1); EOSINOPHILS # (AUTO) 0.1 X10'3 (0-0.9); EOSINOPHILS % (AUTO) 1.4 % (0-6); HEMATOCRIT 27.6 % (35.0-45.0); HEMOGLOBIN 9.1 g/dl (12.0-16.0); LYMPHOCYTES # (AUTO) 1.6 X10'3 (1.1-4.8); LYMPHOCYTES % (AUTO) 22.1 % (21-51); MEAN CORPUSCULAR HEMOGLOBIN 30.3 PG (27.0-31.0); MEAN CORPUSCULAR HGB CONC 33.1 g/dL (33.0-36.5); MEAN CORPUSCULAR VOLUME 91.4 FL (78-98); MEAN PLATELET VOLUME 8.9 FL (7.4-10.4); MONOCYTES # (AUTO) 0.8 X10'3 (0-0.9); MONOCYTES % (AUTO) 10.6 % (2-12); NEUTROPHILS # (AUTO) 4.8 X10'3 (1.8-7.7); NEUTROPHILS % (AUTO) 65.6 % (42-75); PLATELET COUNT 188 X10'3 (140-440); RED BLOOD COUNT 3.02 X10'6 (4.20-5.60); RED CELL DISTRIBUTION WIDTH 18.2 % (11.5-14.5); WHITE BLOOD COUNT 7.4 X10'3 (4.5-11.0)
--- NOTE | 2021-09-09 06:35 | NUR ---
Problems reprioritized. Patient report given, questions answered & plan of care reviewed with ALONDRA. Addendum: 09/09/21 at 0636 by Jayson Irwin RN Amended: Links added.
[2021-09-09 06:39] LABS: ALANINE AMINOTRANSFERASE 19 U/L (12-78); ALBUMIN 2.2 G/DL (3.4-5.0); ALBUMIN/GLOBULIN RATIO 0.6 (1.1-1.5); ALKALINE PHOSPHATASE 140 IU/L (46-116); ANION GAP 6 (8-16); ASPARTATE AMINO TRANSFERASE 22 U/L (10-37); BILIRUBIN,TOTAL 0.4 MG/DL (0.1-1.0); BLOOD UREA NITROGEN 28 MG/DL (7-18); BUN/CREATININE RATIO 38.4 (6.6-38.0); CALCIUM 6.8 MG/DL (8.5-10.1); CHLORIDE 99 MMOL/L (99-107); CREATININE 0.73 MG/DL (0.40-0.90); GLUCOSE 125 MG/DL (70-104); PHOSPHORUS 3.8 MG/DL (2.3-4.5); POTASSIUM 5.4 MMOL/L (3.5-5.1); SODIUM 137 MMOL/L (135-145); TOTAL CARBON DIOXIDE 31.9 MMOL/L (24-32); TOTAL PROTEIN 6.2 G/DL (6.4-8.2); eGFR 79 ML/MIN
[2021-09-09 06:42] LABS: MAGNESIUM 0.8 MG/DL (1.5-2.4)
[2021-09-09 07:00] VITALS: BP 169/82
[2021-09-09] MEDS: atorvastatin 20mg tablet JT SCH (07:43)
[2021-09-09] MEDS: amiodarone 200mg tablet PO SCH ×2 (07:43→20:22)
[2021-09-09] MEDS: morphine 4 MG/ML inj SYRINge IV PRN ×4 (07:43→20:17)
[2021-09-09] MEDS: pantoprazole 40mg Tablet.DR PO SCH (07:43)
[2021-09-09] MEDS: heparin, porcine 5000 units/ml vial SQ SCH ×2 (07:44→20:23)
[2021-09-09 07:48] LABS: ANISOCYTOSIS 2+; PLATELET ESTIMATE NORMAL; TOTAL CELLS COUNTED 100
[2021-09-09] MEDS: ondansetron 4mg rapidly disintigrating tab PO PRN (07:57)
[2021-09-09] MEDS: triamcinolone acet 0.1% cream 15gm TP SCH ×2 (08:00→20:39)
[2021-09-09] MEDS: MESSAGE TO NURSING IV SCH (08:00)
[2021-09-09] MEDS: K and/or MAG REPLACEMENT MC SCH ×2 (08:00→20:40)
[2021-09-09 11:00] VITALS: BP 163/79
[2021-09-09] MEDS: magnesium 2GM in 50ml NS 50 ML IV PRN (12:54)
--- NOTE | 2021-09-09 18:09 | NUR ---
Problems reprioritized. Patient report given, questions answered & plan of care reviewed with OSMAN Callejas.
[2021-09-09 18:30] VITALS: BP 139/77
[2021-09-09] MEDS ORDERED: sodium polystyrene sulfonate 15gm/60ml oral suspension PO ONE (21:10)
--- NOTE | 2021-09-09 22:59 | NUR ---
Student Medication Administration: For this medication-pass time frame, all medication were reviewed, dispensed, administered and documented per hospital policy by DEANDRA Brice [facility].
--- NOTE | 2021-09-09 23:11 | NUR ---
Student documentation: I have reviewed interventions, assessments performed and documented by DEANDRA Brice [facility].
[2021-09-10] VITALS: BP 153/68
[2021-09-10] MEDS: morphine 4 MG/ML inj SYRINge IV PRN ×2 (00:17→09:19)
--- NOTE | 2021-09-10 03:00 | NUR ---
Pt c/o burning with urination. I flushed sky catheter per MD order, I flushed wit 50 ML NS.
[2021-09-10] MEDS: ipratropium/albuterol 3ml nebule IH SCH ×6 (03:52→23:48)
[2021-09-10] MEDS: morphine 2 MG/ML inj. syringe IV PRN ×3 (04:17→21:44)
[2021-09-10 06:21] LABS: BASOPHILS % (AUTO) 0.8 % (0-1); EOSINOPHILS # (AUTO) 0.1 X10'3 (0-0.9); EOSINOPHILS % (AUTO) 1.6 % (0-6); HEMATOCRIT 30.5 % (35.0-45.0); HEMOGLOBIN 9.7 g/dl (12.0-16.0); LYMPHOCYTES # (AUTO) 1.1 X10'3 (1.1-4.8); LYMPHOCYTES % (AUTO) 18.1 % (21-51); MEAN CORPUSCULAR HEMOGLOBIN 29.9 PG (27.0-31.0); MEAN CORPUSCULAR HGB CONC 31.9 g/dL (33.0-36.5); MEAN CORPUSCULAR VOLUME 93.6 FL (78-98); MEAN PLATELET VOLUME 8.7 FL (7.4-10.4); MONOCYTES # (AUTO) 0.7 X10'3 (0-0.9); MONOCYTES % (AUTO) 10.8 % (2-12); NEUTROPHILS # (AUTO) 4.2 X10'3 (1.8-7.7); NEUTROPHILS % (AUTO) 68.7 % (42-75); PLATELET COUNT 181 X10'3 (140-440); RED BLOOD COUNT 3.26 X10'6 (4.20-5.60); RED CELL DISTRIBUTION WIDTH 18.4 % (11.5-14.5); WHITE BLOOD COUNT 6.1 X10'3 (4.5-11.0)
[2021-09-10 06:46] LABS: ALANINE AMINOTRANSFERASE 16 U/L (12-78); ALBUMIN 2.2 G/DL (3.4-5.0); ALBUMIN/GLOBULIN RATIO 0.5 (1.1-1.5); ALKALINE PHOSPHATASE 134 IU/L (46-116); ANION GAP 7 (8-16); ASPARTATE AMINO TRANSFERASE 20 U/L (10-37); BILIRUBIN,TOTAL 0.3 MG/DL (0.1-1.0); BLOOD UREA NITROGEN 27 MG/DL (7-18); BUN/CREATININE RATIO 39.1 (6.6-38.0); CALCIUM 7.3 MG/DL (8.5-10.1); CHLORIDE 101 MMOL/L (99-107); CREATININE 0.69 MG/DL (0.40-0.90); GLUCOSE 142 MG/DL (70-104); MAGNESIUM 1.9 MG/DL (1.5-2.4); PHOSPHORUS 3.5 MG/DL (2.3-4.5); POTASSIUM 5.4 MMOL/L (3.5-5.1); SODIUM 138 MMOL/L (135-145); TOTAL CARBON DIOXIDE 29.9 MMOL/L (24-32); TOTAL PROTEIN 6.5 G/DL (6.4-8.2); eGFR 84 ML/MIN
[2021-09-10] MEDS: ondansetron 4mg rapidly disintigrating tab PO PRN (06:53)
--- NOTE | 2021-09-10 06:58 | NUR ---
Patient in room [facility]. I have received report from OSMAN Callejas and had the opportunity to ask questions and assume patient care.
--- NOTE | 2021-09-10 07:18 | NUR ---
Problems reprioritized. Patient report given, questions answered & plan of care reviewed with Amita. Addendum: 09/10/21 at 0719 by Jayson Irwin RN Amended: Links added.
[2021-09-10 08:00] VITALS: BP 175/80
[2021-09-10] MEDS: K and/or MAG REPLACEMENT MC SCH ×2 (08:00→19:45)
[2021-09-10] MEDS: MESSAGE TO NURSING IV SCH (08:00)
[2021-09-10] MEDS: pantoprazole 40mg Tablet.DR PO SCH (10:35)
[2021-09-10] MEDS: heparin, porcine 5000 units/ml vial SQ SCH ×2 (10:36→19:59)
[2021-09-10] MEDS: atorvastatin 20mg tablet JT SCH (10:36)
[2021-09-10] MEDS: amiodarone 200mg tablet PO SCH ×2 (10:36→19:58)
[2021-09-10] MEDS: triamcinolone acet 0.1% cream 15gm TP SCH ×2 (10:37→21:47)
[2021-09-10 11:00] VITALS: BP 176/81
[2021-09-10] MEDS: HYDROcodone/acetaminophen 10/325mg tab PO PRN ×2 (12:26→19:58)
[2021-09-10] MEDS: hydrALAZINE 20mg/ml inj. IV PRN (13:57)
[2021-09-10 18:00] VITALS: BP 137/71
--- NOTE | 2021-09-10 18:24 | NUR ---
Problems reprioritized. Patient report given, questions answered & plan of care reviewed with OSMAN Parr.
--- NOTE | 2021-09-10 18:48 | NUR ---
Patient in room [facility]. I have received report from OSMAN Levi and had the opportunity to ask questions and assume patient care.
--- NOTE | 2021-09-10 18:49 | NUR ---
I have received report from OSMAN Levi and had the opportunity to ask questions and assume patient care.
[2021-09-10] MEDS ORDERED: sodium polystyrene sulfonate 15gm/60ml oral suspension PO ONE (22:15)
[2021-09-11] VITALS: BP 166/80
[2021-09-11] MEDS: HYDROcodone/acetaminophen 10/325mg tab PO PRN ×3 (02:33→15:50)
[2021-09-11] MEDS: ipratropium/albuterol 3ml nebule IH SCH ×6 (03:15→23:50)
--- NOTE | 2021-09-11 06:37 | NUR ---
Patient in room [facility]. I have received report from OSMAN Parr and had the opportunity to ask questions and assume patient care.
--- NOTE | 2021-09-11 06:43 | NUR ---
Problems reprioritized. Patient report given, questions answered & plan of care reviewed with OSMAN Levi.
[2021-09-11 06:54] LABS: BASOPHILS % (AUTO) 0.3 % (0-1); EOSINOPHILS # (AUTO) 0.1 X10'3 (0-0.9); HEMATOCRIT 28.8 % (35.0-45.0); HEMOGLOBIN 9.4 g/dl (12.0-16.0); LYMPHOCYTES # (AUTO) 1.3 X10'3 (1.1-4.8); LYMPHOCYTES % (AUTO) 22.8 % (21-51); MEAN CORPUSCULAR HEMOGLOBIN 30.3 PG (27.0-31.0); MEAN CORPUSCULAR HGB CONC 32.8 g/dL (33.0-36.5); MEAN CORPUSCULAR VOLUME 92.3 FL (78-98); MEAN PLATELET VOLUME 8.3 FL (7.4-10.4); MONOCYTES # (AUTO) 0.6 X10'3 (0-0.9); MONOCYTES % (AUTO) 10.3 % (2-12); NEUTROPHILS # (AUTO) 3.8 X10'3 (1.8-7.7); NEUTROPHILS % (AUTO) 64.6 % (42-75); PLATELET COUNT 186 X10'3 (140-440); RED BLOOD COUNT 3.12 X10'6 (4.20-5.60); RED CELL DISTRIBUTION WIDTH 17.8 % (11.5-14.5); WHITE BLOOD COUNT 5.8 X10'3 (4.5-11.0)
[2021-09-11 07:26] LABS: ALANINE AMINOTRANSFERASE 18 U/L (12-78); ALBUMIN 2.1 G/DL (3.4-5.0); ALBUMIN/GLOBULIN RATIO 0.5 (1.1-1.5); ALKALINE PHOSPHATASE 112 IU/L (46-116); ANION GAP 7 (8-16); ASPARTATE AMINO TRANSFERASE 20 U/L (10-37); BILIRUBIN,TOTAL 0.4 MG/DL (0.1-1.0); BLOOD UREA NITROGEN 22 MG/DL (7-18); BUN/CREATININE RATIO 32.8 (6.6-38.0); CALCIUM 7.1 MG/DL (8.5-10.1); CHLORIDE 101 MMOL/L (99-107); CREATININE 0.67 MG/DL (0.40-0.90); GLUCOSE 137 MG/DL (70-104); MAGNESIUM 1.4 MG/DL (1.5-2.4); PHOSPHORUS 3.8 MG/DL (2.3-4.5); POTASSIUM 4.8 MMOL/L (3.5-5.1); SODIUM 138 MMOL/L (135-145); TOTAL CARBON DIOXIDE 30.4 MMOL/L (24-32); TOTAL PROTEIN 6.1 G/DL (6.4-8.2); eGFR 87 ML/MIN
[2021-09-11 07:36] VITALS: BP 149/51
[2021-09-11] MEDS: K and/or MAG REPLACEMENT MC SCH ×2 (08:00→20:00)
[2021-09-11] MEDS: MESSAGE TO NURSING IV SCH (08:00)
[2021-09-11] MEDS: triamcinolone acet 0.1% cream 15gm TP SCH ×2 (08:00→22:55)
[2021-09-11] MEDS: morphine 2 MG/ML inj. syringe IV PRN ×4 (08:45→23:11)
[2021-09-11] MEDS: pantoprazole 40mg Tablet.DR PO SCH (08:47)
[2021-09-11] MEDS: atorvastatin 20mg tablet JT SCH (08:48)
[2021-09-11] MEDS: amiodarone 200mg tablet PO SCH ×2 (08:48→19:21)
[2021-09-11] MEDS: heparin, porcine 5000 units/ml vial SQ SCH ×2 (08:49→19:22)
[2021-09-11 11:00] VITALS: BP 159/79
[2021-09-11] MEDS: magnesium 2GM in 50ml NS 50 ML IV PRN (11:37)
[2021-09-11 18:00] VITALS: BP 155/80
--- NOTE | 2021-09-11 18:20 | NUR ---
Problems reprioritized. Patient report given, questions answered & plan of care reviewed with OSMAN Parr.
--- NOTE | 2021-09-11 19:00 | NUR ---
Patient in room [facility]. I have received report from OSMAN Conner and had the opportunity to ask questions and assume patient care.
[2021-09-11] MEDS ORDERED: magnesium 4gm in 100ml NS 100 ML IV ONE (19:35)
[2021-09-12] VITALS: BP 145/67
[2021-09-12] MEDS: ipratropium/albuterol 3ml nebule IH SCH ×6 (04:20→23:42)
[2021-09-12 06:05] LABS: BASOPHILS % (AUTO) 0.3 % (0-1); EOSINOPHILS # (AUTO) 0.2 X10'3 (0-0.9); EOSINOPHILS % (AUTO) 2.6 % (0-6); HEMATOCRIT 29.5 % (35.0-45.0); HEMOGLOBIN 9.9 g/dl (12.0-16.0); LYMPHOCYTES # (AUTO) 1.4 X10'3 (1.1-4.8); LYMPHOCYTES % (AUTO) 18.8 % (21-51); MEAN CORPUSCULAR HEMOGLOBIN 30.5 PG (27.0-31.0); MEAN CORPUSCULAR HGB CONC 33.4 g/dL (33.0-36.5); MEAN CORPUSCULAR VOLUME 91.3 FL (78-98); MEAN PLATELET VOLUME 8.5 FL (7.4-10.4); MONOCYTES # (AUTO) 0.7 X10'3 (0-0.9); NEUTROPHILS # (AUTO) 5.2 X10'3 (1.8-7.7); NEUTROPHILS % (AUTO) 69.3 % (42-75); PLATELET COUNT 202 X10'3 (140-440); RED BLOOD COUNT 3.23 X10'6 (4.20-5.60); WHITE BLOOD COUNT 7.5 X10'3 (4.5-11.0)
[2021-09-12 06:15] LABS: ALANINE AMINOTRANSFERASE 16 U/L (12-78); ALBUMIN 2.3 G/DL (3.4-5.0); ALBUMIN/GLOBULIN RATIO 0.5 (1.1-1.5); ALKALINE PHOSPHATASE 120 IU/L (46-116); ANION GAP 6 (8-16); ASPARTATE AMINO TRANSFERASE 17 U/L (10-37); BILIRUBIN,TOTAL 0.4 MG/DL (0.1-1.0); BLOOD UREA NITROGEN 21 MG/DL (7-18); BUN/CREATININE RATIO 25.6 (6.6-38.0); CHLORIDE 98 MMOL/L (99-107); CREATININE 0.82 MG/DL (0.40-0.90); GLUCOSE 132 MG/DL (70-104); PHOSPHORUS 3.5 MG/DL (2.3-4.5); POTASSIUM 4.8 MMOL/L (3.5-5.1); SODIUM 136 MMOL/L (135-145); TOTAL PROTEIN 6.6 G/DL (6.4-8.2); eGFR 69 ML/MIN
--- NOTE | 2021-09-12 06:18 | NUR ---
Problems reprioritized. Patient report given, questions answered & plan of care reviewed with OSMAN Pablo I agree with Gilakasia orellana Documention, assesments, and report given to OSMAN Pablo.
--- NOTE | 2021-09-12 06:28 | NUR ---
Problems reprioritized. Patient report given, questions answered & plan of care reviewed with Bev BREWER.
--- NOTE | 2021-09-12 06:41 | NUR ---
Patient in room [facility]. I have received report from Keshav vaughn and had the opportunity to ask questions and assume patient care.
[2021-09-12] MEDS: HYDROcodone/acetaminophen 10/325mg tab PO PRN ×4 (07:00→22:55)
[2021-09-12] MEDS: atorvastatin 20mg tablet JT SCH (07:03)
[2021-09-12] MEDS: amiodarone 200mg tablet PO SCH ×2 (07:03→19:17)
[2021-09-12] MEDS: pantoprazole 40mg Tablet.DR PO SCH (07:03)
[2021-09-12] MEDS: heparin, porcine 5000 units/ml vial SQ SCH ×2 (07:03→19:17)
[2021-09-12 07:38] VITALS: BP 180/71
[2021-09-12] MEDS: K and/or MAG REPLACEMENT MC SCH ×2 (08:00→20:00)
[2021-09-12] MEDS: morphine 2 MG/ML inj. syringe IV PRN ×2 (09:50→19:18)
[2021-09-12] MEDS: triamcinolone acet 0.1% cream 15gm TP SCH ×2 (09:51→19:22)
[2021-09-12] MEDS: guaiFENesin/DM 10ml UD oral syrup PO PRN ×2 (09:51→19:17)
[2021-09-12 12:34] VITALS: BP 176/83
--- NOTE | 2021-09-12 15:56 | NUR ---
F/u 09/12: Pt tolerating TF at goal GRV WNL w/ PO 0-25% avg low-fiber diet meeting needs w/ EN. Colostomy 875-1350ml 09/09-09/10 however 75ml past 24 hours per EMR. Noted serum Na steadily downtrending 136 currently; RD d/w RN regarding holding free water flushes at this time if MD agreeable. Will continue to monitor for TF/PO tolerance and nutrition support adjustment needs as medically indicated. Recommendations: 1. Continue Low Residue diet as tolerated; continue TF until pt consistently able to tolerate greater than average 65% PO intake of meals 2. Continuous TF using Vital AF at 65 ml/hr goal to provide 1560 ml volume, 1872 kcal, 1264 ml water, and 117g protein. 3. Additional water flush per MD; serum Na downtrending 136 this AM w/ prior 100ml Q4H free water 4. PALB q /Th; daily scaled wts 5. Bowel care per rx HOME TF RECS: 1. Continuous TF via PEGJ using Osmolite 1.2 or equivalent at 75ml/hr goal; to provide 1800ml volume/day, 2160 kcal, 1476 ml water, and 100 g protein. 2. Additional 50mL water flush Q4H 3. Outpatient RD to titrate patient's TF formula, goal rate, and free water regimen based on patient's estimated nutrient/hydration needs Addendum: 09/12/21 at [address] Amended: Links added.
[2021-09-12] MEDS: guaiFENesin ER 600mg tablet PO SCH ×2 (16:33→22:55)
[2021-09-12 18:00] VITALS: BP 187/80
--- NOTE | 2021-09-12 18:12 | NUR ---
Per supervisor ditching and md, d/c free water flushes.
--- NOTE | 2021-09-12 18:58 | NUR ---
Patient in room [facility]. I have received report from OSMAN Pablo and had the opportunity to ask questions and assume patient care.
--- NOTE | 2021-09-12 18:59 | NUR ---
Patient in room [facility]. I have received report from OSMAN Pablo and had the opportunity to ask questions and assume patient care.
--- NOTE | 2021-09-12 19:03 | NUR ---
Problems reprioritized. Patient report given, questions answered & plan of care reviewed with justus vaughn .
[2021-09-12] MEDS: temazepam 15mg capsule PO PRN (20:57)
[2021-09-13] VITALS: BP 178/81
[2021-09-13] MEDS: hydrALAZINE 20mg/ml inj. IV PRN (00:42)
[2021-09-13] MEDS: ipratropium/albuterol 3ml nebule IH SCH ×6 (03:31→23:53)
[2021-09-13] MEDS: guaiFENesin/DM 10ml UD oral syrup PO PRN ×3 (03:50→20:55)
--- NOTE | 2021-09-13 06:15 | NUR ---
I agree with Student Allison's charting, med passes, and report given to OSMAN Pablo
--- NOTE | 2021-09-13 06:16 | NUR ---
Problems reprioritized. Patient report given, questions answered & plan of care reviewed with OSMAN Pablo.
--- NOTE | 2021-09-13 06:23 | NUR ---
Patient in room [facility]. I have received report from justus vaughn and had the opportunity to ask questions and assume patient care.
[2021-09-13 06:52] LABS: BASOPHILS % (AUTO) 0.2 % (0-1); EOSINOPHILS # (AUTO) 0.2 X10'3 (0-0.9); EOSINOPHILS % (AUTO) 2.1 % (0-6); HEMATOCRIT 29.2 % (35.0-45.0); HEMOGLOBIN 9.8 g/dl (12.0-16.0); LYMPHOCYTES # (AUTO) 1.5 X10'3 (1.1-4.8); LYMPHOCYTES % (AUTO) 20.7 % (21-51); MEAN CORPUSCULAR HEMOGLOBIN 30.3 PG (27.0-31.0); MEAN CORPUSCULAR HGB CONC 33.5 g/dL (33.0-36.5); MEAN CORPUSCULAR VOLUME 90.7 FL (78-98); MEAN PLATELET VOLUME 7.5 FL (7.4-10.4); MONOCYTES # (AUTO) 0.6 X10'3 (0-0.9); MONOCYTES % (AUTO) 8.5 % (2-12); NEUTROPHILS % (AUTO) 68.5 % (42-75); PLATELET COUNT 218 X10'3 (140-440); RED BLOOD COUNT 3.22 X10'6 (4.20-5.60); RED CELL DISTRIBUTION WIDTH 16.8 % (11.5-14.5); WHITE BLOOD COUNT 7.3 X10'3 (4.5-11.0)
[2021-09-13 07:07] LABS: ALANINE AMINOTRANSFERASE 17 U/L (12-78); ALBUMIN 2.3 G/DL (3.4-5.0); ALBUMIN/GLOBULIN RATIO 0.6 (1.1-1.5); ALKALINE PHOSPHATASE 116 IU/L (46-116); ANION GAP 6 (8-16); ASPARTATE AMINO TRANSFERASE 22 U/L (10-37); BILIRUBIN,TOTAL 0.4 MG/DL (0.1-1.0); BLOOD UREA NITROGEN 21 MG/DL (7-18); CHLORIDE 99 MMOL/L (99-107); GLUCOSE 143 MG/DL (70-104); MAGNESIUM 1.3 MG/DL (1.5-2.4); POTASSIUM 4.5 MMOL/L (3.5-5.1); SODIUM 136 MMOL/L (135-145); TOTAL CARBON DIOXIDE 31.2 MMOL/L (24-32); TOTAL PROTEIN 6.3 G/DL (6.4-8.2); eGFR 83 ML/MIN
[2021-09-13 08:00] VITALS: BP 163/76
[2021-09-13] MEDS: K and/or MAG REPLACEMENT MC SCH ×2 (08:00→21:50)
[2021-09-13] MEDS: atorvastatin 20mg tablet JT SCH (09:13)
[2021-09-13] MEDS: guaiFENesin ER 600mg tablet PO SCH ×4 (09:14→20:56)
[2021-09-13] MEDS: pantoprazole 40mg Tablet.DR PO SCH (09:14)
[2021-09-13] MEDS: amiodarone 200mg tablet PO SCH ×2 (09:14→20:56)
[2021-09-13] MEDS: HYDROcodone/acetaminophen 10/325mg tab PO PRN ×3 (09:15→22:38)
[2021-09-13] MEDS: triamcinolone acet 0.1% cream 15gm TP SCH ×2 (09:17→21:05)
[2021-09-13] MEDS: heparin, porcine 5000 units/ml vial SQ SCH ×2 (09:17→20:57)
[2021-09-13 12:00] VITALS: BP 173/81
[2021-09-13] MEDS: morphine 2 MG/ML inj. syringe IV PRN ×2 (12:21→20:57)
--- NOTE | 2021-09-13 17:54 | NUR ---
pt is very pleasant however pt refused multiple times this shift to repositionl. Pt was only agreeable to reposition twice this shift. Primary nurse spent minimum 10 min educating patient on risk of skin break down, importance of IS and flutter valve use. Pt had 50ml out of colostomy, 40ml out of wound vac, and 700ml out of her sky. Will continue to monitor patient closely
--- NOTE | 2021-09-13 18:57 | NUR ---
Problems reprioritized. Patient report given, questions answered & plan of care reviewed with leonie hadley rn.
[2021-09-13 20:00] VITALS: BP 150/66
[2021-09-14] VITALS: BP 157/60
[2021-09-14] MEDS: furosemide 20 MG/2 ML vial IV SCH ×2 (00:34→07:55)
[2021-09-14] MEDS: ipratropium/albuterol 3ml nebule IH SCH ×6 (03:07→23:50)
[2021-09-14] MEDS: proCHLORperazine 10 MG/2 ml inj IV PRN (04:36)
[2021-09-14] MEDS: morphine 2 MG/ML inj. syringe IV PRN ×3 (05:05→14:06)
--- NOTE | 2021-09-14 06:40 | NUR ---
Problems reprioritized. Patient report given, questions answered & plan of care reviewed with RUSSELL BREWER.
--- NOTE | 2021-09-14 06:58 | NUR ---
Patient in room [facility] 340B. I have received report from PRETTY OLSEN RN and had the opportunity to ask questions and assume patient care.
[2021-09-14 07:00] VITALS: BP 177/79
[2021-09-14] MEDS: guaiFENesin ER 600mg tablet PO SCH ×4 (07:51→21:48)
[2021-09-14] MEDS: pantoprazole 40mg Tablet.DR PO SCH (07:51)
[2021-09-14] MEDS: atorvastatin 20mg tablet JT SCH (07:51)
[2021-09-14] MEDS: amiodarone 200mg tablet PO SCH ×2 (07:51→21:47)
[2021-09-14] MEDS: heparin, porcine 5000 units/ml vial SQ SCH ×2 (07:55→21:51)
[2021-09-14] MEDS: K and/or MAG REPLACEMENT MC SCH ×2 (08:00→20:00)
[2021-09-14] MEDS: triamcinolone acet 0.1% cream 15gm TP SCH ×2 (08:02→21:55)
[2021-09-14] MEDS: HYDROcodone/acetaminophen 10/325mg tab PO PRN ×2 (10:26→21:48)
[2021-09-14 11:00] VITALS: BP 194/93
[2021-09-14] MEDS: hydrALAZINE 20mg/ml inj. IV PRN (11:31)
[2021-09-14] MEDS: LORazepam 2 mg/ml vial IV PRN (15:10)
[2021-09-14] MEDS: guaiFENesin/DM 10ml UD oral syrup PO PRN (17:42)
[2021-09-14 18:00] VITALS: BP 169/91
--- NOTE | 2021-09-14 18:45 | NUR ---
Patient in room [facility]. I have received report from Racquel BREWER and had the opportunity to ask questions and assume patient care.
--- NOTE | 2021-09-14 19:07 | NUR ---
Problems reprioritized. Patient report given, questions answered & plan of care reviewed with OSMAN WOODSON.
[2021-09-14] MEDS: magnesium 2GM in 50ml NS 50 ML IV PRN (21:49)
[2021-09-14] MEDS ORDERED: magnesium 4gm in 100ml NS 100 ML IV PRN (22:35)
[2021-09-14] MEDS ORDERED: potassium Cl 40MEQ/1/2NS 520ml 520 ML IV PRN (22:35)
[2021-09-14] MEDS ORDERED: magnesium Cl slow-release 64mg tablet PO PRN (22:35)
[2021-09-14] MEDS ORDERED: potassium Cl 20 mEq SR tablet PO PRN ×2 (22:35)
--- NOTE | 2021-09-14 22:50 | NUR ---
Did not replace the mag as the lab 1.3 was from 09/13, not a current one.
[2021-09-15] VITALS: BP 158/66
[2021-09-15] MEDS: LORazepam 2 mg/ml vial IV PRN ×4 (00:11→21:34)
[2021-09-15] MEDS: guaiFENesin/DM 10ml UD oral syrup PO PRN ×2 (00:14→21:33)
[2021-09-15] MEDS: ipratropium/albuterol 3ml nebule IH SCH ×6 (03:18→23:55)
[2021-09-15] MEDS: HYDROcodone/acetaminophen 10/325mg tab PO PRN ×2 (03:32→19:22)
[2021-09-15 05:55] LABS: BASOPHILS % (AUTO) 0.3 % (0-1); EOSINOPHILS # (AUTO) 0.1 X10'3 (0-0.9); EOSINOPHILS % (AUTO) 1.6 % (0-6); HEMATOCRIT 30.5 % (35.0-45.0); HEMOGLOBIN 10.2 g/dl (12.0-16.0); LYMPHOCYTES # (AUTO) 1.7 X10'3 (1.1-4.8); LYMPHOCYTES % (AUTO) 19.6 % (21-51); MEAN CORPUSCULAR HEMOGLOBIN 29.9 PG (27.0-31.0); MEAN CORPUSCULAR HGB CONC 33.5 g/dL (33.0-36.5); MEAN CORPUSCULAR VOLUME 89.4 FL (78-98); MEAN PLATELET VOLUME 7.9 FL (7.4-10.4); MONOCYTES # (AUTO) 0.8 X10'3 (0-0.9); MONOCYTES % (AUTO) 8.9 % (2-12); NEUTROPHILS # (AUTO) 6.1 X10'3 (1.8-7.7); NEUTROPHILS % (AUTO) 69.6 % (42-75); PLATELET COUNT 287 X10'3 (140-440); RED BLOOD COUNT 3.41 X10'6 (4.20-5.60); RED CELL DISTRIBUTION WIDTH 16.8 % (11.5-14.5); WHITE BLOOD COUNT 8.8 X10'3 (4.5-11.0)
--- NOTE | 2021-09-15 06:15 | NUR ---
Problems reprioritized. Patient report given, questions answered & plan of care reviewed with Rosas BREWER.
[2021-09-15 06:31] LABS: ALANINE AMINOTRANSFERASE 18 U/L (12-78); ALBUMIN 2.4 G/DL (3.4-5.0); ALBUMIN/GLOBULIN RATIO 0.6 (1.1-1.5); ALKALINE PHOSPHATASE 128 IU/L (46-116); ANION GAP 8 (8-16); ASPARTATE AMINO TRANSFERASE 18 U/L (10-37); BILIRUBIN,TOTAL 0.4 MG/DL (0.1-1.0); BLOOD UREA NITROGEN 31 MG/DL (7-18); BUN/CREATININE RATIO 40.8 (6.6-38.0); CALCIUM 7.6 MG/DL (8.5-10.1); CHLORIDE 98 MMOL/L (99-107); CREATININE 0.76 MG/DL (0.40-0.90); GLUCOSE 155 MG/DL (70-104); PHOSPHORUS 4.4 MG/DL (2.3-4.5); POTASSIUM 4.2 MMOL/L (3.5-5.1); SODIUM 135 MMOL/L (135-145); TOTAL PROTEIN 6.5 G/DL (6.4-8.2); eGFR 75 ML/MIN
[2021-09-15 07:08] LABS: MAGNESIUM 0.9 MG/DL (1.5-2.4)
[2021-09-15] MEDS: K and/or MAG REPLACEMENT MC SCH ×4 (07:32→20:00)
[2021-09-15] MEDS: pantoprazole 40mg Tablet.DR PO SCH (07:48)
[2021-09-15] MEDS: guaiFENesin ER 600mg tablet PO SCH ×4 (07:48→21:33)
[2021-09-15] MEDS: amiodarone 200mg tablet PO SCH ×2 (07:48→21:33)
[2021-09-15] MEDS: atorvastatin 20mg tablet JT SCH (07:48)
[2021-09-15] MEDS: triamcinolone acet 0.1% cream 15gm TP SCH ×2 (07:49→21:35)
[2021-09-15] MEDS: heparin, porcine 5000 units/ml vial SQ SCH ×2 (07:49→21:34)
[2021-09-15] MEDS: furosemide 20 MG/2 ML vial IV SCH (07:49)
[2021-09-15 09:00] VITALS: BP 167/82
[2021-09-15 12:00] VITALS: BP 154/69
[2021-09-15] MEDS: magnesium 2GM in 50ml NS 50 ML IV PRN (17:48)
[2021-09-15 18:00] VITALS: BP 118/79
--- NOTE | 2021-09-15 18:30 | NUR ---
Patient in room [facility]. I have received report from Rosas BREWER and had the opportunity to ask questions and assume patient care.
[2021-09-15] MEDS: temazepam 15mg capsule PO PRN (21:45)
[2021-09-16] VITALS: BP 166/66
[2021-09-16 01:00] VITALS: BP 172/81
[2021-09-16] MEDS: hydrALAZINE 20mg/ml inj. IV PRN (01:16)
[2021-09-16 03:30] VITALS: BP 130/58
[2021-09-16] MEDS: ipratropium/albuterol 3ml nebule IH SCH ×5 (03:56→20:32)
[2021-09-16 06:13] LABS: BASOPHILS % (AUTO) 0.2 % (0-1); EOSINOPHILS # (AUTO) 0.2 X10'3 (0-0.9); EOSINOPHILS % (AUTO) 1.8 % (0-6); HEMATOCRIT 30.8 % (35.0-45.0); HEMOGLOBIN 10.3 g/dl (12.0-16.0); LYMPHOCYTES # (AUTO) 1.7 X10'3 (1.1-4.8); MEAN CORPUSCULAR HGB CONC 33.6 g/dL (33.0-36.5); MEAN CORPUSCULAR VOLUME 89.2 FL (78-98); MEAN PLATELET VOLUME 7.3 FL (7.4-10.4); MONOCYTES # (AUTO) 0.9 X10'3 (0-0.9); MONOCYTES % (AUTO) 8.2 % (2-12); NEUTROPHILS # (AUTO) 7.9 X10'3 (1.8-7.7); NEUTROPHILS % (AUTO) 73.8 % (42-75); PLATELET COUNT 314 X10'3 (140-440); RED BLOOD COUNT 3.46 X10'6 (4.20-5.60); RED CELL DISTRIBUTION WIDTH 16.5 % (11.5-14.5); WHITE BLOOD COUNT 10.7 X10'3 (4.5-11.0)
--- NOTE | 2021-09-16 06:30 | NUR ---
Problems reprioritized. Patient report given, questions answered & plan of care reviewed with Rosas BREWER.
[2021-09-16 06:42] LABS: ALANINE AMINOTRANSFERASE 20 U/L (12-78); ALBUMIN 2.6 G/DL (3.4-5.0); ALBUMIN/GLOBULIN RATIO 0.7 (1.1-1.5); ALKALINE PHOSPHATASE 137 IU/L (46-116); ANION GAP 7 (8-16); ASPARTATE AMINO TRANSFERASE 19 U/L (10-37); BILIRUBIN,TOTAL 0.4 MG/DL (0.1-1.0); BLOOD UREA NITROGEN 36 MG/DL (7-18); BUN/CREATININE RATIO 43.9 (6.6-38.0); CALCIUM 8.3 MG/DL (8.5-10.1); CHLORIDE 99 MMOL/L (99-107); CREATININE 0.82 MG/DL (0.40-0.90); GLUCOSE 166 MG/DL (70-104); MAGNESIUM 1.8 MG/DL (1.5-2.4); PHOSPHORUS 3.6 MG/DL (2.3-4.5); POTASSIUM 4.1 MMOL/L (3.5-5.1); SODIUM 135 MMOL/L (135-145); TOTAL CARBON DIOXIDE 28.7 MMOL/L (24-32); TOTAL PROTEIN 6.6 G/DL (6.4-8.2); eGFR 69 ML/MIN
[2021-09-16] MEDS: atorvastatin 20mg tablet JT SCH (07:17)
[2021-09-16] MEDS: HYDROcodone/acetaminophen 10/325mg tab PO PRN ×3 (07:17→21:33)
[2021-09-16] MEDS: pantoprazole 40mg Tablet.DR PO SCH (07:17)
[2021-09-16] MEDS: amiodarone 200mg tablet PO SCH (07:17)
[2021-09-16] MEDS: heparin, porcine 5000 units/ml vial SQ SCH ×2 (07:18→21:24)
[2021-09-16] MEDS: furosemide 20 MG/2 ML vial IV SCH (07:18)
[2021-09-16] MEDS: guaiFENesin ER 600mg tablet PO SCH ×2 (07:18→12:22)
[2021-09-16] MEDS: triamcinolone acet 0.1% cream 15gm TP SCH ×2 (07:19→21:35)
[2021-09-16] MEDS: K and/or MAG REPLACEMENT MC SCH ×3 (07:19→19:27)
[2021-09-16 08:00] VITALS: BP 151/57
[2021-09-16 11:39] VITALS: BP 167/76
[2021-09-16] MEDS: metoprolol succinate 25mg (24-HOUR) SR. Tablet PO SCH (12:34)
--- NOTE | 2021-09-16 14:16 | NUR ---
F/u 09/16: Pt tolerating TF at goal GRV WNL w/ PO mostly 25% avg low-fiber diet meeting needs w/ EN. The feeding tube is in jejunum, pt still complains of feeling full and not being able to eat as much as meals. Will adjust TF to be nocturnal to attempt to stimulate appetite during the day, MD and RN notified, see recs below. Colostomy 250ml output Will continue to monitor for TF/PO tolerance and nutrition support adjustment needs as medically indicated. Recommendations: 1. Continue Low Residue diet as tolerated; continue TF until pt consistently able to tolerate greater than average 65% PO intake of meals 2. Nocturnal TF using Vital AF at 75 ml/hr goal for 12hr to provide 900 ml volume, 1080 kcal, 729 ml water, and 67g protein. To run from 1347-4636 3. No additional free water as PO intake increases 4. PALB q /; daily scaled wts 5. Bowel care per rx HOME TF RECS: 1. Continuous TF via PEGJ using Osmolite 1.2 or equivalent at 75ml/hr goal; to provide 1800ml volume/day, 2160 kcal, 1476 ml water, and 100 g protein. 2. Additional 50mL water flush Q4H 3. Outpatient RD to titrate patient's TF formula, goal rate, and free water regimen based on patient's estimated nutrient/hydration needs Addendum: 09/16/21 at [address] Amended: Links added.
[2021-09-16] MEDS: LORazepam 2 mg/ml vial IV PRN (15:39)
--- NOTE | 2021-09-16 15:51 | NUR ---
1100 svn triaged. therapist not available
[2021-09-16] MEDS ORDERED: ondansetron 4mg rapidly disintigrating tab PEG PRN (15:58)
[2021-09-16] MEDS ORDERED: POTASSIUM BICARB 20meq eff tab 20 MEQ TABLET.EFF PEG PRN ×2 (16:05)
--- NOTE | 2021-09-16 18:36 | NUR ---
Patient in room [facility]. I have received report from Rosas BREWER Traveler and had the opportunity to ask questions and assume patient care.
[2021-09-16 20:00] VITALS: BP 149/73
[2021-09-16] MEDS: temazepam 15mg capsule PEG PRN (21:25)
[2021-09-16] MEDS: guaiFENesin/DM 10ml UD oral syrup PEG PRN (21:33)
--- NOTE | 2021-09-16 21:45 | NUR ---
New bottle of food started with new goal rate of 75ml/hr. This is to run for 12 hours.
[2021-09-17] VITALS: BP 147/62
[2021-09-17] MEDS: ipratropium/albuterol 3ml nebule IH SCH ×5 (00:23→23:21)
[2021-09-17] MEDS: LORazepam 2 mg/ml vial IV PRN ×2 (01:27→20:40)
[2021-09-17] MEDS: guaiFENesin/DM 10ml UD oral syrup PEG PRN ×2 (03:04→14:09)
[2021-09-17 06:15] LABS: BASOPHILS # (AUTO) 0.1 X10'3 (0-0.2); BASOPHILS % (AUTO) 0.4 % (0-1); EOSINOPHILS # (AUTO) 0.3 X10'3 (0-0.9); EOSINOPHILS % (AUTO) 2.8 % (0-6); HEMATOCRIT 32.5 % (35.0-45.0); HEMOGLOBIN 10.4 g/dl (12.0-16.0); LYMPHOCYTES % (AUTO) 17.2 % (21-51); MEAN CORPUSCULAR HEMOGLOBIN 29.3 PG (27.0-31.0); MEAN CORPUSCULAR HGB CONC 31.9 g/dL (33.0-36.5); MEAN PLATELET VOLUME 8.3 FL (7.4-10.4); MONOCYTES % (AUTO) 8.9 % (2-12); NEUTROPHILS # (AUTO) 8.2 X10'3 (1.8-7.7); NEUTROPHILS % (AUTO) 70.7 % (42-75); PLATELET COUNT 333 X10'3 (140-440); RED BLOOD COUNT 3.54 X10'6 (4.20-5.60); RED CELL DISTRIBUTION WIDTH 17.3 % (11.5-14.5); WHITE BLOOD COUNT 11.6 X10'3 (4.5-11.0)
[2021-09-17 06:34] LABS: ALANINE AMINOTRANSFERASE 21 U/L (12-78); ALBUMIN 2.5 G/DL (3.4-5.0); ALBUMIN/GLOBULIN RATIO 0.6 (1.1-1.5); ALKALINE PHOSPHATASE 138 IU/L (46-116); ANION GAP 7 (8-16); ASPARTATE AMINO TRANSFERASE 22 U/L (10-37); BILIRUBIN,TOTAL 0.4 MG/DL (0.1-1.0); BLOOD UREA NITROGEN 40 MG/DL (7-18); BUN/CREATININE RATIO 43.5 (6.6-38.0); CALCIUM 8.3 MG/DL (8.5-10.1); CHLORIDE 101 MMOL/L (99-107); CREATININE 0.92 MG/DL (0.40-0.90); GLUCOSE 146 MG/DL (70-104); MAGNESIUM 1.5 MG/DL (1.5-2.4); POTASSIUM 4.4 MMOL/L (3.5-5.1); SODIUM 136 MMOL/L (135-145); TOTAL CARBON DIOXIDE 27.7 MMOL/L (24-32); TOTAL PROTEIN 6.6 G/DL (6.4-8.2); eGFR 60 ML/MIN
[2021-09-17 06:46] LABS: TOTAL CELLS COUNTED 100
[2021-09-17 06:47] LABS: ANISOCYTOSIS 1+; LARGE PLATELETS FEW; PLATELET ESTIMATE NORMAL
--- NOTE | 2021-09-17 06:55 | NUR ---
Problems reprioritized. Patient report given, questions answered & plan of care reviewed with Gunnar BREWER.
--- NOTE | 2021-09-17 06:58 | NUR ---
Patient in room [facility]. I have received report from OSMAN Valdivia and had the opportunity to ask questions and assume patient care.
[2021-09-17 07:00] VITALS: BP 150/61
[2021-09-17] MEDS: atorvastatin 20mg tablet PEG SCH (07:31)
[2021-09-17] MEDS: metoprolol succinate 25mg (24-HOUR) SR. Tablet PO SCH (07:31)
[2021-09-17] MEDS: HYDROcodone/acetaminophen 10/325mg tab PO PRN ×3 (07:31→20:45)
[2021-09-17] MEDS: heparin, porcine 5000 units/ml vial SQ SCH ×2 (07:32→20:40)
[2021-09-17] MEDS: furosemide 20 MG/2 ML vial IV SCH (07:32)
[2021-09-17] MEDS: pantoprazole 40 MG vial IV SCH (07:32)
[2021-09-17] MEDS: K and/or MAG REPLACEMENT MC SCH ×2 (08:00→19:30)
--- NOTE | 2021-09-17 09:32 | NUR ---
certified nursing assistant instructor in to see patient for wound vac dressing change.
[2021-09-17 11:00] VITALS: BP 128/74
[2021-09-17] MEDS: triamcinolone acet 0.1% cream 15gm TP SCH ×2 (12:24→20:51)
[2021-09-17] MEDS: morphine 2 MG/ML inj. syringe IV PRN (15:41)
[2021-09-17 18:00] VITALS: BP 162/81
--- NOTE | 2021-09-17 18:15 | NUR ---
Problems reprioritized. Patient report given, questions answered & plan of care reviewed with OSMAN Knox.
--- NOTE | 2021-09-17 19:25 | NUR ---
Patient in room [facility]. I have received report from ERICK BREWER and had the opportunity to ask questions and assume patient care.
[2021-09-17] MEDS: hydrALAZINE 20mg/ml inj. IV PRN (20:40)
[2021-09-17] MEDS: temazepam 15mg capsule PEG PRN (21:36)
--- NOTE | 2021-09-18 02:01 | NUR ---
PATIENT REFUSED MIDNIGHT VITAL SIGNS Addendum: 09/18/21 at 0202 by Lisette Steele RN Amended: Links added.
[2021-09-18] MEDS: ipratropium/albuterol 3ml nebule IH SCH ×6 (03:00→23:31)
[2021-09-18] MEDS: HYDROcodone/acetaminophen 10/325mg tab PO PRN ×4 (03:52→17:38)
--- NOTE | 2021-09-18 06:26 | NUR ---
Problems reprioritized. Patient report given, questions answered & plan of care reviewed with ERICK BREWER.
--- NOTE | 2021-09-18 06:27 | NUR ---
Patient in room [facility]. I have received report from OSMAN Knox and had the opportunity to ask questions and assume patient care.
[2021-09-18 07:00] VITALS: BP 137/52
[2021-09-18 07:25] LABS: BASOPHILS # (AUTO) 0.1 X10'3 (0-0.2); BASOPHILS % (AUTO) 0.5 % (0-1); EOSINOPHILS # (AUTO) 0.2 X10'3 (0-0.9); EOSINOPHILS % (AUTO) 2.2 % (0-6); HEMATOCRIT 31.7 % (35.0-45.0); HEMOGLOBIN 10.3 g/dl (12.0-16.0); LYMPHOCYTES # (AUTO) 1.8 X10'3 (1.1-4.8); LYMPHOCYTES % (AUTO) 16.5 % (21-51); MEAN CORPUSCULAR HEMOGLOBIN 29.5 PG (27.0-31.0); MEAN CORPUSCULAR HGB CONC 32.5 g/dL (33.0-36.5); MEAN CORPUSCULAR VOLUME 90.7 FL (78-98); MONOCYTES % (AUTO) 8.5 % (2-12); NEUTROPHILS # (AUTO) 8.1 X10'3 (1.8-7.7); NEUTROPHILS % (AUTO) 72.3 % (42-75); PLATELET COUNT 307 X10'3 (140-440); RED CELL DISTRIBUTION WIDTH 16.8 % (11.5-14.5); WHITE BLOOD COUNT 11.2 X10'3 (4.5-11.0)
[2021-09-18] MEDS: pantoprazole 40 MG vial IV SCH (07:32)
[2021-09-18] MEDS: furosemide 20 MG/2 ML vial IV SCH (07:33)
[2021-09-18] MEDS: metoprolol succinate 25mg (24-HOUR) SR. Tablet PO SCH (07:33)
[2021-09-18] MEDS: atorvastatin 20mg tablet PEG SCH (07:33)
[2021-09-18] MEDS: heparin, porcine 5000 units/ml vial SQ SCH ×2 (07:39→20:01)
[2021-09-18] MEDS: K and/or MAG REPLACEMENT MC SCH ×2 (08:00→19:53)
[2021-09-18 08:52] LABS: ALANINE AMINOTRANSFERASE 24 U/L (12-78); ALBUMIN 2.6 G/DL (3.4-5.0); ALBUMIN/GLOBULIN RATIO 0.7 (1.1-1.5); ALKALINE PHOSPHATASE 143 IU/L (46-116); ANION GAP 11 (8-16); ASPARTATE AMINO TRANSFERASE 24 U/L (10-37); BILIRUBIN,TOTAL 0.3 MG/DL (0.1-1.0); BLOOD UREA NITROGEN 48 MG/DL (7-18); BUN/CREATININE RATIO 53.3 (6.6-38.0); CALCIUM 8.3 MG/DL (8.5-10.1); CHLORIDE 100 MMOL/L (99-107); GLUCOSE 155 MG/DL (70-104); MAGNESIUM 1.3 MG/DL (1.5-2.4); PHOSPHORUS 4.2 MG/DL (2.3-4.5); POTASSIUM 4.1 MMOL/L (3.5-5.1); SODIUM 136 MMOL/L (135-145); TOTAL CARBON DIOXIDE 25.4 MMOL/L (24-32); TOTAL PROTEIN 6.6 G/DL (6.4-8.2); eGFR 62 ML/MIN
[2021-09-18 10:03] LABS: ANISOCYTOSIS 1+; LARGE PLATELETS FEW; PLATELET ESTIMATE NORMAL
[2021-09-18] MEDS: magnesium 2GM in 50ml NS 50 ML IV PRN (10:18)
[2021-09-18] MEDS: triamcinolone acet 0.1% cream 15gm TP SCH ×2 (10:25→20:13)
--- NOTE | 2021-09-18 12:23 | NUR ---
Patient tolerated removal of surgical issa to abd. Total of 32 issa removed with no issues.
[2021-09-18 12:29] VITALS: BP 136/71
[2021-09-18 18:00] VITALS: BP 125/50
--- NOTE | 2021-09-18 18:40 | NUR ---
Problems reprioritized. Patient report given, questions answered & plan of care reviewed with OSMAN Knox.
--- NOTE | 2021-09-18 19:09 | NUR ---
Patient in room [facility]. I have received report from ERICK BREWER and had the opportunity to ask questions and assume patient care.
[2021-09-18] MEDS: LORazepam 2 mg/ml vial IV PRN (20:00)
[2021-09-18] MEDS: morphine 2 MG/ML inj. syringe IV PRN (20:07)
[2021-09-18] MEDS: guaiFENesin/DM 10ml UD oral syrup PEG PRN (22:28)
[2021-09-19] VITALS: BP 134/54
[2021-09-19] MEDS: HYDROcodone/acetaminophen 10/325mg tab PO PRN ×3 (02:05→15:09)
[2021-09-19] MEDS: ipratropium/albuterol 3ml nebule IH SCH ×6 (03:42→23:25)
[2021-09-19] MEDS: LORazepam 2 mg/ml vial IV PRN ×2 (04:35→19:37)
[2021-09-19 06:17] LABS: BASOPHILS # (AUTO) 0.1 X10'3 (0-0.2); BASOPHILS % (AUTO) 0.5 % (0-1); EOSINOPHILS # (AUTO) 0.3 X10'3 (0-0.9); EOSINOPHILS % (AUTO) 2.4 % (0-6); HEMATOCRIT 32.7 % (35.0-45.0); HEMOGLOBIN 10.5 g/dl (12.0-16.0); LYMPHOCYTES % (AUTO) 18.5 % (21-51); MEAN CORPUSCULAR HEMOGLOBIN 29.5 PG (27.0-31.0); MEAN CORPUSCULAR HGB CONC 32.2 g/dL (33.0-36.5); MEAN CORPUSCULAR VOLUME 91.9 FL (78-98); MEAN PLATELET VOLUME 7.9 FL (7.4-10.4); MONOCYTES # (AUTO) 1.1 X10'3 (0-0.9); MONOCYTES % (AUTO) 9.6 % (2-12); NEUTROPHILS # (AUTO) 7.7 X10'3 (1.8-7.7); PLATELET COUNT 308 X10'3 (140-440); RED BLOOD COUNT 3.56 X10'6 (4.20-5.60); RED CELL DISTRIBUTION WIDTH 16.7 % (11.5-14.5); WHITE BLOOD COUNT 11.1 X10'3 (4.5-11.0)
--- NOTE | 2021-09-19 06:36 | NUR ---
Problems reprioritized. Patient report given, questions answered & plan of care reviewed with JANETT BREWER.
[2021-09-19 06:49] LABS: ALANINE AMINOTRANSFERASE 24 U/L (12-78); ALBUMIN 2.6 G/DL (3.4-5.0); ALBUMIN/GLOBULIN RATIO 0.7 (1.1-1.5); ALKALINE PHOSPHATASE 139 IU/L (46-116); ANION GAP 7 (8-16); ASPARTATE AMINO TRANSFERASE 24 U/L (10-37); BILIRUBIN,TOTAL 0.3 MG/DL (0.1-1.0); BLOOD UREA NITROGEN 46 MG/DL (7-18); BUN/CREATININE RATIO 45.5 (6.6-38.0); CALCIUM 8.3 MG/DL (8.5-10.1); CHLORIDE 103 MMOL/L (99-107); CREATININE 1.01 MG/DL (0.40-0.90); GLUCOSE 144 MG/DL (70-104); MAGNESIUM 1.5 MG/DL (1.5-2.4); PHOSPHORUS 3.7 MG/DL (2.3-4.5); POTASSIUM 4.5 MMOL/L (3.5-5.1); SODIUM 139 MMOL/L (135-145); TOTAL PROTEIN 6.6 G/DL (6.4-8.2); eGFR 54 ML/MIN
[2021-09-19 07:35] VITALS: BP 152/66
[2021-09-19] MEDS: K and/or MAG REPLACEMENT MC SCH ×2 (08:00→20:00)
[2021-09-19] MEDS: triamcinolone acet 0.1% cream 15gm TP SCH ×2 (08:00→21:25)
[2021-09-19] MEDS: pantoprazole 40 MG vial IV SCH (08:18)
[2021-09-19] MEDS: atorvastatin 20mg tablet PEG SCH (08:19)
[2021-09-19] MEDS: heparin, porcine 5000 units/ml vial SQ SCH ×2 (08:19→19:36)
[2021-09-19] MEDS: furosemide 20 MG/2 ML vial IV SCH (08:19)
[2021-09-19] MEDS: metoprolol succinate 25mg (24-HOUR) SR. Tablet PO SCH (08:19)
[2021-09-19 11:00] VITALS: BP 127/61
[2021-09-19 18:00] VITALS: BP 110/65
--- NOTE | 2021-09-19 18:43 | NUR ---
GAVE REPORT TO ANDRÉS BREWER. Addendum: 09/19/21 at 1858 by Bia Carlos RN GAVE REPORT TO AVILA BREWER
--- NOTE | 2021-09-19 19:04 | NUR ---
Patient in room [facility]. I have received report from JANETT BREWER and had the opportunity to ask questions and assume patient care.
[2021-09-19] MEDS: morphine 2 MG/ML inj. syringe IV PRN (19:37)
[2021-09-19] MEDS: guaiFENesin/DM 10ml UD oral syrup PEG PRN (21:24)
[2021-09-20] VITALS: BP 138/50
[2021-09-20] MEDS: morphine 2 MG/ML inj. syringe IV PRN (01:31)
[2021-09-20] MEDS: HYDROcodone/acetaminophen 10/325mg tab PO PRN ×5 (03:30→21:42)
[2021-09-20] MEDS: ipratropium/albuterol 3ml nebule IH SCH ×6 (04:21→23:20)
--- NOTE | 2021-09-20 06:10 | NUR ---
Patient in room [facility]. I have received report from OSMAN Knox & Lidia RN and had the opportunity to ask questions and assume patient care.
--- NOTE | 2021-09-20 06:25 | NUR ---
Problems reprioritized. Patient report given, questions answered & plan of care reviewed with Lucia RN.
[2021-09-20 06:30] VITALS: BP 141/63
--- NOTE | 2021-09-20 06:31 | NUR ---
Problems reprioritized. Patient report given, questions answered & plan of care reviewed with MARY BREWER.
[2021-09-20] MEDS: metoprolol succinate 25mg (24-HOUR) SR. Tablet PO SCH (07:38)
[2021-09-20] MEDS: atorvastatin 20mg tablet PEG SCH (07:38)
[2021-09-20] MEDS: pantoprazole 40 MG vial IV SCH (07:38)
[2021-09-20] MEDS: heparin, porcine 5000 units/ml vial SQ SCH ×2 (07:39→19:10)
[2021-09-20] MEDS: furosemide 20 MG/2 ML vial IV SCH (07:39)
[2021-09-20] MEDS: triamcinolone acet 0.1% cream 15gm TP SCH ×2 (07:41→19:13)
[2021-09-20] MEDS: LORazepam 2 mg/ml vial IV PRN (07:54)
[2021-09-20] MEDS: K and/or MAG REPLACEMENT MC SCH ×2 (08:00→19:13)
[2021-09-20] MEDS ORDERED: benzonatate 100mg capsule PO PRN (10:20)
[2021-09-20] MEDS ORDERED: magnesium 4gm in 100ml NS 100 ML IV PRN (10:50)
[2021-09-20 11:42] LABS: BASOPHILS # (AUTO) 0.1 X10'3 (0-0.2); BASOPHILS % (AUTO) 0.8 % (0-1); EOSINOPHILS # (AUTO) 0.3 X10'3 (0-0.9); EOSINOPHILS % (AUTO) 2.3 % (0-6); HEMATOCRIT 31.6 % (35.0-45.0); HEMOGLOBIN 10.3 g/dl (12.0-16.0); LYMPHOCYTES # (AUTO) 2.1 X10'3 (1.1-4.8); LYMPHOCYTES % (AUTO) 19.4 % (21-51); MEAN CORPUSCULAR HEMOGLOBIN 29.8 PG (27.0-31.0); MEAN CORPUSCULAR HGB CONC 32.6 g/dL (33.0-36.5); MEAN CORPUSCULAR VOLUME 91.4 FL (78-98); MEAN PLATELET VOLUME 7.5 FL (7.4-10.4); MONOCYTES # (AUTO) 1.1 X10'3 (0-0.9); MONOCYTES % (AUTO) 9.7 % (2-12); NEUTROPHILS # (AUTO) 7.4 X10'3 (1.8-7.7); NEUTROPHILS % (AUTO) 67.8 % (42-75); PLATELET COUNT 288 X10'3 (140-440); RED BLOOD COUNT 3.46 X10'6 (4.20-5.60); RED CELL DISTRIBUTION WIDTH 16.5 % (11.5-14.5); WHITE BLOOD COUNT 10.9 X10'3 (4.5-11.0)
[2021-09-20 12:00] LABS: ALANINE AMINOTRANSFERASE 25 U/L (12-78); ALBUMIN 2.6 G/DL (3.4-5.0); ALBUMIN/GLOBULIN RATIO 0.7 (1.1-1.5); ALKALINE PHOSPHATASE 139 IU/L (46-116); ANION GAP 9 (8-16); ASPARTATE AMINO TRANSFERASE 24 U/L (10-37); BILIRUBIN,TOTAL 0.3 MG/DL (0.1-1.0); BLOOD UREA NITROGEN 45 MG/DL (7-18); BUN/CREATININE RATIO 51.1 (6.6-38.0); CALCIUM 8.1 MG/DL (8.5-10.1); CHLORIDE 100 MMOL/L (99-107); CREATININE 0.88 MG/DL (0.40-0.90); GLUCOSE 121 MG/DL (70-104); POTASSIUM 4.9 MMOL/L (3.5-5.1); SODIUM 137 MMOL/L (135-145); TOTAL CARBON DIOXIDE 28.4 MMOL/L (24-32); TOTAL PROTEIN 6.6 G/DL (6.4-8.2); eGFR 64 ML/MIN
[2021-09-20 12:08] LABS: ANISOCYTOSIS 1+; PLATELET ESTIMATE NORMAL; TOTAL CELLS COUNTED 100
[2021-09-20] MEDS: magnesium Cl slow-release 64mg tablet PO PRN ×2 (13:08→22:36)
--- NOTE | 2021-09-20 14:58 | NUR ---
Received TC that pt is requesting to speak with RD. Pt seen at bedside with SO present. Pt with food preferences that were d/w dietary, see below. Pt reports her appetite is slightly improving since TF has been changed to nocturnal. Noted patient's PO intake does appear to be slowly improving, previously averaging 25-50% PO intake, recently with occasional 75% PO intake of meals. Pt provided with RD contact information and pt encouraged to reach out for additional food preferences. Pt with low mag 1.0 mg/dL, receiving PRN replacement. LBM 09/19 though no documentation of stool output in I&O. Will continue to follow. Recommendations: 1. Continue low residue diet 2. [place] food preferences: milk WB, pepsi BIDLD 3. Continue TF until pt consistently able to tolerate greater than average 65% PO intake of meals 4. Nocturnal TF using Vital AF at 75 ml/hr for 12 hrs from [id number] to provide 900 ml total volume/day, 1080 kcal, 729 ml water, and 67 g protein 5. No additional free water as PO intake increases 6. PALB q /; daily scaled wts 7. Bowel care per rx HOME TF RECS: 1. Continuous TF via PEGJ using Osmolite 1.2 or equivalent at 75ml/hr goal; to provide 1800ml volume/day, 2160 kcal, 1476 ml water, and 100 g protein. 2. Additional 50mL water flush Q4H 3. Outpatient RD to titrate patient's TF formula, goal rate, and free water regimen based on patient's estimated nutrient/hydration needs Addendum: 09/20/21 at [address] Amended: Links added.
[2021-09-20 18:00] VITALS: BP 142/66
--- NOTE | 2021-09-20 18:40 | NUR ---
Patient in room [facility]. I have received report from OSMAN Myers and had the opportunity to ask questions and assume patient care.
--- NOTE | 2021-09-20 18:40 | NUR ---
Problems reprioritized. Patient report given, questions answered & plan of care reviewed with OSMAN Navas.
[2021-09-20] MEDS: guaiFENesin/DM 10ml UD oral syrup PEG PRN (22:40)
[2021-09-21] VITALS: BP 133/63
[2021-09-21] MEDS: LORazepam 2 mg/ml vial IV PRN ×2 (02:55→20:51)
[2021-09-21] MEDS: HYDROcodone/acetaminophen 10/325mg tab PO PRN ×5 (02:55→20:52)
[2021-09-21] MEDS: ipratropium/albuterol 3ml nebule IH SCH ×6 (03:32→23:21)
--- NOTE | 2021-09-21 06:24 | NUR ---
Problems reprioritized. Patient report given, questions answered & plan of care reviewed with OSMAN Myers.
--- NOTE | 2021-09-21 06:25 | NUR ---
Patient in room [facility]. I have received report from OSMAN Navas and had the opportunity to ask questions and assume patient care.
[2021-09-21 06:30] VITALS: BP_SYST 124; BP_SYST 144; BP_DIAS 62; BP_DIAS 67
[2021-09-21 06:50] LABS: BASOPHILS # (AUTO) 0.1 X10'3 (0-0.2); BASOPHILS % (AUTO) 0.5 % (0-1); EOSINOPHILS # (AUTO) 0.3 X10'3 (0-0.9); EOSINOPHILS % (AUTO) 2.4 % (0-6); HEMATOCRIT 31.3 % (35.0-45.0); HEMOGLOBIN 10.4 g/dl (12.0-16.0); LYMPHOCYTES # (AUTO) 2.2 X10'3 (1.1-4.8); LYMPHOCYTES % (AUTO) 19.8 % (21-51); MEAN CORPUSCULAR HEMOGLOBIN 30.1 PG (27.0-31.0); MEAN CORPUSCULAR HGB CONC 33.1 g/dL (33.0-36.5); MEAN CORPUSCULAR VOLUME 90.9 FL (78-98); MEAN PLATELET VOLUME 7.9 FL (7.4-10.4); MONOCYTES # (AUTO) 0.9 X10'3 (0-0.9); MONOCYTES % (AUTO) 8.5 % (2-12); NEUTROPHILS # (AUTO) 7.5 X10'3 (1.8-7.7); NEUTROPHILS % (AUTO) 68.8 % (42-75); PLATELET COUNT 284 X10'3 (140-440); RED BLOOD COUNT 3.44 X10'6 (4.20-5.60); RED CELL DISTRIBUTION WIDTH 16.6 % (11.5-14.5)
[2021-09-21 06:53] LABS: ALANINE AMINOTRANSFERASE 29 U/L (12-78); ALBUMIN 2.6 G/DL (3.4-5.0); ALBUMIN/GLOBULIN RATIO 0.6 (1.1-1.5); ALKALINE PHOSPHATASE 134 IU/L (46-116); ANION GAP 11 (8-16); ASPARTATE AMINO TRANSFERASE 26 U/L (10-37); BILIRUBIN,TOTAL 0.4 MG/DL (0.1-1.0); BLOOD UREA NITROGEN 44 MG/DL (7-18); BUN/CREATININE RATIO 47.3 (6.6-38.0); CALCIUM 7.9 MG/DL (8.5-10.1); CHLORIDE 101 MMOL/L (99-107); CREATININE 0.93 MG/DL (0.40-0.90); GLUCOSE 150 MG/DL (70-104); PHOSPHORUS 3.8 MG/DL (2.3-4.5); POTASSIUM 4.3 MMOL/L (3.5-5.1); SODIUM 139 MMOL/L (135-145); TOTAL CARBON DIOXIDE 27.1 MMOL/L (24-32); TOTAL PROTEIN 6.7 G/DL (6.4-8.2); eGFR 60 ML/MIN
[2021-09-21] MEDS: K and/or MAG REPLACEMENT MC SCH ×2 (06:57→20:00)
[2021-09-21] MEDS: magnesium 2GM in 50ml NS 50 ML IV PRN (07:41)
[2021-09-21] MEDS: pantoprazole 40 MG vial IV SCH (07:45)
[2021-09-21] MEDS: heparin, porcine 5000 units/ml vial SQ SCH ×2 (07:45→19:38)
[2021-09-21] MEDS: furosemide 20 MG/2 ML vial IV SCH (07:45)
[2021-09-21] MEDS: metoprolol succinate 25mg (24-HOUR) SR. Tablet PO SCH (07:45)
[2021-09-21] MEDS: atorvastatin 20mg tablet PEG SCH (07:45)
[2021-09-21] MEDS: triamcinolone acet 0.1% cream 15gm TP SCH ×2 (07:55→19:38)
[2021-09-21 11:00] VITALS: BP 136/58
[2021-09-21 18:00] VITALS: BP 129/73
--- NOTE | 2021-09-21 18:10 | NUR ---
Problems reprioritized. Patient report given, questions answered & plan of care reviewed with OSMAN Parr.
--- NOTE | 2021-09-21 19:10 | NUR ---
Patient in room [facility]. I have received report from OSMAN Myers and had the opportunity to ask questions and assume patient care.
--- NOTE | 2021-09-21 19:10 | NUR ---
Patient in room [facility]. I have received report from OSMAN Myers and had the opportunity to ask questions and assume patient care.
--- NOTE | 2021-09-21 19:11 | NUR ---
Patient in room [facility]. I have received report from OSMAN Myers and had the opportunity to ask questions and assume patient care.
[2021-09-22] MEDS: guaiFENesin/DM 10ml UD oral syrup PEG PRN ×2 (00:08→14:56)
[2021-09-22 00:13] VITALS: BP 128/58
[2021-09-22] MEDS: HYDROcodone/acetaminophen 10/325mg tab PO PRN ×5 (02:56→21:51)
[2021-09-22] MEDS: ipratropium/albuterol 3ml nebule IH SCH ×6 (03:32→23:59)
--- NOTE | 2021-09-22 06:00 | NUR ---
Patient in room [facility]. I have received report from Lucia BREWER and had the opportunity to ask questions and assume patient care.
[2021-09-22 06:14] LABS: BASOPHILS # (AUTO) 0.1 X10'3 (0-0.2); BASOPHILS % (AUTO) 0.6 % (0-1); EOSINOPHILS # (AUTO) 0.4 X10'3 (0-0.9); EOSINOPHILS % (AUTO) 3.2 % (0-6); HEMATOCRIT 32.9 % (35.0-45.0); HEMOGLOBIN 10.7 g/dl (12.0-16.0); LYMPHOCYTES % (AUTO) 16.8 % (21-51); MEAN CORPUSCULAR HEMOGLOBIN 29.8 PG (27.0-31.0); MEAN CORPUSCULAR HGB CONC 32.6 g/dL (33.0-36.5); MEAN CORPUSCULAR VOLUME 91.5 FL (78-98); MEAN PLATELET VOLUME 8.1 FL (7.4-10.4); MONOCYTES # (AUTO) 1.1 X10'3 (0-0.9); NEUTROPHILS # (AUTO) 8.4 X10'3 (1.8-7.7); NEUTROPHILS % (AUTO) 70.4 % (42-75); PLATELET COUNT 269 X10'3 (140-440); RED BLOOD COUNT 3.59 X10'6 (4.20-5.60); RED CELL DISTRIBUTION WIDTH 16.9 % (11.5-14.5); WHITE BLOOD COUNT 11.9 X10'3 (4.5-11.0)
[2021-09-22 06:22] LABS: ALANINE AMINOTRANSFERASE 35 U/L (12-78); ALBUMIN 2.7 G/DL (3.4-5.0); ALBUMIN/GLOBULIN RATIO 0.6 (1.1-1.5); ALKALINE PHOSPHATASE 153 IU/L (46-116); ANION GAP 9 (8-16); BILIRUBIN,TOTAL 0.4 MG/DL (0.1-1.0); BLOOD UREA NITROGEN 47 MG/DL (7-18); BUN/CREATININE RATIO 48.5 (6.6-38.0); CALCIUM 8.2 MG/DL (8.5-10.1); CHLORIDE 99 MMOL/L (99-107); CREATININE 0.97 MG/DL (0.40-0.90); GLUCOSE 146 MG/DL (70-104); MAGNESIUM 2.3 MG/DL (1.5-2.4); SODIUM 136 MMOL/L (135-145); TOTAL PROTEIN 7.1 G/DL (6.4-8.2); eGFR 57 ML/MIN
[2021-09-22 06:23] LABS: ASPARTATE AMINO TRANSFERASE 34 U/L (10-37); POTASSIUM 4.4 MMOL/L (3.5-5.1)
--- NOTE | 2021-09-22 06:27 | NUR ---
Problems reprioritized. Patient report given, questions answered & plan of care reviewed with OSMAN Diallo.
--- NOTE | 2021-09-22 06:37 | NUR ---
Student documentation: I have reviewed and agree with all interventions, assessments,andreport given to OSMAN Diallo performed and documented by .
[2021-09-22] MEDS: metoprolol succinate 25mg (24-HOUR) SR. Tablet PO SCH (07:58)
[2021-09-22] MEDS: furosemide 20 MG/2 ML vial IV SCH (07:59)
[2021-09-22] MEDS: pantoprazole 40 MG vial IV SCH (07:59)
[2021-09-22] MEDS: atorvastatin 20mg tablet PEG SCH (07:59)
[2021-09-22 08:00] VITALS: BP 140/58
[2021-09-22] MEDS: K and/or MAG REPLACEMENT MC SCH ×2 (08:00→20:00)
[2021-09-22] MEDS: heparin, porcine 5000 units/ml vial SQ SCH ×2 (08:01→19:45)
[2021-09-22] MEDS: triamcinolone acet 0.1% cream 15gm TP SCH ×2 (08:01→19:49)
[2021-09-22 11:00] VITALS: BP 127/57
[2021-09-22 18:00] VITALS: BP 130/76
--- NOTE | 2021-09-22 19:10 | NUR ---
Patient in room [facility]. I have received report from OSMAN Menendez and had the opportunity to ask questions and assume patient care.
--- NOTE | 2021-09-22 19:31 | NUR ---
Problems reprioritized. Patient report given, questions answered & plan of care reviewed with Keshav BREWER.
[2021-09-22] MEDS: LORazepam 2 mg/ml vial IV PRN (19:58)
[2021-09-23] VITALS: BP 132/58
[2021-09-23] MEDS: HYDROcodone/acetaminophen 10/325mg tab PO PRN ×4 (01:41→20:16)
[2021-09-23] MEDS: guaiFENesin/DM 10ml UD oral syrup PEG PRN ×2 (01:41→22:07)
[2021-09-23] MEDS: ipratropium/albuterol 3ml nebule IH SCH ×6 (04:03→23:38)
--- NOTE | 2021-09-23 04:39 | NUR ---
Patient in room [facility]. I have received report from Imani BREWER and had the opportunity to ask questions and assume patient care.
[2021-09-23 05:16] LABS: BASOPHILS # (AUTO) 0.1 X10'3 (0-0.2); BASOPHILS % (AUTO) 0.5 % (0-1); EOSINOPHILS # (AUTO) 0.4 X10'3 (0-0.9); EOSINOPHILS % (AUTO) 3.4 % (0-6); HEMATOCRIT 31.8 % (35.0-45.0); HEMOGLOBIN 10.5 g/dl (12.0-16.0); LYMPHOCYTES % (AUTO) 19.3 % (21-51); MEAN CORPUSCULAR HEMOGLOBIN 30.2 PG (27.0-31.0); MEAN CORPUSCULAR HGB CONC 33.1 g/dL (33.0-36.5); MEAN CORPUSCULAR VOLUME 91.4 FL (78-98); MEAN PLATELET VOLUME 7.7 FL (7.4-10.4); MONOCYTES # (AUTO) 0.8 X10'3 (0-0.9); MONOCYTES % (AUTO) 7.3 % (2-12); NEUTROPHILS # (AUTO) 7.3 X10'3 (1.8-7.7); NEUTROPHILS % (AUTO) 69.5 % (42-75); PLATELET COUNT 275 X10'3 (140-440); RED BLOOD COUNT 3.47 X10'6 (4.20-5.60); RED CELL DISTRIBUTION WIDTH 16.4 % (11.5-14.5); WHITE BLOOD COUNT 10.5 X10'3 (4.5-11.0)
[2021-09-23 05:28] LABS: ALANINE AMINOTRANSFERASE 29 U/L (12-78); ALBUMIN 2.7 G/DL (3.4-5.0); ALBUMIN/GLOBULIN RATIO 0.7 (1.1-1.5); ALKALINE PHOSPHATASE 156 IU/L (46-116); ANION GAP 5 (8-16); ASPARTATE AMINO TRANSFERASE 22 U/L (10-37); BILIRUBIN,TOTAL 0.4 MG/DL (0.1-1.0); BLOOD UREA NITROGEN 44 MG/DL (7-18); BUN/CREATININE RATIO 43.1 (6.6-38.0); CALCIUM 8.6 MG/DL (8.5-10.1); CHLORIDE 102 MMOL/L (99-107); CREATININE 1.02 MG/DL (0.40-0.90); GLUCOSE 167 MG/DL (70-104); MAGNESIUM 1.6 MG/DL (1.5-2.4); POTASSIUM 4.1 MMOL/L (3.5-5.1); SODIUM 137 MMOL/L (135-145); TOTAL CARBON DIOXIDE 30.3 MMOL/L (24-32); TOTAL PROTEIN 6.8 G/DL (6.4-8.2); eGFR 54 ML/MIN
--- NOTE | 2021-09-23 06:18 | NUR ---
I agree with VALENTE RN assessments, documentation, and report given to OSMAN Diallo
--- NOTE | 2021-09-23 06:18 | NUR ---
Problems reprioritized. Patient report given, questions answered & plan of care reviewed with OSMAN Diallo.
--- NOTE | 2021-09-23 06:28 | NUR ---
Patient in room [facility]. I have received report from Keshav BREWER and had the opportunity to ask questions and assume patient care.
[2021-09-23 08:00] VITALS: BP 148/63
[2021-09-23] MEDS: K and/or MAG REPLACEMENT MC SCH ×2 (08:00→20:00)
[2021-09-23] MEDS: pantoprazole 40 MG vial IV SCH (08:06)
[2021-09-23] MEDS: metoprolol succinate 25mg (24-HOUR) SR. Tablet PO SCH (08:06)
[2021-09-23] MEDS: atorvastatin 20mg tablet PEG SCH (08:07)
[2021-09-23] MEDS: furosemide 20 MG/2 ML vial IV SCH (08:07)
[2021-09-23] MEDS: heparin, porcine 5000 units/ml vial SQ SCH ×2 (08:10→20:13)
[2021-09-23] MEDS: triamcinolone acet 0.1% cream 15gm TP SCH ×2 (08:10→20:18)
[2021-09-23 11:00] VITALS: BP 151/65
[2021-09-23] MEDS: LORazepam 2 mg/ml vial IV PRN ×2 (14:59→22:11)
[2021-09-23 18:00] VITALS: BP 127/61
--- NOTE | 2021-09-23 18:43 | NUR ---
Patient in room [facility]. I have received report from OSMAN Diallo and had the opportunity to ask questions and assume patient care.
--- NOTE | 2021-09-23 18:47 | NUR ---
Patient in room [facility]. I have received report from Imani BREWER and had the opportunity to ask questions and assume patient care.
[2021-09-24] VITALS: BP 117/63
[2021-09-24] MEDS: HYDROcodone/acetaminophen 10/325mg tab PO PRN ×3 (03:06→13:15)
[2021-09-24] MEDS: ipratropium/albuterol 3ml nebule IH SCH ×6 (03:37→23:09)
[2021-09-24] MEDS: LORazepam 2 mg/ml vial IV PRN ×2 (04:02→19:55)
--- NOTE | 2021-09-24 04:53 | NUR ---
Student documentation: I have reviewed and agree with all interventions, assessments performed and documented by [employer] student.
[2021-09-24 06:18] LABS: BASOPHILS # (AUTO) 0.1 X10'3 (0-0.2); BASOPHILS % (AUTO) 0.6 % (0-1); EOSINOPHILS # (AUTO) 0.3 X10'3 (0-0.9); EOSINOPHILS % (AUTO) 2.8 % (0-6); HEMATOCRIT 30.4 % (35.0-45.0); LYMPHOCYTES # (AUTO) 2.4 X10'3 (1.1-4.8); LYMPHOCYTES % (AUTO) 20.8 % (21-51); MEAN CORPUSCULAR HGB CONC 32.9 g/dL (33.0-36.5); MEAN CORPUSCULAR VOLUME 91.4 FL (78-98); MEAN PLATELET VOLUME 8.2 FL (7.4-10.4); MONOCYTES # (AUTO) 0.9 X10'3 (0-0.9); MONOCYTES % (AUTO) 8.3 % (2-12); NEUTROPHILS # (AUTO) 7.7 X10'3 (1.8-7.7); NEUTROPHILS % (AUTO) 67.5 % (42-75); PLATELET COUNT 268 X10'3 (140-440); RED BLOOD COUNT 3.33 X10'6 (4.20-5.60); RED CELL DISTRIBUTION WIDTH 16.6 % (11.5-14.5); WHITE BLOOD COUNT 11.4 X10'3 (4.5-11.0)
[2021-09-24 06:37] LABS: ALANINE AMINOTRANSFERASE 36 U/L (12-78); ALBUMIN 2.6 G/DL (3.4-5.0); ALBUMIN/GLOBULIN RATIO 0.6 (1.1-1.5); ALKALINE PHOSPHATASE 147 IU/L (46-116); ANION GAP 8 (8-16); ASPARTATE AMINO TRANSFERASE 24 U/L (10-37); BILIRUBIN,TOTAL 0.3 MG/DL (0.1-1.0); BLOOD UREA NITROGEN 39 MG/DL (7-18); BUN/CREATININE RATIO 45.3 (6.6-38.0); CALCIUM 8.4 MG/DL (8.5-10.1); CHLORIDE 101 MMOL/L (99-107); CREATININE 0.86 MG/DL (0.40-0.90); GLUCOSE 152 MG/DL (70-104); MAGNESIUM 1.2 MG/DL (1.5-2.4); PHOSPHORUS 4.2 MG/DL (2.3-4.5); POTASSIUM 4.4 MMOL/L (3.5-5.1); SODIUM 137 MMOL/L (135-145); TOTAL CARBON DIOXIDE 28.3 MMOL/L (24-32); TOTAL PROTEIN 6.7 G/DL (6.4-8.2); eGFR 65 ML/MIN
--- NOTE | 2021-09-24 06:38 | NUR ---
Problems reprioritized. Patient report given, questions answered & plan of care reviewed with OSMAN Diallo.
--- NOTE | 2021-09-24 06:42 | NUR ---
Problems reprioritized. Patient report given, questions answered & plan of care reviewed with Imani BREWER.
[2021-09-24] MEDS: pantoprazole 40 MG vial IV SCH (07:33)
[2021-09-24] MEDS: furosemide 20 MG/2 ML vial IV SCH (07:34)
[2021-09-24] MEDS: heparin, porcine 5000 units/ml vial SQ SCH ×2 (07:35→19:55)
[2021-09-24] MEDS: atorvastatin 20mg tablet PEG SCH (07:36)
[2021-09-24] MEDS: metoprolol succinate 25mg (24-HOUR) SR. Tablet PO SCH (07:36)
[2021-09-24] MEDS: K and/or MAG REPLACEMENT MC SCH ×2 (07:37→19:58)
[2021-09-24] MEDS: triamcinolone acet 0.1% cream 15gm TP SCH ×2 (07:37→19:58)
[2021-09-24 08:00] VITALS: BP 153/56
[2021-09-24 11:00] VITALS: BP 148/70
--- NOTE | 2021-09-24 15:16 | NUR ---
Reassessment: Pt with significant improvement in PO intake documented with 100% PO intake since 09/21. Pt seen at bedside endorses that her appetite is improving. Additional food preferences were obtained and d/w dietary, see below. Received TC from MAIRLYN regarding TF. D/w CM that RD recommends discontinuing TF given patient's significant improvement in PO intake as pt currently meeting estimated nutrient needs with PO intake alone. CM d/w who okayed discontinuing TF, CM to update EMR. Attempted TC to RN to discuss recommendation for discontinuing TF however RN unavailable, message left with another RN. LBM 09/24. Will continue to follow. Recommendations: 1. Continue low residue diet 2. [place] food preferences: milk WB, pepsi TID, no orange juice or cream of wheat 3. Bowel care per rx 4. Weekly scaled weights Addendum: 09/24/21 at [address] Amended: Links added.
--- NOTE | 2021-09-24 18:00 | NUR ---
Colostomy dressing/bag change, stoma is beefy, no sign of infection noted. Patient tolerated dressing change well
--- NOTE | 2021-09-24 18:59 | NUR ---
Problems reprioritized. Patient report given, questions answered & plan of care reviewed with Carine BREWER.
--- NOTE | 2021-09-24 19:30 | NUR ---
Patient in room [facility]. I have received report from Imani BREWER and had the opportunity to ask questions and assume patient care.
[2021-09-24] MEDS: magnesium 2GM in 50ml NS 50 ML IV PRN (19:55)
[2021-09-24 20:00] VITALS: BP 149/77
[2021-09-25] MEDS: HYDROcodone/acetaminophen 10/325mg tab PO PRN ×4 (00:13→23:29)
[2021-09-25] MEDS: ipratropium/albuterol 3ml nebule IH SCH ×6 (02:55→23:00)
[2021-09-25] MEDS: LORazepam 2 mg/ml vial IV PRN ×2 (03:00→20:18)
[2021-09-25 06:18] LABS: BASOPHILS # (AUTO) 0.1 X10'3 (0-0.2); BASOPHILS % (AUTO) 0.6 % (0-1); EOSINOPHILS # (AUTO) 0.3 X10'3 (0-0.9); EOSINOPHILS % (AUTO) 2.8 % (0-6); HEMATOCRIT 30.3 % (35.0-45.0); LYMPHOCYTES # (AUTO) 1.8 X10'3 (1.1-4.8); LYMPHOCYTES % (AUTO) 19.2 % (21-51); MEAN CORPUSCULAR HEMOGLOBIN 30.1 PG (27.0-31.0); MEAN CORPUSCULAR HGB CONC 33.1 g/dL (33.0-36.5); MEAN CORPUSCULAR VOLUME 90.8 FL (78-98); MEAN PLATELET VOLUME 8.1 FL (7.4-10.4); MONOCYTES # (AUTO) 0.8 X10'3 (0-0.9); MONOCYTES % (AUTO) 8.9 % (2-12); NEUTROPHILS # (AUTO) 6.4 X10'3 (1.8-7.7); NEUTROPHILS % (AUTO) 68.5 % (42-75); PLATELET COUNT 242 X10'3 (140-440); RED BLOOD COUNT 3.34 X10'6 (4.20-5.60); RED CELL DISTRIBUTION WIDTH 16.5 % (11.5-14.5); WHITE BLOOD COUNT 9.3 X10'3 (4.5-11.0)
--- NOTE | 2021-09-25 06:34 | NUR ---
Problems reprioritized. Patient report given, questions answered & plan of care reviewed with Imani BREWER.
--- NOTE | 2021-09-25 06:43 | NUR ---
Patient in room [facility]. I have received report from Carine BREWER and had the opportunity to ask questions and assume patient care.
[2021-09-25 06:50] LABS: ALANINE AMINOTRANSFERASE 27 U/L (12-78); ALBUMIN 2.6 G/DL (3.4-5.0); ALBUMIN/GLOBULIN RATIO 0.7 (1.1-1.5); ALKALINE PHOSPHATASE 135 IU/L (46-116); ANION GAP 6 (8-16); ASPARTATE AMINO TRANSFERASE 20 U/L (10-37); BILIRUBIN,TOTAL 0.4 MG/DL (0.1-1.0); BLOOD UREA NITROGEN 37 MG/DL (7-18); CALCIUM 8.8 MG/DL (8.5-10.1); CHLORIDE 102 MMOL/L (99-107); CREATININE 0.88 MG/DL (0.40-0.90); GLUCOSE 115 MG/DL (70-104); MAGNESIUM 1.6 MG/DL (1.5-2.4); PHOSPHORUS 4.4 MG/DL (2.3-4.5); POTASSIUM 4.2 MMOL/L (3.5-5.1); SODIUM 138 MMOL/L (135-145); TOTAL CARBON DIOXIDE 29.9 MMOL/L (24-32); TOTAL PROTEIN 6.3 G/DL (6.4-8.2); eGFR 64 ML/MIN
[2021-09-25 08:00] VITALS: BP 158/81
[2021-09-25] MEDS: K and/or MAG REPLACEMENT MC SCH ×2 (08:00→20:00)
[2021-09-25] MEDS: heparin, porcine 5000 units/ml vial SQ SCH ×2 (08:15→20:51)
[2021-09-25] MEDS: pantoprazole 40 MG vial IV SCH (08:15)
[2021-09-25] MEDS: furosemide 20 MG/2 ML vial IV SCH (08:15)
[2021-09-25] MEDS: metoprolol succinate 25mg (24-HOUR) SR. Tablet PO SCH (08:16)
[2021-09-25] MEDS: triamcinolone acet 0.1% cream 15gm TP SCH ×2 (08:17→20:00)
[2021-09-25] MEDS: atorvastatin 20mg tablet PEG SCH (08:17)
[2021-09-25 12:00] VITALS: BP 93/74
--- NOTE | 2021-09-25 16:30 | NUR ---
Problems reprioritized. Patient report given, questions answered & plan of care reviewed with Jerald BREWER.
[2021-09-25 20:00] VITALS: BP 147/58
[2021-09-26] VITALS: BP 129/57
[2021-09-26] MEDS: LORazepam 2 mg/ml vial IV PRN ×2 (02:54→20:14)
[2021-09-26] MEDS: ipratropium/albuterol 3ml nebule IH SCH ×6 (03:23→23:00)
--- NOTE | 2021-09-26 06:23 | NUR ---
Patient in room [facility]. I have received report from Jerald BREWER and had the opportunity to ask questions and assume patient care.
[2021-09-26] MEDS: metoprolol succinate 25mg (24-HOUR) SR. Tablet PO SCH (07:36)
[2021-09-26] MEDS: pantoprazole 40mg Tablet.DR PO SCH (07:37)
[2021-09-26] MEDS: atorvastatin 20mg tablet PEG SCH (07:37)
[2021-09-26] MEDS: furosemide 20 MG/2 ML vial IV SCH (07:38)
[2021-09-26] MEDS: HYDROcodone/acetaminophen 10/325mg tab PO PRN ×3 (07:38→16:04)
[2021-09-26] MEDS: heparin, porcine 5000 units/ml vial SQ SCH ×2 (07:39→20:18)
[2021-09-26] MEDS: K and/or MAG REPLACEMENT MC SCH ×2 (07:40→20:00)
[2021-09-26] MEDS: triamcinolone acet 0.1% cream 15gm TP SCH ×2 (07:40→20:00)
[2021-09-26 08:00] VITALS: BP 146/61
[2021-09-26] MEDS: guaiFENesin/DM 10ml UD oral syrup PEG PRN (09:54)
[2021-09-26 11:00] VITALS: BP 142/75
--- NOTE | 2021-09-26 18:18 | NUR ---
Problems reprioritized. Patient report given, questions answered & plan of care reviewed with Jerald BREWER.
[2021-09-26 20:00] VITALS: BP 104/53
[2021-09-27] VITALS: BP 160/72
[2021-09-27] MEDS: LORazepam 2 mg/ml vial IV PRN (00:14)
[2021-09-27] MEDS: ipratropium/albuterol 3ml nebule IH SCH ×5 (02:39→20:14)
[2021-09-27] MEDS: pantoprazole 40mg Tablet.DR PO SCH (07:50)
[2021-09-27] MEDS: atorvastatin 20mg tablet PEG SCH (07:50)
[2021-09-27] MEDS: metoprolol succinate 25mg (24-HOUR) SR. Tablet PO SCH (07:52)
[2021-09-27] MEDS: HYDROcodone/acetaminophen 10/325mg tab PO PRN ×3 (07:53→23:54)
[2021-09-27] MEDS: furosemide 20 MG/2 ML vial IV SCH (07:58)
[2021-09-27] MEDS: heparin, porcine 5000 units/ml vial SQ SCH ×2 (07:58→20:24)
[2021-09-27 08:00] VITALS: BP 157/61
[2021-09-27] MEDS: K and/or MAG REPLACEMENT MC SCH ×2 (08:00→19:29)
--- NOTE | 2021-09-27 09:00 | NUR ---
Student documentation: I have reviewed and agree with all interventions, assessments performed and documented by González [employer] Student.
[2021-09-27] MEDS: triamcinolone acet 0.1% cream 15gm TP SCH ×2 (10:27→20:00)
[2021-09-27 11:00] VITALS: BP 154/81
[2021-09-27] MEDS: LORazepam 1 MG tablet PO PRN ×2 (13:27→20:27)
[2021-09-27 18:00] VITALS: BP 142/82
--- NOTE | 2021-09-27 18:30 | NUR ---
Patient in room [facility]. I have received report from OSMAN Dunham and had the opportunity to ask questions and assume patient care with KEELEY Student Leonor. Addendum: 09/28/21 at 0006 by Paras Koo RN Amended: Links added.
--- NOTE | 2021-09-27 18:44 | NUR ---
Problems reprioritized. Patient report given, questions answered & plan of care reviewed with Dulce BREWER.
--- NOTE | 2021-09-27 22:00 | NUR ---
REVIEWED G STUDENT ASSESSMENT. AGREE WITH ASSESSMENT Addendum: 09/28/21 at 0404 by Paras Koo RN Amended: Links added.
--- NOTE | 2021-09-27 23:20 | NUR ---
picc DRESSING CHANGE DONE WITH STUDENT. HANK LANZA. Addendum: 09/28/21 at 0519 by Paras Koo RN Amended: Links added.
[2021-09-28] VITALS: BP 141/62
[2021-09-28] MEDS: ipratropium/albuterol 3ml nebule IH SCH ×6 (02:15→23:00)
--- NOTE | 2021-09-28 05:13 | NUR ---
Student documentation: I have reviewed and agree with all interventions, assessments performed and documented by CHAPIS. ALL INTERVENTIONS SUPERVISED Addendum: 09/28/21 at 0514 by Paras Koo RN Amended: Links added.
--- NOTE | 2021-09-28 06:06 | NUR ---
Problems reprioritized. Patient report given, questions answered & plan of care reviewed with OSMAN Dunham.
--- NOTE | 2021-09-28 06:54 | NUR ---
Patient in room [facility]. I have received report from Dulce BREWER and had the opportunity to ask questions and assume patient care.
[2021-09-28 07:00] VITALS: BP 150/81
[2021-09-28] MEDS: furosemide 20 MG/2 ML vial IV SCH (07:31)
[2021-09-28] MEDS: pantoprazole 40mg Tablet.DR PO SCH (07:31)
[2021-09-28] MEDS: atorvastatin 20mg tablet PEG SCH (07:33)
[2021-09-28] MEDS: HYDROcodone/acetaminophen 10/325mg tab PO PRN ×3 (07:34→23:25)
[2021-09-28] MEDS: metoprolol succinate 25mg (24-HOUR) SR. Tablet PO SCH (07:34)
[2021-09-28] MEDS: triamcinolone acet 0.1% cream 15gm TP SCH ×2 (07:35→19:30)
[2021-09-28] MEDS: heparin, porcine 5000 units/ml vial SQ SCH ×2 (07:36→19:30)
[2021-09-28] MEDS: K and/or MAG REPLACEMENT MC SCH ×2 (08:00→19:26)
[2021-09-28 11:00] VITALS: BP 166/82
--- NOTE | 2021-09-28 12:50 | NUR ---
PAGER ID: [phone] MESSAGE: Rachele Chavis 340B - Pt has not had labs since 09/25. Can we add CBC/CMP please. Last labs were 09/25, WBC 9.3 on 09/25. Thank you. Sandra data processing consultant [id number].
[2021-09-28] MEDS: LORazepam 1 MG tablet PO PRN ×2 (16:22→21:04)
[2021-09-28 18:00] VITALS: BP 141/67
--- NOTE | 2021-09-28 18:55 | NUR ---
Patient in room [facility]. I have received report from OSMAN Dunham and had the opportunity to ask questions and assume patient care.
--- NOTE | 2021-09-28 19:37 | NUR ---
Student documentation: I have reviewed and agree with all interventions, assessments performed and documented by González [facility] student.
[2021-09-29] VITALS: BP 157/73
[2021-09-29] MEDS: ipratropium/albuterol 3ml nebule IH SCH ×6 (03:44→23:29)
[2021-09-29] MEDS: HYDROcodone/acetaminophen 10/325mg tab PO PRN ×3 (04:55→19:22)
--- NOTE | 2021-09-29 06:00 | NUR ---
Patient in room [facility]. I have received report from Marlena Morrissey and had the opportunity to ask questions and assume patient care.
[2021-09-29 06:20] LABS: BASOPHILS % (AUTO) 0.4 % (0-1); EOSINOPHILS # (AUTO) 0.3 X10'3 (0-0.9); EOSINOPHILS % (AUTO) 2.9 % (0-6); LYMPHOCYTES # (AUTO) 1.7 X10'3 (1.1-4.8); LYMPHOCYTES % (AUTO) 19.2 % (21-51); MEAN CORPUSCULAR HEMOGLOBIN 30.3 PG (27.0-31.0); MEAN CORPUSCULAR HGB CONC 33.4 g/dL (33.0-36.5); MEAN CORPUSCULAR VOLUME 90.7 FL (78-98); MEAN PLATELET VOLUME 7.9 FL (7.4-10.4); MONOCYTES # (AUTO) 0.7 X10'3 (0-0.9); MONOCYTES % (AUTO) 7.8 % (2-12); NEUTROPHILS # (AUTO) 6.1 X10'3 (1.8-7.7); NEUTROPHILS % (AUTO) 69.7 % (42-75); PLATELET COUNT 248 X10'3 (140-440); RED BLOOD COUNT 3.64 X10'6 (4.20-5.60); RED CELL DISTRIBUTION WIDTH 16.5 % (11.5-14.5); WHITE BLOOD COUNT 8.8 X10'3 (4.5-11.0)
--- NOTE | 2021-09-29 06:35 | NUR ---
Problems reprioritized. Patient report given, questions answered & plan of care reviewed with OSMAN Clement.
[2021-09-29 06:48] LABS: ALANINE AMINOTRANSFERASE 28 U/L (12-78); ALBUMIN 2.7 G/DL (3.4-5.0); ALBUMIN/GLOBULIN RATIO 0.7 (1.1-1.5); ALKALINE PHOSPHATASE 136 IU/L (46-116); ANION GAP 6 (8-16); ASPARTATE AMINO TRANSFERASE 21 U/L (10-37); BILIRUBIN,TOTAL 0.5 MG/DL (0.1-1.0); BLOOD UREA NITROGEN 30 MG/DL (7-18); BUN/CREATININE RATIO 24.4 (6.6-38.0); CALCIUM 7.6 MG/DL (8.5-10.1); CHLORIDE 102 MMOL/L (99-107); CREATININE 1.23 MG/DL (0.40-0.90); GLUCOSE 126 MG/DL (70-104); POTASSIUM 3.8 MMOL/L (3.5-5.1); SODIUM 137 MMOL/L (135-145); TOTAL PROTEIN 6.7 G/DL (6.4-8.2); eGFR 43 ML/MIN
[2021-09-29 06:52] LABS: MAGNESIUM 0.8 MG/DL (1.5-2.4)
--- NOTE | 2021-09-29 06:56 | NUR ---
CRITICAL MAG 0.8, DR HURTADO CALLED DR ANDRÉS DUCKWORTH, AWAITING CALL BACK
--- NOTE | 2021-09-29 06:57 | NUR ---
Patient in room [facility]. I have received report from OSMAN LEVY and had the opportunity to ask questions and assume patient care. Addendum: 09/29/21 at 0725 by Rocky Warren - JOYCE -NU Patient in room [facility]. I have received report from Osman Clement and had the opportunity to ask questions and assume patient care.
[2021-09-29 07:00] VITALS: BP 126/66
[2021-09-29] MEDS ORDERED: potassium Cl 40MEQ/1/2NS 520ml 520 ML IV PRN (07:00)
[2021-09-29] MEDS ORDERED: magnesium 4gm in 100ml NS 100 ML IV PRN (07:00)
[2021-09-29] MEDS ORDERED: potassium Cl 20 mEq SR tablet PO PRN ×2 (07:00)
[2021-09-29 07:46] VITALS: BP 137/72
[2021-09-29] MEDS: K and/or MAG REPLACEMENT MC SCH ×2 (08:00→18:32)
[2021-09-29] MEDS: pantoprazole 40mg Tablet.DR PO SCH (08:18)
[2021-09-29] MEDS: atorvastatin 20mg tablet PEG SCH (08:19)
[2021-09-29] MEDS: metoprolol succinate 25mg (24-HOUR) SR. Tablet PO SCH (08:22)
[2021-09-29] MEDS: magnesium Cl slow-release 64mg tablet PO PRN ×2 (08:23→20:49)
[2021-09-29] MEDS: heparin, porcine 5000 units/ml vial SQ SCH ×2 (08:24→19:22)
[2021-09-29] MEDS: triamcinolone acet 0.1% cream 15gm TP SCH ×2 (08:25→19:23)
[2021-09-29] MEDS: furosemide 20 MG/2 ML vial IV SCH (09:11)
[2021-09-29 11:00] VITALS: BP 144/81
--- NOTE | 2021-09-29 11:10 | NUR ---
acting as clinical nursing informatics clinical analyst, i reviewed student nurse charting
[2021-09-29] MEDS: magnesium 2GM in 50ml NS 50 ML IV PRN (11:37)
--- NOTE | 2021-09-29 12:35 | NUR ---
PT EDUCATED ON HOW TO DRAIN COLOSTOMY BAG. PT EDUCATED ON HOW TO REMOVE, CLEAN AND INSTALL NEW APPLIANCE. , WHO DOES DRAINING AND CHANGING OF APPLIANCE WAS PRESENT. QUESTIONS WERE ANSWERED.
--- NOTE | 2021-09-29 12:37 | NUR ---
Problems reprioritized. Patient report given, questions answered & plan of care reviewed with MADELIN Summers student nurse.
[2021-09-29] MEDS: LORazepam 1 MG tablet PO PRN ×2 (13:30→20:49)
[2021-09-29 14:23] VITALS: BP 122/57
--- NOTE | 2021-09-29 18:13 | NUR ---
GAVE REPORT OSMAN WELLS
--- NOTE | 2021-09-29 18:32 | NUR ---
Problems reprioritized. Patient report given, questions answered & plan of care reviewed with OSMAN MORGAN.
[2021-09-29 20:00] VITALS: BP 137/67
[2021-09-30] VITALS: BP 154/70
[2021-09-30] MEDS: HYDROcodone/acetaminophen 10/325mg tab PO PRN ×6 (02:19→22:14)
[2021-09-30] MEDS: ipratropium/albuterol 3ml nebule IH SCH ×6 (02:52→23:18)
--- NOTE | 2021-09-30 06:17 | NUR ---
Problems reprioritized. Patient report given, questions answered & plan of care reviewed with OSMAN Gilmore.
[2021-09-30 06:47] LABS: BASOPHILS # (AUTO) 0.1 X10'3 (0-0.2); BASOPHILS % (AUTO) 0.5 % (0-1); EOSINOPHILS # (AUTO) 0.3 X10'3 (0-0.9); EOSINOPHILS % (AUTO) 2.6 % (0-6); HEMATOCRIT 35.3 % (35.0-45.0); HEMOGLOBIN 11.7 g/dl (12.0-16.0); LYMPHOCYTES # (AUTO) 1.8 X10'3 (1.1-4.8); LYMPHOCYTES % (AUTO) 18.4 % (21-51); MEAN CORPUSCULAR HEMOGLOBIN 30.2 PG (27.0-31.0); MEAN CORPUSCULAR HGB CONC 33.3 g/dL (33.0-36.5); MEAN CORPUSCULAR VOLUME 90.8 FL (78-98); MEAN PLATELET VOLUME 7.9 FL (7.4-10.4); MONOCYTES # (AUTO) 0.7 X10'3 (0-0.9); MONOCYTES % (AUTO) 6.7 % (2-12); NEUTROPHILS % (AUTO) 71.8 % (42-75); PLATELET COUNT 268 X10'3 (140-440); RED BLOOD COUNT 3.89 X10'6 (4.20-5.60); RED CELL DISTRIBUTION WIDTH 16.4 % (11.5-14.5); WHITE BLOOD COUNT 9.8 X10'3 (4.5-11.0)
[2021-09-30] MEDS: pantoprazole 40mg Tablet.DR PO SCH (07:21)
[2021-09-30 07:22] LABS: ALANINE AMINOTRANSFERASE 29 U/L (12-78); ALBUMIN 2.9 G/DL (3.4-5.0); ALBUMIN/GLOBULIN RATIO 0.7 (1.1-1.5); ALKALINE PHOSPHATASE 140 IU/L (46-116); ANION GAP 11 (8-16); ASPARTATE AMINO TRANSFERASE 23 U/L (10-37); BILIRUBIN,TOTAL 0.4 MG/DL (0.1-1.0); BLOOD UREA NITROGEN 32 MG/DL (7-18); CALCIUM 7.7 MG/DL (8.5-10.1); CHLORIDE 100 MMOL/L (99-107); CREATININE 1.39 MG/DL (0.40-0.90); GLUCOSE 162 MG/DL (70-104); POTASSIUM 3.9 MMOL/L (3.5-5.1); SODIUM 136 MMOL/L (135-145); TOTAL CARBON DIOXIDE 24.7 MMOL/L (24-32); TOTAL PROTEIN 7.1 G/DL (6.4-8.2); eGFR 37 ML/MIN
[2021-09-30] MEDS: metoprolol succinate 25mg (24-HOUR) SR. Tablet PO SCH (07:22)
[2021-09-30] MEDS: heparin, porcine 5000 units/ml vial SQ SCH ×2 (07:25→19:52)
[2021-09-30] MEDS: furosemide 20 MG/2 ML vial IV SCH (07:25)
[2021-09-30] MEDS: atorvastatin 20mg tablet PEG SCH (07:26)
[2021-09-30] MEDS: triamcinolone acet 0.1% cream 15gm TP SCH ×2 (07:26→19:52)
[2021-09-30] MEDS: magnesium 2GM in 50ml NS 50 ML IV PRN (07:34)
--- NOTE | 2021-09-30 07:52 | NUR ---
PAGER ID: [phone] MESSAGE: Deirdre-Surg [phone] Re: Partha 340B Mg 1.0 replacing per protocol
[2021-09-30 08:00] VITALS: BP 137/54
[2021-09-30] MEDS: K and/or MAG REPLACEMENT MC SCH ×2 (08:00→19:48)
--- NOTE | 2021-09-30 09:24 | NUR ---
pt. not available for morning svn. tx not given
[2021-09-30 11:33] VITALS: BP 145/70
[2021-09-30] MEDS ORDERED: LOSA50TA64 PO (11:48)
[2021-09-30] MEDS ORDERED: POTA10TA37 PO (11:48)
[2021-09-30] MEDS ORDERED: MAGN400C PO ×2 (11:48)
--- NOTE | 2021-09-30 13:02 | NUR ---
PAGER ID: [phone] MESSAGE: Deirdre Surg [phone] Re: 40B Partha per PT patient has 6 steps at home and is unable to do more than 3 they feel not ready for discharge.
--- NOTE | 2021-09-30 13:34 | NUR ---
Reassessment: Pt continues eating well with mostly 75-100% PO intake. Pt receiving PRN mag replacement for low serum mag. LBM 09/30. No nutrition intervention implemented at this time. Will continue to follow. Recommendations: 1. Continue low residue diet 2. [place] food preferences: milk WB, pepsi TID, no orange juice or cream of wheat 3. Bowel care per rx 4. Weekly scaled weights Addendum: 09/30/21 at [address] Amended: Links added.
[2021-09-30 15:52] LABS: MAGNESIUM 3.2 MG/DL (1.5-2.4); POTASSIUM 4.1 MMOL/L (3.5-5.1)
--- NOTE | 2021-09-30 18:56 | NUR ---
Patient in room [facility]. I have received report from Deirdre BREWER and had the opportunity to ask questions and assume patient care.
--- NOTE | 2021-09-30 19:46 | NUR ---
Problems reprioritized. Patient report given, questions answered & plan of care reviewed with Gaby BREWER.
[2021-09-30 20:00] VITALS: BP 144/66
[2021-09-30] MEDS: LORazepam 1 MG tablet PO PRN (20:09)
[2021-10-01] VITALS: BP 137/68
[2021-10-01] MEDS: LORazepam 1 MG tablet PO PRN (01:11)
[2021-10-01] MEDS: ipratropium/albuterol 3ml nebule IH SCH ×4 (02:51→14:45)
[2021-10-01] MEDS: HYDROcodone/acetaminophen 10/325mg tab PO PRN ×3 (05:22→13:00)
[2021-10-01 05:57] LABS: BASOPHILS # (AUTO) 0.1 X10'3 (0-0.2); BASOPHILS % (AUTO) 0.6 % (0-1); EOSINOPHILS # (AUTO) 0.4 X10'3 (0-0.9); EOSINOPHILS % (AUTO) 3.2 % (0-6); HEMATOCRIT 36.8 % (35.0-45.0); HEMOGLOBIN 12.3 g/dl (12.0-16.0); LYMPHOCYTES # (AUTO) 2.5 X10'3 (1.1-4.8); LYMPHOCYTES % (AUTO) 21.4 % (21-51); MEAN CORPUSCULAR HEMOGLOBIN 30.2 PG (27.0-31.0); MEAN CORPUSCULAR HGB CONC 33.5 g/dL (33.0-36.5); MEAN CORPUSCULAR VOLUME 90.2 FL (78-98); MEAN PLATELET VOLUME 7.8 FL (7.4-10.4); MONOCYTES # (AUTO) 0.7 X10'3 (0-0.9); MONOCYTES % (AUTO) 6.4 % (2-12); NEUTROPHILS # (AUTO) 7.9 X10'3 (1.8-7.7); NEUTROPHILS % (AUTO) 68.4 % (42-75); PLATELET COUNT 307 X10'3 (140-440); RED BLOOD COUNT 4.08 X10'6 (4.20-5.60); WHITE BLOOD COUNT 11.5 X10'3 (4.5-11.0)
[2021-10-01 06:26] LABS: ALANINE AMINOTRANSFERASE 27 U/L (12-78); ALBUMIN/GLOBULIN RATIO 0.7 (1.1-1.5); ALKALINE PHOSPHATASE 160 IU/L (46-116); ANION GAP 13 (8-16); ASPARTATE AMINO TRANSFERASE 20 U/L (10-37); BILIRUBIN,TOTAL 0.5 MG/DL (0.1-1.0); BLOOD UREA NITROGEN 33 MG/DL (7-18); BUN/CREATININE RATIO 29.2 (6.6-38.0); CALCIUM 8.6 MG/DL (8.5-10.1); CHLORIDE 100 MMOL/L (99-107); CREATININE 1.13 MG/DL (0.40-0.90); GLUCOSE 131 MG/DL (70-104); MAGNESIUM 2.4 MG/DL (1.5-2.4); POTASSIUM 4.2 MMOL/L (3.5-5.1); SODIUM 137 MMOL/L (135-145); TOTAL CARBON DIOXIDE 24.5 MMOL/L (24-32); TOTAL PROTEIN 7.5 G/DL (6.4-8.2); eGFR 48 ML/MIN
--- NOTE | 2021-10-01 06:34 | NUR ---
Problems reprioritized. Patient report given, questions answered & plan of care reviewed with Melissa BREWER.
[2021-10-01] MEDS: furosemide 20 MG/2 ML vial IV SCH (08:00)
[2021-10-01] MEDS: pantoprazole 40mg Tablet.DR PO SCH (08:00)
[2021-10-01] MEDS: heparin, porcine 5000 units/ml vial SQ SCH (08:00)
[2021-10-01] MEDS: K and/or MAG REPLACEMENT MC SCH (08:00)
[2021-10-01] MEDS: metoprolol succinate 25mg (24-HOUR) SR. Tablet PO SCH (08:00)
[2021-10-01] MEDS: atorvastatin 20mg tablet PEG SCH (08:00)
[2021-10-01] MEDS: triamcinolone acet 0.1% cream 15gm TP SCH (08:02)
[2021-10-01] MEDS: LORazepam 2 mg/ml vial IV PRN (10:45)
== END 2021-10-01 16:00 | disposition home health service (06) | DRG 326 ==
LOC: UNDOADMIN 05:13 → PAS IN 05:13 → SUR 3N 16:25 → PAS IN 16:25 → PCU 3S 07-30 11:45 → ICU 2S 08-05 02:09 → SUR 3N 08-28 12:56
PROVIDERS: ADMIT Surgery; ATTEND Family Medicine
PROC: 0WJF4ZZ Inspection of Abdominal Wall, Percutaneous Endoscopic Approach (ICD-10-PCS; 2021-07-29)
PROC: 0DTL0ZZ Resection of Transverse Colon, Open Approach (ICD-10-PCS; 2021-07-29)
PROC: 0D1L0Z4 Bypass Transverse Colon to Cutaneous, Open Approach (ICD-10-PCS; 2021-07-29)
PROC: 0T788DZ Dilation of Bilateral Ureters with Intraluminal Device, Via Natural or Artificial Opening Endoscopic (ICD-10-PCS; 2021-07-29)
PROC: 8E0W4CZ Robotic Assisted Procedure of Trunk Region, Percutaneous Endoscopic Approach (ICD-10-PCS; 2021-07-29)
PROC: 0WQF0ZZ Repair Abdominal Wall, Open Approach (ICD-10-PCS; principal; 2021-07-29 07:43)
PROC: 5A09357 Assistance with Respiratory Ventilation, Less than 24 Consecutive Hours, Continuous Positive Airway Pressure (ICD-10-PCS; 2021-08-02)
PROC: 5A09357 Assistance with Respiratory Ventilation, Less than 24 Consecutive Hours, Continuous Positive Airway Pressure (ICD-10-PCS; 2021-08-03)
PROC: 5A09357 Assistance with Respiratory Ventilation, Less than 24 Consecutive Hours, Continuous Positive Airway Pressure (ICD-10-PCS; 2021-08-04)
PROC: 5A12012 Performance of Cardiac Output, Single, Manual (ICD-10-PCS; 2021-08-05)
PROC: 5A1955Z Respiratory Ventilation, Greater than 96 Consecutive Hours (ICD-10-PCS; 2021-08-05)
PROC: 0BH17EZ Insertion of Endotracheal Airway into Trachea, Via Natural or Artificial Opening (ICD-10-PCS; 2021-08-05)
PROC: 06HY33Z Insertion of Infusion Device into Lower Vein, Percutaneous Approach (ICD-10-PCS; 2021-08-05)
PROC: 0WQF0ZZ Repair Abdominal Wall, Open Approach (ICD-10-PCS; 2021-08-07)
PROC: 02HV33Z Insertion of Infusion Device into Superior Vena Cava, Percutaneous Approach (ICD-10-PCS; 2021-08-07)
PROC: B548ZZA Ultrasonography of Superior Vena Cava, Guidance (ICD-10-PCS; 2021-08-07)
PROC: 0BH17EZ Insertion of Endotracheal Airway into Trachea, Via Natural or Artificial Opening (ICD-10-PCS; 2021-08-18)
PROC: 5A1955Z Respiratory Ventilation, Greater than 96 Consecutive Hours (ICD-10-PCS; 2021-08-18)
PROC: 0BQT0ZZ Repair Diaphragm, Open Approach (ICD-10-PCS; 2021-08-24)
PROC: 0DQ60ZZ Repair Stomach, Open Approach (ICD-10-PCS; 2021-08-24)
PROC: 0DHA0UZ Insertion of Feeding Device into Jejunum, Open Approach (ICD-10-PCS; 2021-08-24)
DX: Z43.3 Encounter for attention to colostomy (principal); A41.9 Sepsis, unspecified organism; S22.49XA Multiple fractures of ribs, unspecified side, initial encounter for closed fracture; I46.9 Cardiac arrest, cause unspecified; J69.0 Pneumonitis due to inhalation of food and vomit; J96.01 Acute respiratory failure with hypoxia; J96.02 Acute respiratory failure with hypercapnia; R65.20 Severe sepsis without septic shock; E43 Unspecified severe protein-calorie malnutrition; K43.0 Incisional hernia with obstruction, without gangrene; E66.2 Morbid (severe) obesity with alveolar hypoventilation; I47.2 Ventricular tachycardia; Z68.41 Body mass index [BMI] 40.0-44.9, adult; J90 Pleural effusion, not elsewhere classified; E87.0 Hyperosmolality and hypernatremia; N17.9 Acute kidney failure, unspecified; Y84.8 Other medical procedures as the cause of abnormal reaction of the patient, or of later complication, without mention of misadventure at the time of the procedure; K66.0 Peritoneal adhesions (postprocedural) (postinfection); D64.9 Anemia, unspecified; E11.22 Type 2 diabetes mellitus with diabetic chronic kidney disease; J44.9 Chronic obstructive pulmonary disease, unspecified; E11.42 Type 2 diabetes mellitus with diabetic polyneuropathy; F41.9 Anxiety disorder, unspecified; I12.9 Hypertensive chronic kidney disease with stage 1 through stage 4 chronic kidney disease, or unspecified chronic kidney disease; I48.91 Unspecified atrial fibrillation; E78.5 Hyperlipidemia, unspecified; K21.9 Gastro-esophageal reflux disease without esophagitis; K43.5 Parastomal hernia without obstruction or gangrene; K44.9 Diaphragmatic hernia without obstruction or gangrene; N18.30 Chronic kidney disease, stage 3 unspecified; E87.5 Hyperkalemia; E83.42 Hypomagnesemia; Y92.230 Patient room in hospital as the place of occurrence of the external cause; I95.9 Hypotension, unspecified; I16.0 Hypertensive urgency; N89.8 Other specified noninflammatory disorders of vagina; B37.3 Candidiasis of vulva and vagina; G89.29 Other chronic pain; M25.572 Pain in left ankle and joints of left foot; Z78.1 Physical restraint status; Z80.9 Family history of malignant neoplasm, unspecified; Z82.49 Family history of ischemic heart disease and other diseases of the circulatory system; Z79.899 Other long term (current) drug therapy
CPT/HCPCS: 31645; 36573; 93308; Z7506; Z7508; 36415; 36600; 71045; 71046; 74018; 74176; 76770; 80047; 80048; 80053; 80202; 81001; 82570; 82803; 82948; 83036; 83605; 83735; 84075; 84100; 84132; 84134; 84145; 84156; 84300; 84443; 84478; 84484; 85007; 85008; 85018; 85025; 85610; 85730; 86885; 86900; 86901; 87040; 87070; 87077; 87081; 87088; 87186; 87207; 88307; 92508; 92616; 93005; 94002; 94003; 94640; 94660; 94667; 94668; 94760; 94799; 97110; 97116; 97161; 97164; 97530; 97535; A4215; A4618; A6258; A6402; A6449; A6550; A7000; B4087; C1758; C1769; C9113; C9290; C9399; G0378; J0131; J0330; J0360; J0692; J0694; J0780; J1100; J1170; J1450; J1644; J1650; J1756; J1815; J1940; J2001; J2060; J2175; J2212; J2250; J2270; J2405; J2543; J2704; J2710; J3010; J3370; J3475; J3480; J3490; J7030; J7040; J7050; J7060; J7070; J7120; J8597; P9045; Q9963; U0003; U0005

== ENCOUNTER 2021-10-04 20:16 | Inpatient (IN) | payer MEDICARE ==
[~2021-10-04] VITALS: Ht 167.6 cm; Wt 65.1 kg
[~2021-10-04 20:16] MED LIST changes: -AMLO10TA PO; -LOSA25TA96 PO; +LOSA50TA64 PO; +MAGN400C PO; -ONDA-103 PO; +POTA10TA37 PO; -SUCR1TAB PO; -ringers solution, lacted 1,000 ML IV SCH
[2021-10-04 20:54] LABS: ALANINE AMINOTRANSFERASE 26 U/L (12-78); ALBUMIN 2.6 G/DL (3.4-5.0); ALBUMIN/GLOBULIN RATIO 0.6 (1.1-1.5); ALKALINE PHOSPHATASE 145 IU/L (46-116); ANION GAP 9 (8-16); ASPARTATE AMINO TRANSFERASE 20 U/L (10-37); BILIRUBIN,TOTAL 0.3 MG/DL (0.1-1.0); BLOOD UREA NITROGEN 33 MG/DL (7-18); BUN/CREATININE RATIO 25.6 (6.6-38.0); CALCIUM 8.8 MG/DL (8.5-10.1); CHLORIDE 100 MMOL/L (99-107); CREATININE 1.29 MG/DL (0.40-0.90); GLUCOSE 124 MG/DL (70-104); LIPASE 255 U/L (73-393); SODIUM 135 MMOL/L (135-145); TOTAL CARBON DIOXIDE 26.5 MMOL/L (24-32); TOTAL PROTEIN 6.7 G/DL (6.4-8.2); eGFR 41 ML/MIN
[2021-10-04 21:00] LABS: BASOPHILS % (AUTO) 0.5 % (0-1); EOSINOPHILS # (AUTO) 0.2 X10'3 (0-0.9); EOSINOPHILS % (AUTO) 2.7 % (0-6); HEMATOCRIT 33.4 % (35.0-45.0); HEMOGLOBIN 11.2 g/dl (12.0-16.0); LYMPHOCYTES # (AUTO) 1.8 X10'3 (1.1-4.8); LYMPHOCYTES % (AUTO) 19.5 % (21-51); MEAN CORPUSCULAR HEMOGLOBIN 30.1 PG (27.0-31.0); MEAN CORPUSCULAR HGB CONC 33.4 g/dL (33.0-36.5); MEAN CORPUSCULAR VOLUME 90.2 FL (78-98); MONOCYTES # (AUTO) 0.8 X10'3 (0-0.9); MONOCYTES % (AUTO) 8.7 % (2-12); NEUTROPHILS # (AUTO) 6.3 X10'3 (1.8-7.7); NEUTROPHILS % (AUTO) 68.6 % (42-75); PLATELET COUNT 317 X10'3 (140-440); RED BLOOD COUNT 3.71 X10'6 (4.20-5.60); RED CELL DISTRIBUTION WIDTH 15.9 % (11.5-14.5); WHITE BLOOD COUNT 9.2 X10'3 (4.5-11.0)
[2021-10-04] MEDS: MESSAGE TO NURSING PO SCH (21:00)
[2021-10-04] MEDS ORDERED: ondansetron/PF 4mg/2ml inj IV ONE (21:10)
[2021-10-04] MEDS ORDERED: normal saline 1000ML IV soln IVB ONE (21:10)
[2021-10-04] MEDS ORDERED: iohexol 300mg/ml 100ml inj. ONE (21:10)
[2021-10-04] MEDS ORDERED: HYDROmorphone 1 mg/ml syringe IV ONE (21:41)
[2021-10-04] MEDS: HYDROmorphone 1 mg/ml syringe IV PRN (21:59)
[2021-10-04] MEDS ORDERED: potassium Cl 40MEQ/1/2NS 520ml 520 ML IV PRN ×2 (23:50)
[2021-10-04] MEDS ORDERED: ondansetron/PF 4mg/2ml inj IV PRN (23:50)
[2021-10-04] MEDS ORDERED: magnesium 2GM in 50ml NS 50 ML IV PRN (23:50)
[2021-10-04] MEDS ORDERED: metoclopramide 5 mg/ml inj IV PRN (23:50)
[2021-10-04] MEDS ORDERED: magnesium 4gm in 100ml NS 100 ML IV PRN (23:50)
[2021-10-04] MEDS ORDERED: morphine 2 MG/ML inj. syringe IV PRN (23:50)
[2021-10-04] MEDS ORDERED: potassium Cl 20 mEq SR tablet PO PRN ×2 (23:50)
[2021-10-05] MEDS: HYDROmorphone 1 mg/ml syringe IV PRN ×5 (00:09→18:06)
--- NOTE | 2021-10-05 00:20 | NUR ---
Alexx cortez in [facility] - 10/05/21 at 0021 by HLASEBASTIAND pt refusing covid swab, states"I dont have covid, I dont leave my bedroom"
[2021-10-05] MEDS: normal saline 1000ml 1,000 ML IV SCH ×2 (00:27→14:00)
[2021-10-05] MEDS ORDERED: albuterol 2.5 MG/3 ML nebule NEB PRN (06:35)
--- NOTE | 2021-10-05 07:01 | NUR ---
pt up to bsc with min asst. voided x1
[2021-10-05] MEDS: K and/or MAG REPLACEMENT MC SCH ×2 (08:00→20:00)
[2021-10-05 08:45] LABS: BASOPHILS % (AUTO) 0.5 % (0-1); EOSINOPHILS # (AUTO) 0.2 X10'3 (0-0.9); EOSINOPHILS % (AUTO) 2.4 % (0-6); HEMATOCRIT 32.6 % (35.0-45.0); HEMOGLOBIN 10.9 g/dl (12.0-16.0); LYMPHOCYTES # (AUTO) 1.5 X10'3 (1.1-4.8); LYMPHOCYTES % (AUTO) 18.2 % (21-51); MEAN CORPUSCULAR HEMOGLOBIN 30.2 PG (27.0-31.0); MEAN CORPUSCULAR HGB CONC 33.5 g/dL (33.0-36.5); MEAN CORPUSCULAR VOLUME 90.1 FL (78-98); MONOCYTES # (AUTO) 0.7 X10'3 (0-0.9); NEUTROPHILS # (AUTO) 5.9 X10'3 (1.8-7.7); NEUTROPHILS % (AUTO) 70.9 % (42-75); PLATELET COUNT 282 X10'3 (140-440); RED BLOOD COUNT 3.62 X10'6 (4.20-5.60); RED CELL DISTRIBUTION WIDTH 15.7 % (11.5-14.5); WHITE BLOOD COUNT 8.4 X10'3 (4.5-11.0)
[2021-10-05 09:20] LABS: BLOOD UREA NITROGEN 32 MG/DL (7-18); BUN/CREATININE RATIO 28.1 (6.6-38.0); CALCIUM 8.8 MG/DL (8.5-10.1); CHLORIDE 103 MMOL/L (99-107); CREATININE 1.14 MG/DL (0.40-0.90); GLUCOSE 119 MG/DL (70-104); MAGNESIUM 1.1 MG/DL (1.5-2.4); POTASSIUM 4.8 MMOL/L (3.5-5.1); SODIUM 138 MMOL/L (135-145); eGFR 47 ML/MIN
[2021-10-05 09:21] LABS: ALBUMIN 2.8 G/DL (3.4-5.0); ANION GAP 10 (8-16); TOTAL CARBON DIOXIDE 25.1 MMOL/L (24-32)
--- NOTE | 2021-10-05 10:04 | NUR ---
Eliza MONACO AT BEDSIDE, PULLED GT OUT.
--- NOTE | 2021-10-05 10:05 | NUR ---
DR. MONACO ORDERED NON-INHERANT DRSG WITH TOP ANTIBOTIC OINTMENT TO BE PLACED OVER GT SITE. DONE
[2021-10-05] MEDS: metoprolol succinate 25mg (24-HOUR) SR. Tablet PO SCH (10:27)
[2021-10-05] MEDS: aspirin 81mg, enteric-coated 1 TAB TABLET.DR PO SCH (10:28)
[2021-10-05] MEDS: losartan 50mg tablet PO SCH (10:28)
[2021-10-05] MEDS: atorvastatin 20mg tablet PO SCH (10:28)
[2021-10-05] MEDS: tizanidine 4mg tablet PO PRN (10:29)
[2021-10-05] MEDS: MESSAGE TO NURSING PO SCH (20:25)
[2021-10-05] MEDS: HYDROmorphone inj. 0.5 MG/0.5 ML DISP.SYRIN IV PRN (22:06)
[2021-10-05] MEDS: gabapentin 300mg capsule PO SCH (22:07)
[2021-10-05] MEDS: prazosin 1mg capsule PO SCH (22:07)
[2021-10-05] MEDS ORDERED: mag hydrox/Alum hydrox/simeth 30ml oral suspension TOP ONE (22:15)
--- NOTE | 2021-10-05 22:32 | NUR ---
Patient wound vac not functioning. Pt turned off her wound vac. Occlusive dressing removed, area cleaned with NS and gauze. Intact skin coated with Maalox to protect skin from stomach contents. Wound covered with ABD pad and secured with tegaderm at the borders. Will continue to monitor until wound care can assess.
[2021-10-06] MEDS: K and/or MAG REPLACEMENT MC SCH ×2 (07:12→19:34)
--- NOTE | 2021-10-06 07:30 | NUR ---
Patient in room [facility]. I have received report from OSMAN Lsat and had the opportunity to ask questions and assume patient care.
--- NOTE | 2021-10-06 07:40 | NUR ---
Primary nurse asked for patient blood glucose to be checked patient blood glucose is 148
[2021-10-06] MEDS: atorvastatin 20mg tablet PO SCH (07:49)
[2021-10-06] MEDS: aspirin 81mg, enteric-coated 1 TAB TABLET.DR PO SCH (07:50)
[2021-10-06] MEDS: losartan 50mg tablet PO SCH (07:52)
[2021-10-06] MEDS: metoprolol succinate 25mg (24-HOUR) SR. Tablet PO SCH (07:53)
[2021-10-06] MEDS: HYDROmorphone 1 mg/ml syringe IV PRN ×4 (08:39→21:55)
[2021-10-06 08:55] VITALS: BP 139/76
[2021-10-06 09:53] LABS: BASOPHILS % (AUTO) 0.3 % (0-1); EOSINOPHILS # (AUTO) 0.2 X10'3 (0-0.9); EOSINOPHILS % (AUTO) 2.2 % (0-6); HEMATOCRIT 33.2 % (35.0-45.0); HEMOGLOBIN 10.9 g/dl (12.0-16.0); LYMPHOCYTES # (AUTO) 1.1 X10'3 (1.1-4.8); LYMPHOCYTES % (AUTO) 15.6 % (21-51); MEAN CORPUSCULAR HEMOGLOBIN 29.9 PG (27.0-31.0); MEAN CORPUSCULAR HGB CONC 32.7 g/dL (33.0-36.5); MEAN CORPUSCULAR VOLUME 91.3 FL (78-98); MEAN PLATELET VOLUME 8.2 FL (7.4-10.4); MONOCYTES # (AUTO) 0.6 X10'3 (0-0.9); MONOCYTES % (AUTO) 8.3 % (2-12); NEUTROPHILS # (AUTO) 5.1 X10'3 (1.8-7.7); NEUTROPHILS % (AUTO) 73.6 % (42-75); PLATELET COUNT 229 X10'3 (140-440); RED BLOOD COUNT 3.64 X10'6 (4.20-5.60); RED CELL DISTRIBUTION WIDTH 15.9 % (11.5-14.5); WHITE BLOOD COUNT 6.9 X10'3 (4.5-11.0)
--- NOTE | 2021-10-06 10:06 | NUR ---
Kamila BREWER, wound care nurse assessed patient wound. Per Kamila, patient does not need wound vac as the wound already granulating. Kamila BREWER also said that she spoke to Dr. Roberts on the phone about her wound assessment and that there's no need for wound vac placement at this time.
[2021-10-06 10:08] LABS: ALBUMIN 2.7 G/DL (3.4-5.0); ANION GAP 10 (8-16); BLOOD UREA NITROGEN 27 MG/DL (7-18); BUN/CREATININE RATIO 24.1 (6.6-38.0); CALCIUM 8.5 MG/DL (8.5-10.1); CHLORIDE 104 MMOL/L (99-107); CREATININE 1.12 MG/DL (0.40-0.90); GLUCOSE 145 MG/DL (70-104); MAGNESIUM 1.1 MG/DL (1.5-2.4); POTASSIUM 4.8 MMOL/L (3.5-5.1); SODIUM 138 MMOL/L (135-145); TOTAL CARBON DIOXIDE 24.3 MMOL/L (24-32); eGFR 48 ML/MIN
[2021-10-06] MEDS: tizanidine 4mg tablet PO PRN ×3 (11:18→21:52)
[2021-10-06 12:44] VITALS: BP 148/81
--- NOTE | 2021-10-06 12:45 | NUR ---
as clinical instructor, i reviewed student nurse documentation
[2021-10-06] MEDS ORDERED: simethicone 80mg chew tab PO SCH (13:00)
[2021-10-06] MEDS ORDERED: simethicone 80mg chew tab PO PRN (13:25)
--- NOTE | 2021-10-06 17:11 | NUR ---
Patient blood sugar is 129
[2021-10-06] MEDS ORDERED: MESSAGE TO PHARMACY PO ONE (17:40)
[2021-10-06] MEDS ORDERED: dextrose 50%-water 50ml dispensing syringe IV PRN ×2 (17:40)
[2021-10-06] MEDS ORDERED: glucagon, human recombinant 1mg kit SUBCUT PRN (17:40)
[2021-10-06] MEDS ORDERED: dextrose ORAL solution 15 GM/59 ML bottle PO PRN ×2 (17:40)
[2021-10-06] MEDS ORDERED: insulin Lispro (HumaLOG) vial - multi-dose SQ SCH (17:40)
--- NOTE | 2021-10-06 17:50 | NUR ---
Problems reprioritized. Patient report given, questions answered & plan of care reviewed with Shala BREWER.
[2021-10-06 18:30] VITALS: BP 93/38
[2021-10-06] MEDS: prazosin 1mg capsule PO SCH (19:27)
[2021-10-06] MEDS: magnesium Cl slow-release 64mg tablet PO PRN (19:30)
[2021-10-06] MEDS: gabapentin 300mg capsule PO SCH (19:31)
[2021-10-06] MEDS ORDERED: insulin glargine (Lantus) pen - multi-dose SQ SCH (21:00)
[2021-10-07] VITALS: BP 94/41
[2021-10-07 06:00] LABS: BASOPHILS % (AUTO) 0.4 % (0-1); EOSINOPHILS # (AUTO) 0.2 X10'3 (0-0.9); EOSINOPHILS % (AUTO) 2.9 % (0-6); HEMATOCRIT 28.8 % (35.0-45.0); HEMOGLOBIN 9.5 g/dl (12.0-16.0); LYMPHOCYTES # (AUTO) 1.4 X10'3 (1.1-4.8); LYMPHOCYTES % (AUTO) 17.9 % (21-51); MEAN CORPUSCULAR HEMOGLOBIN 30.2 PG (27.0-31.0); MEAN CORPUSCULAR HGB CONC 32.9 g/dL (33.0-36.5); MEAN CORPUSCULAR VOLUME 91.8 FL (78-98); MEAN PLATELET VOLUME 7.7 FL (7.4-10.4); MONOCYTES # (AUTO) 0.7 X10'3 (0-0.9); NEUTROPHILS # (AUTO) 5.3 X10'3 (1.8-7.7); NEUTROPHILS % (AUTO) 69.8 % (42-75); PLATELET COUNT 240 X10'3 (140-440); RED BLOOD COUNT 3.14 X10'6 (4.20-5.60); RED CELL DISTRIBUTION WIDTH 15.6 % (11.5-14.5); WHITE BLOOD COUNT 7.6 X10'3 (4.5-11.0)
[2021-10-07 06:12] LABS: ALBUMIN 2.5 G/DL (3.4-5.0); ANION GAP 8 (8-16); BLOOD UREA NITROGEN 36 MG/DL (7-18); BUN/CREATININE RATIO 17.6 (6.6-38.0); CALCIUM 8.2 MG/DL (8.5-10.1); CHLORIDE 105 MMOL/L (99-107); CREATININE 2.05 MG/DL (0.40-0.90); GLUCOSE 130 MG/DL (70-104); MAGNESIUM 1.3 MG/DL (1.5-2.4); POTASSIUM 5.4 MMOL/L (3.5-5.1); SODIUM 138 MMOL/L (135-145); TOTAL CARBON DIOXIDE 25.2 MMOL/L (24-32); eGFR 24 ML/MIN
--- NOTE | 2021-10-07 06:18 | NUR ---
Problems reprioritized. Patient report given, questions answered & plan of care reviewed with TAYLOR. Addendum: 10/07/21 at 0619 by Jayson Irwin RN Amended: Links added.
[2021-10-07 07:36] VITALS: BP 97/42
[2021-10-07] MEDS: losartan 50mg tablet PO SCH (07:47)
[2021-10-07] MEDS: metoprolol succinate 25mg (24-HOUR) SR. Tablet PO SCH (08:00)
[2021-10-07] MEDS: aspirin 81mg, enteric-coated 1 TAB TABLET.DR PO SCH (08:05)
[2021-10-07] MEDS: atorvastatin 20mg tablet PO SCH (08:06)
[2021-10-07] MEDS: HYDROmorphone 1 mg/ml syringe IV PRN (08:07)
[2021-10-07] MEDS: magnesium Cl slow-release 64mg tablet PO PRN (08:12)
[2021-10-07] MEDS: K and/or MAG REPLACEMENT MC SCH (08:13)
[2021-10-07] MEDS ORDERED: HYDR-3965 PO (10:53)
--- NOTE | 2021-10-07 11:26 | NUR ---
Report given to Amarilis BREWER, charge nurse.
--- NOTE | 2021-10-07 11:30 | NUR ---
Received report from OSMAN Last, and assumed care of pt.
[2021-10-07] MEDS: HYDROmorphone inj. 0.5 MG/0.5 ML DISP.SYRIN IV PRN (11:31)
--- NOTE | 2021-10-07 13:50 | NUR ---
Pt's abdominal wound dressings (lower and upper) changed per MD orders. Pt tolerated well. at bedside, aware of technique of drsg changes and detailed instructions per MD orders was written out and included in DC packet. Pt/ stated pt will have f/u at [facility] on 10/09/21, and will have [facility] f/u starting tomorrow, per MARILYN Valdivia. All dressing supplies for home drsg care were sent home w/ pt totalling at least enough for 5 drsg changes. Pt and deny questions at this time.
== END 2021-10-07 13:50 | disposition home health service (06) | DRG 919 ==
LOC: ER 20:17 → ED HOLD 23:55 → SUR 3N 10-06 07:06
PROVIDERS: ADMIT Internal Medicine; ATTEND Family Medicine
PROC: BW211ZZ Computerized Tomography (CT Scan) of Abdomen and Pelvis using Low Osmolar Contrast (ICD-10-PCS; 2021-10-04)
PROC: 0DP6XUZ Removal of Feeding Device from Stomach, External Approach (ICD-10-PCS; principal; 2021-10-05)
DX: T85.848A Pain due to other internal prosthetic devices, implants and grafts, initial encounter (principal); N17.0 Acute kidney failure with tubular necrosis; I10 Essential (primary) hypertension; E11.42 Type 2 diabetes mellitus with diabetic polyneuropathy; E78.5 Hyperlipidemia, unspecified; J44.9 Chronic obstructive pulmonary disease, unspecified; G89.29 Other chronic pain; Y83.3 Surgical operation with formation of external stoma as the cause of abnormal reaction of the patient, or of later complication, without mention of misadventure at the time of the procedure; Y92.89 Other specified places as the place of occurrence of the external cause; Z79.84 Long term (current) use of oral hypoglycemic drugs; Z88.8 Allergy status to other drugs, medicaments and biological substances; Z79.899 Other long term (current) drug therapy
CPT/HCPCS: 36415; 74177; 80048; 80053; 82948; 83690; 83735; 85025; 87081; 94760; 96374; 97161; 97530; 99285; G0378; J1170; J1815; J2270; J2405; J7030; Q9967

== ENCOUNTER 2021-10-07 18:44 | Emergency (ER) | payer MEDICARE ==
[~2021-10-07 18:44] MED LIST changes: -AMIT-189 PO; +HYDR-3965 PO; -KEN0.1O TP; -MAGN400C PO; -OMEP40CA21 PO
--- NOTE | 2021-10-07 19:52 | NUR ---
UPON ARRIVAL, PT FAMILY MEMBER ATTEMTED TO STRIKE STAFF. [employer] ESCORTED PT AND FAMILY OFF PREMESIS
== END 2021-10-07 19:54 | disposition left against medical advice (07) ==
LOC: ER 18:44
DX: R10.9 Unspecified abdominal pain (principal); Z53.21 Procedure and treatment not carried out due to patient leaving prior to being seen by health care provider